=== PATIENT | female | born 1995 | race Caucasian/White ===

== ENCOUNTER 2020-08-19 21:00 | Emergency (ER) | payer OTHER, SELFPAY ==
--- NOTE | ~2020-08-19 | XR_ITS ---
XR chest 1V portable DATE: 08/20/2020 00:30 INDICATION: Shortness of breath for 2 weeks. Cold sweats. Nausea. TECHNIQUE: Portable AP chest on 08/30/2020 at 0025 hours COMPARISON: 04/17/2016 2 view chest FINDINGS: Normal heart size. No hilar or mediastinal enlargement. No pulmonary infiltrate or consolid ation, pleural effusion or pulmonary vascular congestion or pneumothorax. IMPRESSION: No active cardiopulmonary disease Reviewed, dictated and finalized at location A.
[2020-08-19 21:09] VITALS: BP 157/101; PULSE 67; RESP 20; TEMP 36; O2SAT 99
[2020-08-19 21:23] LABS: Basophils Absolute Auto 0.1 K/mm3 (0.0-0.1); Basophils Percent Auto 0.6 % (0.2-1.2); Eosinophils Absolute Auto 0.4 K/mm3 (0-0.3); Eosinophils Percent Auto 3.2 % (0-4.4); Hematocrit 45.5 % (37.0-47.0); Hemoglobin 15.6 g/dL (12.0-15.0); Immature Granulocyte Absolute 0.03 K/mm3 (0.00-0.031); Immature Granulocyte Percent A 0.2 % (0-0.5); Lymphocytes Absolute Auto 2.53 K/mm3 (0.9-3.2); Lymphocytes Percent Auto 20.1 % (18.3-44.2); Mean Corpuscular HGB Conc 34.3 g/dl (32-36); Mean Corpuscular Hemoglobin 28.3 pg (26-34); Mean Corpuscular Volume 82.4 fl (80-100); Mean Platelet Volume 11.4 fl (7.4-10.4); Monocytes Absolute Auto 0.6 K/mm3 (0.1-0.6); Monocytes Percent Auto 4.6 % (2.6-8.5); Neutrophils Percent Auto 71.3 % (45.5-73.1); Platelet Count Result 253 k/mm3 (150-375); Red Blood Count 5.52 M/mm3 (4.2-5.4); Red Cell Distribution Width 12.8 % (11.5-14.5); White Blood Count 12.6 K/mm3 (4.5-10.0)
[2020-08-19 21:36] LABS: Alanine Aminotransferase 24 U/L (4-35); Albumin Level 4.6 g/dL (3.5-5.1); Alkaline Phosphatase 90 U/L (38-126); Anion Gap 12 mmol/L (8-16); Aspartate Amino Transferase 27 U/L (14-36); Bilirubin,Total 0.8 mg/dL (0.2-1.3); Blood Urea Nitrogen 18 mg/dL (7-17); Calcium 9.6 mg/dL (8.4-10.2); Carbon Dioxide 26 mmol/L (22-30); Chloride 104 mmol/L (98-107); Estimated Glomerular Filt Rate > 60; Glucose 103 mg/dL (65-105); Lipase 70 U/L (23-300); Potassium 3.7 mmol/L (3.4-5.0); Sodium 142 mmol/L (137-145)
--- NOTE | 2020-08-20 00:02 | ED.HA ---
HPI - Headache General Chief Complaint: Headache Stated Complaint: Cough/N/V/Dizziness Time Seen by Provider: 08/19/20 23:55 History of Present Illness HPI Narrative: Intermittent headache for the past 6 days. Constant for the past 3 days. Radiates from the neck to the top of the head. Worse with coughing. Associated with nausea and vmting. Additionally she has had SOB and wheezin. She tried albuterol inhaler without relief. No fever. Related Data Home Medications Medication Instructions Recorded Confirmed fluoxetine 40 mg DAILY 12/03/19 12/03/19 Allergies Allergy/AdvReac Type Severity Reaction Status Date / Time codeine Allergy Unknown Hives / Verified 12/03/19 12:22 Red Face Review of Systems Review of Systems: All systems reviewed & are unremarkable except as noted in HPI and below Constitutional: Constitutional: Reports chills and Denies fever(s) ENT: Denies sore throat Cardiovascular: Cardiovascular: Denies chest pain Respiratory: Respiratory: Reports chest congestion, Reports cough and Reports wheezing Gastrointestinal: Gastrointestinal: Denies abdominal pain, Reports nausea and Reports vomiting Genitourinary: Genitourinary: Denies dysuria Musculoskeletal: Musculoskeletal: Denies back pain Neurologic: Reports dizziness, Reports headache(s) and Denies weakness FORMERLY [facility], [facility] Past Medical History Medical History (Updated 08/20/20 @ 03:20 by Yandel Connolly MD) Asthma Social History Social History Gender identity (if verbalized by the patient): Female Exam Const: General: no acute distress and alert Nutritional Appearance: obese Orientation/consciousness: patient oriented x3 HENMT: Head: normal to inspection Ears: TM's normal bilaterally Face and sinus: normal facial exam Eyes: Pupils: Equal, round and reactive pupils present EOM: EOMs intact bilaterally Resp: Effort & Inspection: normal respiratory effort Auscultation: clear to auscultation bilaterally Cardio: Rate: regular rate Rhythm: regular rhythm GI: GI Palp: Yes Soft to palpation and No Tenderness to palpation present (GI) Skin: General skin exam: normal color Neuro: General: patient oriented x3, moves all extremities, no focal motor deficits and CN's II-XI intact bilaterally Cranial nerves: Yes Nystagmus not present Speech: normal speech Extrem: General: normal to inspection Course Vital Signs Vital signs: Vital Signs Temperature 36.0 C L 08/19/20 21:09 Pulse Rate 67 08/19/20 21:09 Respiratory Rate 20 08/19/20 21:09 Blood Pressure 157/101 H 08/19/20 21:09 Pulse Oximetry 99 08/19/20 21:09 Temperature 36.0 C L 08/19/20 21:09 Pulse Rate 57 L 08/20/20 02:00 Respiratory Rate 18 08/20/20 02:00 Blood Pressure 142/78 H 08/20/20 02:00 Pulse Oximetry 100 08/20/20 02:00 MDM - Headache Differential Diagnosis Differential diagnosis: Likely migraine, tension headache and other (dehydration, viral illness) Medical Records Attestation: I reviewed the patient's medical records. Lab Data Attestation: I reviewed the patient's lab results. Result diagrams: 08/19/20 21:16 08/19/20 21:16 Labs: Lab Results 08/19/20 08/19/20 08/20/20 Range/Units 21:16 21:16 02:41 WBC 12.6 H (4.5-10.0) K/mm3 RBC 5.52 H (4.2-5.4) M/mm3 Hgb 15.6 H (12.0-15.0) g/dL Hct 45.5 (37.0-47.0) % MCV 82.4 (80-100) fl MCH 28.3 (26-34) pg MCHC 34.3 (32-36) g/dl RDW 12.8 (11.5-14.5) % Plt Count 253 (150-375) k/mm3 MPV 11.4 H (7.4-10.4) fl Immature Gran % (Auto) 0.2 (0-0.5) % Neut % (Auto) 71.3 (45.5-73.1) % Lymph % (Auto) 20.1 (18.3-44.2) % [place] % (Auto) 4.6 (2.6-8.5) % Eos % (Auto) 3.2 (0-4.4) % Baso % (Auto) 0.6 (0.2-1.2) % Lymph # (Auto) 2.53 (0.9-3.2) K/mm3 [place] # (Auto) 0.6 (0.1-0.6) K/mm3 Eos # (Auto) 0.4 H (0-0.3) K/mm3 Baso # (Auto) 0.1 (0.0-0.1) K/mm3 Abs Immat Gran (auto
[2020-08-20 00:19] VITALS: RESP 18
[2020-08-20] MEDS: ALBUTEROL SULFATE NEB 2.5 MG/0.5 ML INH 5 MG INHALATION (00:19)
[2020-08-20] MEDS: IPRATROPIUM BR 0.02% INH SOLN 0.5 MG/2.5 ML VIAL INHALATION (00:19)
[2020-08-20] MEDS: SODIUM CHLORIDE 0.9% IV 1,000 ML 999 ML IV CONT (00:52)
[2020-08-20] MEDS: KETOROLAC 30 MG/ML VIAL (*BKC) IV PUSH (00:54)
[2020-08-20] MEDS: diphenhydrAMINE HCl INJ 50 MG/ML VIAL 25 MG IV PUSH (00:54)
[2020-08-20] MEDS: METOCLOPRAMIDE HCL INJ 10 MG/2 ML VIAL IV PUSH (00:54)
[2020-08-20 02:00] VITALS: BP 142/78; PULSE 57; RESP 18; O2SAT 100
[2020-08-20] MEDS: methylPREDNISolone SOD SUCC 125 MG VIAL IV PUSH (02:32)
[2020-08-20 02:59] LABS: Add Urine Microscopic? YES; Appearance Urine Clear (Clear); Bilirubin Urine Negative (Negative); Blood Urine 1+ (Negative); Color Urine Yellow (Yellow); Glucose Urine UA Negative (Negative); Ketones Urine 2+ mg/dL (Negative); Leukocyte Esterase Ur Negative LEU/UL (Negative); Mucus Urine Heavy /lpf; Nitrate Urine Negative (Negative); Protein Urine 1+ mg/dL (Negative); Squamous Epithelial Cell Urine Many /hpf (Few); Urobilinogen Urine Negative mg/dL (<2.0); WBC Urine 0-3 /hpf
[2020-08-20 03:03] LABS: Specific Grav Ur 1.032 (1.001-1.035)
[2020-08-20 03:30] VITALS: BP 137/78; PULSE 86; RESP 16; O2SAT 95
== END 2020-08-20 03:30 | disposition home or self-care (01) ==
PROVIDERS: Emergency Medicine; Emergency Provider Emergency Medicine; PCP Family Medicine
DX: R51.9 Headache, unspecified (principal); J45.901 Unspecified asthma with (acute) exacerbation
CPT/HCPCS: 36415; 71045; 80053; 81001; 81025; 83690; 85025; 94640; 96365; 96375; 99284; J0131; J1200; J1885; J2765; J2930; J7030

== ENCOUNTER 2021-02-01 14:30 | Emergency (ER) | payer OTHER, SELFPAY ==
--- NOTE | ~2021-02-01 | XR_ITS ---
EXAMINATION: XR chest 2V EXAM DATE: 02/01/2021 16:48 INDICATION: Cough and wheezing. TECHNIQUE: Frontal and lateral projections of the chest obtained and reviewed. Comparison is made to prior examination from 08/20/2020. FINDINGS: The lungs are clear. There are no pleural effusions. The cardiomediastinal silhouette is within normal limits. There is no pneumothorax suspected. The bones and soft tissues are unremarkab le. IMPRESSION: No acute cardiopulmonary findings. Reviewed, dictated and finalized at location A.
[2021-02-01 14:49] VITALS: BP 147/100; PULSE 76; RESP 18; TEMP 35.7; O2SAT 96
[2021-02-01 15:12] VITALS: O2SAT 97
[2021-02-01 16:04] VITALS: PULSE 70; RESP 20
[2021-02-01] MEDS: IPRATROPIUM BR 0.02% INH SOLN 0.5 MG/2.5 ML VIAL INHALATION (16:04)
[2021-02-01] MEDS: ALBUTEROL SULFATE NEB 2.5 MG/0.5 ML INH 5 MG INHALATION (16:04)
[2021-02-01 16:11] VITALS: PULSE 74; RESP 20
[2021-02-01] MEDS: methylPREDNISolone SOD SUCC 125 MG VIAL IM (16:29)
[2021-02-01 18:07] VITALS: BP 148/89; PULSE 76; RESP 17; O2SAT 98
--- NOTE | 2021-02-01 20:48 | ED.GENADULT ---
HPI - General Adult General Chief complaint: Upper Respiratory Infection Stated complaint: can't breathe Time Seen by Provider: 02/01/21 15:15 Source: patient Mode of arrival: ambulatory Limitations: no limitations History of Present Illness HPI narrative: Patient presents with chief complaint of wheezing and feeling some tightness in her chest with breathing that began after being exposed to cats which she is allergic to. Patient states she has been diagnosed with bronchitis in the past so she has albuterol inhaler that she has been using as needed. Patient states she is also a smoker but has been decreasing her smoke usage since having the symptoms and it seems to irritate them. Patient denies fever, chills. She states that she occasionally coughs up some clear mucus. She denies pain with inspiration or chest pain. She denies any other symptoms. Related Data Home Medications Medication Instructions Recorded Confirmed fluoxetine 40 mg DAILY 12/03/19 12/03/19 albuterol sulfate [Ventolin HFA] INHALATION 02/01/21 Allergies Allergy/AdvReac Type Severity Reaction Status Date / Time codeine Allergy Unknown Hives / Verified 02/01/21 15:11 Red Face Review of Systems Review of Systems: Narrative: CONSTITUTIONAL: Denies fever, chills, or sweats. EYES: Denies visual changes, redness, or discharge. ENT: Denies rhinorrhea, congestion, sore throat, or otalgia. CARDIOVASCULAR: Denies chest pain, palpitations, or edema. RESPIRATORY: Reports cough breathing tightness. GASTROINTESTINAL: Denies abdominal pain, nausea, vomiting, or diarrhea. GENITOURINARY: Denies dysuria or hematuria. SKIN: Denies rash or itching. MUSCULOSKELETAL: Denies back pain, joint pain, or myalgia. NEUROLOGIC: Denies headache, numbness, dizziness, or weakness. PSYCHIATRIC: Denies anxiety or depression. PMFSH Past Medical History Medical History (Updated 02/01/21 @ 17:41 by Bruno Oconnor PA-C) Asthma Social History Social History Gender identity (if verbalized by the patient): Female Exam Narrative: Exam Narrative: GENERAL: Well-appearing, well-nourished, and in no acute distress. HEAD: Normocephalic, atraumatic. EYES: PERRLA and EOMI. NECK: Supple. No adenopathy or masses. CHEST: Clear to auscultation. No respiratory distress. Diffuse wheezing bilaterally. No tachypnea. Patient able to speak in clear appropriate sentences. Patient on 96% oxygen saturation on room air. HEART: Regular rate and rhythm. No murmur heard. Normal peripheral pulses. EXTREMITIES: Normal range of motion. No edema. SKIN: Warm, dry, no rash. NEURO: No focal deficits. Alert and oriented x3. PSYCH: Normal mood and affect. Course Vital Signs Vital signs: Vital Signs Temperature 96.2 F L 02/01/21 14:49 Pulse Rate 76 02/01/21 14:49 Respiratory Rate 18 02/01/21 14:49 Blood Pressure 147/100 H 02/01/21 14:49 Pulse Oximetry 96 02/01/21 14:49 Temperature 96.2 F L 02/01/21 14:49 Pulse Rate 76 02/01/21 18:07 Respiratory Rate 17 02/01/21 18:07 Blood Pressure 148/89 H 02/01/21 18:07 Pulse Oximetry 98 02/01/21 18:07 Medical Decision Making MDM Narrative Medical decision making narrative: Patient does not have any pain with inspiration. Patient tachycardic or tachypneic. Patient denies any other areas of pain. patient reports great improvement in her symptoms after DuoNeb and Solu-Medrol injection. Her wheezing has greatly improved and is just faint in some areas. Patient declines a second nebulizer treatment. Patient will be placed on oral steroid. She denies needing refill of albuterol inhaler. Patient given instructions to avoid irritants and smoking and to follow-up with her primary care for further investigation. Patient forgot that she may need pulmonary function testing if symptoms persist. Patient is ready to return to emergency department if she has any worsening of her symptoms, shortness of breath or any other emergent
== END 2021-02-01 18:08 | disposition home or self-care (01) ==
PROVIDERS: Emergency Provider Emergency Medicine; PCP Family Medicine
DX: J45.909 Unspecified asthma, uncomplicated (principal); F17.200 Nicotine dependence, unspecified, uncomplicated
CPT/HCPCS: 71046; 81025; 94640; 96372; 99283; J2930

== ENCOUNTER 2021-07-19 15:33 | Emergency (ER) | payer OTHER, SELFPAY ==
--- NOTE | 2021-07-19 15:35 | PC.NURSE ---
decided not to stay. encouraged to stay or come back if symptoms worsen. left prior to triage
== END 2021-07-20 04:41 | disposition left against medical advice (07) ==
DX: Z53.21 Procedure and treatment not carried out due to patient leaving prior to being seen by health care provider (principal)
CPT/HCPCS: 99199

== ENCOUNTER 2021-08-11 16:06 | Emergency (ER) | payer OTHER, SELFPAY ==
[2021-08-11 16:31] VITALS: BP 148/99; PULSE 108; RESP 18; TEMP 36.3; O2SAT 99
--- NOTE | 2021-08-11 16:44 | ED.NAVMDI ---
HPI - Nausea/Vomiting/Diarrhea General Chief complaint: Nausea/Vomiting/Diarrhea Stated complaint: vomiting, 15 weeks preg Time Seen by Provider: 08/11/21 16:14 Source: RN notes reviewed History of Present Illness HPI Narrative: Patient presents emergency department from home for nausea vomiting. Patient states she is approximately 15 weeks is followed by Dr. Anthony. States she has had ultrasound showing intrauterine . States she has had problems nausea vomiting throughout her and is currently on Zofran at home states has been unable to keep anything down for the past day states last Tylenol dose was yesterday she does note upper abdominal pain described as cramping she denies any fevers or chills chest pain shortness of breath vaginal bleeding or any other symptoms Related Data Home Medications Medication Instructions Recorded Confirmed fluoxetine 40 mg DAILY 12/03/19 12/03/19 albuterol sulfate [Ventolin HFA] INHALATION 02/01/21 Allergies Allergy/AdvReac Type Severity Reaction Status Date / Time codeine Allergy Unknown Hives / Verified 02/01/21 15:11 Red Face Review of Systems Review of Systems: Gen.: Denies fevers or chills ENT: Denies congestion Respiratory: Denies shortness of breath or cough CV: Denies chest pain or palpitations GI: See HPI : Reports Musculoskeletal: Denies back pain or muscle pain Neuro: Denies numbness, tingling, weakness or focal weakness Skin: Denies rash Except as documented, all other systems reviewed and negative FORMERLY [facility] Past Medical History Medical History Asthma Social History Social History (Updated 08/11/21 @ 16:45 by Michael Najera DO) Smoking status: Never smoker Gender identity (if verbalized by the patient): Female Exam Narrative: APPEARANCE: No acute distress, nontoxic, resting in bed EYES: EOMI HEENT: Normocephalic, atraumatic, OMM RESPIRATORY: No respiratory distress Clear to auscultation bilaterally with no rhonchi wheezing or rales. CARDIOVASCULAR: Regular rate and rhythm without murmurs rubs or gallops. ABDOMINAL: Gravid uterus palpated, tender palpation epigastric, right upper quadrant left lower quadrant returns right lower quadrant left lower quadrant no rebound or guarding MUSCULOSKELETAl: Moves all extremities. No clubbing, cyanosis or edema. NEURO: Awake and alert. Following commands, speech normal, no focal deficits SKIN:: Warm, dry. No rashes lesions or abrasions PSYCHIATRIC: Normal affect/mood, Course Course Emergency Course: Patient states he is feeling better at this time able to drink in ED with no emesis Discussed with Dr. Denise presentation work-up agrees plan for discharge to follow-up as an outpatient Discussed with patient results of workup and diagnosis. Discussed need for follow-up with primary care, proper use of medication, and reasons to return to the emergency department. Patient understands and agrees to current treatment plan Vital Signs Vital signs: Vital Signs Temperature 97.4 F L 08/11/21 16:31 Pulse Rate 108 H 08/11/21 16:31 Respiratory Rate 18 08/11/21 16:31 Blood Pressure 148/99 H 08/11/21 16:31 Pulse Oximetry 99 08/11/21 16:31 Temperature 97.4 F L 08/11/21 16:31 Pulse Rate 72 08/11/21 19:57 Respiratory Rate 18 08/11/21 19:57 Blood Pressure 143/69 H 08/11/21 19:57 Pulse Oximetry 99 08/11/21 19:57 MDM - Nausea/Vomiting/Diarrhea Lab Data Result diagrams: 08/11/21 17:03 08/11/21 17:03 Labs: Lab Results 08/11/21 08/11/21 08/11/21 Range/Units 17:03 17:03 19:19 WBC 13.1 H (4.5-10.0) K/mm3 RBC 5.01 (4.2-5.4) M/mm3 Hgb 14.6 (12.0-15.0) g/dL Hct 41.6 (37.0-47.0) % MCV 83.0 (80-100) fl MCH 29.1 (26-34) pg MCHC 35.1 (32-36) g/dl RDW 13.2 (11.5-14.5) % Plt Count 236 (150-375) k/mm3 MPV 11.7 H (7.4-10.4) fl I
[2021-08-11] MEDS: SODIUM CHLORIDE 0.9% IV 1,000 ML 999 ML IV CONT ×2 (17:01→19:15)
[2021-08-11] MEDS: PROMETHAZINE HCL 25 MG/ML AMPUL 12.5 MG IV PUSH (17:01)
[2021-08-11 17:09] LABS: Basophils Absolute Auto 0.1 K/mm3 (0.0-0.1); Basophils Percent Auto 0.4 % (0.2-1.2); Eosinophils Absolute Auto 0.1 K/mm3 (0-0.3); Eosinophils Percent Auto 0.5 % (0-4.4); Hematocrit 41.6 % (37.0-47.0); Hemoglobin 14.6 g/dL (12.0-15.0); Immature Granulocyte Absolute 0.06 K/mm3 (0.00-0.031); Immature Granulocyte Percent A 0.5 % (0-0.5); Lymphocytes Absolute Auto 1.52 K/mm3 (0.9-3.2); Lymphocytes Percent Auto 11.6 % (18.3-44.2); Mean Corpuscular HGB Conc 35.1 g/dl (32-36); Mean Corpuscular Hemoglobin 29.1 pg (26-34); Mean Platelet Volume 11.7 fl (7.4-10.4); Monocytes Absolute Auto 0.4 K/mm3 (0.1-0.6); Monocytes Percent Auto 3.3 % (2.6-8.5); Neutrophils Absolute Auto 10.9 K/mm3 (1.3-6.7); Neutrophils Percent Auto 83.7 % (45.5-73.1); Platelet Count Result 236 k/mm3 (150-375); Red Blood Count 5.01 M/mm3 (4.2-5.4); Red Cell Distribution Width 13.2 % (11.5-14.5); White Blood Count 13.1 K/mm3 (4.5-10.0)
[2021-08-11 17:19] LABS: Alanine Aminotransferase 11 U/L (4-35); Albumin Level 4.4 g/dL (3.5-5.1); Alkaline Phosphatase 67 U/L (38-126); Anion Gap 15 mmol/L (8-16); Aspartate Amino Transferase 19 U/L (14-36); Blood Urea Nitrogen 7 mg/dL (7-17); Calcium 9.7 mg/dL (8.4-10.2); Carbon Dioxide 18 mmol/L (22-30); Chloride 106 mmol/L (98-107); Estimated CRCL calculation 155 ml/min; Estimated Glomerular Filt Rate > 60; Glucose 98 mg/dL (65-110); Lipase 52 U/L (23-300); Potassium 3.4 mmol/L (3.4-5.0); Sodium 139 mmol/L (137-145)
[2021-08-11 17:49] VITALS: BP 131/71; PULSE 76; RESP 16; O2SAT 98
[2021-08-11] MEDS: ONDANSETRON INJ 4 MG/2 ML VIAL IV PUSH (19:16)
[2021-08-11 19:45] LABS: Add Urine Microscopic? YES; Appearance Urine Clear (Clear); Bilirubin Urine Negative (Negative); Blood Urine Negative (Negative); Color Urine Yellow (Yellow); Glucose Urine UA Negative (Negative); Ketones Urine 2+ mg/dL (Negative); Leukocyte Esterase Ur Negative LEU/UL (Negative); Mucus Urine Moderate /lpf; Nitrate Urine Negative (Negative); Protein Urine 2+ mg/dL (Negative); Squamous Epithelial Cell Urine Moderate /hpf (Few); Urobilinogen Urine Negative mg/dL (<2.0); WBC Urine 0-3 /hpf
[2021-08-11 19:47] LABS: Specific Grav Ur 1.036 (1.001-1.035)
[2021-08-11 19:57] VITALS: BP 143/69; PULSE 72; RESP 18; O2SAT 99
[2021-08-11 20:30] VITALS: BP 148/78; PULSE 74; RESP 18; O2SAT 100
== END 2021-08-11 20:35 | disposition home or self-care (01) ==
PROVIDERS: Emergency Provider Emergency Medicine
DX: O21.0 Mild hyperemesis gravidarum (principal); O99.512 Diseases of the respiratory system complicating pregnancy, second trimester; J45.909 Unspecified asthma, uncomplicated; Z3A.15 15 weeks gestation of pregnancy
CPT/HCPCS: 36415; 80053; 81001; 83690; 85025; 96361; 96374; 96375; 99284; J0131; J2405; J2550; J7030

== ENCOUNTER 2021-08-12 09:55 | Observation (INO) | payer OTHER, SELFPAY ==
[2021-08-12] VITALS (10 sets, daily range): BP systolic 120–155; BP diastolic 62–104; PULSE 57–81
--- NOTE | 2021-08-12 10:35 | PC.NURSE ---
Patient states she has been vomiting for 3-4 days. Seen in ER for same yesterday. Pt states she has been using Protonix and Zofran with minimal relief. States she also has severe heartburn. States she has had diarrhea intermittent and that diarrhea looks like bile as does emesis.
[2021-08-12] MEDS: PANTOPRAZOLE SODIUM IV 40 MG VIAL IV PUSH (11:58)
[2021-08-12] MEDS: DEXTROSE 5%/LACTATED RINGERS 1,000 ML 999 ML (11:58)
[2021-08-12] MEDS: PROMETHAZINE HCL 25 MG/ML AMPUL 12.5 MG IV PUSH (12:09)
--- NOTE | 2021-08-12 13:25 | OBADM ---
This patient, Kiley Nelson, admitted to the OB room OB Post 113 for observation. Patient/family oriented to hospital policies and general routines including ID bracelet, bed and alarms, visiting hours, pain management, procedures, bathroom and other care routines, personal items, smoking policy, room service/diet, and visiting hours. Patient/Family are encouraged to report perceived risks to care and to ask questions if they do not understand what they are told or what they should do.
--- NOTE | 2021-08-12 15:00 | PC.NURSE ---
Pt sitting up and talking of phone for most of past 2-3 hours. Face timing with and kids and talking with friends and family. Pt has has occasional vomiting of clear fluid approx 200 cc total. Pt appears comfortable and is talkative. Pt states still feels like she needs IV fluid. Pt given Zofran and New bag of fluid ordered.
[2021-08-12] MEDS: ONDANSETRON INJ 4 MG/2 ML VIAL IV PUSH (15:48)
[2021-08-12] MEDS: DEXTROSE 5%/LACTATED RINGERS 500 ML 999 ML IV CONT (16:16)
[2021-08-12] MEDS: DEXTROSE 5%/LACTATED RINGERS 1,000 ML 150 ML IV CONT (16:17)
--- NOTE | 2021-08-12 16:45 | PC.NURSE ---
Pt states she would like to order a tray. No further vomiting. Pt appears comfortable.
--- NOTE | 2021-08-12 17:53 | PC.NURSE ---
Pt eating dinner without difficulty. Pt states she is feeling much better and no further vomiting.
--- NOTE | 2021-08-17 17:47 | P.PNOB_ITS ---
OB - Triage/Final Diagnosis Visit Information Date of evaluation: 08/17/21 Reason for evaluation: threatened labor Comments/Additional reasons for admission: I have assessed the risk for this patient, Kiley Nelson, and determined that she would benefit from ob servation care.
== END 2021-08-12 17:45 | disposition home or self-care (01) ==
PROVIDERS: Admitting Provider Obstetrics & Gynecology; Visit Provider Obstetrics & Gynecology
DX: O47.03 False labor before 37 completed weeks of gestation, third trimester (principal); Z3A.15 15 weeks gestation of pregnancy
CPT/HCPCS: 96361; 96374; 96375; C9113; G0378; G0379; J2405; J2550; J7121

== ENCOUNTER → 2021-11-09 02:15 | Outpatient (CLI) | payer OTHER, SELFPAY ==
[2021-11-09 21:06] LABS: SARS-CoV-2 RNA PCR Positive
== END ==
PROVIDERS: Visit Provider Obstetrics & Gynecology
DX: U07.1 COVID-19 (principal)
CPT/HCPCS: C9803; U0003; U0005

== ENCOUNTER 2022-01-25 05:41 | Inpatient (IN) | payer OTHER, SELFPAY ==
[2022-01-25] VITALS (93 sets, daily range): BP systolic 73–170; BP diastolic 52–156; PULSE 58–133; RESP 18; TEMP 36.3–37; O2SAT 90–100; BMI 49.1
--- NOTE | 2022-01-25 06:30 | LDADM ---
This patient, Kiley Nelson, was admitted to Labor/Delivery/Recovery 104 on 01/25/22 at 05:41. Plans for labor, pain management and were discussed with patient. Patient/family oriented to hospital policies and general routines including ID bracelet, bed and alarms, visiting hours, pain management, procedures, bathroom and other care routines, personal items, smoking policy, room service/diet and guest tray routines, security routines, and visiting hours. Patient/Family are encouraged to report perceived risks to care and to ask questions if they do not understand what they are told or what they should do. See OBIX for further documentation.
[2022-01-25] MEDS: LACTATED RINGERS 1,000 ML 125 ML IV CONT ×3 (07:05→15:41)
[2022-01-25] MEDS: OXYTOCIN 30 UNITS/NS 500 ML 30 UNITS/500 ML BAG IV CONT (07:06)
[2022-01-25 07:17] LABS: Basophils Absolute Auto 0.1 K/mm3 (0.0-0.1); Basophils Percent Auto 0.6 % (0.2-1.2); Eosinophils Absolute Auto 0.5 K/mm3 (0-0.3); Eosinophils Percent Auto 3.7 % (0-4.4); Hematocrit 36.6 % (37.0-47.0); Hemoglobin 12.1 g/dL (12.0-15.0); Immature Granulocyte Absolute 0.09 K/mm3 (0.00-0.031); Immature Granulocyte Percent A 0.7 % (0-0.5); Lymphocytes Absolute Auto 1.69 K/mm3 (0.9-3.2); Lymphocytes Percent Auto 13.8 % (18.3-44.2); Mean Corpuscular HGB Conc 33.1 g/dl (32-36); Mean Corpuscular Hemoglobin 27.3 pg (26-34); Mean Corpuscular Volume 82.6 fl (80-100); Monocytes Absolute Auto 0.6 K/mm3 (0.1-0.6); Monocytes Percent Auto 4.8 % (2.6-8.5); Neutrophils Absolute Auto 9.3 K/mm3 (1.3-6.7); Neutrophils Percent Auto 76.4 % (45.5-73.1); Platelet Count Result 205 k/mm3 (150-375); Red Blood Count 4.43 M/mm3 (4.2-5.4); Red Cell Distribution Width 13.9 % (11.5-14.5); White Blood Count 12.2 K/mm3 (4.5-10.0)
--- NOTE | 2022-01-25 07:23 | WPDOBADMIT ---
Obstetrics - Admit Note Admission Note: record reviewed. No pertinent additions to the history and/or any subsequent changes in the physical findings that are not consistent with the expected course of the were found. IOL, SVE /-2 attempted AROM anticipate vaginal delivery Additions to the history and/or subsequent changes in the physical findings follow. None.
[2022-01-25] MEDS: ONDANSETRON INJ 4 MG/2 ML VIAL IV PUSH ×2 (07:30→13:49)
[2022-01-25 09:07] LABS: Rapid Plasma Reagin Non-Reactive (NonReactive)
[2022-01-25 09:26] LABS: Barbiturate Screen Urine Negative (Negative); Benzodiazepines Screen Urine Negative (Negative)
[2022-01-25 09:39] LABS: Amphetamine Screen Urine Negative (Negative); Cannabinoid Screen Urine Positive (Negative); Cocaine Screen Urine Negative (Negative); Methadone Screen Urine Negative (Negative); Opiate Screen Urine Negative (Negative); Phencyclidine Screen Urine Negative (Negative)
--- NOTE | 2022-01-25 09:58 | WPDANESEPP ---
Anes - Eval Pre Procedure Procedure: Labor Pain Management Date/Time: 01/25/22 09:58 Surgeon: Howie Preop Diagnosis: Pain during labor Pre Op Diagnosis: IOL Patient Data Age: 27 Gender: F Height: 1.63 m Weight: 130 kg Last Vital Signs Temp 98.1 F 01/25/22 09:00 Pulse 75 01/25/22 09:30 BP 129/84 01/25/22 09:30 Allergies Allergy/AdvReac Type Severity Reaction Status Date / Time codeine Allergy Unknown Hives / Verified 02/01/21 15:11 Red Face Home Medications Medication Instructions Recorded Confirmed Type sertraline 150 mg PO DAILY 01/25/22 01/25/22 History Laboratory Tests 01/25/22 01/25/22 01/25/22 06:56 06:56 06:56 WBC 12.2 K/mm3 H K/mm3 (4.5-10.0) RBC 4.43 M/mm3 M/mm3 (4.2-5.4) Hgb 12.1 g/dL g/dL (12.0-15.0) Hct 36.6 % L % (37.0-47.0) MCV 82.6 fl fl (80-100) MCH 27.3 pg pg (26-34) MCHC 33.1 g/dl g/dl (32-36) RDW 13.9 % % (11.5-14.5) Plt Count 205 k/mm3 k/mm3 (150-375) MPV 12.0 fl H fl (7.4-10.4) Immature Gran % (Auto) 0.7 % H % (0-0.5) Neut % (Auto) 76.4 % H % (45.5-73.1) Lymph % (Auto) 13.8 % L % (18.3-44.2) [place] % (Auto) 4.8 % % (2.6-8.5) Eos % (Auto) 3.7 % % (0-4.4) Baso % (Auto) 0.6 % % (0.2-1.2) Lymph # (Auto) 1.69 K/mm3 K/mm3 (0.9-3.2) [place] # (Auto) 0.6 K/mm3 K/mm3 (0.1-0.6) Eos # (Auto) 0.5 K/mm3 H K/mm3 (0-0.3) Baso # (Auto) 0.1 K/mm3 K/mm3 (0.0-0.1) Abs Immat Gran (auto) 0.09 K/mm3 H K/mm3 (0.00-0.031) Absolute Neuts (auto) 9.3 K/mm3 H K/mm3 (1.3-6.7) Absolute Nucleated RBC 0.0 K/mm3 K/mm3 (0.0-0.012) Nucleated RBC % 0.0 % % (0.0-0.2) Urine Opiates Screen Urine Methadone Screen Ur Barbiturates Screen Ur Phencyclidine Scrn Ur Amphetamine Screen U Benzodiazepines Scrn Urine Cocaine Screen U Cannabinoids Screen RPR Non-reactive (NonReactive) Blood Type A Positive Antibody Screen Negative 01/25/22 06:56 WBC RBC Hgb Hct MCV MCH MCHC RDW Plt Count MPV Immature Gran % (Auto) Neut % (Auto) Lymph % (Auto) [place] % (Auto) Eos % (Auto) Baso % (Auto) Lymph # (Auto) [place] # (Auto) Eos # (Auto) Baso # (Auto) Abs Immat Gran (auto) Absolute Neuts (auto) Absolute Nucleated RBC Nucleated RBC % Urine Opiates Screen Negative (Negative) Urine Methadone Screen Negative (Negative) Ur Barbiturates Screen Negative (Negative) Ur Phencyclidine Scrn Negative (Negative) Ur Amphetamine Screen Negative (Negative) U Benzodiazepines Scrn Negative (Negative) Urine Cocaine Screen Negative (Negative) U Cannabinoids Screen Positive A (Negative) RPR Blood Type Antibody Screen : gestational age (edc 02/01/22) Patient hx anesthesia problems: none Family hx anesthesia problems: none Prior surgeries: right hand fracture repair Results Review: All pre-operative results and documents have been reviewed as part of the pre-operative evaluation. [facility] Past Medical History Medical History (Updated 01/25/22 @ 10:03 by Kimberli Currie CRNA) Anxiety Asthma Depression Hand fracture, left Morbid obesity Pain during labor Social History Social History Smoking status: Never smoker Substance use: current Substance use type: marijuana Other substance usage details: positive for marijuana on admission Gender identity (if verbalized by the patient): Female Spiritual care concern
--- NOTE | 2022-01-25 12:11 | P.PNOB_ITS ---
OB - PN: Subj Subjective Date/time seen: 01/25/22 12:11 SVE 2/60/-2 AROM moderate amount of clear, odorless fluid, anticipate vaginal delivery OB - PN: Obj Data Labs CBC & Chem 7: 01/25/22 06:56 Labs: Laboratory Results - last 24 hr 01/25/22 01/25/22 01/25/22 06:56 06:56 06:56 WBC 12.2 H RBC 4.43 Hgb 12.1 Hct 36.6 L MCV 82.6 MCH 27.3 MCHC 33.1 RDW 13.9 Plt Count 205 MPV 12.0 H Immature Gran % (Auto) 0.7 H Neut % (Auto) 76.4 H Lymph % (Auto) 13.8 L [place] % (Auto) 4.8 Eos % (Auto) 3.7 Baso % (Auto) 0.6 Lymph # (Auto) 1.69 [place] # (Auto) 0.6 Eos # (Auto) 0.5 H Baso # (Auto) 0.1 Abs Immat Gran (auto) 0.09 H Absolute Neuts (auto) 9.3 H Absolute Nucleated RBC 0.0 Nucleated RBC % 0.0 Urine Opiates Screen Urine Methadone Screen Ur Barbiturates Screen Ur Phencyclidine Scrn Ur Amphetamine Screen U Benzodiazepines Scrn Urine Cocaine Screen U Cannabinoids Screen RPR Non-reactive Blood Type A Positive Antibody Screen Negative 01/25/22 06:56 WBC RBC Hgb Hct MCV MCH MCHC RDW Plt Count MPV Immature Gran % (Auto) Neut % (Auto) Lymph % (Auto) [place] % (Auto) Eos % (Auto) Baso % (Auto) Lymph # (Auto) [place] # (Auto) Eos # (Auto) Baso # (Auto) Abs Immat Gran (auto) Absolute Neuts (auto) Absolute Nucleated RBC Nucleated RBC % Urine Opiates Screen Negative Urine Methadone Screen Negative Ur Barbiturates Screen Negative Ur Phencyclidine Scrn Negative Ur Amphetamine Screen Negative U Benzodiazepines Scrn Negative Urine Cocaine Screen Negative U Cannabinoids Screen Positive A RPR Blood Type Antibody Screen OB - PN A/P Time Spent With Patient Time: Total time spent is greater than 50% in coordination of care (as documented) at patient's floor/unit and/or counseling patient:
[2022-01-25] MEDS: fentaNYL CITRATE INJ (*CRX) 100 MCG/2 ML VIAL 50 MCG IV PUSH (16:50)
[2022-01-25] MEDS: FAMOTIDINE 20 MG/2 ML VIAL IV PUSH (17:14)
--- NOTE | 2022-01-25 18:24 | PM.OBPRVD ---
OB - Delivery Note Procedure Delivery date: 01/25/22 Procedure: vaginal delivery Induction method: AROM and Per Pitocin Protocol Delivery monitor: External FHT, External Uterine and Internal Uterine Route of delivery: Laceration Description: None Specimen: Yes Quantitative Blood Loss (ml): 90 Anesthesia type: Epidural Disposition: Floor Baby Date of : 01/25/22 Time of : 18:10 Weeks of gestation at delivery: 39 gender: Female Weight (pounds): 6 Weight (ounces): 12 presentation: vertex position: Left Occiput Anterior Cord Vessel Description: 3 Vessels score one minute: 8 score five minutes: 9 Narrative: placenta meconium stained, send to pathology, Mother and baby skin to skin in stable condition
[2022-01-25] MEDS: OXYTOCIN 30 UNITS/NS 500 ML 30 UNITS/500 ML BAG 125 UNITS IV CONT (18:44)
[2022-01-26] MEDS: SIMETHICONE 80 MG TAB.CHEW PO ×2 (01:15→04:16)
[2022-01-26 04:00] VITALS: BP 134/74; PULSE 72; RESP 18; TEMP 36.6; O2SAT 100
[2022-01-26 05:55] LABS: Hematocrit 35.6 % (37.0-47.0); Hemoglobin 12.1 g/dL (12.0-15.0)
[2022-01-26 08:30] VITALS: BP 133/77; PULSE 65; RESP 16; TEMP 36.3; O2SAT 99
[2022-01-26] MEDS: SERTRALINE HCL 50 MG TABLET 150 MG PO (09:18)
--- NOTE | 2022-01-26 10:36 | WPDANLDPN2 ---
Anes-Prog Note L&D Date/Time: 01/26/22 10:36 Comfortable throughout: labor and delivery Neuraxial method: epidural Epidural/Spinal procedure site: clean & non-tender Neuro status: Neuro function grossly intact. Cardiovascular status: normal Respiratory status: normal Airway patency: baseline Mental status: baseline Post-Op hydration status: normal Vital Signs: Last Vital Signs Temp 36.3 C L 01/26/22 08:30 Pulse 65 01/26/22 08:30 Resp 16 01/26/22 08:30 BP 133/77 01/26/22 08:30 Pulse Ox 99 01/26/22 08:30 Pain score (VAS): 3 Post-procedural complaints: none Patient feedback: Patient satisfied with anesthetic care.
[2022-01-26] MEDS: ONDANSETRON INJ 4 MG/2 ML VIAL IV PUSH (11:21)
[2022-01-26 12:39] VITALS: BP 143/92; PULSE 79; RESP 18; TEMP 36.3; O2SAT 99
--- NOTE | 2022-01-26 14:31 | PCCCNOTE ---
Care Coordination met with pt. and FOB this afternoon to discuss discharge planning. Pt.'s current D/C plan is to return home with her grandmother and two young children ages 4 and 5. Pt. is independent with ADLs and ambulation. Pt. has no medical equipment at home. She has everything needed to safely bring baby home. Pt. confirms they have a car seat at time of D/C. Pt. will bottle feed baby at time of D/C and has been provided information regarding WIC. Pt. states she has no prior DCFS history and has a library historian set up to follow baby. Pt. tested positive for Marijuana at time of admission. Baby has not yet been tested. Pt. states understanding that if baby tests positive for THC then the drug use will be disclosed to [place] DCFS. CC will follow.
[2022-01-26 16:02] VITALS: BP 133/87; PULSE 72; RESP 18; TEMP 36.3
--- NOTE | 2022-01-27 07:41 | PM.OBDSVD ---
DS: Admitting Diagnosis Discharge Date 01/26/22 Admitting Diagnosis IOL OB - DS: Summary OB Procedures : None OB Procedures Intrapartum: Spontaneous Vag Delivery OB Procedures: : None Time Spent with Patient Time attestation: Total time spent providing and/or coordinating discharge services: DS: Data Data Completed and Pending Pending studies at discharge: Pending at discharge 01/25/22 18:14 Surgical [PTH] Routine Discharge Plan Discharge Discharging Clinician: Daniel Denise Patient Disposition: Home, Self-Care Activity: may shower and pelvic rest Diet: regular Discharge Instructions: Education: Mom and Baby Guide Given to: Mother Follow-Up: Call your delivering provider's office for an appointment to be seen in: 6 Weeks Mom and baby should come to the [facility] for the follow-up appointment. Appointment Date/Time: January 27, 2022 at 8:00 am What to expect at your follow-up visit: Blood Pressure Check Physical Assessment Call [phone] if you are unable to keep your appointment time. BREAST CARE: * Wear a snug supportive bra. * For engorgement discomfort: Bottle Feeding: * May apply ice packs EPISIOTOMY/PERINEAL CARE: * Until bleeding stops, use your jamari bottle after urinating * Change your pad frequently throughout the day * You may take sitz baths several times a day (fill your bathtub with warm water and soak for 20 minutes.) Do NOT bathe in the water * No tub baths until seen by your physician - You may shower ACTIVITY: * Rest as much as possible. * Do not exercise or lift anything heavier than your baby (such as laundry or other children.) * Avoid stairs or driving as much as possible. * Do not put anything into the vagina. No douching, tampons, or sexual activity until seen by physician. NOTIFY PHYSICIAN IF YOU HAVE ANY QUESTIONS OR IF ANY OF THE FOLLOWING SYMPTOMS OCCUR: * If your vaginal bleeding becomes foul smelling. * If your vaginal bleeding becomes more heavy than a period or if your bleeding changes from pink to bright red. However, you may pass an occasional walnut-sized clot once or twice for the first week . * If you experience a sharp, shooting pain in you calves. * If you discover a hard, reddened area on your breast or if you experience flu-like symptoms. DIET: * Eat regular, well-balanced meals. * Drink plenty of fluids daily. If , drink to thirst. Patient Instructions: Antibiotic Form Stand Alone Forms: General Discharge Information Follow-up/Referrals: Daniel Denise MD [Physician] - Discharge Medications: New acetaminophen [Mapap (acetaminophen)] 325 mg Tablet 650 mg PO Q6H PRN (Reason: Mild Pain (1-3) Or Headache) RF: 0 Dermoplast (with menthol) 20-0.5 % Aerosol 1 spray topical PRN PRN (Reason: Perineal Discomfort) RF: 0 dibucaine 1 % Ointment 1 applic topical PRN PRN (Reason: Hemorrhoids) RF: 0 docusate sodium 100 mg Capsule 100 mg PO BID PRN (Reason: Constipation) RF: 0 ibuprofen 600 mg Tablet 600 mg PO Q6H PRN (Reason: Cramping) RF: 0 sertraline [Zoloft] 50 mg Tablet 150 mg PO DAILY RF: 0 loratadine 10 mg Tablet 10 mg PO ONCE PRN (Reason: Itching) RF: 0 Preparation H (Kunal Foss) 50 % Pads, Medicated 1 pad topical PRN PRN (Reason: Perineal Discomfort) RF: 0 Continued sertraline 150 mg Capsule 150 mg PO DAILY RF: 0 Date of admission: 01/25/22 05:41 Primary Care Provider: PHYSICIAN NOT ON STAFF,NONSTAFF Admitting Provider: Daniel Denise Attending physician on admission: Daniel Denise Condition: Stable
[2022-01-27 08:13] VITALS: BP 126/75; PULSE 57; RESP 20; TEMP 37.1; O2SAT 99
== END 2022-01-26 19:53 | disposition home or self-care (01) | DRG 560 ==
LOC: ANHLDR 05:46 → ANHOB2 20:50
PROVIDERS: Advanced Practice Midwife; Admitting Provider Obstetrics & Gynecology; Visit Provider Obstetrics & Gynecology
DX: O77.0 Labor and delivery complicated by meconium in amniotic fluid (principal); Z37.0 Single live birth; Z3A.39 39 weeks gestation of pregnancy
CPT/HCPCS: 36415; 80307; 85014; 85018; 85025; 86592; 86850; 86900; 86901; 88307; A9270; J2405; J2590; J2795; J3010; J7120

== ENCOUNTER 2023-02-09 18:55 | Emergency (ER) | payer OTHER, SELFPAY ==
[2023-02-09 19:03] VITALS: BP 137/90; PULSE 109; RESP 20; TEMP 37.1; O2SAT 98
--- NOTE | 2023-02-09 19:20 | ED.URI ---
HPI - URI/Sore Throat General Chief Complaint: Upper Respiratory Infection Stated Complaint: sore throat Time Seen by Provider: 02/09/23 19:20 Source: patient, RN notes reviewed and old records reviewed Mode of arrival: ambulatory Limitations: no limitations History of Present Illness HPI Narrative: 28-year-old female presents to the [facility] with complaints of a sore throat and bilateral ear pain for 2 days. Had tried kygs-hnn-hvyavzx products yesterday. States she does have a history of asthma and it has been using her nebulizer. Reports that her children were sick last week and she was told they had virus. States they are better but she still wanted to make sure she did not have strep throat Onset (ago): day(s) (2) Related Data Home Medications Medication Instructions Recorded Confirmed budesonide 160 mcg-glycopyr 9 2 inh inhalation BID 02/09/23 02/09/23 mcg-formot 4.8 mcg/actuation HFA inhaler (Breztri [employer]) Allergies Allergy/AdvReac Type Severity Reaction Status Date / Time codeine Allergy Unknown Hives / Verified 02/09/23 19:00 Red Face montelukast [From Singulair] Allergy Hives Verified 02/09/23 19:13 Review of Systems Review of Systems: All systems reviewed & are unremarkable except as noted in HPI and below Constitutional: Constitutional: Reports no additional constitutional complaints Eyes: Eyes: Reports no additional eye complaints ENT: Reports as per HPI, Reports otalgia and Reports sore throat Cardiovascular: Cardiovascular: Reports no additional cardiovascular complaints, Denies chest pain and Denies dyspnea Respiratory: Respiratory: Reports no additional respiratory complaints, Denies chest congestion, Denies cough and Denies dyspnea Gastrointestinal: Gastrointestinal: Reports no additional gastrointestinal complaints, Denies abdominal pain, Denies nausea and Denies vomiting Musculoskeletal: Musculoskeletal: Reports no additional musculoskeletal complaints Integumentary/Breasts: Skin/Breast: Reports system reviewed and no additional complaints, except as docu Neurologic: Reports system reviewed and no additional complaints, except as documented Psychiatric: Psychiatric: Reports no additional psychiatric complaints Allergic/Immunologic: Allergic/Immunologic: Reports no additional allergic/immunologic complaints PMFSH Past Medical History Medical History Anxiety Asthma Depression Hand fracture, left Morbid obesity Pain during labor Social History Social History Smoking status: Never smoker Substance use: current Substance use type: marijuana Other substance usage details: positive for marijuana on admission Gender identity (if verbalized by the patient): Female Spiritual care concerns: No Comments At the time of my signature, I reviewed and agree with the nursing past medical, surgical, social, and family history. There is no relevant family history pertinent to the patient complaint. Exam Const: General: cooperative, healthy appearing, comfortable, no acute distress, well developed, alert and well nourished Nutritional Appearance: well nourished and obese morbidly obese Orientation/consciousness: patient oriented x3 Limitations: no limitations HENMT: Head: normal to inspection Ears: hearing grossly normal bilaterally, external ears normal, EAC's normal, mastoids normal, no periauricular adenopathy and TM abnormal with fluid behind the TM bilateral; not bulging and not erythematous Face/Nose/Sinus: Normal external nose present, Normal nares present, Normal nasal mucous membranes and turbinates present and normal facial exam Face and sinus: normal facial exam Mouth: Yes Normal oral and palatal mucosa present, Yes lip normal and Yes moist mucous membranes Throat: posterior oropharynx normal and uvula midline Eyes: General: appeara
== END 2023-02-09 19:31 | disposition home or self-care (01) ==
PROVIDERS: Emergency Provider Nurse Practitioner; PCP Family Medicine
DX: J06.9 Acute upper respiratory infection, unspecified (principal); J02.9 Acute pharyngitis, unspecified; J45.909 Unspecified asthma, uncomplicated; E66.01 Morbid (severe) obesity due to excess calories; Z68.43 Body mass index [BMI] 50.0-59.9, adult; F12.90 Cannabis use, unspecified, uncomplicated
CPT/HCPCS: 87081; 87880; 99213; G0463

== ENCOUNTER 2023-12-29 21:14 | Emergency (ER) | payer OTHER, SELFPAY ==
--- NOTE | 2023-12-29 21:20 | ECG_ITS ---
Measurements Intervals [place] Rate: 73 P: 36 RI: 133 QRS: 47 QRSD: 81 T: 56 QT: 358 QTc: 397 Interpretive Statements SINUS RHYTHM WITH SINUS ARRHYTHMIA LOW QRS VOLTAGE IN PRECORDIAL LEADS [QRS DEFLECTION < 1.0 mV IN CHEST LEADS] OTHERWISE NORMAL ELECTROCARDIOGRAM NO PREVIOUS ECG AVAILABLE FOR COMPARISON Electronically Signed On 12-30-2023 8:06:07 ASSOCIATE TRAINER by Ulises Cortes M.D.
[2023-12-29 21:23] VITALS: BP 141/99; PULSE 75; RESP 20; TEMP 36.6; O2SAT 98
[2023-12-29 21:44] VITALS: BP 152/77; PULSE 76; RESP 14; O2SAT 96
[2023-12-29 21:50] VITALS: BP 152/77; PULSE 69; RESP 19; O2SAT 97
[2023-12-29 22:02] VITALS: BP 124/74; PULSE 83; RESP 27
[2023-12-29 22:05] LABS: Basophils Absolute Auto 0.1 K/mm3 (0.0-0.1); Basophils Percent Auto 0.5 % (0.2-1.2); Eosinophils Absolute Auto 0.2 K/mm3 (0-0.3); Eosinophils Percent Auto 1.7 % (0-4.4); Hematocrit 39.6 % (37.0-47.0); Hemoglobin 12.8 g/dL (12.0-15.0); Immature Granulocyte Absolute 0.05 K/mm3 (0.00-0.031); Immature Granulocyte Percent A 0.5 % (0-0.5); Lymphocytes Absolute Auto 2.54 K/mm3 (0.9-3.2); Mean Corpuscular HGB Conc 32.3 g/dl (32-36); Mean Corpuscular Hemoglobin 27.3 pg (26-34); Mean Corpuscular Volume 84.4 fl (80-100); Mean Platelet Volume 11.2 fl (7.4-10.4); Monocytes Absolute Auto 0.5 K/mm3 (0.1-0.6); Monocytes Percent Auto 5.5 % (2.6-8.5); Neutrophils Absolute Auto 6.1 K/mm3 (1.3-6.7); Neutrophils Percent Auto 64.8 % (45.5-73.1); Platelet Count Result 252 k/mm3 (150-375); Red Blood Count 4.69 M/mm3 (4.2-5.4); Red Cell Distribution Width 14.2 % (11.5-14.5); White Blood Count 9.4 K/mm3 (4.5-10.0)
[2023-12-29 22:18] LABS: Alanine Aminotransferase 23 U/L (6-35); Albumin Level 4.1 g/dL (3.5-5.1); Alkaline Phosphatase 61 U/L (38-126); Anion Gap 7 mmol/L (8-16); Aspartate Amino Transferase 25 U/L (14-36); Bilirubin,Total 0.5 mg/dL (0.2-1.3); Blood Urea Nitrogen 18 mg/dL (7-17); Calcium 9.3 mg/dL (8.4-10.2); Carbon Dioxide 25 mmol/L (22-30); Chloride 108 mmol/L (98-107); Estimated CRCL calculation 111 ml/min; Estimated Glomerular Filt Rate > 60; Glucose 113 mg/dL (65-110); Potassium 3.6 mmol/L (3.4-5.0); Sodium 140 mmol/L (137-145)
--- NOTE | 2023-12-29 22:33 | ED.ALLEREA ---
HPI - Allergic Reaction General Chief complaint: Allergic Reaction Stated complaint: tingling to BUE, chest tightness Time Seen by Provider: 12/29/23 22:16 Source: patient Limitations: no limitations History of Present Illness HPI narrative: Patient is a 28-year-old female presents to the emergency department complaining of an allergic reaction. Patient states that she is allergic to tree nuts and had green beans with all meds in at 8:00 p.m. and subsequently developed tingling in her fingers, chest tightness, feeling it was swollen in the back of her throat, slight hives with itchiness. Patient states that she tried an albuterol inhaler which helped slightly and also took Benadryl with help with the rash. Patient admits to some small amount of chest tightness persisting and also is feeling nauseous and feels like it is still slightly swollen in the back of her throat. Patient notes that she has not had any exposures to tree nuts and a long time since she was a kid and she had epinephrine in the past for this but does not have an EpiPen currently and has not had any reactions in a long time because she has been avoiding these exposures diligently. Patient states that she was upcoming allergy testing in the near future. Patient denies any other exposures. Patient denies vomiting, diarrhea, fever, recent injuries, recent illness. Related Data Home Medications Medication Instructions Recorded Confirmed budesonide 160 mcg-glycopyr 9 2 inh inhalation BID 02/09/23 02/09/23 mcg-formot 4.8 mcg/actuation HFA inhaler (Breztri Aerosphere) Allergies Allergy/AdvReac Type Severity Reaction Status Date / Time codeine Allergy Unknown Hives / Verified 02/09/23 19:00 Red Face montelukast [From Singulair] Allergy Hives Verified 02/09/23 19:13 Review of Systems Review of Systems: A 10 system review of systems was completed on the patient and is negative except for what is stated in the HPI. Nursing and ancillary documentation was reviewed. [facility] Past Medical History Medical History Anxiety Asthma Depression Hand fracture, left Morbid obesity Pain during labor Social History Social History Smoking status: Never smoker Substance use: current Substance use type: marijuana Other substance usage details: positive for marijuana on admission Gender identity (if verbalized by the patient): Female Spiritual care concerns: No Comments At time of signature, I have reviewed and agree with nursing past medical, surgical, social and family history unless otherwise noted. Please see the nursing chart for further information. There is no relevant family history pertinent to the presenting complaint. Exam Narrative: CONST: No acute distress. Well nourished. HENMT: Head is normocephalic and atraumatic. Moist mucous membranes. No posterior oropharynx erythema. No angioedema. EYES: No conjunctival icterus, injection, or pallor. PERRL. NECK: No meningeal signs. No JVD. No palpable cervical lymphadenopathy. RESP: Able to speak in full sentences. Normal respiratory effort. CTAB. CARDIO: Regular rate. Regular rhythm. 2+ DP and radial pulses bilaterally. GI: Nondistended. No tenderness to palpation. Soft. : No CVA tenderness to palpation. SKIN: Scant diffuse urticaria. NEURO: Oriented x3. Moves all extremities. EXTREM/MSK/BACK: No pedal edema. PSYCH: Normal affect. Course Vital Signs Vital signs: Vital Signs Temperature 97.8 F 12/29/23 21:23 Pulse Rate 75 12/29/23 21:23 Respiratory Rate 20 12/29/23 21:23 Blood Pressure 141/99 H 12/29/23 21:23 Pulse Oximetry 98 12/29/23 21:23 Oxygen Delivery Room Air 12/29/23 21:23 Temperature 97.8 F 12/29/23 21:23 Pulse Rate 83 12/29/23 22:02 Respiratory Rate 27 H 12/29/23 22:02 Blood Pressure 124/74 12/29/23 22:02
[2023-12-29] MEDS: EPINEPHrine HCL INJ 1 MG/ML AMPUL 0.3 MG IM (22:49)
[2023-12-29] MEDS: diphenhydrAMINE HCl INJ 50 MG/ML VIAL 25 MG IV PUSH (22:50)
[2023-12-29] MEDS: FAMOTIDINE 20 MG/2 ML VIAL IV PUSH (22:50)
[2023-12-29] MEDS: methylPREDNISolone SOD SUCC 40 MG VIAL 120 MG IV PUSH (22:50)
[2023-12-29 23:58] VITALS: BP 129/69; PULSE 71; RESP 17; O2SAT 96
== END 2023-12-29 23:59 | disposition home or self-care (01) ==
PROVIDERS: Emergency Provider Student in an Organized Health Care Education/Training Program; PCP Family Medicine
DX: T78.2XXA Anaphylactic shock, unspecified, initial encounter (principal); J45.909 Unspecified asthma, uncomplicated; E66.01 Morbid (severe) obesity due to excess calories; Z68.43 Body mass index [BMI] 50.0-59.9, adult; Z91.018 Allergy to other foods
CPT/HCPCS: 36415; 80053; 85025; 93005; 96374; 96375; 99284; J0171; J1200; J2920

== ENCOUNTER 2023-12-31 16:58 | Emergency (ER) | payer OTHER, SELFPAY ==
[2023-12-31] VITALS (9 sets, daily range): BP systolic 139–158; BP diastolic 70–96; PULSE 53–77; RESP 12–22; TEMP 36.2–36.6; O2SAT 98–100
--- NOTE | ~2023-12-31 | XR_ITS ---
EXAMINATION: XR chest 2V Exam Date/Time: 12/31/2023 17:30 SAMPLE MAKER HAND HISTORY: chest pain/SOB Comparison: 02/01/2021. RESULT: Lines, tubes, and devices: None. Lungs and pleura: Clear. Cardiomediastinal silhouette: Stable. Other: No acute osseous or upper abdominal finding. IMPRESSION: No acute cardiopulmonary process. Reviewed, dictated and finalized at location K. LE MAKER HAND
--- NOTE | 2023-12-31 17:02 | ECG_ITS ---
Measurements Intervals [place] Rate: 75 P: 26 MI: 135 QRS: 40 QRSD: 80 T: 40 QT: 366 QTc: 410 Interpretive Statements SINUS RHYTHM POOR R-WAVE PROGRESSION BORDERLINE ECG COMPARED TO ECG 12/29/2023 21:25:10 NO SIGNIFICANT CHANGES Electronically Signed On 12-31-2023 18:36:37 CRANE FOLLOWER by Brenden Goodrich M.D.
[2023-12-31 17:37] LABS: Basophils Absolute Auto 0.1 K/mm3 (0.0-0.1); Basophils Percent Auto 0.6 % (0.2-1.2); Eosinophils Absolute Auto 0.1 K/mm3 (0-0.3); Eosinophils Percent Auto 0.6 % (0-4.4); Hematocrit 40.4 % (37.0-47.0); Immature Granulocyte Absolute 0.02 K/mm3 (0.00-0.031); Immature Granulocyte Percent A 0.2 % (0-0.5); Lymphocytes Absolute Auto 2.32 K/mm3 (0.9-3.2); Lymphocytes Percent Auto 26.8 % (18.3-44.2); Mean Corpuscular HGB Conc 32.2 g/dl (32-36); Mean Corpuscular Hemoglobin 27.4 pg (26-34); Mean Corpuscular Volume 85.1 fl (80-100); Mean Platelet Volume 11.3 fl (7.4-10.4); Monocytes Absolute Auto 0.4 K/mm3 (0.1-0.6); Monocytes Percent Auto 4.4 % (2.6-8.5); Neutrophils Absolute Auto 5.8 K/mm3 (1.3-6.7); Neutrophils Percent Auto 67.4 % (45.5-73.1); Platelet Count Result 224 k/mm3 (150-375); Red Blood Count 4.75 M/mm3 (4.2-5.4); Red Cell Distribution Width 14.1 % (11.5-14.5); White Blood Count 8.7 K/mm3 (4.5-10.0)
--- NOTE | 2023-12-31 17:38 | ED.GENADULT ---
HPI - General Adult General Chief complaint: Chest Pain <Negrita Gomez March, SUPERVISOR HANGING AND TRIMMING - Last Filed: 12/31/23 17:45> Stated complaint: chest pain <Negrita Gomez March, SUPERVISOR [employer]ANGING AND TRIMMING - Last Filed: 12/31/23 17:45> Time Seen by Provider: 12/31/23 17:38 <Negrita Gomez March, SUPERVISOR [employer]ANGING [employer] TRIMMING - Last Filed: 12/31/23 17:45> Focused HPI: Kostas Nelson is a 28 y/o female who presents with reports of not feeling well for a few days and today she started to have more shortness of breath that started today and she hasn't been able to get relief from her inhaler and she has been having some palpitations but she thinks it might be related to her inhaler. She feels that she cannot get her anxiety under control and now she is having bilateral shoulder blade pain. GENERAL: Well-appearing, well-nourished, and in no acute distress. HEAD: Normocephalic, atraumatic. CHEST: ?No respiratory distress. HEART: Regular rate and rhythm.? NEURO: ?Alert and oriented x3. Patient screened in triage and initial orders placed.? ?Additional care and disposition to be based upon?diagnostic testing and treatment. <Negrita Gomez March, SUPERVISOR [employer]ANGING [employer] TRIMMING - Last Filed: 12/31/23 17:45> History of Present Illness HPI narrative: 28-year-old female with a history of asthma, PTSD, anxiety reports for evaluation for chest tightness and dyspnea that started after using her Beztri inhaler this morning. Patient states she has been using this inhaler for approximately 1 year without any complications. States she has associated hand tingling and pain to her shoulder blades. States her chest tightness is extending up into her throat now. No aggravating or alleviating factors. Of note, patient was hospitalized approximately 1 week ago for 2 days for a cholecystectomy at [facility]. States her incisions are healing well. Denies fever, abdominal pain, nausea or vomiting, lower extremity edema. Patient states she has had increased anxiety and stress recently. She has been off of her anxiety lytics for a few years and is desiring to get back on them. Denies SI or HI. Reports a mild productive cough. <Hodan Morocho PA-C - Last Filed: 01/01/24 03:27> Related Data Home medications: Home Medications Medication Instructions Recorded Confirmed budesonide 160 mcg-glycopyr 9 2 inh inhalation BID 02/09/23 02/09/23 mcg-formot 4.8 mcg/actuation HFA inhaler (Breztri Cloudamizephere) <Negrita Mtz, SUPERVISOR HANGING [employer] TRIMMING - Last Filed: 12/31/23 17:45> Allergies/adverse reactions: Allergies Allergy/AdvReac Type Severity Reaction Status Date / Time codeine Allergy Unknown Hives / Verified 12/31/23 16:59 Red Face hydromorphone [From Dilaudid] Allergy Palpitation Verified 12/31/23 18:18 s Iodinated Contrast Media Allergy Rash Verified 12/31/23 18:16 montelukast [From Singulair] Allergy Hives Verified 12/31/23 16:59 peanut Allergy Anaphylactic Verified 12/31/23 18:16 Shock tree nut Allergy Anaphylactic Verified 12/31/23 18:17 Shock <Negrita Gomez March, SUPERVISOR [employer]ANGING [employer] TRIMMING - Last Filed: 12/31/23 17:45> Review of Systems Review of Systems: CONSTITUTIONAL: Denies fever, chills, or sweats. EYES: Denies visual changes, redness, or discharge. ENT: Denies rhinorrhea, congestion, sore throat, or otalgia. CARDIOVASCULAR: See HPI RESPIRATORY: See HPI GASTROINTESTINAL: Denies abdominal pain, nausea, vomiting, or diarrhea. GENITOURINARY: Denies dysuria or hematuria. SKIN: Denies rash or itching. MUSCULOSKELETAL: Denies back pain, joint pain, or myalgia. NEUROLOGIC: Denies headache, numbness, or weakness. PSYCHIATRIC: See HPI <Hodan Morocho PA-C - Last Filed: 01/01/24 03:27> PMFSH Past Medical History Medical History: Medical History Anxiety Asthma Depression Hand fracture, left Morbid obesity Pain during labor <Negrita Mtz, SUPERVISOR HANGING AND TRIMMING - Last Filed: 12/31/23 17:45> Social History Social History: Social History (Reviewed
[2023-12-31 17:55] LABS: Alanine Aminotransferase 23 U/L (6-35); Albumin Level 4.2 g/dL (3.5-5.1); Alkaline Phosphatase 68 U/L (38-126); Anion Gap 8 mmol/L (8-16); Aspartate Amino Transferase 23 U/L (14-36); Bilirubin,Total 0.7 mg/dL (0.2-1.3); Blood Urea Nitrogen 20 mg/dL (7-17); Calcium 9.6 mg/dL (8.4-10.2); Carbon Dioxide 27 mmol/L (22-30); Chloride 107 mmol/L (98-107); Estimated CRCL calculation 124 ml/min; Estimated Glomerular Filt Rate > 60; Glucose 93 mg/dL (65-110); Lipase 123 U/L (23-300); Potassium 3.4 mmol/L (3.4-5.0); Sodium 142 mmol/L (137-145)
[2023-12-31] MEDS: IPRATROPIUM 0.5 MG/ALBUTEROL SULFATE 2.5 MG AMPUL.NEB 3 ML INHALATION (18:04)
[2023-12-31 18:06] LABS: Troponin I < 0.012 ng/mL (0.000-0.034)
[2023-12-31 18:13] LABS: INR 0.9; Partial Thromboplastin Time 24.4 SECONDS (22.3-36.8); Prothrombin Time 12.8 Seconds (11.1-14.7)
[2023-12-31] MEDS: ASPIRIN 81 MG CHEWABLE TABLET 324 MG PO (18:14)
--- NOTE | 2023-12-31 21:07 | ECG_ITS ---
Measurements Intervals [place] Rate: 61 P: 52 AR: 164 QRS: 51 QRSD: 93 T: 60 QT: 399 QTc: 402 Interpretive Statements SINUS RHYTHM WITH SINUS ARRHYTHMIA COMPARED TO ECG 12/31/2023 17:15:02 SINUS ARRHYTHMIA NOW PRESENT Electronically Signed On 01-01-2024 15:20:27 BAND MANAGER by Tank Adams M.D.
[2023-12-31 21:22] LABS: Troponin I < 0.012 ng/mL (0.000-0.034)
[2023-12-31] MEDS: LORazepam (*CRX) 1 MG TABLET PO (21:50)
[2023-12-31] MEDS: dexAMETHasone SOD PHOS INJ 10 MG/ML 1 ML VIAL IV PUSH (23:14)
[2023-12-31] MEDS: FAMOTIDINE 20 MG/2 ML VIAL IV PUSH (23:15)
[2023-12-31] MEDS: diphenhydrAMINE HCl INJ 50 MG/ML VIAL 25 MG IV PUSH (23:15)
== END 2023-12-31 23:56 | disposition home or self-care (01) ==
PROVIDERS: Emergency Medicine; Emergency Provider Physician Assistant; PCP Family Medicine
DX: R07.89 Other chest pain (principal); F41.9 Anxiety disorder, unspecified; J45.909 Unspecified asthma, uncomplicated; E66.01 Morbid (severe) obesity due to excess calories; Z68.36 Body mass index [BMI] 36.0-36.9, adult; F43.10 Post-traumatic stress disorder, unspecified; R94.31 Abnormal electrocardiogram [ECG] [EKG]
CPT/HCPCS: 36415; 71046; 80053; 83690; 84484; 85025; 85380; 85610; 85730; 93005; 94640; 96374; 96375; 99284; A9270; J1100; J1200

== ENCOUNTER 2024-01-12 19:06 | Emergency (ER) | payer OTHER, SELFPAY ==
--- NOTE | ~2024-01-12 | CT_ITS ---
EXAMINATION: CT abdomen pelvis wo con DATE: 01/12/2024 20:28 INDICATION: Generalized abdominal pain TECHNIQUE: Computed tomography (CT) of the abdomen and pelvis was performed without intravenous contr ast. Automated exposure control and iterative reconstruction technique were employed. The dose-length product was 1515.89 mGy-cm. COMPARISON: None. FINDINGS: Lower thorax: Unremarkable Liver: Mildly enlarged. Biliary/Gallbladder: Gallbladder is absent. No bile duct dilation. Pancreas: No mass or duct dilation. Spleen: Normal. Adrenals:No mass. Kidneys: No suspicious mass, obstructing stone, or hydronephrosis. GI tract: No small or large bowel dilation. Normal appendix. Mesentery/Peritoneum: No ascites, mass, or free air. Retroperitoneum: No mass. Pelvis: Pelvic organs are within normal limits. Soft Tissues: Small fat-containing umbilical hernia. Small adjacent fluid collection surrounding stra nding. Bones: No acute osseous finding. IMPRESSION: Small periumbilical fluid collection with adjacent soft tissue stranding, may represent resolving pos t surgical change, postsurgical seroma, or trauma. Infection is not excluded. Reviewed, dictated and finalized at location K. NG FOREMAN IMPRESSION: Small periumbilical fluid collection with adjacent soft tissue stranding, may r epresent resolving post surgical change, postsurgical seroma, or trauma. Infect ion is not excluded.
[2024-01-12 19:10] VITALS: BP 146/103; PULSE 79; RESP 16; TEMP 36.4; O2SAT 97
[2024-01-12] MEDS: ONDANSETRON INJ 4 MG/2 ML VIAL IV PUSH (20:02)
[2024-01-12] MEDS: SODIUM CHLORIDE 0.9% IV 1,000 ML 999 ML IV CONT (20:02)
[2024-01-12 20:14] LABS: Basophils Percent Auto 0.3 % (0.2-1.2); Eosinophils Absolute Auto 0.3 K/mm3 (0-0.3); Eosinophils Percent Auto 2.9 % (0-4.4); Hematocrit 42.4 % (37.0-47.0); Hemoglobin 13.7 g/dL (12.0-15.0); Immature Granulocyte Absolute 0.06 K/mm3 (0.00-0.031); Immature Granulocyte Percent A 0.6 % (0-0.5); Lymphocytes Percent Auto 29.2 % (18.3-44.2); Mean Corpuscular HGB Conc 32.3 g/dl (32-36); Mean Corpuscular Hemoglobin 27.1 pg (26-34); Mean Platelet Volume 11.5 fl (7.4-10.4); Monocytes Absolute Auto 0.3 K/mm3 (0.1-0.6); Monocytes Percent Auto 3.6 % (2.6-8.5); Neutrophils Absolute Auto 5.9 K/mm3 (1.3-6.7); Neutrophils Percent Auto 63.4 % (45.5-73.1); Platelet Count Result 210 k/mm3 (150-375); Red Blood Count 5.05 M/mm3 (4.2-5.4); Red Cell Distribution Width 13.5 % (11.5-14.5); White Blood Count 9.3 K/mm3 (4.5-10.0)
[2024-01-12 20:24] LABS: Lactic Acid Reflex 1.4 mmol/L (0.7-2.0)
[2024-01-12 20:25] LABS: Alanine Aminotransferase 33 U/L (6-35); Albumin Level 4.1 g/dL (3.5-5.1); Alkaline Phosphatase 72 U/L (38-126); Anion Gap 7 mmol/L (8-16); Aspartate Amino Transferase 29 U/L (14-36); Bilirubin,Total 0.8 mg/dL (0.2-1.3); Blood Urea Nitrogen 16 mg/dL (7-17); Calcium 9.8 mg/dL (8.4-10.2); Carbon Dioxide 26 mmol/L (22-30); Chloride 107 mmol/L (98-107); Estimated CRCL calculation 139 ml/min; Estimated Glomerular Filt Rate > 60; Glucose 127 mg/dL (65-110); Lipase 102 U/L (23-300); Potassium 3.8 mmol/L (3.4-5.0); Sodium 140 mmol/L (137-145)
[2024-01-12 20:44] VITALS: RESP 16; O2SAT 97
[2024-01-12 20:50] LABS: Influenza A QL RT-PCR Negative (Negative); Influenza B QL RT-PCR Negative (Negative); RSV RNA, RT-PCR Negative (Negative); SARS-CoV-2 RNA PCR Negative (Negative)
[2024-01-12 21:06] LABS: Appearance Urine Cloudy (Clear); Bacteria Urine 4+ /hpf; Bilirubin Urine Negative (Negative); Blood Urine Negative (Negative); Color Urine Yellow (Yellow); Glucose Urine UA Negative (Negative); Ketones Urine Negative (Negative); Leukocyte Esterase Ur 1+ LEU/UL (Negative); Need Manual Microscopic Reviewed; Nitrate Urine Negative (Negative); Non Pathogenic Casts 0-2; Protein Urine Negative (Negative); Specific Grav Ur 1.028 (1.001-1.035); Squamous Epithelial Cell Urine Many /hpf (Few); WBC Urine 21-50 /hpf; pH Urine 6.5 (5.0-9.0)
[2024-01-12 21:07] LABS: Add Urine Microscopic? YES
[2024-01-12 21:22] VITALS: BP 123/80; PULSE 65; RESP 17; TEMP 36.7; O2SAT 98
--- NOTE | 2024-01-12 21:24 | PC.NURSE ---
Patient states her nausea is better, still states itching to her incision sites.
--- NOTE | 2024-01-12 21:38 | ED.GENADULT ---
HPI - General Adult General Chief complaint: Recheck/Abnormal Lab/Rx Stated complaint: post op complications Time Seen by Provider: 01/12/24 19:45 History of Present Illness HPI narrative: Patient is a 28-year-old female who presents emergency department with chief complaint of abdominal pain nausea and vomiting and itching at her incision sites. Patient states she has had some abdominal cramping and also has had where her family has been sick too. Patient denies fever reports that her surgery was done at another facility and decided to come to our facility today. Related Data Home Medications Medication Instructions Recorded Confirmed budesonide 160 mcg-glycopyr 9 2 inh inhalation BID 02/09/23 02/09/23 mcg-formot 4.8 mcg/actuation HFA inhaler (Admify) Allergies Allergy/AdvReac Type Severity Reaction Status Date / Time codeine Allergy Unknown Hives / Verified 01/12/24 19:34 Red Face hydromorphone [From Dilaudid] Allergy Palpitation Verified 01/12/24 19:34 s Iodinated Contrast Media Allergy Rash Verified 01/12/24 19:34 montelukast [From Singulair] Allergy Hives Verified 01/12/24 19:34 peanut Allergy Anaphylactic Verified 01/12/24 19:34 Shock tree nut Allergy Anaphylactic Verified 01/12/24 19:34 Shock Review of Systems Review of Systems: A 10 system review of systems was completed on the patient and is negative except for what is stated in the HPI. Nursing and ancillary documentation was reviewed. PMFSH Past Medical History Medical History Anxiety Asthma Depression Hand fracture, left Morbid obesity Pain during labor Social History Social History Smoking status: Never smoker Substance use: current Substance use type: marijuana Other substance usage details: positive for marijuana on admission Gender identity (if verbalized by the patient): Female Spiritual care concerns: No Exam Narrative: GENERAL: Well-appearing, well-nourished, and in no acute distress. HEAD: Normocephalic, atraumatic. EYES: PERRLA and EOMI. ENT: Nares clear, no rhinorrhea or epistaxis. Mucous membranes moist. NECK: Supple. CHEST: Clear to auscultation. No respiratory distress. HEART: Regular rate and rhythm. No murmur heard. Normal peripheral pulses. ABDOMEN: Soft, mild tenderness to palpation throughout the abdomen, nondistended, normal active bowel sounds. EXTREMITIES: Normal range of motion. No edema. SKIN: Warm, dry, no rash. Incision sites have slight redness most likely secondary to localized skin reaction NEURO: No focal deficits. Alert and oriented x3. PSYCH: Normal mood and affect. Course Vital Signs Vital signs: Vital Signs Temperature 36.4 C 01/12/24 19:10 Pulse Rate 79 01/12/24 19:10 Respiratory Rate 16 01/12/24 19:10 Blood Pressure 146/103 H 01/12/24 19:10 Pulse Oximetry 97 01/12/24 19:10 Oxygen Delivery Room Air 01/12/24 19:10 Temperature 36.7 C 01/12/24 21:22 Pulse Rate 65 01/12/24 21:22 Respiratory Rate 17 01/12/24 21:22 Blood Pressure 123/80 01/12/24 21:22 Pulse Oximetry 98 01/12/24 21:22 Oxygen Delivery Room Air 01/12/24 19:10 Medical Decision Making [facility] Narrative Medical decision making narrative: Differential diagnosis includes intra-abdominal infection, bile leak, gastroenteritis, UTI Laboratory studies were obtained on the patient showed a normal CBC CMP was within normal limits glucose was slightly elevated at 127 although this is a nonfasting study urinalysis showed 21-50 white blood cells in the urine 4+ bacteria and 1+ leukocyte esterase COVID flu and RSV were negative CT of the abdomen pelvis showed: Small periumbilical fluid collection with adjacent soft tissue stranding, may represent resolving post surgical change, postsurgical seroma, or traum
== END 2024-01-12 22:10 | disposition home or self-care (01) ==
PROVIDERS: Emergency Provider Emergency Medicine; PCP Family Medicine
DX: N39.0 Urinary tract infection, site not specified (principal); Z20.822 Contact with and (suspected) exposure to COVID-19; J45.909 Unspecified asthma, uncomplicated; E66.01 Morbid (severe) obesity due to excess calories; Z68.43 Body mass index [BMI] 50.0-59.9, adult; Z98.890 Other specified postprocedural states; R93.5 Abnormal findings on diagnostic imaging of other abdominal regions, including retroperitoneum
CPT/HCPCS: 36415; 74176; 80053; 81001; 81025; 83605; 83690; 85025; 87086; 87088; 87637; 96361; 96374; 99284; J2405; J7030

== ENCOUNTER 2024-02-11 12:10 | Outpatient (CLI) | payer OTHER, SELFPAY ==
--- NOTE | ~2024-02-11 | MMUS_ITS ---
EXAMINATION: MM diagnostic wan BI w bailey, US breast LT limited HISTORY: Palpable left breast lump TECHNIQUE: Additional 3-D tomosynthesis images of the breasts were performed and synthetic 2-D images were generated. CAD analysis was submitted and interpreted. High resolution Limited left breast ultr asound was performed. COMPARISON: No prior studies for comparison. BREAST PARENCHYMAL COMPOSITION: Not dense: There are scattered areas of fibroglandular density. FINDINGS: MAMMOGRAPHIC FINDINGS: There are no suspicious masses, calcifications or architectural distortion in either breast to sugges t malignancy. ULTRASOUND: Limited left breast ultrasound: Normal heterogeneous echotexture without focal solid or cystic mass. IMPRESSION: 1. No evidence for malignancy in either breast. 2. Routine yearly screening mammogram and regular clinical breast examination are recommended. BI-RADS Category 1: Negative Reviewed, dictated and finalized at location A. IMPRESSION: 1. No evidence for malignancy in either breast. 2. Routine yearly screening mammogram and regular clinical breast examination a re recommended. BI-RADS Category 1: Negative
== END 2024-02-11 12:11 | disposition home or self-care (01) ==
PROVIDERS: PCP Family Medicine; Visit Provider Nurse Practitioner
DX: N63.0 Unspecified lump in unspecified breast (principal)
CPT/HCPCS: 76642; 77062; 77066; G0279

== ENCOUNTER 2024-11-10 10:17 | Outpatient (CLI) | payer OTHER, SELFPAY ==
--- NOTE | ~2024-11-10 | US_ITS ---
HISTORY: E04.9 - Nontoxic goiter, unspecified COMPARISON: None TECHNIQUE: Sonographic evaluation of the thyroid gland was performed assessing grayscale appearance a nd color Doppler flow. FINDINGS: The right lobe of the thyroid gland measures: 5.3 x 2.1 x 2.1 cm. The right lobe of the thyroid gland is homogeneous in echogenicity. The left lobe of the thyroid gland measures: 5.1 x 1.8 x 1.9 cm. The left lobe of the thyroid gland is homogeneous in echogenicity. The isthmus measures: 5.7 mm in anterior to posterior dimension. Superior to the left lobe of the thyroid gland is a reniform shaped focus of decreased echogenicity m easuring 9 x 4.5 x 7.4 mm consistent with a small lymph node. This lymph node is not pathologically e nlarged or morphologically suspicious. IMPRESSION: No nodules are identified within the thyroid gland, as detailed above. Reviewed, dictated and finalized at location [facility]. [facility]
[2024-11-10 11:05] LABS: Hematocrit 40.2 % (37.0-47.0); Hemoglobin 13.1 g/dL (12.0-15.0); Mean Corpuscular HGB Conc 32.6 g/dl (32-36); Mean Corpuscular Hemoglobin 26.9 pg (26-34); Mean Corpuscular Volume 82.5 fl (80-100); Mean Platelet Volume 10.6 fl (7.4-10.4); Platelet Count Result 234 k/mm3 (150-375); Red Blood Count 4.87 M/mm3 (4.2-5.4); Red Cell Distribution Width 13.5 % (11.5-14.5); White Blood Count 7.8 K/mm3 (4.5-10.0)
[2024-11-10 11:19] LABS: Hemoglobin A1C 5.7 % (<5.7)
[2024-11-10 11:23] LABS: Alanine Aminotransferase 23 U/L (6-35); Alkaline Phosphatase 77 U/L (38-126); Anion Gap 3 mmol/L (4-12); Aspartate Amino Transferase 25 U/L (14-36); Blood Urea Nitrogen 15 mg/dL (7-17); Calcium 8.9 mg/dL (8.4-10.2); Carbon Dioxide 28 mmol/L (22-30); Chloride 107 mmol/L (98-107); Cholesterol 188 mg/dL (0-200); Estimated Glomerular Filt Rate > 60; Glucose 105 mg/dL (65-110); HDL Direct 38 mg/dL; Sodium 138 mmol/L (137-145); Triglycerides 363 mg/dL (<150)
[2024-11-10 11:26] LABS: LDL Cholesterol Direct 90 mg/dL
[2024-11-10 11:36] LABS: Free T4 Free Thyroxine 1.08 ng/dL (0.78-2.19)
[2024-11-13 13:38] LABS: Thyroid Peroxidase Antibodies <1 IU/mL (<9)
== END 2024-11-10 10:18 | disposition home or self-care (01) ==
LOC: ANHIMG 10:21
PROVIDERS: PCP Nurse Practitioner Adult Health; Visit Provider Nurse Practitioner Adult Health
DX: E04.9 Nontoxic goiter, unspecified (principal); E66.9 Obesity, unspecified; Z13.9 Encounter for screening, unspecified
CPT/HCPCS: 36415; 76536; 80053; 80061; 83036; 83525; 83527; 84439; 84443; 85027; 86376

== ENCOUNTER 2024-12-02 14:28 | Outpatient (CLI) | payer OTHER, SELFPAY ==
[2024-12-02 20:13] LABS: Alanine Aminotransferase 27 U/L (6-35); Albumin Level 4.3 g/dL (3.5-5.1); Alkaline Phosphatase 62 U/L (38-126); Anion Gap 7 mmol/L (4-12); Aspartate Amino Transferase 36 U/L (14-36); Bilirubin,Total 0.7 mg/dL (0.2-1.3); Blood Urea Nitrogen 19 mg/dL (7-17); Calcium 9.4 mg/dL (8.4-10.2); Carbon Dioxide 26 mmol/L (22-30); Chloride 104 mmol/L (98-107); Cholesterol 148 mg/dL (0-200); Estimated Glomerular Filt Rate > 60; Glucose 81 mg/dL (65-110); HDL Direct 48 mg/dL; Potassium 4.4 mmol/L (3.4-5.0); Sodium 137 mmol/L (137-145); Triglycerides 153 mg/dL (<150)
[2024-12-02 20:28] LABS: LDL Cholesterol Direct 76 mg/dL
--- OUTSIDE RECORDS SUMMARY | 2024-12-04 18:54 | XMS_ITS | Clinical Summary ---
Author Organization [facility] Address [facility] [place] [address] [place] [address] Care Team Providers Care Family Program Specialist Name Role Phone Karla Almaraz NP Primary Care Provider [phone] Allergies Active Allergy Reactions Criticality Noted Date Comments Codeine Hives High 10/06/2017 Iodine Itching 12/21/2023 Opium Anaphylaxis High 06/07/2024 All drugs containing opiates Pecans Swelling High 10/06/2017 Medications albuterol sulfate HFA (VENTOLIN HFA) 108 (90 Base) MCG/ACT inhaler Inhale 1 puff into the lungs every 6 (six) hours as needed. Active FLUoxetine 40 MG capsule Take 40 mg by mouth daily. TDD = 50 mg daily Active FLUoxetine 10 MG capsule Take 10 mg by mouth daily. TDD = 50 mg daily Active busPIRone 15 MG tablet Take 15 mg by mouth 3 (three) times daily. 11/24/19 21 Active fluticasone propionate 50 MCG/ACT nasal spray 05/05/20 20 Active omeprazole 40 MG capsule Take 40 mg by mouth daily. Active azithromycin 250 MG tablet Take 2 tablets by mouth on day one then 1 daily for four days. 6 tablet 04/03/20 21 Active guaiFENesin ER (MUCINEX) 600 MG 12 hr tablet Take 2 tablets (1,200 mg total) by mouth 2 (two) times daily. 28 tablet 04/03/20 21 Active ondansetron 4 MG disintegrating tablet Take 1 tablet (4 mg total) by mouth every 8 (eight) hours as needed for Nausea. 20 tablet 04/04/20 21 Active diclofenac EC (VOLTAREN) 50 MG tablet Take 1 tablet (50 mg total) by mouth 2 (two) times daily. 30 tablet 12/21/19 24 Active methylPREDNISolone , NOLA, (MEDROL DOSEPAK) 4 MG tablet Take 1 tablet (4 mg total) by mouth 2 (two) times daily. Follow package directions 1 each 11/24/19 25 Active benzonatate (TESSALON PERLES) 100 MG capsule Take 1 capsule (100 mg total) by mouth 3 (three) times daily as needed. 20 capsule 11/24/19 25 025 Encounters Date Type Department Care Team Description 11/24/2024 3:54 PM TELEPHONE ORDER SUPERVISOR - 11/24/2024 5:12 PM TELEPHONE ORDER SUPERVISOR Emergency [facility] [place] [address] Diana Lawler, KACY Pleuritic Chest Pain Discharge Disposition: Home or Self Care (Routine Discharge) 11/24/2024 Travel from Last 3 Months Social History Tobacco Use Types Packs/Day Years Used Date Smoking Tobacco: Never Smokeless Tobacco: Never Tobacco Cessation:Counseling Given: Not Answered Alcohol Use Standard Drinks/Week Comments Not Currently 0 (1 standard drink = 0.6 oz pur e alcohol) social Comments No Sex and Gender Information Value Date Recorded Sex Assigned at Not on file Legal Sex Female 4:11 PM CDT Gender Identity Not on file Sexual Orientation Not on file Last Filed Vital Signs Vital Sign Reading Time Taken Comments Blood Pressure 168/97 11/24/2024 4:56 PM TELEPHONE ORDER SUPERVISOR Pulse 94 11/24/2024 4:56 PM TELEPHONE ORDER SUPERVISOR Temperature 36.9 ??C (98.4 ??F) 11/24/2024 3:29 PM CS T Respiratory Rate 20 11/24/2024 4:56 PM TELEPHONE ORDER SUPERVISOR Oxygen Saturation 99% 11/24/2024 4:56 PM TELEPHONE ORDER SUPERVISOR Inhaled Oxygen Concentration - - Weight 159 kg (350 lb 8.5 oz) 11/24/2024 3:29 PM TELEPHONE ORDER SUPERVISOR Height 162.6 cm (5' 4 ) 11/24/2024 3:29 PM TELEPHONE ORDER SUPERVISOR Body Mass Index 60.17 11/24/2024 3:29 PM TELEPHONE ORDER SUPERVISOR Plan of Treatment Health Maintenance Due Date Last Done Comments Annual Physical 1997 Pneumococcal Vaccine: Pediatrics (0 to 5 Years) and At-Risk Patients (6 to 64 Years) (1 of 2 - PCV) 01/18/2000 Hepatitis C 01/18/2012 Hepatitis B Vaccines (1 of 3 - 19+ 3-dose series) 2013 COVID-19 Vaccine (1 - season) 2024 Influenza Adult (#1) 2024 10/11/2022, 09/28/2021, 09/18/2017, Additional history exists Cervical Cancer Screening Pap Smear (Age 30 to 64) Every 3 Years 09/26/2027 09/26/2024, 06/28/2021 Cervical Cancer Screening Pap with HPV Testing (Age 30 to 64) Every 5 Years 09/26/2029 09/26/2024, 06/28/2021 Cervical Cancer Screening with HPV 09/26/2029 DTaP, Tdap and Td Vaccines (3 - Td or Tdap) 10/11/2032 10/11/2022, 07/14/1999, 1994, Additional history exists HPV Vaccines Aged Out No longer eligi ble based on patient's age to complete this topic Meningococcal Vaccine Aged Out No baljit matt eligible based on patient's age to complete this topic RSV Immunizations Under 20 Months Aged Out No longer eligible based on patient's age to complete this topic Procedures Procedure Name Priority Date/Time Associated Diagnosis Comments XR CHEST PORTABLE STAT 11/24/2024 4:2 0 PM TELEPHONE ORDER SUPERVISOR ECG 12-LEAD Routine 11/24/2024 4:17 PM TELEPHONE ORDER SUPERVISOR TROPONIN, QUANT STAT 11/24/2024 4:00 PM TELEPHONE ORDER SUPERVISOR COMPREHENSIVE METABOLIC PANEL STAT 11/24/2024 4:00 PM TELEPHONE ORDER SUPERVISOR CBC W/DIFF AUTOMATED STAT 11/24/2024 4:00 PM TELEPHONE ORDER SUPERVISOR from Last 3 Months Results * XR CHEST PORTABLE (11/24/2024 4:20 PM TELEPHONE ORDER SUPERVISOR) Anatomical Region Laterality Modality Chest Radiographic Libia ging 11/24/2024 4:24 PM TELEPHONE ORDER SUPERVISOR Impressions 11/24/2024 4:25 PM TELEPHONE ORDER SUPERVISOR IMPRESSION: No evidence of acute cardiopulmonary disease. Ordered By: DIANA LAWLER Interpreted By: Cassy Savage MD, 11/24/2024 4:24 PM Narrative 11/24/2024 4:25 PM TELEPHONE ORDER SUPERVISOR [place] [id number] EXAMINATION: Chest x-ray 1 view. 11/24/2024 4:20 PM TECHNIQUE: Portable AP upright view of the chest was obtained. HISTORY: Cough, anterior chest wall pain. COMPARISON: Chest x-ray 06/07/2024 FINDINGS: The cardiomediastinal silhouette is normal in size. The pulmonary vasculature is within normal limits. Slight asymmetric elevation of the right hemidiaphragm, unchanged. There is no consolidation, effusion, or pneumothorax. Procedure Note Cassy Savage MD - 11/24/2024 [place] [address] EXAMINATION: Chest x-ray 1 view. 11/24/2024 4:20 PM TECHNIQUE: Portable AP upright view of the chest was obtained. HISTORY: Cough, anterior chest wall pain. COMPARISON: Chest x-ray 06/07/2024 FINDINGS: The cardiomediastinal silhouette is normal in size. The pulmonaryvasculature is within normal limits. Slight asymmetric elevation of theright hemidiaphragm, unchanged. There is no consolidation, effusion, orpneumothorax. IMPRESSION: No evidence of acute cardiopulmonary disease. Ordered By: DIANA LAWLER Interpreted By: Cassy Savage MD, 11/24/2024 4:24 PM Diana Lawler MARKETING RESEARCHER GENERAL IMAGING Final Result * ECG 12 lead (11/24/2024 4:17 PM TELEPHONE ORDER SUPERVISOR) 11/24/2024 4:17 PM TELEPHONE ORDER SUPERVISOR Narrative [facility] RAD - 11/25/2024 8:23 AM TELEPHONE ORDER SUPERVISOR ?[place] [place] ? [address] [place] ? Test Date: ?2024-11-24 Pat Name: ? OSCAR JEONG ?Department: ?? 41 ? Room: ? EXAM25 Gender: ? Female ? 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 : ?1995 ? Requested By: DIANA LAWLER Order Number: [id number] ? Reading MD: ?? Fabio Villa ? Measurements Intervals ?[place] ? Rate: ? 93 ? P: ?68 TX: ? 135 ?QRS: ?37 QRSD: ? 81 ? T: ?42 QT: ? 322 ? QTc: ?402 ? Interpretive Statements SINUS RHYTHM Compared to ECG 06/07/2024 02:32:44 Sinus arrhythmia no longer present PHONE ORDER SUPERVISOR Procedure Note Fabio Villa MD - 11/25/[address] 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: : 1995 Requested By: DIANA LAWLER Order Number: [id number] Reading MD: Fabio Villa Measurements Intervals [place] Rate: 93 P: 68 TX: 135 QRS: 37 QRSD: 81 T: 42 QT: 322 QTc: 402 Interpretive Statements SINUS RHYTHM Compared to ECG 06/07/2024 02:32:44 Sinus arrhythmia no longer present PHONE ORDER SUPERVISOR us Diana Lawler MARKETING RESEARCHER ECG ORDERABLES Final Result [facility] RAD * (ABNORMAL) COMPREHENSIVE METABOLIC PANEL (11/24/2024 4:00 PM TELEPHONE ORDER SUPERVISOR) [facility] GLUCOSE 134(H) 70 - 99 MG/DL 11/24/2024 4:30 PM [facility] BUN 15 7 - 18 MG/DL 11/24/2024 4:30 PM [facility] CREATININE S/P/B 1.00 0.55 - 1.02 MG/DL 11/24/2024 4:30 PM [facility] SODIUM S/P/B 138 136 - 145 MMOL/L 11/24/2024 4:30 PM [facility] POTASSIUM S/P/B 3.6 3.5 - 5.1 MMOL/L 11/24/2024 4:30 PM [facility] CHLORIDE S/P/B 107 97 - 115 MMOL/L 11/24/2024 4:30 PM [facility] CO2 25.9 21 - 32 MMOL/L 11/24/2024 4:30 PM [facility] CALCIUM S/P/B 9.6 8.5 - 10.1 MG/DL 11/24/2024 4:30 PM [facility] BILIRUBIN TOTAL S/P/B 0.4 0.2 - 1.2 MG/DL 11/24/2024 4:30 PM [facility] Comment: THIS ASSAY IS NOT RECOMMENDED FOR PATIENTS UNDERGOING TREATMENT WITH ELTROMBOPAG DUE TO THE POTENTIAL FOR FALSELY ELEVATED RESULTS. TOTAL PROTEIN S/P/B 7.6 6.4 - 8.2 G/DL 11/24/2024 4:30 PM [facility] ALBUMIN S/P/B 3.5 3.4 - 5.0 G/DL 11/24/2024 4:30 PM [facility] AST 27 15 - 37 U/L 11/24/2024 4:30 PM [facility] ALT 35 14 - 55 U/L 11/24/2024 4:30 PM TELEPHONE ORDER SUPERVISOR [facility] ALKALINE PHOSPHATASE S/P/B 63 50 - 136 U/L 11/24/2024 4:30 PM [facility] ANION GAP 5.1 2 - 10 MMOL/L 11/24/2024 4:30 PM [facility] BUN CREATININE RATIO 15.0 6 - 26 11/24/2024 4:30 PM [facility] A/G RATIO 0.9(L) 1.0 - 2.0 RATIO 11/24/2024 4:30 PM [facility] GFR ESTIMATE 78(L) >90 ML/MIN/1.7 3 M2 11/24/2024 4:30 PM [facility] Comment: NOTE: eGFR is not calculated for patients <18 years of age or gender unknown. This is an estimated GFR calculation using the new CKD EPI creatinine equation without race and so does not require a correction factor for race. This estimated GFR should not be used for calculating drug doses. 11/24/2024 4:00 PM TELEPHONE ORDER SUPERVISOR Diana Lawler NP LABORATORY Final Result [facility] [address] [place] [address], * (ABNORMAL) CBC W/DIFF AUTOMATED (11/24/2024 4:00 PM TELEPHONE ORDER SUPERVISOR) WBC 9.40 4.5 - 11.0 x10'3/uL 11/24/2024 4:10 PM TELEPHONE ORDER SUPERVISOR [facility] RBC 4.89 4.20 - 5.40 x10'6/uL 11/24/2024 4:10 PM TELEPHONE ORDER SUPERVISOR [facility] HGB 12.9 12.0 - 16.0 G/DL 11/24/2024 4:10 PM TELEPHONE ORDER SUPERVISOR [facility] HCT 40.0 38.0 - 48.0 % 11/24/2024 4:10 PM [facility] MCV 81.8 81.0 - 99.0 FL 11/24/2024 4:10 PM [facility] MCH 26.4(L) 27.0 - 31.0 PG 11/24/2024 4:10 PM TELEPHONE ORDER SUPERVISOR [facility] MCHC 32.3 32.0 - 36.0 G/DL 11/24/2024 4:10 PM [facility] RDW 13.5 11.5 - 14.5 % 11/24/2024 4:10 PM [facility] PLT 267 130 - 400 x10'3/uL 11/24/2024 4:10 PM [facility] MPV 10.8 9.3 - 12.2 FL 11/24/2024 4:10 PM [facility] DIFFERENTIAL TYPE AUTOMATED DIFFERENTIAL 11/24/2024 4:10 PM [facility] NEUTROPHILS % 71.7 % 11/24/2024 4:10 PM [facility] LYMPHOCYTES % 19.7 % 11/24/2024 4:10 PM [facility] MONOCYTES % 4.0 % 11/24/2024 4:10 PM [facility] EOSINOPHILS 3.4 % 11/24/2024 4:10 PM [facility] BASOPHILS 0.7 % 11/24/2024 4:10 PM [facility] IMMATURE GRANS % 0.5 % 11/24/19 4:10 PM [facility] ABS. NEUTROPHILS 6.73 1.80 - 7.70 x10'3/uL 11/24/2024 4:10 PM TELEPHONE ORDER SUPERVISOR [facility] ABS. LYMPHOCYTES 1.85 1.00 - 4.80 x10'3/uL 11/24/2024 4:10 PM TELEPHONE ORDER SUPERVISOR [facility] ABS. MONOCYTES 0.38 0.24 - 0.86 x10'3/uL 11/24/2024 4:10 PM TELEPHONE ORDER SUPERVISOR [facility] ABS. EOSINOPHILS 0.32 0.04 - 0.36 x10'3/uL 11/24/2024 4:10 PM TELEPHONE ORDER SUPERVISOR [facility] ABS. BASOPHILS 0.07 0.01 - 0.08 x10'3/uL 11/24/2024 4:10 PM TELEPHONE ORDER SUPERVISOR [facility] ABS. IMMATURE GRANULOCYTES 0.05 0.00 - 0.49 x10'3/uL 11/24/2024 4:10 PM TELEPHONE ORDER SUPERVISOR [facility] 11/24/2024 4:00 PM TELEPHONE ORDER SUPERVISOR Diana Lawler NP LABORATORY Final Result [facility] [address] [place] [phone], * TROPONIN, QUANT (11/24/2024 4:00 PM TELEPHONE ORDER SUPERVISOR) TROPONIN I HIGH SENSITIVITY <3 <54 ng/L 11/24/2024 4:30 PM TELEPHONE ORDER SUPERVISOR [facility] Comment: HIGH DOSES OF BIOTIN, TROPONIN-SPECIFIC AUTOANTIBODIES, AND ANTIBODY THERAPY CONTAINING HAMA MAY INTERFERE WITH THIS TEST RESULT. CORRELATION TO CLINICAL HISTORY AND PRESENTATION RECOMMENDED. 11/24/2024 4:00 PM TELEPHONE ORDER SUPERVISOR Diana Lawler NP LABORATORY Final Result [facility] [address] [place] [phone], from Last 3 Months Insurance [employer] Care Teams Family Program Specialist Relationship Specialty Start Date End Date Karla Almaraz NP [address] [facility] [place] [address] PCP - General NURSE PRACTITIONER 11/24/24
--- OUTSIDE RECORDS SUMMARY | 2024-12-04 18:54 | XMS_ITS | Referral Summary ---
Author Organization [facility] Address [address] [place] [address] Care Team Providers Care Engine Lathe Operator Name Role Phone Cassi Mann MD Primary Care Provider [phone] Chandu Barakat MD Unavailable [phone] Erin Rolon APRN-ASSISTANT EDITOR Unavailable [phone] Source Comments [facility],non-owned Affiliates and Associated Physician Practices is amultiple site organization consisting of ambulatory clinics and hospital sitesin [place], [place], [place] and [place]. This disclosure is being madepursuant to the Care Everywhere program and may not contain all information available regarding this patient. Last updated 18.[facility] Encounters Date Type Department Care Team Description 10/06/2024 Travel 10/06/2024 1:50 PM FIRESTOPPER INSTALLER Office Visit [facility] - DRILL PUNCH OPERATOR [address] [place] [address], [address] [phone] Chandu Barakat MD Monilial vulvitis (Primary Dx) 09/26/2024 Travel 09/26/2024 9:50 AM FIRESTOPPER INSTALLER Office Visit [facility] - DRILL PUNCH OPERATOR [address] [place] [address], [address] [place] [phone] Chandu Barakat MD Well woman exam with routine gynecological exam (Primary Dx) 09/25/2024 Telephone [facility] - DRILL PUNCH OPERATOR [address] [place] [address], [address] [place] [phone] Chandu Barakat MD Swelling from Last 3 Months Allergies Active Allergy Reactions Criticality Noted Date Comments Pycymhs-Yvkmppqapgo-Gwqk oterol Unknown 01/08/2024 Codeine Anaphylaxis High 12/17/2015 Does not tolerate hydro or oxycodone Iodine Itching 12/21/2023 Tree Nuts Anaphylaxis High 10/03/2023 Medications * Be aware that medications may not be up to date on this document. Alwaysverify current medications with the patient. Medication Sig Dispensed Refills Start Date End Date Status albuterol HFA (Proventil; Ventolin; Proair) 108 (90 Base) MCG/ACT inhaler 03/20/2022 Active famotidine (Pepcid) 40 MG tablet 07/07/2023 Active traMADol (Ultram) 50 MG tablet Take 1 (one) tablet by mouth every 6 hours as needed for Pain 12 tablet 10/04/2023 Active nystatin-triamcinolo ne (Mycolog) 189229-2.1 UNIT/GM-% cream Apply to affected area 2 times daily as needed 30 g 07/10/2024 Active Active Problems Problem Noted Date Diagnosed Date Mild intermittent asthma, uncomplicated 07/19/20 23 PCOS (polycystic ovarian syndrome) 12/17/2015 Marijuana use 12/17/2015 Family history of congenital diaphragmatic herni a 12/17/2015 Encounter for supervision of high risk in second trimester, antepartum 12/13/2015 Morbid obesity 12/13/2015 Resolved Problems Problem Noted Date Diagnosed Date Resolved Date POP-Q stage 3 rectocele 07/19/202305/2023 HUMBERTO (stress urinary incontinence, female) 07/19/2023 10/18/2023 POP-Q stage 2 cystocele 07/19/2023 120 05/2023 Social History Tobacco Use Types Packs/Day Years Used Date Smoking Tobacco: Never Smokeless Tobacco: Never Tobacco Cessation:Counseling Given: Not Answered Alcohol Use Standard Drinks/Week Comments Not Currently 0 (1 standard drink = 0.6 oz pur e alcohol) 1X MONTH AUDIT-C Answer Date Recorded Q1: How often do you have a drink containing alcohol? Never 10/03/2023 Q2: How many drinks containi ng alcohol do you have on a typical day when you are drinking? Patient does not drink Q3: How often do you have si x or more drinks on one occasion? Never 10/03/2023 PHQ-2 Answer Date Recorded Patient Health Questionnaire-2 Score 0 07/09/2024 Sex and Gender Information Value Date Recorded Sex Assigned at Not on file Gender Identity Not on file Sexual Orientation Not on file Last Filed Vital Signs Vital Sign Reading Time Taken Comments Blood Pressure 128/68 10/06/2024 2:01 PM FIRESTOPPER INSTALLER Pulse 60 10/04/2023 8:49 AM FIRESTOPPER INSTALLER Temperature 36.8 ??C (98.3 ??F) 10/04/2023 8:49 AM CS T Respiratory Rate 18 10/04/2023 8:49 AM FIRESTOPPER INSTALLER Oxygen Saturation 99% 10/04/2023 8:49 AM FIRESTOPPER INSTALLER Inhaled Oxygen Concentration - - Weight 144.7 kg (319 lb) 10/06/2024 2:01 PM FIRESTOPPER INSTALLER Height 162.6 cm (5' 4 ) 10/06/2024 2:01 PM FIRESTOPPER INSTALLER Body Mass Index 54.76 10/06/2024 2:01 PM FIRESTOPPER INSTALLER Plan of Treatment Not on file Medical Devices Implanted Type Area Manufacturing Inspector Device Identifier Shelf Expiration Date Model / Serial / Lot Sys Ureth Supp Obtryx Midurethral Trnstr Implanted:Qty: 1 on 10/03/2023 by Chandu Barakat MD at [facility] N/A: Vagina Emprivo 06/24/2026 [id number] / / [id number] Procedures Procedure Name Priority Date/Time Associated Diagnosis Comments PAP IG LB CT+NG+TV RFLX HPV ASCU Routine 09/26/2024 10:03 AM FIRESTOPPER INSTALLER Well woman exam with routine gynecological exam from Last 3 Months Results * PAP IG LB CT+NG+TV RFLX HPV ASCU (09/26/2024 10:03 AM FIRESTOPPER INSTALLER) Diagnosis Comment [facility] INSURANCE BILL Comment:NEGATIVE FOR INTRAEP ITHELIAL LESION OR MALIGNANCY. Specimen Adequacy Comment [facility] INSURANCE BILL Comment: Satisfactory for evaluation. ??Endocervical and/or squamous metaplastic cells (endocervical component) are present. Clinician Provided ICD10 Comment [facility] INSURANCE BILL Comment:Z01.419 Performed by Comment [facility] INSURANCE BILL Comment:Jonna Luna, Cyto technologist (ASCP) Comment . [facility] INSURANCE BILL Note Comment [facility] INSURANCE BILL Comment: The Pap smear is a screening test designed to aid in the detection of premalignant and malignant conditions of the uterine cervix. ??It is not a diagnostic procedure and should not be used as the sole means of detecting cervical cancer. ??Both false-positive and false-negative reports do occur. IGLBP CPT Code Automation Comment [facility] INSURANCE BILL Comment: This liquid based ThinPrep(R) pap test was screened with the use of an image guided system. Note Comment [facility] INSURANCE BILL Comment: The HPV DNA reflex criteria were not met with this specimen result therefore, no HPV testing was performed. Chlamydia trachomatis MARIANELA Negative Negative [facility] INSURANCE BILL GC MARIANELA Negative Negative [facility] INSURANCE BILL Trichomonas vaginalis by MARIANELA Negative Negative [facility] INSURANCE BILL PART OF UTERINE CERVIX / Unknown 09/26/2024 10:03 AM FIRESTOPPER INSTALLER 09/26/2024 Comment:Cervix Release to pa t Narrative [facility] INSURANCE BILL - 10/03/2024 1:10 PM FIRESTOPPER INSTALLER Performed at: ??01 - [facility] [address] ??[id number] Cob Sawyer: Milly Perez MD, Phone: ??[phone] Performed at: ??02 - [facility] [address] ??[id number] Cob Sawyer: Milly Perez MD, Phone: ??[phone] Specimen Comment: [id number] Specimen Comment: No. of containers..01 ThinPrep Vial Chandu Barakat MD LAB - PATHOLOGY/CYTO LOGY ORDERABLES [facility] INSURANCE BILL [address] [place] [address] from Last 3 Months Care Teams Engine Lathe Operator Relationship Specialty Start Date End Date Cassi Mann MD [address] [place] [address] [place] [phone] PCP - General Family Medicine 12/06/15 Chandu Barakat MD [address] [facility] [address] [place] [address] Hand Silvering Supervisor Urogynecology 07/19/23 Erin Rolon, ASPHALT LAYER-ASSISTANT EDITOR [address] [place] [address] Nurse Practitioner Gynecology 07/19/23
--- OUTSIDE RECORDS SUMMARY | 2024-12-04 18:54 | XMS_ITS | Patient Health Summary ---
Author Organization [facility] Address [address] [place] [address] Care Team Providers Care Card Stripper Name Role Phone Cassi Mann MD Primary Care Provider [phone] Chandu Barakat MD Unavailable [phone] Erin Rolon APRN-ALARM ADJUSTER Unavailable [phone] Note [address] [facility],non-owned Affiliates and Associated Physician Practices is amultiple site organization consisting of ambulatory clinics and hospital sitesin [place], [place], [place] and [place]. This disclosure is being madepursuant to the Care Everywhere program and may not contain all information available regarding this patient. Last updated 18.[facility] Allergies * Mujcnzg-Yyggehkyayi-Wzbvzyluwz(Unknown) * Codeine(Anaphylaxis) -High Criticality * Iodine(Itching) * Tree Nuts(Anaphylaxis) -High Criticality Medications * Be aware that medications may not be up to date on this document. Alwaysverify current medications with the patient. * albuterol HFA (Proventil; Ventolin; Proair) 108 (90 Base) MCG/ACT inhaler (Started 03/20/2022) * famotidine (Pepcid) 40 MG tablet(Started 07/07/2023) * traMADol (Ultram) 50 MG tablet(Started 10/04/2023) Take 1 (one) tablet by mouth every 6 hours as needed for Pain * nystatin-triamcinolone (Mycolog) 029055-3.1 UNIT/GM-% cream(Started 07/10/2024) Apply to affected area 2 times daily as needed Active Problems Problem Noted Date Diagnosed Date Mild intermittent asthma, uncomplicated 07/19/20 PCOS (polycystic ovarian syndrome) 12/17/2015 Marijuana use 12/17/2015 Family history of congenital diaphragmatic herni a 12/17/2015 Encounter for supervision of high risk in second trimester, antepartum 12/13/2015 Morbid obesity 12/13/2015 Resolved Problems Problem Noted Date Diagnosed Date Resolved Date POP-Q stage 3 rectocele 07/19/2023 1205/2023 HUMBERTO (stress urinary incontinence, female) 07/19/2023 10/18/2023 POP-Q stage 2 cystocele 07/19/202305/2023 Social History Tobacco Use Types Packs/Day Years [...] Comments Blood Pressure 128/68 10/06/2024 2:01 PM [facility] Pulse 60 10/04/2023 8:49 AM [facility] Temperature 36.8 ??C (98.3 ??F) 10/04/2023 8:49 AM CS T Respiratory Rate 18 10/04/2023 8:49 AM [facility] Oxygen Saturation 99% 10/04/2023 8:49 AM [facility] Inhaled Oxygen Concentration - - Weight 144.7 kg (319 lb) 10/06/2024 2:01 PM [facility] Height 162.6 cm (5' 4 ) 10/06/2024 2:01 PM [facility] Body Mass Index 54.76 10/06/2024 2:01 PM [facility] Medical Devices Implanted Type Area Brazing Machine Operator Device Identifier Shelf Expiration Date Model / Serial / Lot Sys Ureth Supp Obtryx Midurethral Trnstr Implanted:Qty: 1 on 10/03/2023 by Chandu Barakat MD at [facility] N/A: Vagina [employer]uche qui dit Ouimed 06/24/2026 [id number] / / [id number] Procedures * PAP IG LB CT+NG+TV RFLX HPV ASCU(Performed 09/26/2024) Performed for Well woman exam with routine gynecological exam * CARDIAC RHYTHM STRIP ORDER(Performed 10/08/2023) * OH SLING OPER STRES INCONTINENCE(Performed 10/03/2023) * OH COMBINED ANT/POST COLPORRHAPHY(Performed 10/03/2023) * INITIATE RT BRONCHODILATOR PROTOCOL(Performed 10/03/2023) * HCG URINE QUALITATIVE - POCT (IP) INTERFACED(Performed 10/03/2023) * HCG URINE QUAL POCT NOTIFICATION(Performed 10/03/2023) Performed for POP-Q stage 2 cystocele, POP-Q stage 3 rectocele * CULTURE URINE(Performed 08/03/2023) Performed for POP-Q stage 3 rectocele, POP-Q stage 2 cystocele, HUMBERTO (stress urinary incontinence, female) * XR LUMBAR SPINE 2 OR 3VW(Performed 02/06/2019) Performed for Back pain, unspecified back location, unspecified back pain laterality, unspecified chronicity * SONOGRAM - COMPLETE(Performed 12/17/2015) Performed for Encounter for supervision of high risk in second trimester, antepartum (HCC), Morbid obesity, unspecified obesity type ([facility]) Results * PAP IG LB CT+NG+TV RFLX HPV ASCU (09/26/2024 10:03 AM [facility]) Diagnosis Comment [facility] INSURANCE BILL Comment:NEGATIVE FOR [...] UTERINE CERVIX / Unknown 09/26/2024 10:03 AM [facility] 09/26/2024 Comment:Cervix Release to [facility] Narrative [facility] INSURANCE BILL - 10/03/2024 1:10 PM [facility] Performed at: ??01 - [address] ??[id number] [employer] Launch [employer] System Crewmember: Milly Perez MD, Phone: ??[phone] Performed at: ??02 - [facility] ??[id number] [employer] Crewmember: Milly Perez MD, Phone: ??[phone] Specimen Comment: [id number] Specimen Comment: No. of containers..01 ThinPrep Vial Chandu Barakat MD LAB - PATHOLOGY/CYTO LOGY ORDERABLES [facility] INSURANCE BILL [address] [place] [address] * CARDIAC RHYTHM STRIP ORDER (10/08/2023 8:58 PM [facility]) Narrative 10/08/2023 8:58 PM [facility] Ordered by an unspecified provider. Scanned Document CARDIAC SERVICES ORD ERABLES * HCG URINE QUALITATIVE - POCT (IP) INTERFACED (10/03/2023 9:23 AM [facility]) HCG Qual Urine Negative Negative 10/03/2023 9:29 AM [facility] Urine URINE / Unknown 10/03/2023 9 :23 AM [facility] 10/03/2023 9:29 AM [facility] Chandu Barakat MD LAB - POINT OF CARE ORDERABLES Performing Organization Address [place] Co de Phone Number [facility] [address] [place] [address] * HCG URINE QUAL POCT NOTIFICATION (10/03/2023 9:16 AM [facility]) Comment Notification Label Only - See Separate Report 10/03/2023 10:31 AM [facility] Urine URINE / Unknown 10/03/2023 9 :16 AM [facility] 10/03/2023 9:18 AM [facility] Chandu Barakat MD LAB - URINALYSIS ORD ERABLES Performing Organization Address [place]/[facility] de Phone Number [facility] [address] [place] [address] * CULTURE URINE (08/03/2023 11:14 AM CDT) Urine Culture Routine Final report [facility] INSURANCE BILL Result 1 [facility] INSURANCE BILL Comment: Culture shows less than 10,000 colony forming units of bacteria per milliliter of urine. This colony count is not generally considered to be clinically significant. Urine URINE SPECIMEN OBTAINED BY SINGLE CATHETERIZATION OF URINARY BLADDER / Unknown 08/03/2023 11:14 AM CDT 08/03/2023 Narrative Resulting Agency Comment Lab Testing performed at: [facility] ??[facility] [id number] Chandu Barakat MD LAB - MICROBIOLOGY O RDERABLES Performing Organization Address [place]/[facility] Co de Phone Number [facility] INSURANCE BILL [address] [place] [address] * XR LUMBAR SPINE 2 OR 3VW (02/06/2019 1:58 PM CDT) Anatomical Region Laterality Modality Spine Radiographic Libia ging 02/06/2019 2:23 PM CDT Impressions 02/06/2019 2:25 PM CDT IMPRESSION: No acute fracture or subluxation identified. Dictated by Marnie Lopes MD (radiology transporter). I, Dr. LUIS FELIPE PIERRE have personally reviewed and interpreted this examination/study. This report was electronically signed by LUIS FELIPE PIERRE ??on 02/06/2019 2:25 PM . Narrative 02/06/2019 2:25 PM CDT EXAMINATION: XR LUMBAR SPINE 2 OR 3VW HISTORY: back pain COMPARISON: No prior study is available for comparison. FINDINGS: Alignment is normal. The vertebral bodies are normal in height. The intervertebral disc spaces are maintained. The sacroilliac joints are normal. Procedure Note Luis Felipe Pierre, DO - 02/06/2019 EXAMINATION: XR LUMBAR SPINE 2 OR 3VW HISTORY: back pain COMPARISON: No prior study is available for comparison. FINDINGS: Alignment is normal. The vertebral bodies are normal in height. The intervertebral disc spaces are maintained. The sacroilliac joints are normal. IMPRESSION: No acute fracture or subluxation identified. Dictated by Marnie Lopes MD (radiology transporter). I, Dr. LUIS FELIPE PIERRE have personally reviewed and interpreted this examination/study. This report was electronically signed by LUIS FELIPE PIERRE on 02/06/2019 2:25 PM . Radha Eubanks MD DIAGNOSTIC IMAGING O RDERABLES * SONOGRAM - COMPLETE (12/17/2015 4:01 PM [facility]) Anatomical Region Laterality Modality Other 12/17/2015 4:01 PM [facility] Narrative 12/17/2015 5:49 PM [facility] ? [facility] ?PHONE: ??FAX: ? Pat. Name: ?ADENIKE OSCAR [place] Pat. No: ?[id number] Study Date: ?? 12/17/2015 ??4:01pm , Age: ? 1995, 20 Pregnancies: ?? 2 Height: ? 65 in Weight: ? 302 lb LMP: ?Unknown GA by US: ? 21w0d GA Selected: ??20w4d (From Known E) MELISSA: ?05/01/2016 Referring MD: Isabella Santana MD Systems Manager: ??Anita Dimas RDMS CPT4: ? 48407 BMI: ?50.25 Hist/Ind: ? anatomic survey ?Class IV obesity ?Family history of CDH (father & numerous other relatives) MEASUREMENTS & AGE ? GROWTH EVALUATION Measurement ??GA ? Range ? Srce %for GA Ratios ----- ---- ------- BPD ??5.0 cm 21w0d (58x2f-79p7x) Hadl BPD 62% FL/BPD 0.64 HC ??18.8 cm 21w1d (18x7w-34h4d) Hadl HC ??66% FL/AC ??0.20 AC ??16.2 cm 21w2d (43a1c-43y9h) Hadl AC ??65% HC/AC ??1.16 (1.06 - 1.24) FL ?? 3.2 cm 19w6d (59r1q-50l8z) Hadl FL ??31% CI ? 0.73 (0.70 - 0.86) HL ?? 3.4 cm 21w5d (43o9k-98e9j) Aditya HL ??69% GA for sonogram 21w0d (53x9g-32e4d) ?? Weight Estimate: based on (HL,BPD,HC,AC,FL) Avg ? Weight: 369 gm (315-423) Hadlock ? : 0lbs, 13oz ? Normal: 370 gm (277-463) Hadlock ? Wt% ? 50% for 20w4d Heart Rate: 148 bpm Amniotic Fluid Index: 04.8cm (Deepest Pocket) CLINICAL SUMMARY Study Number: ??1 A hutton fetus is identified in breech presentation. ??The amniotic fluid volume is within normal limits. ??The placenta is posterior. IMPRESSION: ?? 1) Hutton gestation, 20w4d 2) Biometry is consistent with the appropriate interval growth 3) No structural abnormalities were detected on detailed anatomic survey 4) Imaging of the heart, face, spine, and hands was suboptimal due to positioning & habitus NOTE: The patient was advised that ultrasound does not allow detection of all structural or chromosomal abnormalities. ?? RECOMMEND: ?? 1) Follow up ultrasound in 3 weeks to complete the anatomic survey and reevaluate growth 2) Serial ultrasounds to monitor growth every 3-4 weeks thereafter Thank you for allowing us the opportunity to care for your patient. Lacey Gonzalez MD <Electronic Signature> ??12/17/2015 05:49pm Provider Unknown MFM ORDERABLES Care Teams Card Stripper Relationship Specialty Start Date End Date Cassi Mann MD [address] [place] [address] [place] [phone] PCP - General Family Medicine 12/06/15 Chanud Barakat MD [address] [facility] [address] [place] [address] Aircraft Shipping Checker Urogynecology 07/19/23 Erin Rolon, HOUSE PAINTING INSTRUCTOR-ALARM ADJUSTER [address] [place] [address] Nurse Practitioner Gynecology 07/19/23
--- OUTSIDE RECORDS SUMMARY | 2024-12-04 18:54 | XMS_ITS | Data Portability ---
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 Plan of Treatment Reminders Order Date Submit Date Provider Last Modified By Organization Details Last Modified Time Details Appointments None recorded. Lab CBC 2023 024 [facility] (Lab), [address] [place], [address], 4 19:43:02 TSH, serum or plasma 2023 024 [facility] (Lab), [address] [place], [address], 4 20:22:18 CMP, serum or plasma 2023 024 [facility] (Lab), [address] [place], [address], 4 19:50:34 vitamin B12, serum 2023 024 [facility] (Lab), [address] [place], [address], 4 20:32:44 folate, serum 2023 024 [facility] (Lab), [address] [place], [address], 4 20:32:49 HbA1c (hemoglobin A1c), blood 2023 024 [facility] (Lab), [address] [place], [address], 4 22:20:58 ferritin, serum or plasma 2023 024 [facility] (Lab), [address] [place], [address], 4 20:28:06 iron + total iron-bindin g capacity (TIBC), serum 2023 024 [facility] (Lab), [address] [place], [address], 4 20:57:26 CMP, serum or plasma 2023 024 [facility] (Lab), [address] [place], [address], 4 20:36:49 CBC w/ auto diff 2023 024 [facility] (Lab), [address] [place], [address], 4 20:36:[address] referral - Please call patient to schedule an appointment . 2023 024 [email or web address] Fara Ramirez [facility], [address] [facility], [address], [address], 4 09:22:01 gastroenter ologist referral - Please call patient to schedule an appointment . Thank you. 2023 024 [email or web address] Neeru Gallegos MD, [address] [facility] [address], [place], [address], 4 08:42:55 Procedures upper endoscopy procedure (EGD) (PROC) [address] [facility] (Pre-Screen), [address], [place], [address], 13:33:50 Surgeries None recorded. Imaging None recorded. Medication Orders fluconazole 150 mg tablet 2023 024 [email or web address] [employer], [address] [place], [address], 11:13:30 trazodone 100 mg tablet 2023 024 [facility], [address] [place], [address], 11:31:17 Patient TargetsNo targets recorded. Patient Instructions Encounter Date Encounter Id Patient Instructions Last Modified By Organization Details Last Modified Time 04/09/2024 [id number] REFLUX DIET / WT LOSS [email or web address] Not available 04/09/2024 15:06:27 PT WITH GERD SX . NEED TO R/O PUD/ H. PYLORI . RECOMMEND AN EGD . Risks benefits and complications were explained to the pt. ( BLEEDING PERFORATION , INFECTION , ). PT VERBALIZES UNDERSTANDING AND IS WILLING TO PROCEDE . [email or web address] Not available 04/09/2024 15:06:21 06/04/2024 [id number] REFLUX DIET . WT LOSS. [email or web address] Not available 06/04/2024 12:50:25 PT WITH GERD . CONT OMEPRAZOLE 40 MG DAILY . 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 Thank you. Referring Physician: Cassi Mann Family Medicine, Encounter Date: 03/13/2024 Results Created Date Observation Date Name Description Value Unit Range Abnormal Flag Note LastModifiedBy Organization Detail LastModifiedTime 01/04/20 24 01/04/2024 rapid flu (A+B) Flu A negati ve Not Available [facility] [address], [place], [address], 01/04/2024 16:10:25 01/04/20 24 01/04/2024 rapid flu (A+B) Flu B positi ve Not Available [facility] [address], [place], [address], 01/04/2024 16:10:25 03/13/20 24 03/13/2024 CBC W/O DIFFE RENTI AL white blood cells 7.3 x10'3 /uL 4.2-10 .8 Not Available [facility] (Lab) [address] [place], [address], 03/13/2024 19:43:02 03/13/20 24 03/13/2024 CBC W/O DIFFE RENTI AL red blood cells 4.45 x10'6 /uL 3.80-5 .20 Not Available [facility] (Lab) [address] [place], [address], 03/13/2024 19:43:02 03/13/20 24 03/13/2024 CBC W/O DIFFE RENTI AL hemoglobin 12.4 g/dL 12.0-1 5.6 Not Available [facility] (Lab) [address] [place], [address], 03/13/2024 19:43:02 03/13/20 24 03/13/2024 CBC W/O DIFFE RENTI AL hematocrit 37.5 % 35.7-4 5.7 Not Available [facility] (Lab) [address] [place], [address], 03/13/2024 19:43:02 03/13/20 24 03/13/2024 CBC W/O DIFFE RENTI AL mean red cell volume 84.3 fL 82.0-9 9.0 Not Available [facility] (Lab) [address] [place], [address], 03/13/2024 19:43:02 03/13/20 24 03/13/2024 CBC W/O DIFFE RENTI AL mean red cell hemoglobin 27.9 pg 27.0-3 3.0 Not Available [facility] (Lab) [address] [place], [address], 03/13/2024 19:43:02 03/13/20 24 03/13/2024 CBC W/O DIFFE RENTI AL mean RBC HGB concentratio n 33.1 g/dL 31.0-3 6.0 Not Available [facility] (Lab) [address] [place], [address], 03/13/2024 19:43:02 03/13/20 24 03/13/2024 CBC W/O DIFFE RENTI AL red cell distribution width 13.8 % 11.8-1 5.5 Not Available [facility] (Lab) [address] [place], [address], 03/13/2024 19:43:02 03/13/20 24 03/13/2024 CBC W/O DIFFE RENTI AL platelets 217 x10'3 /uL 150-40 0 Not Available [facility] (Lab) [address] [place], [address], 03/13/2024 19:43:02 03/13/20 24 03/13/2024 CBC W/O DIFFE RENTI AL mean platelet volume 12.9 fL 9.0-12 .4 high Not Available [facility] (Lab) [address] [place], [address], 03/13/2024 19:43:02 03/13/20 24 03/13/2024 COMPR EHENS MARY METAB OLIC PANEL sodium 139 mmol/ L 137-14 5 Not Available [facility] (Lab) [address] [place], [address], 03/13/2024 19:50:34 03/13/20 24 03/13/2024 COMPR EHENS MARY METAB OLIC PANEL potassium 3.8 mmol/ L 3.5-5. 1 Not Available [facility] (Lab) [address] [place], [address], 03/13/2024 19:50:34 03/13/20 24 03/13/2024 COMPR EHENS MARY METAB OLIC PANEL chloride 108 mmol/ L 98-107 high Not Available [facility] (Lab) [address] [place], [address], 03/13/2024 19:50:34 03/13/20 24 03/13/2024 COMPR EHENS MARY METAB OLIC PANEL carbon dioxide 24 mmol/ L 22-30 Not Available [facility] (Lab) [address] [place], [address], 03/13/2024 19:50:34 03/13/20 24 03/13/2024 COMPR EHENS MARY METAB OLIC PANEL anion gap 10.8 mmol/ L 14-22 low Not Available [facility] (Lab) [address] [place], [address], 03/13/2024 19:50:34 03/13/20 24 03/13/2024 COMPR EHENS MARY METAB OLIC PANEL glucose 124 mg/dL 70-99 high Not Available [facility] (Lab) [address] [place], [address], 03/13/2024 19:50:34 03/13/20 24 03/13/2024 COMPR EHENS MARY METAB OLIC PANEL BUN 14 mg/dL 8-19 Not Available [facility] (Lab) [address] [place], [address], 03/13/2024 19:50:34 03/13/20 24 03/13/2024 COMPR EHENS MARY METAB OLIC PANEL creatinine 0.66 mg/dL 0.66-1 .25 Not Available [facility] (Lab) [address] [place], [address], 03/13/2024 19:50:34 03/13/20 24 03/13/2024 COMPR EHENS MARY METAB OLIC PANEL GFR >60 Refer ence Range : Solo ge GFR Healt hy Adult : >60 mL/mi n/1.7 3 m2 Chron ic Kidne y Disea se: 15-60 mL/mi n/1.7 3 m2 Kidne y Failu re: <15/m L/min /1.73 m2 www.n iddk. nih.g ov The MDRD study equat ion has not been valid ated in child nevaeh <18 years of age; pregn ant women ; the elder ly >85 years of age; or in some racia l or ethni c subgr oups, such as Hisco nics. Outsi de the valid ated yvette eters , estim ated GFR is less accur ate, requi ring clini arun judgm ent on a case- by-ca se basis . Clini arun inter preta tion for other races and ages must be made by the clini elizabeth. The MDRD study equat ion has not been valid ated for the evalu ation of serum creat inine relat ed to nutri harjinder l statu s or medic ation usage . For perso ns <18 years of age, a pedia tric GFR calcu lator is avail able on the [facility] websi te: https ://laurie w.niall guy.o rg/pr ofess ional s/kdo qi/gf r_cal culat or Not Available [facility] (Lab) [address] [place], [address], 03/13/2024 19:50:34 03/13/2003/13/2024 COMPR EHENS MARY METAB OLIC PANEL alkaline phosphatase 73 U/L 38-126 Not Available [facility] (Lab) [address] [place], [address], 03/13/2024 19:50:34 03/13/20 24 03/13/2024 COMPR EHENS MARY METAB OLIC PANEL alanine aminotransfe rase 23 U/L 0-35 Not Available [facility] (Lab) [address] [place], [address], 03/13/2024 19:50:34 03/13/20 24 03/13/2024 COMPR EHENS MARY METAB OLIC PANEL aspartate aminotransfe rase 27 U/L 15-37 Not Available [facility] (Lab) [address] [place], [address], 03/13/2024 19:50:34 03/13/20 24 03/13/2024 COMPR EHENS MARY METAB OLIC PANEL bilirubin, total 0.60 mg/dL 0.20-1 .30 Not Available [facility] (Lab) [address] [place], [address], 03/13/2024 19:50:34 03/13/20 24 03/13/2024 COMPR EHENS AMRY METAB OLIC PANEL calcium 8.8 mg/dL 8.4-10 .2 Not Available [facility] (Lab) [address] [place], [address], 03/13/2024 19:50:34 03/13/20 24 03/13/2024 COMPR EHENS MARY METAB OLIC PANEL total protein 6.3 g/dL 6.3-8. 2 Not Available [facility] (Lab) [address] [place], [address], 03/13/2024 19:50:34 03/13/20 24 03/13/2024 COMPR EHENS MARY METAB OLIC PANEL albumin 3.9 g/dL 3.4-5. 0 Not Available [facility] (Lab) [address] [place], [address], 03/13/2024 19:50:34 03/13/20 24 03/13/2024 COMPR EHENS MARY METAB OLIC PANEL globulin 2.4 g/dL 2.6-4. 2 low Not Available [facility] (Lab) [address] [place], [address], 03/13/2024 19:50:34 03/13/20 24 03/13/2024 COMPR EHENS MARY METAB OLIC PANEL A/G ratio 1.6 ratio 1.0-2. 0 Not Available [facility] (Lab) [address] [place], [address], 03/13/2024 19:50:34 03/13/20 24 03/13/2024 TSH thyroid-stim ulating hormone 1.370 uIU/m L 0.465- 4.680 Not Available [facility] (Lab) [address] [place], [address], 03/13/2024 20:22:18 03/13/20 24 03/13/2024 [place] ferritin 48 NG/mL 6.24-1 37 Not Available [facility] (Lab) [address] [place], [address], 03/13/2024 20:28:06 03/13/20 24 03/13/2024 VITAM IN B12 (GABE ALONSO ) vb12 383 pg/mL 239-93 1 Not Available [facility] (Lab) [address] [place], [address], 03/13/2024 20:32:44 03/13/20 24 03/13/2024 FOLAT E, SERUM /PLAS MA folate 4.60 NG/mL 2.76-2 0.0 Not Available [facility] (Lab) [address] [place], [address], 03/13/2024 20:32:49 03/13/20 24 03/13/2024 HEMOG LOBIN A1C HA1C 5.1 % 4.0-6. 0 Diabe lisa Scree ebenezer Crite dinh: <5.7% Consi stent with absen ce of diabe lisa 5.7-6 .4% Consi stent with incre ased risk for diabe lisa (pred iabet es) >OR=6 .5% Consi stent with diabe lisa REFER ENCE: Diabe lisa Care 2015, 39(Borrero ppl.1 ):s13 -s22 Not Available [facility] (Lab) [address] [place], [address], 03/13/2024 20:49:32 03/13/20 24 03/13/2024 IRON/ TIBC PANEL total iron binding capacity 308 mcg/d L 265-47 5 Not Available [facility] (Lab) [address] [place], [address], 03/13/2024 21:07:53 03/13/20 24 03/13/2024 IRON/ TIBC PANEL % transferrin saturation 18 % 20-55 low Not Available [facility] (Lab) [address] [place], [address], 03/13/2024 21:07:53 03/13/20 24 03/13/2024 IRON/ TIBC PANEL unsaturated iron bind capacity 253 mcg/d L 126-38 2 Not Available [facility] (Lab) [address] [place], [address], 03/13/2024 21:07:53 03/13/20 24 03/13/2024 IRON/ TIBC PANEL iron 55 mcg/d L 42-175 Not Available [facility] (Lab) [address] [place], [address], 03/13/2024 21:07:53 12/31/19 24 12/31/2023 XR, chest No observ ation record ed. [email or web address] [facility] [address], [place], [address], 01/01/2024 10:33:20 01/12/20 24 01/12/2024 CT, abdom en + pelvi s, w/o contr ast No observ ation record ed. [address], [place], [address], 02/11/2024 19:28:40 02/11/20 24 02/11/2024 MAMMO , scree ebenezer, digit al, bilat eral No observ ation record ed. [address], [place], [address], 02/11/2024 19:29:00 02/14/20 24 02/11/2024 MAMMO , diagn ostic , bilat eral No observ ation record ed. [address], [place], [address], 03/28/2024 15:43:39 Result Notes None recorded. Problems Name Problem SNOMED Code Status Onset Date Resolution Date Notes Provider Name and Address Organization Details Recorded Time Amenorrhea 35115006 Active Not Available [facility] 3 09:18:44 Hyperbilirubi nemia 89640549 Active Not Available [facility] 3 09:18:44 Adjustment disorder 07814091 Active Not Available [facility] 3 09:18:44 Abdominal pain 61623515 Active Not Available [facility] 3 09:18:44 Morbid obesity 295710659 Active Not Available [facility] 3 09:18:44 Gastro-esopha geal reflux disease with esophagitis 485243709 Active Not Available [facility] 3 09:18:44 Knee pain Active Not Available [facility] 3 09:18:44 Vitamin D deficiency 35725448 Active Not Available [facility] 3 09:18:45 Pain in coccyx 69943787 Active Not Available [facility] 3 09:18:45 Missed period 52500801 Active Not Available [facility] 3 09:18:45 Dermatophytos is 23990422 Active Not Available [facility] 3 09:18:45 Anxiety 91029544 Active Not Available [facility] 3 09:18:45 Cough 19306951 Active Not Available [facility] 3 09:18:45 Alopecia 75394272 Active Not Available [facility] 3 09:18:45 Irregular periods 96992163 Active Not Available [facility] 3 09:18:45 Fatigue 90606915 Active Not Available [facility] 3 09:18:45 Iron deficiency anemia 85318276 Active Not Available [facility] 3 09:18:46 Candidiasis of mouth 06857894 Active 2022 Cassi Mann MD [address], [place], [address] , [employer] [facility] 3 12:40:13 Asthma 217060103 Active 2022 REI Dumont-REJI [address], [place], [address] , [facility] 3 15:40:07 Dyspnea on exertion 29060396 Active 2022 HOLLY Dumont [address], [place], [address] , [facility] 3 15:40:11 Wheezing 12309742 Active 2022 HOLLY Dumont [address], [place], [address] , [facility] 3 15:40:15 Chronic cough 34785471 Active 2022 HOLLY Dumont [address], [place], [address] , [facility] 3 15:40:21 Gastroesophag eal reflux disease without esophagitis 188812209 Active 2022 HOLLY Dumont [address], [place], [address] , [employer] [facility] 3 15:41:50 Marijuana user 014134608 Active 2022 Fara Ramirez, [facility] [address], [place], [address] , [place] [facility] 3 15:45:51 Acute sinusitis 46437509 Active 2022 Cassi Mann MD [address], [place], [address] , [place] [facility] 3 17:46:13 Disorder of gallbladder 37859375 Active 2023 Cassi Mann MD [address], [place], [address] , [employer] [place] [facility] 4 13:21:55 Vaginitis 63934695 Active 2023 Cassi Mann MD [address], [place], [address] , [employer] [place] [facility] 4 18:39:14 Heartburn 47194393 Active 2023 Cassi Mann MD [address], [place], [address] , [employer] [place] [facility] 4 18:40:49 Insomnia 993882401 Active 2023 Cassi Mann MD [address], [place], [address] , [facility] 4 11:28:34 Dizziness 214862503 Active 2023 Cassi Mann MD [address], [place], [address] , [facility] 4 11:29:29 Gastroesophag eal reflux disease 253137618 Active 2023 Neeru Gallegos MD [address], [place], [address] , [place] [facility] 4 15:09:50 Acid reflux 392535983 Active 2023 ELIANA ChildsP [address], [place], [address] , [facility] 4 16:33:57 Abnormal weight gain 987031813 Active 2023 REI Montalvo-C [address], [place], [address] , [employer] [facility] 4 14:12:00 Problem Notes None recorded. Procedures Surgical History None recorded. Imaging Results Imaging Date Name Status LastModified by Organiz ation Details LastModified Time 12/31/2023 XR, chest completed [address], [address], 01/01/2024 10:33:20 01/12/2024 CT, abdomen + pelvis, w/o contrast completed [address], [address], 02/11/2024 19:28:40 02/11/2024 MAMMO, screening, digital, bilateral completed [address], [address], 02/11/2024 19:29:00 02/11/2024 MAMMO, diagnostic, bilateral completed [address], [address], 03/28/2024 15:43:39 Procedure Notes None recorded. Medical Equipment None Reported. Allergies Allergen ID Allergen Name Allergen Category Reaction Reaction Severity Criticality Documentation Date Start Date Code Code System Note Provider Name and Address Organization Details Recorded Time 90346 pecan nut food hives Not available Not available 01/10/2023 73163 UNK Not Available [facility] 3 09:24:[address] medicatio n hives Not available Not available 01/10/2023 89548 RxNorm Not Available [facility] 3 09:24:46 07421 codeine medicatio n hives severe Not available 01/10/20232016 2670 RxNorm Not Available [facility] 3 09:24:47 13938 Breztri medicatio n muscle cramps severe high 01/01/2024 00756 25 RxNorm Elizabeth Maldonado LPN null, [facility] 4 10:39:15 37981 Pethidine analog (substanc e) medicatio n Not available Not available Not available 01/04/2024 71922 0004 SNOMED Cassi Mann MD [address], [place], [address], [facility] [email or web address] 4 15:36:19 89242 Substance with morphinan structure and opioid receptor agonist mechanism of action (substanc e) medicatio n bradycard ia Not available [facility] 01/18/2024 24384 9000 OMED Cassi Mann MD [address], [place], [address], [employer] 4 15:36:34 Medications Name Sig Start Date Stop Date Status Note LastModified by Organization Details LastModified Time fluoxetine 40 mg capsule Take 40 mg by oral route. 03/13 completed Not Available Not Available Not Available cyclobenza venita 10 mg tablet 1 po TID prn 04/15 completed Not Available Not Available Not Available amoxicilli n 500 mg capsule 11/27 completed Not Available Not Available Not Available buspirone 5 mg tablet 08/08 completed Not Available Not Available Not Available nystatin 100,000 unit/mL oral suspension Take 5 mL 4 times a day by oral route for 7 days. 01/17 completed Not Available Not Available Not Available prednisone 10 mg tablet 10/11 completed Not Available Not Available Not Available venlafaxin e ER 75 mg capsule,ex tended release 24 hr Take 1 capsule every day by oral route. active Not Available Not Available No t Available doxycyclin e hyclate 100 mg capsule 10/11 completed Not Available Not Available Not Available paroxetine 10 mg tablet 10/10 completed Not Available Not Available Not Available albuterol sulfate 2.5 mg/3 mL (0.083 %) solution for nebulizati on Inhale 3 mL every 4 hours by inhalati on route as needed. active Not Available Not Available No t Available cetirizine 10 mg tablet active Not Available Not Available Not Available azithromyc in 250 mg tablet 2 tabs po qd x 1 day then 1 tab po qd x 4 days 04/09 completed Not Available Not Available Not Available fluconazol e 150 mg tablet 1 po x 1, repeat in 72 hours if needed active Not Available Not Available No t Available benzonatat e 200 mg capsule Take 1 capsule 3 times a day by oral route as needed. 01/17 completed Not Available Not Available Not Available metronidaz ole 0.75 % (37.5 mg/5 gram) vaginal gel Insert 1 applicat orful every day by vaginal route at bedtime for 5 days. 10/11 completed Not Available Not Available Not Available famotidine 40 mg tablet Take 1 tablet every day by oral route in the evening for 30 days. 01/17 completed Not Available Not Available Not Available prednisone 20 mg tablet take 2 tab daily 04/09 completed Not Available Not Available Not Available spironolac tone 100 mg tablet TAKE ONE TABLET BY MOUTH DAILY 08/24 completed Not Available Not Available Not Available sertraline 100 mg tablet Take 1 tablet every day by oral route for 90 days. 03/13 completed Not Available Not Available Not Available venlafaxin e ER 150 mg capsule,ex tended release 24 hr Take 1 capsule every day by oral route. 03/17 completed Not Available Not Available Not Available hydroxyzin e pamoate 50 mg capsule TAKE 1 CAPSULE BY MOUTH 4 TIMES A DAY NEEDED 03/17 completed Not Available Not Available Not Available metronidaz ole 500 mg tablet 01/11 completed Not Available Not Available Not Available norethindr one 1 mg-ethinyl estradiol 20 mcg (21)-iron 75 mg (7) tablet 1 po qday 06/14 completed Not Available Not Available Not Available prochlorpe razine maleate 10 mg tablet 09/18 completed Not Available Not Available Not Available Tamiflu 75 mg capsule Take 1 capsule twice a day by oral route. 01/17 completed Not Available Not Available Not Available sulfametho xazole 800 mg-trimeth oprim 160 mg tablet 03/13 completed Not Available Not Available Not Available omeprazole 40 mg capsule,de layed release TAKE 1 CAPSULE BY MOUTH EVERY DAY NEEDED active Not Available Not Available No t Available tramadol 50 mg tablet 03/13 completed Not Available Not Available Not Available amoxicilli n 500 mg tablet Take 1 tablet every 12 hours by oral route for 7 days. 11/27 completed Not Available Not Available Not Available ondansetro n 8 mg disintegra ting tablet Place 1 tablet every 8 hours by translin gual route as needed. 06/14 completed Not Available Not Available Not Available ketorolac 10 mg tablet 01/17 completed Not Available Not Available Not Available amoxicilli n 875 mg tablet TAKE 1 TABLET BY MOUTH EVERY 12 HOURS FOR 7 DAYS 01/17 completed Not Available Not Available Not Available citalopram 20 mg tablet Take 1 tablet every day by oral route. active Not Available Not Available No t Available famotidine 20 mg tablet Take 1 tablet twice a day by oral route. 03/13 completed pt stated med was giving her chest pain and making her light headed Not Available Not Available Not Available lorazepam 0.5 mg tablet Take 1 tablet 3 times a day by oral route as needed. active Not Available Not Available No t Available trazodone 100 mg tablet 1 po qhs prn insomnia active Not Available Not Available No t Available amitriptyl ine 10 mg tablet 2 po qhs active Not Available Not Available Not Available prochlorpe razine 25 mg rectal suppositor y 09/28 completed Not Available Not Available Not Available cephalexin 500 mg capsule 09/28 completed Not Available Not Available Not Available pantoprazo le 40 mg tablet,del ayed release Take 1 tablet every day by oral route in the morning for 90 days. 03/13 completed Not Available Not Available Not Available ferrous sulfate 325 mg (65 mg iron) tablet 09/18 completed Not Available Not Available Not Available fluoxetine 20 mg tablet Take 1 tablet every day by oral route. 06/10 completed Not Available Not Available Not Available prednisone 50 mg tablet Take 50 mg by oral route. 10/11 completed Not Available Not Available Not Available promethazi ne 25 mg tablet Take 1 tablet every 4 hours by oral route as needed. 08/08 completed Not Available Not Available Not Available fluoxetine 10 mg capsule Take 10 mg by oral route. 03/13 completed Not Available Not Available Not Available Advair Diskus 500 mcg-50 mcg/dose powder for inhalation 10/11 completed Not Available Not Available Not Available sertraline 25 mg tablet TAKE 1 TABLET BY MOUTH EVERY DAY 11/03 completed Not Available Not Available Not Available diclofenac sodium 75 mg tablet,del ayed release 04/04 completed Not Available Not Available Not Available montelukas t 10 mg tablet 10/11 completed Not Available Not Available Not Available diclofenac sodium 50 mg tablet,del ayed release 03/13 completed Not Available Not Available Not Available epinephrin e 0.3 mg/0.3 mL injection, auto-injec tor active Not Available Not Available Not Available cefuroxime axetil 500 mg tablet 08/08 completed Not Available Not Available Not Available polyethyle ne glycol 3350 17 gram/dose oral powder 1 capful in 4-8 ounces liquid once daily prn constipa tion 03/17 completed Not Available Not Available Not Available levofloxac in 750 mg tablet 01/17 completed Not Available Not Available Not Available methylpred nisolone 4 mg tablets in a dose pack active Not Available Not Available Not Available albuterol sulfate HFA 90 mcg/actuat ion aerosol inhaler INHALE 2 PUFFS BY MOUTH EVERY 4-6 HOURS NEEDED active Not Available Not Available No t Available Vitamin D2 1,250 mcg (50,000 unit) capsule Take 1 capsule every week by oral route. 03/13 completed Not Available Not Available Not Available ondansetro n 4 mg disintegra ting tablet 01/17 completed Not Available Not Available Not Available fluoxetine 20 mg capsule 1 po qday with 40 mg capsule active Not Available Not Available No t Available fluticason e propionate 50 mcg/actuat ion nasal spray,susp ension 2 sprays IEN daily 06/14 completed Not Available Not Available Not Available metformin ER 500 mg tablet,ext ended release 24 hr active Not Available Not Available Not Available clotrimazo le 1 % topical cream APPLY TO THE AFFECTED AND SURROUND ING AREAS OF SKIN BY TOPICAL ROUTE 2 TIMES PER DAY IN THE MORNING AND EVENING active Not Available Not Available No t Available sertraline 50 mg tablet 08/08 completed Not Available Not Available Not Available amoxicilli n 875 mg-potassi um clavulanat e 125 mg tablet 875 mg twice a day by oral route. 06/14 completed Not Available Not Available Not Available buspirone 15 mg tablet Take 15 mg 3 times a day by oral route. 01/17 completed Not Available Not Available Not Available NuvaRing 0.12 mg-0.015 mg/24 hr vaginal 12/26 completed Not Available Not Available Not Available Mucinex 600 mg tablet, extended release Take 1200 mg twice a day by oral route. 01/17 completed Not Available Not Available Not Available azithromyc in 500 mg tablet 09/18 completed Not Available Not Available Not Available escitalopr am 10 mg tablet Take 1 tablet every day by oral route. active Not Available Not Available No t Available Sprintec (28) 0.25 mg-35 mcg tablet Take 1 tablet every day by oral route. active Not Available Not Available No t Available bupropion HCl XL 300 mg 24 hr tablet, extended release active Not Available Not Available Not Available bupropion HCl XL 150 mg 24 hr tablet, extended release Take 1 tablet every day by oral route. active Not Available Not Available No t Available fenofibrat e 160 mg tablet active Not Available Not Available Not Available MIRELLA (28) 3 mg-0.02 mg tablet Take 1 tablet every day by oral route. 11/03 completed Not Available Not Available Not Available Symbicort 160 mcg-4.5 mcg/actuat ion HFA aerosol inhaler Inhale 2 puffs twice a day by inhalati on route. active Not Available Not Available No t Available Vyvanse 30 mg capsule TAKE 1 CAPSULE BY MOUTH EVERY DAY 12/15 completed Not Available Not Available Not Available ferrous sulfate 324 mg (65 mg iron) tablet,del ayed release Take 1 tablet every day by oral route at bedtime. 09/18 completed Not Available Not Available Not Available Kateryna Denis [facility] spacer active Not Available Not Available N ot Available polyethyle ne glycol 3350 (bulk) granules 09/18 completed Not Available Not Available Not Available Dupixent 300 mg/2 mL subcutaneo us pen injector active Not Available Not Available Not Available Breztri Aerosphere 160 mcg-9mcg-4 .8mcg/actu ation HFA aerosol inhaler Inhale 2 puffs twice a day by inhalati on route as directed for 30 days. 01/01 completed Not Available Not Available Not Available Vitals Date Recorded Body height Body mass index (BMI) Body weight Body temperature Oxygen saturation Oxygen saturation in Arterial blood by Pulse oximetry Heart rate Systolic blood pressure Diastolic blood pressure Provider Name and Address Organization Details Last Updated DateTime 4 162.56 cm 51 kg/m2 432232. 93 g 97.4 [degF] 98 % 98 % 64 /min 130 mm[Hg] 82 mm[Hg] Annemarie Hunter RN [facility] 4 15:21:42 Date Recorded Body height Body mass index (BMI) Body weight Body temperature Heart rate Oxygen saturation Oxygen saturation in Arterial blood by Pulse oximetry Systolic blood pressure Diastolic blood pressure Provider Name and Address Organization Details Last Updated DateTime 4 162.56 cm 53.4 kg/m2 937397. 23 g 97.9 [degF] 76 /min 98 % 98 % 130 mm[Hg] 76 mm[Hg] Avinash Nice RN [facility] [employer] [facility] 4 11:07:51 Date Recorded Body height Body mass index (BMI) Body weight Heart rate Oxygen saturation Oxygen saturation in Arterial blood by Pulse oximetry Systolic blood pressure Diastolic blood pressure Provider Name and Address Organization Details Last Updated DateTime 4 162.56 cm 53.4 kg/m2 577453. 23 g 78 /min 99 % 99 % 132 mm[Hg] 74 mm[Hg] RAVINDER Joel [place] [email or web address] [facility] 4 14:41:36 Date Recorded Body height Heart rate Oxygen saturation Oxygen saturation in Arterial blood by Pulse oximetry Body mass index (BMI) Body weight Systolic blood pressure Diastolic blood pressure Provider Name and Address Organization Details Last Updated DateTime 4 162.56 cm 76 /min 99 % 99 % 56 kg/m2 821873. 11 g 130 mm[Hg] 72 mm[Hg] RAVINDER Joel [place] [email or web address] [facility] 4 12:40:00 Date Recorded Body height Body mass index (BMI) Body weight Body temperature Heart rate Oxygen saturation Oxygen saturation in Arterial blood by Pulse oximetry Systolic blood pressure Diastolic blood pressure Provider Name and Address Organization Details Last Updated DateTime 4 162.56 cm 58.2 kg/m2 091153. 81 g 98.2 [degF] 76 /min 97 % 97 % 130 mm[Hg] 72 mm[Hg] Avinash Nice RN [place] - [facility] [employer] [facility] 4 14:04:02 Social History Question Answer Notes LastModified by Organizat ion Details LastModified Time Tobacco Smoking Status Never Smoker Not Available [email or web address] 01/10/2023 09:13:11 What Is Your Level Of Alcohol Consumption? None [id number].[id number] Information not available 01/10/2023 Do You Wear A Helmet When Biking? Yes MIGRATION.45461 74351 Information not available 01/10/2023 What Is Your Level Of Caffeine Consumption? Moderate [email or web address] Information not available 04/04/2023 In The 14 Days Before Symptom Onset, Have You Had Close Contact With A Laboratory-confir med COVID-19 While That Case Was Ill? No MIGRATION.[id number] Information not available 01/10/2023 In The 14 Days Before Symptom Onset, Have You Had Close Contact With A Person Who Is Under Investigation For COVID-19 While That Person Was Ill? No MIGRATION.26175 87680 Information not available 01/10/2023 What Type Of Diet Are You Following? REGULAR MIGRATION.88265 71038 Information not available 01/10/2023 Which Illicit Or Recreational Drugs Have You Used? Marijuana Does Flower And Edible Form [email or web address] Information not available 04/05/2023 What Is The Highest Grade Or Level Of School You Have Completed Or The Highest Degree You Have Received? [id number] MIGRATION.57503 91467 Information not available 01/10/2023 Have There Been Any Changes To Your Family Or Social Situation? No MIGRATION.85679 72473 Information not available 01/10/2023 Are There Any Guns Present In Your Home? No MIGRATION.64136 49204 Information not available 01/10/2023 Do You Use Insect Repellent Routinely? No MIGRATION.38471 98580 Information not available 01/10/2023 What Was The Date Of Your Most Recent Tobacco Screening? 03/13/2024 [email or web address] Information not available 03/13/2024 Do You Have Any Pets? Yes 3 Dogs [email or web address] Information not available 04/04/2023 What Is Your Relationship Status? MIGRATION.71026 63545 Information not available 01/10/2023 Do You Use Your Seat Belt Or Car Seat Routinely? Yes MIGRATION.73615 68376 Information not available 01/10/2023 Do You Have Smoke And Carbon Monoxide Detectors In Your Home? Yes MIGRATION.63172 85648 Information not available 01/10/2023 Are You Passively Exposed To Smoke? No MIGRATION.31322 83596 Information not available 01/10/2023 Are There Any Smokers In Your House? No MIGRATION.90380 03945 Information not available 01/10/2023 Do You Participate In Social brand [employer]? No MIGRATION.41039 16670 Information not available 01/10/2023 Do You Feel Stressed (tense, Restless, Nervous, Or Anxious, Or Unable To Sleep At Night)? [id number] MIGRATION.61311 90560 Information not available 01/10/2023 Do You Use Any Illicit Or Recreational Drugs? Yes Information not available 04/05/2023 Do You Use Sunscreen Routinely? Yes MIGRATION.59781 17363 Information not available 01/10/2023 Has Tobacco Cessation Counseling Been Provided? No MIGRATION.67370 42152 Information not available 01/10/2023 Have You Recently Traveled Abroad? No MIGRATION.54716 14260 Information not available 01/10/2023 Have You Used IV Drugs? No [email or web address] Information not available 04/05/2023 Are You Currently In School? No MIGRATION.45000 55151 Information not available 01/10/2023 Do You Have Any Dietary Restrictions? Yes No [place] MIGRATION.71463 73920 Information not available 01/10/2023 Do You Or Have You Ever Used Any Other Forms Of Tobacco Or Nicotine? No MIGRATION.72877 99205 Information not available 01/10/2023 Sex: Unknown Functional Status Question Answer Note LastModified by Organizat ion Details LastModified Time What is your exercise level? None [id number] Information not available 01/10/2023 Mental Status None recorded. Family History Relationship Description Onset Age of this Age Resolved Age Notes LastModified by Organization Details LastModified Time Maternal Grandmother Diabetes mellitus [id number] Not available 01/10/2023 09:13:38 Medical History No medical history recorded. Gynecological HistoryNo gynecological history recorded. Obstetrics History GPAL:G 0 P 0 0 0 0 Immunizations Vaccine Type Date Status Note Provider Nam e and Address Organization Details Recorded Time Tdap 10/11/2022 completed Not Available [facility] 01/10/2023 09:24:24 Influenza, split virus, quadrivalent, PF 10/11/2022 completed Not Available [facility] 3 09:24:24 Influenza, split virus, quadrivalent, PF 09/28/2021 completed Not Available [facility] 3 09:24:25 Influenza, split virus, quadrivalent, PF 09/18/2017 completed Not Available [facility] 3 09:24:25 Influenza, split virus, quadrivalent, PF 08/24/2015 completed Not Available [facility] 3 09:24:25 Past Encounters Encounter ID Performer Location Encounter Start Date Encounter Closed Date Diagnosis/Indication Diagnosis SNOMED-CT Code Diagnosis ICD10 Code Diagnosis Note [id number] [facility] [place] [address] [place] [address] [address] [place] [address] 06/14/2021 00:00:00 06/14/2021 08:35:57 [id number] [facility] [place] [address] [facility] [address] [place] [address] 07/13/2021 00:00:00 07/13/2021 08:33:46 [id number] [facility] [place] [address] [place] [address] [place] [address] 09/28/2021 00:00:00 09/28/2021 08:58:01 [id number] [facility] [place] [address] [facility] [address] [place] [address] 03/24/2022 00:00:00 03/24/2022 10:01:32 [id number] [facility] [place] [address] [facility] [address] [place] [address] 10/11/2022 00:00:00 10/11/2022 18:26:19 [id number] [facility] Angela rodrigues [address] [facility] [address] [place] [address] 01/03/2023 00:00:00 01/03/2023 13:39:01 [id number] Fara Ramirez [facility] [place] [address] [place] [address] 04/04/2023 15:06:27 04/04/2023 17:20:43 Asthma 064128451 J45.909 No formal testingShe has been improved on Breztri, continue for nowInstruc catrachito on technique with aerochambe rShe is aware to rinse and spit after useContinu e albuterol PRN - discussed indication s for use.RTC in 5-6 weeks, PRN for concerns Dyspnea on exertion 6084 5006 R06.09 Multifacto ralCheck labs Wheezing 02697730 R06.2 Intermitte ntly persistent Chronic cough 15459334 R 05.3 Check CXR Gastroesop hageal reflux disease without esophagitis 860089346 K21.9 Start famotidine dailyDiscu ssed dietary modificati onsAvoid tight clothing.N o eating 2-3 hours prior to bedAvoid offending foods?Elevate head of bed while sleeping Marijuana user 438759433 F12.90 I have advised her to quit smoking [id number] Fara Ramirez [facility] [place] [address] [place] [address] 07/04/2023 16:23:07 07/04/2023 17:16:31 Asthma 526062698 J45.909 ACT 20She has been improved on Breztri, continue for nowInstruc catrachito on technique with aerochambe rShe is aware to rinse and spit after useContinu e albuterol PRN - discussed indication s for use.PFT normalRTC after methacholi ne challenge Dyspnea on exertion 6084 5006 R06.09 Multifacto ralAll labs normal except IGE and eosinophil s Wheezing 26540880 R06.2 Intermitte ntly persistent , improvbed with Breztri Chronic cough 85235433 R 05.3 CXR with mild atelectasi s Gastroesop hageal reflux disease without esophagitis 762136461 K21.9 Famotidine dailyDiscu ssed dietary modificati onsAvoid tight clothing.N o eating 2-3 hours prior to bedAvoid offending foods?Elevate head of bed while sleeping Marijuana user 310948759 F12.90 I have advised her to quit smoking [id number] Murtaza Mar, REI-Kevin [facility] Care [address] [place] [address] 01/04/2024 15:51:52 01/07/2024 10:43:05 History of cholecystectomy 464081120 Z90.49 -removed 12/27 by emergent means by Dr. Randolph-Next f/u with surgeon is 01/09-still taking antibiotic s, famotidine -she declined medication s for enzymes-in cisions are healing well without signs of infection Exposure t o Influenzavirus 741493092 Z20.828 -daughter recently diagnosed with flu-swab obtained-f josé b positive [id number] Cassi Mann MD [facility] [address] [facility] [address] [place] [address] 01/18/2024 15:07:08 01/18/2024 15:49:33 Vaginitis 62811557 N76.0 Asthma 651325002 J45.90 9 [id number] Cassi Mann MD [facility] Primary Care [address] [place] [address] 03/13/2024 10:59:52 03/13/2024 13:55:04 Gastroesophageal reflux disease without esophagitis 036874196 K21.9 in very poor control with significan t breakthrou gh symptomsco ntinue PPIGI referral given-will likely need EGDAvoid greasy/spi cy/acidic foodEat small, frequent mealsCall if any worsening symptoms including increased pain or blood in stools Insomnia 458871047 G47.0 0 trial of trazodone 100 mg po qhsreviewe d potential med s/e and how to use properlydo not drive or work for at least 8 hours after taking trazodones he is vu ray trying edible thc + cbd, do not combine trazodone with this Dizziness 795082745 R42 R53.83 R63.5 check labs Iron defic iency anemia 67688994 D50.9 check labs [id number] Neeru Gallegos MD [facility] General Surgery [address] [address] 04/09/2024 14:38:23 04/09/2024 15:08:32 Gastroesophageal reflux disease 697755893 K21.9 [id number] Neeru Gallegos MD [facility] General Surgery [address] [address] 06/04/2024 12:38:02 06/04/2024 12:53:16 Gastroesophageal reflux disease 661820334 K21.9 [id number] EDIS Montalvo [facility] Primary Care [facility] [address] [facility] [address] [place] [address] 07/28/2024 13:57:31 07/28/2024 14:29:21 Abnormal weight gain 742909377 R63.5 Will check labs as listed below Post-disch arge follow-up 049478785 Z09 Doing well at this time, symptoms resolved. Body mass index 40+ - severely obese 225309871 Z68.43 BMI 58.2Discus sed continue healthy diet and routine exercise, will discuss potential medication s after labs. Health Concerns Section Related Observation LastModified by Organization Detai ls LastModified Time None Recorded Concern Status LastModified by Organization Details LastModified Time None Recorded Advance Directives Directive None Recorded Payers Encounter Date Sequence Insurance Name Policy Number Policy Tong Covered Member ID Tong Member ID Guarantor Name 01/18/2024 1 [facility] ON OR AFTER 05/12/21 (MEDICAID REPLACEMENT - HMO) Oscar Nelson [id number] Oscar Nelson 03/13/2024 1 [facility] ON OR AFTER 05/12/21 (MEDICAID REPLACEMENT - HMO) Oscar Nelson [id number] Oscar [employer] 04/09/2024 1 [facility] - DOS ON OR AFTER 21 (MEDICAID REPLACEMENT - HMO) Oscar [employer] [id number] Oscar [employer] 06/04/2024 1 [facility] - DOS ON OR AFTER 21 (MEDICAID REPLACEMENT - HMO) Oscar [employer] [id number] Oscar Ellsworth Nelson 07/28/2024 1 [facility] - DOS ON OR AFTER 21 (MEDICAID REPLACEMENT - HMO) Oscar [employer] [id number] Oscar [employer] Notes Date Note Type Note Provider Name and Address Organization Details Recorded Time 01/18/20 24 text/htm l was seen on 12/28 and 01/13 for nut allergy anaphylaxischaracterized by hives, dizziness, confusion, wheezing has epi-pen on hand has one day left of prednisone and 1 day of sulfa for UTI taking cetirizine daily has muscle ache/fatigue janay in legs Cassi Mann MD [address], [place], [address], [email or web address] 02/07/2024 07:51:46 03/13/20 24 text/htm l here c/o feeling wonky chest pain is now resolved off famotidine she can't get her GERD under control-she has reflux when bending or trying to work out. She has tried to eat small frequent meals but even water is causing heartburn. +sore throat, choking, burning throat she [facility], sleep eatingnot working out so she has gained weightbuspirone caused lightheadedness/dizziness-desouza s been meditatingmelatonin stops working after a few daysbenadryl causes insomnia does not feel overly anxious or depressed, but not sleeping takes zyrtec during the day for allergies but has itchy throat and allergy symptoms when it wears off she did restart her symbicort for asthma recently Cassi Mann MD [address], [place], [address], [email or web address] 03/15/2024 15:23:54 04/09/20 text/htm l MEL WAS SEEN IN THE OFFICE TODAY FOR EVALUATION . PT IS C/O GERD SX. SHE REPORTS PYROSIS. PT LOST 50 LBS AND REGAINED 10 LBS BACK. SHE IS TAKING OMEPRAZOLE 40 MG . SHE IS S/P LAP MANNY RECENTLY. Neeru Gallegos MD [address], [place], [address], [email or web address] 04/09/2024 15:09:56 06/04/20 text/htm l OSCAR WAS SEEN IN THE OFFICE TODAY FOR A F/U. PT HAS GERD AND IS TAKING OMEPRAZOLE . SHE IS DOING WELL . FOLLOWING REFLUX DIET . STAYING AWAY FROM TRIGGERS . Neeru Gallegos MD [email or web address], [place], [address], [email or web address] 06/04/2024 12:51:17 07/28/20 text/htm l Patient is a 29 year old female that presents to the office for hospital follow up. Patient went to [facility] ER in [place] 2 weeks ago for chest pain, shortness of breath, changes in vision, high blood pressure and tachycardia, diagnosed with post covid syndrome. Patient reports all symptoms improved with the exception of occasional tachycardia/palpitations but she contributes that to her Omeprazole because she has not had any issues since stopping that medication. Patient reports Omeprazole was causing bradycardia which then led to palpitations when her HR went back to normal. Patient has adjusted her diet and is doing better with just taking Tums. Patient does not want to start another prescription medication at this time. Patient is concerned with abnormal weight gain. Patient reports she has gained 10-15 pounds since having Covid 3 weeks ago. Patient reports she eats well and goes to the gym almost daily. Patient denies chest pain and shortness of breath, nausea vomiting and diarrhea at this time. EDIS Montalvo [email or web address], [place], [address], [employer] [facility] [employer] 07/28/2024 14:44:46 OBGyn Episode No OBEpisode recorded.
--- OUTSIDE RECORDS SUMMARY | 2024-12-04 18:54 | XMS_ITS | Clinical Summary ---
Author Organization [facility] Address [address] [place] [address] Care Team Providers Care Network Security Engineer Name Role Phone Cassi Mann MD Primary Care Provider [phone] Chandu Barakat MD Unavailable [phone] Erin Rolon APRN-FERMENTATION OPERATOR Unavailable [phone] Source Comments [facility],non-owned Affiliates and Associated Physician Practices is amultiple site organization consisting of ambulatory clinics and hospital sitesin [place], [place], [place] and [place]. This disclosure is being madepursuant to the Care Everywhere program and may not contain all information available regarding this patient. Last updated 18.[facility] Allergies Active Allergy Reactions Criticality Noted Date Comments Tqkdunm-Ymkbfvsdbav-Tpur oterol Unknown 01/08/2024 Codeine Anaphylaxis High 12/17/2015 [...] 12 tablet 10/04/2023 Active nystatin-triamcinolo ne (Mycolog) 413561-7.1 UNIT/GM-% cream Apply to affected area 2 [...] Resolved Date POP-Q stage 3 rectocele 07/19/2023 12/0 05/2023 HUMBERTO (stress urinary incontinence, female) 07/19/2023 10/18/2023 POP-Q stage 2 cystocele 07/19/2023 120 05/2023 Encounters Date Type Department Care Team Description 10/06/2024 1:50 PM WELDING MACHINE SETTER Office Visit [facility] ATHLETIC EQUIPMENT CUSTODIAN [address] [place] [address], [address] [phone] Chandu Barakat MD Monilial vulvitis (Primary Dx) 10/06/2024 Travel 09/26/2024 9:50 AM WELDING MACHINE SETTER Office Visit [facility] ATHLETIC EQUIPMENT CUSTODIAN [address] [place] [address], [address] [phone] Chandu Barakat MD Well woman exam with routine gynecological exam (Primary Dx) 09/26/2024 Travel 09/25/2024 Telephone [facility] ATHLETIC EQUIPMENT CUSTODIAN [address] [place] [address], [address] [phone] Chandu Barakat MD Swelling from Last 3 Months Family History Medical History Relation Name Comments Genetic/Metabolic Disease Father Co ng diaphramatic hernia Relation Name Status Comments Father Social History Tobacco Use Types Packs/Day Years [...] Comments Blood Pressure 128/68 10/06/2024 2:01 PM WELDING MACHINE SETTER Pulse 60 10/04/2023 8:49 AM WELDING MACHINE SETTER Temperature 36.8 ??C (98.3 ??F) 10/04/2023 8:49 AM CS T Respiratory Rate 18 10/04/2023 8:49 AM WELDING MACHINE SETTER Oxygen Saturation 99% 10/04/2023 8:49 AM WELDING MACHINE SETTER Inhaled Oxygen Concentration - - Weight 144.7 kg (319 lb) 10/06/2024 2:01 PM WELDING MACHINE SETTER Height 162.6 cm (5' 4 ) 10/06/2024 2:01 PM WELDING MACHINE SETTER Body Mass Index 54.76 10/06/2024 2:01 PM WELDING MACHINE SETTER Plan of Treatment Health Maintenance Due Date Last Done Comments HIV SCREENING 2009 HEPATITIS C SCREENING 01/13/2012 DTAP/TDAP/TD VACCINES (1 - Tdap) 2013 HEPATITIS B VACCINE (1 of 3 - 19+ 3-dose series) 2013 PNEUMOCOCCAL VACCINE (1 of 2 - PCV) 2013 COVID-19 VACCINE (1 - season) 2024 INFLUENZA VACCINE (#1) 2024 2, 09/28/2021, 09/18/2017, Additional history exists DEPRESSION SCREENING 11/12/2024 11/16/2023, 08/03/20 23 ZOSTER VACCINE (1 of 2) 01/18/2044 PAP SMEAR Discontinued 09/26/2024 HIB VACCINE Aged Out No longer eligi ble based on patient's age to complete this topic HPV VACCINE Aged Out No longer eligi ble based on patient's age to complete this topic MENINGOCOCCAL (Group B) VACCINE Aged Out No longer eligible based on patient's age to complete this topic MENINGOCOCCAL VACCINE Aged Out No baljit matt eligible based on patient's age to complete this topic Medical Devices Implanted Type Area Elementary Reading Specialist Device Identifier Shelf Expiration Date Model / Serial / Lot Sys Ureth Supp Obtryx Midurethral Trnstr Implanted:Qty: 1 on 10/03/2023 by Chandu Barakat MD at [facility] N/A: Vagina Tap[employer]emed 06/24/2026 [id number] / / [id number] Procedures Procedure Name Priority Date/Time Associated Diagnosis Comments PAP IG LB CT+NG+TV RFLX HPV ASCU Routine 09/26/2024 10:03 AM WELDING MACHINE SETTER Well woman exam with routine gynecological exam from Last 3 Months Results * PAP IG LB CT+NG+TV RFLX HPV ASCU (09/26/2024 10:03 AM WELDING MACHINE SETTER) Diagnosis Comment [facility] INSURANCE BILL Comment:NEGATIVE FOR INTRAEP ITHELIAL LESION OR MALIGNANCY. Specimen Adequacy Comment [facility] INSURANCE BILL Comment: Satisfactory for evaluation. ??Endocervical and/or squamous metaplastic cells (endocervical component) are present. Clinician Provided ICD10 Comment [facility] INSURANCE BILL Comment:Z01.419 Performed by Comment [facility] INSURANCE BILL Comment:Jonna Luna, Cyto technologist (ASCP) Comment . [facility] INSURANCE BILL Note Comment [facility] INSURANCE BILL Comment: The Pap smear is [...] of an image guided system. Note Comment [facility] INSURANCE BILL Comment: The HPV DNA reflex criteria were not met with this specimen result therefore, no HPV testing was performed. Chlamydia trachomatis MARIANELA Negative Negative [facility] INSURANCE BILL GC MARIANELA Negative Negative [facility] INSURANCE BILL Trichomonas vaginalis by MARIANELA Negative Negative [facility] INSURANCE BILL PART OF UTERINE CERVIX / Unknown 09/26/2024 10:03 AM WELDING MACHINE SETTER 09/26/2024 Comment:Cervix Release to pa t Narrative [facility] INSURANCE BILL - 10/03/2024 1:10 PM WELDING MACHINE SETTER Performed at: ??01 - [facility] [address], [place] ??[id number] Vehicle Operator: Milly Perez MD, Phone: ??[phone] Performed at: ??02 - [facility] [address], [id number] Vehicle Operator: Milly Perez MD, Phone: ??[phone] Specimen Comment: [id number] Specimen Comment: No. of containers..01 ThinPrep Vial Chandu Barakat MD LAB - PATHOLOGY/CYTO LOGY ORDERABLES [facility] INSURANCE BILL [address] [place] [address] from Last 3 Months Care Teams Network Security Engineer Relationship Specialty Start Date End Date Cassi Mann MD [address] [place] [address] [place] [phone] PCP - General Family Medicine 12/06/15 Chandu Barakat MD [facility] [address] [place] [address] Translator And Interpreter Urogynecology 07/19/23 Erin Rolon, [employer] FORMER-FERMENTATION OPERATOR [address] [place] [address] Nurse Practitioner Gynecology 07/19/23
--- OUTSIDE RECORDS SUMMARY | 2024-12-04 18:55 | XMS_ITS | Referral Summary ---
Author Organization [facility] Address [address] [place] [address] Care Team Providers Care Time Piece Repairer Name Role Phone Lala Llamas MD Unavailable [phone] Murtaza Mar NP Primary Care Provider [phone] Encounters Date Type Department Care Team Description 10/23/2024 Telephone [facility] Pulmonary at [address] [place] [phone] Brunilda Pina LPN Prior Auth; dupixent 10/22/2024 11:00 AM RN CORRECTIONAL Office Visit [facility] Pulmonary at [address] [phone] Fara Ramirez NP Severe persistent asthma without complication (Primary Dx); Environmental and seasonal allergies; Morbid obesity (HCC) 10/01/2024 12:07 PM RN CORRECTIONAL - 10/01/2024 11:59 PM RN CORRECTIONAL Hospital Encounter [facility] [address] [place] [address] Chest tightness Discharge Disposition: Discharge to home or self care 10/01/2024 11:30 AM RN CORRECTIONAL Office Visit [facility] Pulmonary at [address] [phone] Fara Ramirez NP Chest tightness (Primary Dx); Severe persistent asthma without complication; Environmental and seasonal allergies from Last 3 Months Allergies Active Allergy Reactions Criticality Noted Date Comments Ahcfgdoykn-Mmmugruz-Yct moterol Other (See comments),Unknown High 01/08/2024 Codeine Anaphylaxis High 11/12/2021 Hydromorphone Anxiety,Other (See comments),Chest tightness,Nausea & Vomiting High 12/22/2023 Bradycardia Iodine Itching Low 12/21/2023 Iodinated Contrast Media Rash Medium 12/22/2023 Macadamia Nut Oil Swelling Medium 02/27/2022 Montelukast Hives Medium 01/22/2024 Morphine Flushing (skin) Low 12/26/2023 Reports Pain, flushing, heat Nuts Anaphylaxis High 03/20/2022 Pecan Nut Anaphylaxis High 02/27/2022 Tree Nuts Anaphylaxis,Hives High 10/03/2023 Medications albuterol HFA (ProAir HFA) 90 mcg/actuation inhaler Inhale 2 puffs every 4 (four) hours as needed for wheezing or shortness of breath 8.5 g 5 2 Active Additional Information Patient not taking.Reported on 10/22/2024 montelukast (SINGULAIR) 10 mg tablet Take 1 tablet (10 mg total) by mouth nightly 30 tablet 11 2 Active Additional Information Patient not taking.Reported on 10/22/2024 famotidine (PEPCID) 20 mg tablet Take 1 tablet (20 mg total) by mouth once Active omeprazole (PriLOSEC) 40 mg capsule Take 1 capsule (40 mg total) by mouth daily 90 capsule 4 Active Additional Information Patient not taking.Reported on 10/22/2024 cetirizine (ZyrTEC) 10 mg chewable tablet Take 1 tablet (10 mg total) by mouth daily Active budesonide-formo teroL (SYMBICORT) 160-4.5 mcg/actuation inhaler Inhale 2 puffs 2 (two) times a day Rinse mouth with water after use. Do not swallow. 1 each 4 Active EPINEPHrine 0.3 mg/0.3 mL auto-injection syringe as needed Active tiotropium bromide (SPIRIVA RESPIMAT) 2.5 mcg/actuation inhaler Inhale 2 puffs daily Active fluticasone propionate (FLONASE) 50 mcg/actuation nasal spray 0 Active tiotropium bromide (SPIRIVA RESPIMAT) 2.5 mcg/actuation inhaler Inhale 2 puffs daily 1 each 11 4 Active dupilumab (Dupixent Pen) pen injectorIndicati ons:Severe persistent asthma without complication Inject 4 mL (600 mg total) under the skin once for 1 dose 4 mL 4 Active dupilumab (Dupixent Pen) pen injector Inject 2 mL (300 mg total) under the skin every 14 (fourteen) days 4 mL 11 4 Active Active Problems Problem Noted Date Diagnosed Date Sinus bradycardia 12/28/2023 Calculus of gallbladder with out cholecystitis without obstruction 12/26/2023 RUQ abdominal pain 12/22/2023 Severe persistent asthma without complication Assessment & Plan (10/22/2024 3:06 PM RN CORRECTIONAL): Continue Symbicort 160 twice daily and Spiriva 2.5 two puffs daily Continue Airsupra as needed only, we have discussed indications for use Avoid triggers 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, I will start her on Dupixent. I have initiated the paperwork for this today. We have discussed signs and symptoms that would require earlier evaluation or change to her plan of care Assessment & Plan (10/01/2024 2:07 PM RN CORRECTIONAL): Continue Symbicort 160 twice daily and Spiriva 2.5 two puff daily She remains uncontrolled so I will add ICS/ELIO for rescue therapy. I have given her 2 samples of Airsupra and instructed her on use Eosinophils up to 900 in the past. We have discussed biologics. If change in inhaled therapy is not effective I will plan to initiate Dupixent at her next office visit. She has had elevated IGE and eosinophils in the past. We have discussed signs and symptoms that would require earlier evaluation or change to her plan of care Assessment & Plan (08/28/2024 8:24 PM CDT): Continue Symbicort 160 twice daily. I will attempt to add a LAMA for dual bronchodilation I have given her 2 samples of Spiriva 2.5 and instructed her on use and technique If she tolerates this and remains uncontrolled I would consider a re-trial of montelukast and the addition of ICS/ELIO for rescue therapy. She has had elevated IGE and eosinophils in the past. Re-check CBC today I would have a low threshold for biologics in the future. We have extensively discussed reportable signs and symptoms Morbid obesity 03/20/2022 Assessment & Plan (10/22/2024 3:04 PM RN CORRECTIONAL): She has continued to gain weight despite diet changes. Her exercise is limited by dyspnea, although certainly some of her dyspnea is caused by her weight. We have discussed bariatric surgical evaluation today and I have recommended a new primary care provider for her. Continue diet changes and exercise as tolerated Moderate persistent asthma with exacerbation 04/2022 COVID-19 11/12/2021 Depression Polycystic ovary disease Bronchitis Overview (03/18/2022): gets bronchitis due to allergies - uses nebulizer as needed Frequent sinus infections Environmental and seasonal allergies Assessment & Plan (10/22/2024 3:07 PM RN CORRECTIONAL): Continue OTC allergy pill daily Saline nasal rinses and intranasal spray as needed. Previous adverse reaction to montelukast in the past. Assessment & Plan (10/01/2024 2:08 PM RN CORRECTIONAL): Continue OTC allergy pill daily Saline nasal rinses and intranasal spray as needed. Request further labs from [facility]. Avoid triggers. Assessment & Plan (08/28/2024 8:26 PM CDT): Continue OTC allergy pill daily Saline nasal rinses and intranasal spray as needed. Request further labs from [facility]. Avoid triggers. Hypoxia Social History Tobacco Use Types Packs/Day Years Used Date Smoking Tobacco: Never Smokeless Tobacco: Never Tobacco Cessation:Counseling Given: Not Answered [facility] SocialCompareities Answer Date Recorded In the past 12 months has [employer], oil, or water [employer] threatened to shut off services in your home? No 12/26/2023 Social Connection and Isolat ion Panel [NHANES] Answer Date Recorded In a typical week, how many times do you talk on the phone with family, friends, or neighbors? More than three times a week 12/26/2023 How often do you get togethe r with friends or relatives? More than three times a week 12/26/2023 How often do you attend chur ch or mandaeism services? Never 12/26/2023 Do you belong to any clubs o r organizations such as taoism groups, unions, fraternal or athletic groups, or school groups? No 12/26/2023 How often do you attend meet ings of the clubs or organizations you belong to? Never 12/26/2023 Are you , , di vorced, , never , or living with a partner? 12/26/2023 AUDIT-C Answer Date Recorded Q1: How often do you have a drink containing alcohol? Never 12/26/2023 Q2: How many drinks containi ng alcohol do you have on a typical day when you are drinking? Patient does not drink Q3: How often do you have si x or more drinks on one occasion? Never 12/26/2023 Overall Financial Resource Strain (CARDIA) Answe r Date Recorded How hard is it for you to pa y for the very basics like food, housing, medical care, and heating? Not very hard 12/26/2023 Hunger Vital Sign Answer Date Recorded Within the past 12 months, y ou worried that your food would run out before you got the money to buy more. Never true 12/26/19 24 Within the past 12 months, t he food you bought just didn't last and you didn't have money to get more. Never true 12/26/2023 PRAPARE - Transportation Answer Date Re corded In the past 12 months, has l ack of transportation kept you from medical appointments or from getting medications? No 12/13 In the past 12 months, has l ack of transportation kept you from meetings, work, or from getting things needed for daily living? No 12/26/2023 Housing Stability Vital Sign Answer Hu e Recorded In the last 12 months, was t here a time when you were not able to pay the mortgage or rent on time? No 12/26/2023 In the last 12 months, how many places have you lived? 1 12/26/2023 In the last 12 months, was t here a time when you did not have a steady place to sleep or slept in a prison (including now)? No 12/26/2023 Personal Safety Answer Date Recorded Have you ever been in or are you currently in a harmful physical or emotional relationship or is someone making you feel afraid or unsafe? 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 on file Not on file Not on file Last Filed Vital Signs Vital Sign Reading Time Taken Comments Blood Pressure 108/62 10/22/2024 11:02 AM RN CORRECTIONAL Pulse 80 10/22/2024 11:02 AM RN CORRECTIONAL Temperature 36.6 ??C (97.9 ??F) 10/22/2024 1 1:02 AM RN CORRECTIONAL Respiratory Rate 16 07/07/2024 10:4 3 PM CDT Oxygen Saturation 98% 10/22/2024 11: 02 AM RN CORRECTIONAL Inhaled Oxygen Concentration - - Weight 159.8 kg (352 lb 6.4 oz) 024 11:02 AM RN CORRECTIONAL Height 162.6 cm (5' 4 ) 10/22/2024 11:0 2 AM RN CORRECTIONAL Body Mass Index 60.49 10/22/2024 11:02 AM RN CORRECTIONAL Plan of Treatment Not on file Procedures Procedure Name Priority Date/Time Associated Diagnosis Comments XR CHEST PA LATERAL 2 VIEWS Schedule Routine, Read Routine (OP Routine) 10/01/2024 12:22 PM RN CORRECTIONAL Chest tightness from Last 3 Months Results * X-ray chest 2 views (10/01/2024 12:22 PM RN CORRECTIONAL) Anatomical Region Laterality Modality Body, Chest N/A Computed Radiogr aphy 10/05/2024 11:3 0 AM RN CORRECTIONAL Narrative 10/05/2024 11:31 AM RN CORRECTIONAL EXAM DESCRIPTION: XR CHEST PA LATERAL 2 VIEWS REASON FOR STUDY: Intermittent chest tightness ?? Chest tightness and SOB since 09/26 ??No surgery ??Asthma ? TECHNIQUE: There are 2 ??radiographic view(s) of the chest. COMPARISON: Prior exam 07/07/2024, 12/31/2023 and 05/25/2023 FINDINGS: LUNGS: ??Pulmonary vascularity appears normal. ??No confluent infiltrate or effusion. ??Costophrenic angles are sharp. ??Stable eventration right hemidiaphragm. ?? HEART/MEDIASTINUM: ??Cardiac silhouette normal in size. Mediastinal and hilar contours appear normal. ?? Right cardiophrenic angle fat pad is again seen. LINES/TUBES: ??None. BONES: ??Mild spondylosis thoracic spine. IMPRESSION: No acute findings or infiltrate. THIS IS AN ELECTRONICALLY VERIFIED FINAL REPORT 10/05/2024 11:31 AM - Electronically signed by ??Ulises DURBIN: RAMAKRISHNA D: ??10/05/2024 11:31 AM T: ??10/05/2024 11:31 AM Report ID: [id number] Reading Location: ??[id number] Procedure Note Ulises Duncan MD - 10/05/2024 EXAM DESCRIPTION: XR CHEST PA LATERAL 2 VIEWS REASON FOR STUDY: Intermittent chest tightness Chest tightness and SOB since 09/26 No surgery Asthma TECHNIQUE: There are 2 radiographic view(s) of the chest. COMPARISON: Prior exam 07/07/2024, 12/31/2023 and 05/25/2023 FINDINGS: LUNGS: Pulmonary vascularity appears normal. No confluent infiltrate or effusion. Costophrenic angles are sharp. Stable eventration right hemidiaphragm. HEART/MEDIASTINUM: Cardiac silhouette normal in size. Mediastinal andhilar contours appear normal. Right cardiophrenic angle fat pad is again seen. LINES/TUBES: None. BONES: Mild spondylosis thoracic spine. IMPRESSION: No acute findings or infiltrate. THIS IS AN ELECTRONICALLY VERIFIED FINAL REPORT 10/05/2024 11:31 AM - Electronically signed by Ulises DURBIN Report ID: [id number] Reading Location: [id number] Fara Ramirez SUPERINTENDENT PIPELINES IMG XR PROCEDURES Final Res ult from Last 3 Months Insurance [facility] Advance Directives For more information, please contact: [phone] * Full Code (Latest Code Status on File) Date Activated Date Inactivated Comments 12/26/2023 7:32 AM 12/28/2023 3:21 PM * Full Code Date Activated Date Inactivated Comments 12/22/2023 10:15 PM 12/24/2023 12:39 AM * Full Code Date Activated Date Inactivated Comments 03/18/2022 2:02 AM 03/20/2022 5:53 PM Care Teams Time Piece Repairer Relationship Specialty Start Date End Date Murtaza Mar NP [address] [place] [address] [place] [address] PCP - General Family Medicine 07/17/24 Lala Llamas MD [address] [place] [id number] Consulting Physician Pulmonary Disease 03/20/22
--- OUTSIDE RECORDS SUMMARY | 2024-12-04 18:55 | XMS_ITS | Clinical Summary ---
Author Organization [facility] Address [address] [place] [address] Care Team Providers Care Executive Officer Special Warfare Team Name Role Phone Lala Llamas MD Unavailable + [phone] Murtaza Mar NP Primary Care Provider [phone] Allergies Active Allergy Reactions Criticality Noted Date Comments Zzsfslgzlc-Davtzqzt-Mmk moterol Other (See comments),Unknown High 01/08/2024 Codeine [...] complication Assessment & Plan (10/22/2024 3:06 PM NURSE PRACTITIONER MANAGER): Continue Symbicort 160 twice daily and Spiriva [...] care Assessment & Plan (10/01/2024 2:07 PM NURSE PRACTITIONER MANAGER): Continue Symbicort 160 twice daily and Spiriva [...] 03/20/2022 Assessment & Plan (10/22/2024 3:04 PM NURSE PRACTITIONER MANAGER): She has continued to gain weight despite [...] allergies Assessment & Plan (10/22/2024 3:07 PM NURSE PRACTITIONER MANAGER): Continue OTC allergy pill daily Saline nasal rinses and intranasal spray as needed. Previous adverse reaction to montelukast in the past. Assessment & Plan (10/01/2024 2:08 PM NURSE PRACTITIONER MANAGER): Continue OTC allergy pill daily Saline nasal rinses and intranasal spray as needed. Request further labs from [facility]. Avoid triggers. Assessment & Plan (08/28/2024 8:26 PM CDT): Continue OTC allergy pill daily Saline nasal rinses and intranasal spray as needed. Request further labs from [facility]. Avoid triggers. Hypoxia Encounters Date Type Department Care Team Description 10/23/2024 Telephone [facility] Pulmonary at [address] [place] [phone] Brunilda Pina LPN Prior Auth; maggi 10/22/2024 11:00 AM NURSE PRACTITIONER MANAGER Office Visit [facility] Pulmonary at [address] [place] [address] Fara Ramirez NP Severe persistent asthma without complication (Primary Dx); Environmental and seasonal allergies; Morbid obesity (HCC) 10/01/2024 12:07 PM NURSE PRACTITIONER MANAGER - 10/01/2024 11:59 PM NURSE PRACTITIONER MANAGER Hospital Encounter [facility] [address] [place] [address] Chest tightness Discharge Disposition: Discharge to home or self care 10/01/2024 11:30 AM NURSE PRACTITIONER MANAGER Office Visit [facility] Pulmonary at [address] [place] [address] Fara Ramirez NP Chest tightness (Primary Dx); Severe persistent asthma without complication; Environmental and seasonal allergies from Last 3 Months Surgical History Surgery Date Site/Laterality Comments TONSILLECTOMY/ADENOIDECTOMY HAND SURGERY right hand with wire on pinkie finger EYE SURGERY over-growth of lymph tissue removed - under left eye DILATION AND CURETTAGE, DIAG NOSTIC / THERAPEUTIC VAGINAL PROLAPSE REPAIR ANUS SURGERY anal prolapse repair Medical History Medical History Date Comments Depression Polycystic ovary disease Bronchitis gets bronchitis due to allergies - uses nebulizer as needed Asthma Frequent sinus infections Environmental and seasonal allergies Covid-19 11/12/2021 Anxiety PTSD (post-traumatic stress disorder) Dermatophytosis Candidiasis of mouth Vitamin D deficiency Morbid obesity (HCC) Iron deficiency anemia Adjustment disorder Acute sinusitis GERD (gastroesophageal reflux disease) Amenorrhea Irregular periods Alopecia Fatigue Hyperbilirubinemia Wheezing Dyspnea on exertion Cough Abdominal pain Knee pain Coccyx pain Marijuana user Family History Medical History Relation Name Comments Asthma Brother Alan fatty liver Father COPD Mother Asthma Sister Toma Relation Name Status Comments Brother Alan Father Alive Mother Alive Sister Toma Alive Social History Tobacco Use Types Packs/Day Years Used Date Smoking Tobacco: Never Smokeless Tobacco: Never Tobacco Cessation:Counseling Given: Not Answered [facility] Utilities Answer Date Recorded In the past 12 months has th e [employer], gas, oil, or water Personal Estate Manager threatened to shut off services in your [...] week 12/26/2023 How often do you attend [facility] or mandaeism services? Never 12/26/2023 Do you belong to any clubs o r organizations such as islam groups, unions, fraternal or athletic groups, or [...] place to sleep or slept in a detention (including now)? No 12/26/2023 Personal Safety Answer Date Recorded Have you ever been in or are you currently in a harmful physical or emotional relationship or is someone making you feel afraid or unsafe? 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 Not on file Not on file Obstetrics History Para Term AB IAB SAB Ectopic Multiple Livin g Live Births 5 2 1 1 2 2 2 2 Date Outcome GA Total Labor Labor/2nd/3rd Weight Sex Type Anes PTL Acacia A1 A5 Name Clin 03/2015 SAB D&C 04/2016 36w 0d F Living Complications:Pre eclampsia 06/2017 Term 40w 0d F Living 03/2021 SAB SAB Last Filed Vital Signs Vital Sign Reading Time Taken Comments Blood Pressure 108/62 10/22/2024 11:02 AM NURSE PRACTITIONER MANAGER Pulse 80 10/22/2024 11:02 AM NURSE PRACTITIONER MANAGER Temperature 36.6 ??C (97.9 ??F) 10/22/2024 1 1:02 AM NURSE PRACTITIONER MANAGER Respiratory Rate 16 07/07/2024 10:4 3 PM CDT Oxygen Saturation 98% 10/22/2024 11: 02 AM NURSE PRACTITIONER MANAGER Inhaled Oxygen Concentration - - Weight 159.8 kg (352 lb 6.4 oz) 024 11:02 AM NURSE PRACTITIONER MANAGER Height 162.6 cm (5' 4 ) 10/22/2024 11:0 2 AM NURSE PRACTITIONER MANAGER Body Mass Index 60.49 10/22/2024 11:02 AM NURSE PRACTITIONER MANAGER Plan of Treatment Health Maintenance Due Date Last Done Comments Cervical Cancer Screening 1994 Depression Screening 1994 Hepatitis C Screening 1994 Varicella Vaccines (2 of 2 - 2-dose childhood series) 10/06/1999 07/14/1999 Pneumococcal vaccine <65 (1 of 2 - PCV) 01/18/2000 Regular Well Visit/Exam 18-64 01/18/2012 Influenza Vaccine (#1) 2024 , 09/28/2021, 09/18/2017, Additional history exists DTaP/Tdap/Td Vaccine (7 - Td or Tdap) 10/11/2032 10/11/2022, 07/14/1999, 09/24/1995, Additional history exists HPV Vaccines Aged Out No longer eligi ble based on patient's age to complete this topic Procedures Procedure Name Priority Date/Time Associated Diagnosis Comments XR CHEST PA LATERAL 2 VIEWS Schedule Routine, Read Routine (OP Routine) 10/01/2024 12:22 PM NURSE PRACTITIONER MANAGER Chest tightness from Last 3 Months Results * X-ray chest 2 views (10/01/2024 12:22 PM NURSE PRACTITIONER MANAGER) Anatomical Region Laterality Modality Body, Chest N/A Computed Radiogr aphy 10/05/2024 11:3 0 AM NURSE PRACTITIONER MANAGER Narrative 10/05/2024 11:31 AM NURSE PRACTITIONER MANAGER EXAM DESCRIPTION: XR CHEST PA LATERAL 2 [...] AM T: ??10/05/2024 11:31 AM Report ID: [id number] Reading Location: ??[id number] Procedure Note Ulises Duncan MD - 10/05/2024 [...] Electronically signed by Ulises DURBIN Report ID: [id number] Reading Location: [id number] Fara Ramirez PHOTO STYLIST IMG XR PROCEDURES Final Res ult from Last 3 Months Insurance [facility] Advance Directives For more information, please contact: [phone] * Full Code (Latest Code Status on File) Date Activated Date Inactivated Comments 12/26/2023 7:32 AM 12/28/2023 3:21 PM * Full Code Date Activated Date Inactivated Comments 12/22/2023 10:15 PM 12/24/2023 12:39 AM * Full Code Date Activated Date Inactivated Comments 03/18/2022 2:02 AM 03/20/2022 5:53 PM Care Teams Executive Officer Special Warfare Team Relationship Specialty Start Date End Date Murtaza Mar, PHOTO STYLIST [address] [place] [address] [place] [address] PCP - General Family Medicine 07/17/24 Lala Llamas MD [address] [place] [id number] Consulting Physician Pulmonary Disease 03/20/22
--- OUTSIDE RECORDS SUMMARY | 2024-12-04 18:55 | XMS_ITS | Data Portability ---
Author Organization [facility] [place] Address [address] [place] [address] [place] [address] Assessment Encounter Date Assessment Date Assessment LastModified by Organization Details LastModified Time 05/10/2022 05/10/2022 will do labs, us and see pcp will then plan follow up as needed, total time 35 minutes in colsultation and planning Not available 05/10/2022 12:03:40 Plan of Treatment Reminders Order Date Submit Date Provider Last Modified By Organization Details Last Modified Time Details Appointments None recorded. Lab None recorded. Referral None recorded. Procedures None recorded. Surgeries None recorded. Imaging US, pelvis, complete 2021 022 [email or web address] [facility], [address], [place], [address], 18:05:59 US, pelvis [email or web address], [address], [place], [address], 21:44:10 US, transvagina l 2021 022 [email or web address] [place], [address], [place], [address], 21:44:10 US, pelvis, complete 2022 023 [email or web address] 1 [facility], [address], [place], [address], 3 19:54:57 US, pelvis 2022 023 [email or web address] [place], [place], [address], 3 21:44:52 US, transvagina l 2022 023 [email or web address] [place], [place], [address], 3 21:44:52 MAMMO, diagnostic, unilateral - left breast, around 11/13 oclock 2023 024 [facility] (Mammography) , [address], [place], [address], 4 05:01:04 US, breast, unilateral 2023 024 [facility] (Mammography) , [address], [place], [address], 4 05:01:04 Medication Orders None recorded. Patient TargetsNo targets recorded. Patient InstructionsNo instructions recorded. Reason for Referral None Reported. Results Created Date Observation Date Name Description Value Unit Range Abnormal Flag Note LastModifiedBy Organization Detail LastModifiedTime 05/10/20 22 05/10/2022 CBC W/DIF F WBC 8.2 10'3/ uL 3.6-10 .2 Not Available [facility] (Lab) [address], [place], [address], 05/16/2022 18:27:37 05/10/20 22 05/10/2022 CBC W/DIF F RBC 4.60 10'6/ uL (based on docume nted legal sex) 4.10-5 .30 Not Available [facility] (Lab) [address], [place], [address], 05/16/2022 18:27:37 05/10/20 22 05/10/2022 CBC W/DIF F HGB 11.9 g/dL (based on docume nted legal sex) 11.9-1 5.8 Not Available [facility] (Lab) [address], [place], [address], 05/16/2022 18:27:37 05/10/20 22 05/10/2022 CBC W/DIF F HCT 38.9 % (based on docume nted legal sex) 37.4-4 8.3 Not Available [facility] (Lab) [address], [place], [address], 05/16/2022 18:27:37 05/10/20 22 05/10/2022 CBC W/DIF F MCV 85.0 fL 82.0-9 9.0 Not Available [facility] (Lab) [address], [place], [address], 05/16/2022 18:27:37 05/10/20 22 05/10/2022 CBC W/DIF F MCH 26.0 pg 27.0-3 3.0 low Not Available [facility] (Lab) [address], [place], [address], 05/16/2022 18:27:37 05/10/20 22 05/10/2022 CBC W/DIF F MCHC 31.0 g/dL 32.0-3 6.0 low Not Available [facility] (Lab) [address], [place], [address], 05/16/2022 18:27:37 05/10/20 22 05/10/2022 CBC W/DIF F RDW 16.0 % 11.0-1 5.0 high Not Available [facility] (Lab) [address], [place], [address], 05/16/2022 18:27:37 05/10/20 22 05/10/2022 CBC W/DIF F plt 222 10'3/ uL 150-45 0 Not Available [facility] (Lab) [address], [place], [address], 05/16/2022 18:27:37 05/10/20 22 05/10/2022 CBC W/DIF F MPV 12.1 fL 9.8-12 .7 Not Available [facility] (Lab) [address], [place], [address], 05/16/2022 18:27:37 05/10/20 22 05/10/2022 CBC W/DIF F NRBC's 0.00 % 0 Not Available [facility] (Lab) [address] [facility], [place], [address], 05/16/2022 18:27:37 05/10/20 22 05/10/2022 CBC W/DIF F absolute NRBCs 0.0 10'3/ uL 0 Not Available [facility] (Lab) [address], [place], [address], 05/16/2022 18:27:37 05/10/20 22 05/10/2022 CBC W/DIF F neutrophils 66.0 % 37.0-7 2.0 Not Available [facility] (Lab) [address] [facility], [place], [address], 05/16/2022 18:27:37 05/10/20 22 05/10/2022 CBC W/DIF F lymphocytes 21.0 % 16.0-4 8.0 Not Available [facility] (Lab) [address] [facility], [place], [address], 05/16/2022 18:27:37 05/10/20 22 05/10/2022 CBC W/DIF F monocytes 6.0 % 4.0-14 .0 Not Available [facility] (Lab) [address] [facility] [address], [place], [address], 05/16/2022 18:27:37 05/10/20 22 05/10/2022 CBC W/DIF F eosinophils 5.0 % 0.0-9. 0 Not Available [facility] (Lab) [address] [facility] [address], [place], [address], 05/16/2022 18:27:37 05/10/20 22 05/10/2022 CBC W/DIF F basophils 1.0 % 0.0-2. 0 Not Available [facility] (Lab) [address] [facility] [address], [place], [address], 05/16/2022 18:27:37 05/10/20 22 05/10/2022 CBC W/DIF F immature granulocytes 1.0 % no define d refere nce range Not Available [facility] (Lab) [address] [facility] [address], [place], [address], 05/16/2022 18:27:37 05/10/20 22 05/10/2022 CBC W/DIF F absolute neutrophils 5.4 10'3/ uL 1.1-6. 0 Not Available [facility] (Lab) [address] [facility] [address], [place], [address], 05/16/2022 18:27:37 05/10/20 22 05/10/2022 CBC W/DIF F absolute lymphocytes 1.7 10'3/ uL 0.7-3. 4 Not Available [facility] (Lab) [address], [place], [address], 05/16/2022 18:27:37 05/10/20 22 05/10/2022 CBC W/DIF F absolute monocytes 0.5 10'3/ uL 0.3-1. 0 Not Available [facility] (Lab) [address] [facility] [address], [place], [address], 05/16/2022 18:27:37 05/10/20 22 05/10/2022 CBC W/DIF F absolute eosinophils 0.4 10'3/ uL 0.0-0. 6 Not Available [facility] (Lab) [address] [place], [address], 05/16/2022 18:27:37 05/10/20 22 05/10/2022 CBC W/DIF F absolute basophils 0.1 10'3/ uL 0.0-0. 1 Not Available [facility] (Lab) [address] , [place], [address], 05/16/2022 18:27:37 05/10/20 22 05/10/2022 CBC W/DIF F absolute immature granulocytes 0.10 10'3/ uL 0.00-0 .10 2021 2:19 AM: P indic ates parti al resul ts on a panel have been relea sed. Addit ional resul ts will follo w. 2021 2:19 AM: This resul t has been final verif ied. No addit ional or aldana ed resul ts are expec catrachito. Not Available [facility] (Lab) [address], [place], [address], 05/16/2022 18:27:37 05/10/20 22 05/10/2022 HEMOG LOBIN A1C hemoglobin A1C 5.3 % 0-5.6 The Ameri can Diabe lisa Assoc iatio n recom mends that a prima ry goal of thera py yogesh d be a HBA1C of < 7% and that physi cians shoul d reeva luate the treat ment regim en in patie nts with HBA1C value s consi stent ly > 8%. <5.7% Sonia l 5.7 - 6.4% Incre ased risk for diabe lisa >=6.5 % Diagn ostic of diabe lisa <7.0% Goal of thera py >8.0% Actio n sugge sted Not Available [facility] (Lab) [address], [place], [address], 05/16/2022 18:27:37 05/10/20 22 05/10/2022 DHEA SULFA TE DHEA-sulfate 49 ug/dL Femal e Range s Age(y ) Range (ug/d L) 10-15 34-28 0 15-20 65-36 8 20-25 148-4 07 25-35 99-34 0 35-45 61-33 7 45-55 35-25 6 55-65 19-20 5 65-75 9-246 > 75 12-15 4 Not Available [facility] (Lab) [address] [facility] [address], [place], [address], 05/16/2022 18:27:38 05/10/20 22 05/10/2022 CRP, HIGH SENSI TIVIT Y (HSCR P) C-reactive protein, high sensitivity 15.83 mg/L 0.00-3 .00 high Risk Accor ding To AHA/C DC Guide lines : < 1.0 mg/L Low Cardi ovasc ular Risk 1.0-3 .0 mg/L Louisa ge Cardi ovasc ular Risk > 3.0 mg/L High Cardi ovasc ular Risk > 10.0 mg/L Acute Infla mmati on Not Available [facility] (Lab) [address], [place], [address], 05/16/2022 18:27:38 05/10/20 22 05/10/2022 TSH, REFLE X FREE T4 TSH 1.73 uIU/m L 0.30-5 .33 Not Available [facility] (Lab) [address], [place], [address], 05/16/2022 18:27:38 05/10/20 22 05/10/2022 HUMAN SEX HORMO NE GOVIND NG GLOBU SHEREEN sex hormone binding globulin 33.5 nmole s/L 18.2-1 35.5 Not Available [facility] (Lab) [address], [place], [address], 05/16/2022 18:27:39 05/10/20 22 05/10/2022 VITAM IN D, 25-OH (TOTA L D2/D3 ) vitamin D, 25-hydroxy, total 7.0 NG/mL 30.0-1 00.0 low R-The refer ence range for this test has been updat ed. Sugge stive of Defic iency : <20 ng/mL Sugge stive of Insuf ficie ncy: 20-29 ng/mL Sugge stive of Suffi cienc y: 30-10 0 ng/mL Sugge stive of Toxic ity: >150 ng/mL Not Available [facility] (Lab) [address] [place], [address], 05/16/2022 18:27:39 05/10/20 22 05/10/2022 ESTRA DIOL estradiol 5.0 pg/mL This assay was perfo rmed using [employer] ratio n reage nts and test kits. Value s obtai jg with other assay metho ds or kits canno t be used inter [facility] . Femal e Estra diol Range s: Folli cular phase 12.4- 233 pg/mL Ovula tion phase 41.0- 398 pg/mL Lutea l phase 22.3- 341 pg/mL Postm enopa usal< 5-138 pg/mL Healt hy Pregn ant Women 1st Trime ster1 54-32 43 pg/mL 2nd Trime ster1 561-2 1280 pg/mL 3rd Trime ster8 525-> 28007 pg/mL Not Available [facility] (Lab) [address] [place], [address], 05/16/2022 18:27:39 05/10/20 22 05/10/2022 PROLA CTIN prolactin, total 22.10 NG/mL 4.79-2 3.30 This assay was perfo rmed using [employer] reage nts and test kits. Value s obtai jg with other assay metho ds or kits canno t be used inter [facility] . Not Available [facility] (Lab) [address] [place], [address], 05/16/2022 18:27:40 05/10/20 22 05/10/2022 LH (LUTE NIZIN G HORMO NE) LH 5.0 mIU/m L This assay was perfo rmed using [employer] reage nts and test kits. Value s obtai jg with other assay metho ds or kits canno t be used inter [facility] . Femal es Mid-F ollic ular: 2.4-1 2.6 mIU/m L Mid-C ycle: 14.0- 95.6 mIU/m L Mid-L uteal : 1.0-1 1.4 mIU/m L Postm enopa use: 7.7-5 8.5 mIU/m L Not Available [facility] (Lab) [address], [place], [address], 05/16/2022 18:27:40 05/10/20 22 05/10/2022 FSH FSH 5.7 mIU/m L This assay was perfo rmed using [employer] reage nts and test kits. Value s obtai jg with other assay metho ds or kits canno t be used inter [facility] . Femal es Folli cular : 3.5-1 2.5 mIU/m L Ovula tion: 4.7-2 1.5 mIU/m L Lutea l: 1.7-7 .7 mIU/m L Postm enopa use: 25.8- 134.8 mIU/m L Not Available [facility] (Lab) [address], [place], [address], 05/16/2022 18:27:40 05/10/20 22 05/10/2022 PROGE STERO NE progesterone <0.05 NG/mL This assay was perfo rmed using [employer] reage nts and test kits. Value s obtai jg with other assay metho ds or kits canno t be used inter [facility] . Femal e Proge stero ne Range s: Folli cular phase 0.06- 0.89 ng/mL Ovula tion phase 0.12- 12.00 ng/mL Lutea l phase 1.83- 23.90 ng/mL Postm enopa usal< 0.05- 0.13 ng/mL Healt hy Pregn ant Women 1st Trime ster1 1.0-4 4.30 2nd Trime ster2 5.40- 83.30 3rd Trime ster5 8.70- 214.0 0 Not Available [facility] (Lab) [address], [place], [address], 05/16/2022 18:27:41 05/10/20 22 05/10/2022 LIPID PANEL ,AMA (LDL- CALC) total cholesterol 218 mg/dL 0-199 high Not Available [facility] (Lab) [address], [place], [address], 05/16/2022 18:27:41 05/10/20 22 05/10/2022 LIPID PANEL ,AMA (LDL- CALC) triglyceride s 571 mg/dL 0.00-1 50.00 high NCEP Refer ence Value s for Trigl yceri jessica: Sonia l: <150 mg/dL [place] High: 150 - 199 mg/dL High: 200 - 499 mg/dL Very High: >/= 500 mg/dL Not Available [facility] (Lab) [address] [place], [address], 05/16/2022 18:27:41 05/10/20 22 05/10/2022 LIPID PANEL ,AMA (LDL- CALC) HDL cholesterol 48 mg/dL >40 Not Available [facility] (Lab) [address] [place], [address], 05/16/2022 18:27:41 05/10/20 22 05/10/2022 LIPID PANEL ,AMA (LDL- CALC) LDL cholesterol . Trigl yceri jessica >400; Unabl e to calcu late LDL. Cutof f value s recom joaquín d by the Sara nal Sonali stero l Educa tion Progr am: [place] ABLE: Sonali stero l <200 mg/dL LDL <100 mg/dL BORDE RLINE : Sonali stero l 200-2 39 mg/dL LDL 101-1 59 mg/dL HIGHE R RISK: Sonali stero l >240 mg/dL LDL >160 mg/dL , HDL <40 mg/dL Not Available [facility] (Lab) [address] [place], [address], 05/16/2022 18:27:41 05/10/20 22 05/10/2022 LIPID PANEL ,AMA (LDL- CALC) non-HDL cholesterol 170 mg/dL no refere nce range A reaso nable goal for non-H DL sonali stero l is one that is 30 mg/dL highe r than the LDL sonali stero l goal. Not Available [facility] (Lab) [address], [place], [address], 05/16/2022 18:27:41 05/10/20 22 05/10/2022 LIPID PANEL ,AMA (LDL- CALC) chol/HDL ratio 4.5 . 0.0-5. 0 Not Available [facility] (Lab) [address], [place], [address], 05/16/2022 18:27:41 05/10/20 22 05/10/2022 CMP(C OMPRE HENSI VE METAB OLIC PANEL ) sodium 141 mmol/ L 133-14 6 Not Available [facility] (Lab) [address], [place], [address], 05/16/2022 18:27:42 05/10/20 22 05/10/2022 CMP(C OMPRE HENSI VE METAB OLIC PANEL ) potassium 3.9 mmol/ L 3.5-5. 1 Not Available [facility] (Lab) [address], [place], [address], 05/16/2022 18:27:42 05/10/20 22 05/10/2022 CMP(C OMPRE HENSI VE METAB OLIC PANEL ) chloride 106 mmol/ L 98-107 Not Available [facility] (Lab) [address], [place], [address], 05/16/2022 18:27:42 05/10/20 22 05/10/2022 CMP(C OMPRE HENSI VE METAB OLIC PANEL ) carbon dioxide 24 mmol/ L 21-31 Not Available [facility] (Lab) [address] [place], [address], 05/16/2022 18:27:42 05/10/20 22 05/10/2022 CMP(C OMPRE HENSI VE METAB OLIC PANEL ) anion gap 11 mmol/ L 4-13 Not Available [facility] (Lab) [address], [place], [address], 05/16/2022 18:27:42 05/10/20 22 05/10/2022 CMP(C OMPRE HENSI VE METAB OLIC PANEL ) blood urea nitrogen 17 mg/dL 7-25 Not Available [facility] (Lab) [address], [place], [address], 05/16/2022 18:27:42 05/10/20 22 05/10/2022 CMP(C OMPRE HENSI VE METAB OLIC PANEL ) creatinine 0.73 mg/dL 0.60-1 .30 Not Available [facility] (Lab) [address], [place], [address], 05/16/2022 18:27:42 05/10/20 22 05/10/2022 CMP(C OMPRE HENSI VE METAB OLIC PANEL ) egfrcr (CKD-epi 2020) >90 mL/mi n/1.7 3_m2 >=60 Not Available [facility] (Lab) [address], [place], [address], 05/16/2022 18:27:42 05/10/20 22 05/10/2022 CMP(C OMPRE HENSI VE METAB OLIC PANEL ) calcium 8.8 mg/dL 8.3-10 .5 Not Available [facility] (Lab) [address], [place], [address], 05/16/2022 18:27:42 05/10/20 22 05/10/2022 CMP(C OMPRE HENSI VE METAB OLIC PANEL ) glucose 123 mg/dL 70-100 high Not Available [facility] (Lab) [address], [place], [address], 05/16/2022 18:27:42 05/10/20 22 05/10/2022 CMP(C OMPRE HENSI VE METAB OLIC PANEL ) protein, total 5.7 g/dL 6.4-8. 3 low Not Available [facility] (Lab) [address], [place], [address], 05/16/2022 18:27:42 05/10/20 22 05/10/2022 CMP(C OMPRE HENSI VE METAB OLIC PANEL ) albumin 3.7 g/dL 3.5-5. 0 Not Available [facility] (Lab) [address], [place], [address], 05/16/2022 18:27:42 05/10/20 22 05/10/2022 CMP(C OMPRE HENSI VE METAB OLIC PANEL ) ALT 20 units /L 9-43 Not Available [facility] (Lab) [address], [place], [address], 05/16/2022 18:27:42 05/10/20 22 05/10/2022 CMP(C OMPRE HENSI VE METAB OLIC PANEL ) alkaline phosphatase 63 units /L 34-104 Not Available [facility] (Lab) [address], [place], [address], 05/16/2022 18:27:42 05/10/20 22 05/10/2022 CMP(C OMPRE HENSI VE METAB OLIC PANEL ) AST 20 units /L 13-39 Not Available [facility] (Lab) [address], [place], [address], 05/16/2022 18:27:42 05/10/20 22 05/10/2022 CMP(C OMPRE HENSI VE METAB OLIC PANEL ) bilirubin, total 0.6 mg/dL 0.2-1. 2 Not Available [facility] (Lab) [address], [place], [address], 05/16/2022 18:27:42 05/10/20 22 05/10/2022 TESTO STERO NE, FREE( DIALY SIS) AND TOTAL (LC/M S/MS) testosterone , total 13 NG/dL 2-45 For addit ional nalini arguelleselaine plascencia e refer to http: //tracey kangque stdia gnost ics.c om/fa q/Tot Deloris Guadarrama [facility] (This link is being provi ded for infor imani nal/ educa harjinder l purpo ses only. ) This test was devel oped and its bertha tical perfo rmanc e romero cteri stics have been deter mined by [facility]. It has not been clear ed or appro tristan by the FDA. This assay has been valid ated pursu ant to the CLIA regul ation s and is used for clini arun purpo ses. Not Available [facility] (Lab) [address] [place], [address], 05/16/2022 18:27:42 05/10/20 22 05/10/2022 TESTO STERO NE, FREE( DIALY SIS) AND TOTAL (LC/M S/MS) testosterone , free 2.2 pg/mL 0.1-6. 4 This test was devel oped and its bertha tical perfo rmanc e romero cteri stics have been deter mined by [facility]. It has not been clear ed or appro tristan by the FDA. This assay has been valid ated pursu ant to the CLIA regul ation s and is used for clini arun purpo ses. Perfo rming Organ izati on Nalini diallo n: Site ID: [id number] Name: [facility] Addre ss: [id number] [facility] [place] [address] Direc tor: Melanie ely M.D. Not Available [facility] (Lab) [address] [place], [address], 05/16/2022 18:27:42 05/10/20 22 05/10/2022 17-OH PROGE STERO NE 17-hydroxypr ogesterone, lc/MS/MS 14 NG/dL Adult Femal e Refer ence Range s for 17-Hy droxy proge stero ne: Pre-M enopa usal Mid Folli cular : 23-10 2 ng/dL Pre-M enopa usal Surge : 67-34 9 ng/dL Pre-M enopa usal Mid Lutea l: 139-4 31 ng/dL Postm enopa usal Phase : < or = 45 ng/dL Pregn siddhartha: First Trime ster: 78-45 7 ng/dL Secon d Trime ster: 90-35 7 ng/dL Third Trime ster: 144-5 78 ng/dL This test was devel oped and its bertha tical perfo rmanc e romero cteri stics have been deter mined by [facility] [place] [facility] . It has not been clear ed or appro tristan by FDA. This assay has been valid ated pursu ant to the CLIA regul ation s and is used for clini arun purpo ses. Perfo rming Organ izati on Infor matio n: Site ID: [id number] Name: [facility] [place] [facility] [place] , Addre ss: [id number] [facility] [place] [address] Direc tor: Delilah alvarez MD,Ph D,DEYSI Not Available [facility] (Lab) [address], [place], [address], 05/16/2022 18:27:42 05/24/20 22 05/24/2022 US, pelvi s No observ ation record ed. [email or web address] [place] [address], [place], [address], 05/24/2022 13:22:47 05/24/20 22 05/24/2022 US, delmer richards al No observ ation record ed. [email or web address] [place] [address], [place], [address], 05/24/2022 13:22:58 05/24/20 22 05/24/2022 US, pelvi s No observ ation record ed. [address], [place], [address], 05/29/2022 15:12:01 07/06/20 23 07/06/2023 US, pelvi s No observ ation record ed. [email or web address] [place] [address], [place], [address], 07/06/2023 15:14:21 07/06/20 23 07/06/2023 US, trans vagin al No observ ation record ed. [email or web address] [place] [address], [place], [address], 07/06/2023 15:14:13 07/06/20 23 07/06/2023 US, pelvi s No observ ation record ed. [email or web address] [address], [place], [address], 07/12/2023 15:10:12 02/11/20 24 02/11/2024 imagi ng/di agnos tic resul t No observ ation record ed. [address] [facility], [place], [address], 02/13/2024 00:18:39 02/15/20 24 02/11/2024 imagi ng/di agnos tic resul t No observ ation record ed. [address], [place], [address], 02/27/2024 11:41:09 Result Notes None recorded. Problems Name Problem SNOMED Code Status Onset Date Resolution Date Notes Provider Name and Address Organization Details Recorded Time Infectio n screenin g Completed 201606/27/2021 Encounte r for screenin g for oth infec/pa rastc diseases ;Recorde d Elsewher e: No Locat ion: [facility] S ource: [employer] Police Stenographer henry: N Practi ce ID: [id number] Pedro lable Time: 02:15:00 PM Danuta olivares, [facility] 17:29:21 Normal pregnanc y in multigra juju [id number] Completed 201506/27/2021 Encounte r for supervis ion of other normal pregnanc y, third trimeste r;Record ed Elsewher e: No Locat ion: Lance troy [facility] S ource: [employer] Stenographer henry: N Brendati ce ID: [id number] Pedro lable Time: 02:00:00 PM Danuta olivares, [facility] 17:29:42 Uterine size for dates discrepa ncy Completed 201606/27/2021 Uterine size-jose j e discrepa ncy, first trimeste r;Record ed Elsewher e: No Locat ion: Antonio sydni [facility] S ource: [employer] Stenographer henry: N Brendati ce ID: [id number] Pedro lable Time: 03:00:00 PM Danuta olivares, [facility] 17:29:[address] Concept Completed 201606/27/2021 Encntr for general adult medical exam w/o abnormal findings ;Recorde d Elsewher e: No Locat ion: [facility] S ource: [employer] Stenographer henry: N Brendati ce ID: [id number] Pedro lable Time: 02:15:00 PM Danuta olivares, [facility] 17:29:23 Furuncle [id number] Completed 201606/27/2021 Boil;Rec orded Elsewher e: No Locat ion: Antonio sydni [facility] S ource: [employer] Stenographer henry: N Brendati ce ID: [id number] Pedro lable Time: 02:45:00 PM Danuta olivares [facility] 17:29:37 Nausea and vomiting [id number] Completed 201606/27/2021 Nausea with vomiting ;Recorde d Elsewher e: No Locat ion: [facility] S ource: [employer] Police Stenographer henry: N Practi ce ID: [id number] Pedro lable Time: 02:15:00 PM Danuta olivares, [facility] 17:29:06 Pregnanc y detectio n examinat ion Completed 201406/27/2021 Encounte r for pregnanc y test, result positive ;Recorde d Elsewher e: No Locat ion: [facility] S ource: [employer] Police Stenographer henry: N Practi ce ID: [id number] Pedro lable Time: 04:30:00 PM Danuta olivares, [facility] 17:29:46 Screenin g for malignan t neoplasm of cervix Completed 201406/27/2021 Encounte r for screenin g for malignan t neoplasm of cervix;R ecorded Elsewher e: No Locat ion: [facility] S ource: [employer] Stenographer henry: N Practi ce ID: 0001 Pedro lable Time: 01:00:00 PM Danuta Briggs marshall, [facility] 17:29:09 Uterine size for dates discrepa ncy Completed 201606/27/2021 Uterine size-jose j e discrepa ncy, third trimeste r;Practi ce ID: 0001 Danuta Chester olivares, [facility] 17:29:15 Severe obesity complica ting pregnanc y [id number] Completed 201606/27/2021 Obesity complica ting pregnanc y, third trimeste r;Practi ce ID: 0001 Danuta olivares, [facility] 17:29:03 Gestatio n period, 39 weeks [id number] Completed 201606/27/2021 39 weeks gestatio n of pregnanc y;Practi ce ID: 0001 Danuta olivares, [facility] 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 17:28:59 Single live [id number] Completed 201606/27/2021 Single live ;Pr actice ID: 0001 Danuta olivares, [facility] 17:29:08 Gestatio n period, 40 weeks [id number] Completed 201606/27/2021 40 weeks gestatio n of pregnanc y;Practi ce ID: 0001 Danuta olivares, [facility] 17:29:44 Lochia finding Completed 201606/27/2021 Encounte r for routine postpart um follow-u p;Practi ce ID: 0001 Danuta olivares, [facility] 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 17:29:25 Body mass index 30+ - obesity [id number] Completed 201706/27/2021 Body mass index (BMI) 50-59.9 , adult;Pr actice ID: 0001 Danuta olivares, [facility] 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 17:29:27 Pregnanc y, childbir th and puerperi um finding Completed 201606/27/2021 Oth pregnanc y related conditio ns, third trimeste r;Practi ce ID: 0001 Danuta olivares, [facility] 17:29:18 Gestatio n period, 37 weeks [id number] Completed 201606/27/2021 37 weeks gestatio n of pregnanc y;Practi ce ID: 0001 Danuta Briggs marshall [facility] 17:29:41 Vomiting of pregnanc y [id number] Completed 201506/27/2021 Late vomiting of pregnanc y;Practi ce ID: 0001 Danuta olivares, [facility] 17:29:51 Complica tion of pregnanc y, childbir th and/or puerperi um [id number] Completed 201506/27/2021 Oth dis of the bld/bld- form org/immu n mechnsm comp the puerp;Pr actice ID: 0001 Danuta olivares [facility] 17:29:11 Rhinitis of pregnanc y [id number] 196400 Completed 201506/27/2021 Diseases of the resp sys comp pregnanc y, third trimeste r;Practi ce ID: 0001 Danuta Briggs marshall [facility] 17:28:57 Pregnanc y-induce d hyperten kiara Completed 201506/27/2021 Gestatio nal htn w/o signific ant proteinu dinh, third trimeste r;Practi ce ID: 0001 Danuta olivares [facility] 17:29:12 Gestatio n period, 9 weeks [id number] Completed 201606/27/2021 9 weeks gestatio n of pregnanc y;Practi ce ID: 0001 Danuta olivares, [facility] 17:29:52 Gestatio n less than 9 weeks [id number] Completed 201406/27/2021 Less than 8 weeks gestatio n of pregnanc y;Practi ce ID: 0001 Danuta olivares, [facility] 17:29:[address] Concept Completed 201506/27/2021 Maternal care for excess growth, first trimeste r, unsp;Pra ctice ID: 0001 Danuta olivares, [facility] 17:29:20 Gestatio n period, 35 weeks [id number] Completed 201506/27/2021 35 weeks gestatio n of pregnanc y;Practi ce ID: 0001 Danuta olivares, [facility] 17:29:49 Syphilis test finding [id number] Completed 201606/27/2021 Encntr screen for infectio ns w sexl mode of transmis s;Record ed Elsewher e: No Locat ion: [facility] S ource: EHR Police Stenographer henry: N Practi ce ID: 0001 Pedro lable Time: 02:15:00 PM Danuta olivares, [facility] 17:29:32 Secondar y amenorrh ea [id number] Completed 201606/27/2021 Secondar y amenorrh ea;Recor ded Elsewher e: No Locat ion: [facility] e [facility] S ource: EHR Police Stenographer henry: N Practi ce ID: 0001 Pedro lable Time: 02:15:00 PM Danuta olivares, [facility] 1 17:29:01 Pregnanc y [id number] Completed 202002/07/2022 Madelyn Bohnenstie hl null, [facility] 2 12:31:33 Body mass index 40+ - severely obese 774250141 Completed antenata l testing at 34 weeks - sheet given to MA to ask pt Madelyn Bohnenstie hl null, [facility] 2 12:31:24 Hypereme sis gravidar um [id number] Completed lost 13# by ROMEL Joshi Bohnenstie hl null, [facility] 2 12:31:25 Hypereme sis gravidar um [id number] Active lost 13# by ROMEL Joshi Bohnenstie hl null, [facility] 2 12:31:25 Marijuan a user [id number] Active Madelyn Bohnenstie hl null, [facility] 2 12:31:25 Past pregnanc y history of gestatio nal hyperten kiara 384866658 Active ASA 162mg, CMP WNL Madelyn Bohnenstie hl null, [facility] 2 12:31:25 Body mass index 40+ - severely obese 179630573 Active antenata l testing at 34 weeks - sheet given to MA to ask pt Madelyn Bohnenstie hl null, [facility] 2 12:31:24 Marijuan a user [id number] Completed Madelyn Bohnenstie hl null, [facility] 2 12:31:25 Past pregnanc y history of gestatio nal hyperten kiara 091114706 Completed ASA 162mg, CMP WNL Madelyn Bohnenstie hl null, [facility] 2 12:31:25 Asthma 736341623 Completed 11/08 - pt reports using home nebulize r nightly due to possible COVID and/or RSV Madelyn Bobo hl null, [facility] 2 12:31:24 COVID-19 [id number] Completed 2020 serial growth and asa Madelyn Jihan hl null, [facility] 2 12:31:24 Problem Notes None recorded. Procedures Surgical History Date Name Laterality Status Provider Name and Address Organization Details Recorded Time 12/27/19 24 cholecystectomy completed [facility] 01/22/2024 11:13:59 10/08/20 23 repair of rectal prolapse completed [facility] 01/22/2024 11:15:03 07/25/20 21 Date of Last Pap Smear completed [facility] 11/30/2021 11:15:55 11/12/19 08 extraction of wisdom tooth completed [facility] 01/30/2022 13:14:18 11/12/19 07 Unlisted px hands/fingers completed [facility] 11/17/2021 17:35:02 11/12/19 06 Unlisted px ant segment eye completed [facility] 11/17/2021 17:35:30 11/12/19 05 tonsillectomy completed Danuta Briggs [facility] 06/27/2021 17:35:36 Imaging Results Imaging Date Name Status LastModified by Organization Details LastModified Time 05/24/2022 US, pelvis completed [email or web address] [place] [address], [place], [address], 05/24/2022 13:22:47 05/24/2022 US, transvaginal completed [email or web address] [place] [address], [place], [address], 05/24/2022 13:22:58 05/24/2022 US, pelvis completed [email or web address] [address], [place], [address], 05/29/2022 15:12:01 07/06/2023 US, pelvis completed [email or web address] [place] [address], [place], [address], 07/06/2023 15:14:21 07/06/2023 [email or web address] [address], [place], [address], 07/06/2023 15:14:13 07/06/2023 US, pelvis completed [email or web address] [address], [place], [address], 07/12/2023 15:10:12 02/11/2024 imaging/diagnost ic result completed [address], [address], 02/13/2024 00:18:39 02/11/2024 imaging/diagnost ic result completed [address], [address], 02/27/2024 11:41:09 Procedure Notes None recorded. Medical Equipment None Reported. Allergies Allergen ID Allergen Name Allergen Category Reaction Reaction Severity Criticality Documentation Date Start Date Code Code System Note Provider Name and Address Organization Details Recorded Time 79416 codeine medicatio n hives Not available Not available 10/29/2020 2670 RxNorm & ANY OPIAT ES Cassy Henriquez [facility] 11:16:52 97880 cat dander environme nt Not available Not available Not available 01/22/2024 17150 UNK Cassy Henriquez null, [place] - [facility] 4 11:16:44 Medications Name Sig Start Date Stop Date Status Note LastModified by Organization Details LastModified Time fluoxetin e 40 mg capsule 06/28 completed Not Available Not Available Not Available nystatin 100,000 unit/mL oral suspensio n 06/29 completed Not Available Not Available Not Available prednison e 10 mg tablet 05/10 completed Not Available Not Available Not Available doxycycli ne hyclate 100 mg capsule 05/10 completed Not Available Not Available Not Available Ceftin 500 mg tablet take 1 tablet by oral route every 12 hours 11/22 completed Prescrib ed Elsewher e: No Locat ion: [facility] odify By: kt patel DateTime : 04/17/20 16 10:38:25 AM Not Available Not Available Not Available albuterol sulfate 2.5 mg/3 mL (0.083 %) solution for nebulizat ion active Not Available Not Available Not Available cetirizin e 10 mg tablet 01/21 completed Not Available Not Available Not Available azithromy tevin 250 mg tablet TAKE 2 TABLETS (500 MG) BY ORAL ROUTE ONCE DAILY FOR 1 DAY THEN 1 TABLET (250 MG) BY ORAL ROUTE ONCE DAILY FOR 4 DAYS 01/21 completed Not Available Not Available Not Available fluconazo le 150 mg tablet TAKE 1 TABLET BY MOUTH NOW AND REPEAT DOSE ON DAY 4 01/21 completed Not Available Not Available Not Available metronida zole 0.75 % (37.5 mg/5 gram) vaginal gel insert 1 applicat orful by vaginal route every day at bedtime 11/30 completed Not Available Not Available Not Available famotidin e 40 mg tablet 01/21 completed Not Available Not Available Not Available prednison e 20 mg tablet 01/21 completed Not Available Not Available Not Available Compazine 10 mg tablet take 1 tablet by oral route 3 times every day as needed for nausea 07/19 completed Prescrib ed Elsewher e: No Locat ion: [facility] odify By: trell morgan DateTime : 11/22/19 17 03:00:00 PM Not Available Not Available Not Available sertralin e 100 mg tablet 06/29 completed Not Available Not Available Not Available Nexium 40 mg capsule,d elayed release take 1 capsule by oral route every day 11/22 completed Prescrib ed Elsewher e: No [facility]at [facility] odify By: kt Calderon ter DateTime : 02/08/20 16 04:29:19 PM Not Available Not Available Not Available sulfameth oxazole 800 mg-trimet hoprim 160 mg tablet take 1 tablet by oral route every 12 hours for 10 days 01/21 completed Not Available Not Available Not Available omeprazol e 40 mg capsule,d elayed release 01/21 completed Not Available Not Available Not Available tramadol 50 mg tablet 01/21 completed Not Available Not Available Not Available ketorolac 10 mg tablet 01/21 completed Not Available Not Available Not Available amoxicill in 875 mg tablet 01/21 completed Not Available Not Available Not Available citalopra m 20 mg tablet 10/22 completed Not Available Not Available Not Available famotidin e 20 mg tablet active Not Available Not Available Not Available Zoloft 50 mg tablet take 1 tablet by oral route every day 11/22 completed Prescrib ed Elsewher e: No [facility]at [facility] odify By: kt patel DateTime : 11/30/19 16 04:21:37 PM Not Available Not Available Not Available Flagyl 500 mg tablet take 1 tablet by oral route every 12 hours 06/08 completed Prescrib ed Elsewher e: No Locat ion: [facility] odify By: jamison brizuela DateTime : 11/27/19 17 03:22:52 PM Not Available Not Available Not Available prochlorp erazine 25 mg rectal supposito ry UNWRAP AND INSERT 1 SUPPOSIT ORY RECTALLY EVERY 12 HOURS NEEDED FOR VOMITING 09/26 completed Not Available Not Available Not Available cephalexi n 500 mg capsule 09/26 completed Not Available Not Available Not Available pantopraz ole 40 mg tablet,de layed release Take 1 tablet twice a day by oral route. 06/29 completed Not Available Not Available Not Available Prozac 20 mg capsule take 1 capsule by oral route every day in the morning 07/19 completed Prescrib ed Elsewher e: No Locat ion: [facility] odify By: trell Howe r DateTime : 12/12/19 17 03:00:00 PM Not Available Not Available Not Available prednison e 50 mg tablet 05/10 completed Not Available Not Available Not Available promethaz ine 25 mg tablet take 1 tablet by oral route every 4 - 6 hours as needed 11/22 completed Prescrib ed Elsewher e: No Locat ion: [facility] odify By: kt patel DateTime : 10/06/20 15 01:12:02 PM Not Available Not Available Not Available nystatin- triamcino lone 100,000 unit/g-0. 1 % topical cream APPLY TO THE AFFECTED AREA(S) BY TOPICAL ROUTE 2 TIMES PER DAY IN THEMORNI NG AND EVENING 01/21 completed Not Available Not Available Not Available Advair Diskus 500 mcg-50 mcg/dose powder for inhalatio n 01/21 completed Not Available Not Available Not Available monteluka st 10 mg tablet 06/29 completed Not Available Not Available Not Available diclofena c sodium 50 mg tablet,de layed release 01/21 completed Not Available Not Available Not Available lorazepam 1 mg tablet take 1 tablet by oral route 3 times every day as needed 07/19 completed Prescrib ed Elsewher e: Yes Loca tion: [facility] odify By: trell Howe r DateTime : 11/22/19 17 02:15:00 PM Not Available Not Available Not Available epinephri ne 0.3 mg/0.3 mL injection , auto-inje ctor active Not Available Not Available Not Available levofloxa tevin 750 mg tablet 01/21 completed Not Available Not Available Not Available methylpre dnisolone 4 mg tablets in a dose pack 06/29 completed Not Available Not Available Not Available albuterol sulfate HFA 90 mcg/actua tion aerosol inhaler active Not Available Not Available Not Available Prozac 10 mg capsule take 1 capsule by oral route every day 06/27 completed Prescrib ed Elsewher e: Yes Loca tion: [facility] odify By: juice Howe r DateTime : 11/28/19 18 02:30:00 PM Not Available Not Available Not Available Vitamin D2 1,250 mcg (50,000 unit) capsule take 1 capsule by oral route every week (please repeat bloodwor k after finish prescrip tion) 06/29 completed Not Available Not Available Not Available ondansetr on 4 mg disintegr ating tablet Place 1 tablet 3 times a day by translin gual route as needed. 01/21 completed Not Available Not Available Not Available amoxicill in 875 mg-potass ium clavulana te 125 mg tablet 06/28 completed Not Available Not Available Not Available buspirone 15 mg tablet 01/21 completed Not Available Not Available Not Available Vitamin C 500 mg capsule,e xtended release 06/27 completed Prescrib ed Elsewher e: Yes Loca tion: [facility] odify By: juice Howe r DateTime : 11/28/19 18 02:30:00 PM Not Available Not Available Not Available NuvaRing 0.12 mg-0.015 mg/24 hr vaginal insert 1 vaginal ring by vaginal route every month leave in place for 3 weeks, remove for 1 week 06/27 completed Prescrib ed Elsewher e: No Locat ion: [facility] odify By: ana rosa [address] ncounter DateTime : 11/28/19 18 02:30:00 PM Not Available Not Available Not Available Zithromax 500 mg tablet take 2 tablet by oral route once 06/08 completed Prescrib ed Elsewher e: No Locat ion: [facility] odify By: ambarbara Troy ncounter DateTime : 11/23/19 17 02:19:42 PM Not Available Not Available Not Available escitalop sayda 10 mg tablet take 1 tablet by oral route every day 11/22 completed Prescrib ed Elsewher e: Yes Loca tion: [facility] odify By: kt patel DateTime : 09/01/20 15 01:00:00 PM Not Available Not Available Not Available iron ER 325 mg (65 mg iron) capsule,e xtended release take 1 Tablet by Oral route 3 times every day 07/19 completed Prescrib ed Elsewher e: Yes Loca tion: [facility] odify By: trell Encounte r DateTime : 11/22/19 17 02:15:00 PM Not Available Not Available Not Available cyclobenz aprine 5 mg tablet take 1 tablet by oral route 3 times every day as needed 07/19 completed Prescrib ed Elsewher e: No Locat ion: [facility] odify By: trell Encounte r DateTime : 01/12/20 17 12:03:41 PM Not Available Not Available Not Available Hair,Skin and Nails tablet 06/27 completed Prescrib ed Elsewher e: Yes Loca tion: [facility] odify By: juice Encounte r DateTime : 11/28/19 18 02:30:00 PM Not Available Not Available Not Available Tums 06/29 completed Not Available Not Available Not Available 05/10 completed Not Available Not Available Not Available Zyrtec active Not Available Not Availa ble Not Available Symbicort 160 mcg-4.5 mcg/actua tion HFA aerosol inhaler active Not Available Not Available Not Available Triveen-D uo DHA 29 mg-1 mg-400 mg oral pack take 1 by Oral route once for 30 days 12/21 completed Prescrib ed Elsewher e: No Locat ion: [facility] odify By: ana rosa sidhuunter DateTime : 11/22/19 17 02:15:00 PM Not Available Not Available Not Available OptiChamb er Cira VHC spacer 01/21 completed Not Available Not Available Not Available Breztri Aerospher e 160 mcg-9mcg- 4.8mcg/ac tuation HFA aerosol inhaler 01/21 completed Not Available Not Available Not Available Vitals Date Recorded Body height Body mass index (BMI) Body weight Systolic blood pressure Diastolic blood pressure Provider Name and Address Organization Details Last Updated DateTime 05/10/2022 162.56 cm 54.9 kg/m2 277680.5 6 g 114 mm[Hg] 79 mm[Hg] Jonna Alonso [facility] 2 09:36:27 Date Recorded Body height Body mass index (BMI) Body weight Systolic blood pressure Diastolic blood pressure Provider Name and Address Organization Details Last Updated DateTime 06/29/2023 162.56 cm 54.6 kg/m2 004819.3 7 g 138 mm[Hg] 86 mm[Hg] Jonna Alonso [facility] 3 11:21:13 Date Recorded Body height Body mass index (BMI) Body weight Systolic blood pressure Diastolic blood pressure Provider Name and Address Organization Details Last Updated DateTime 01/22/2024 162.56 cm 51 kg/m2 150610.9 3 g 141 mm[Hg] 90 mm[Hg] Cassy Henriquez [facility] 4 11:13:44 Social History Question Answer Notes LastModified by Organizat ion Details LastModified Time Tobacco Smoking Status Never Smoker Hernan olivares [facility] 09/26/2021 10:23:07 What Is Your Level Of Alcohol Consumption? Occasional [email or web address] Information not available 11/18/2021 Are You Blind Or Do You Have Difficulty Seeing? No Information n ot available 11/18/2021 What Is Your Level Of Caffeine Consumption? Occasional [email or web address] Information not available 11/18/2021 In The 14 Days Before Symptom Onset, Have You Had Close Contact With A Laboratory-confirm ed COVID-19 While That Case Was Ill? No [email or web address] Information n ot available 11/18/2021 In The 14 Days Before Symptom Onset, Have You Had Close Contact With A Person Who Is Under Investigation For COVID-19 While That Person Was Ill? No [email or web address] Information not available 11/18/2021 Have You Been To An Area Known To Be High Risk For COVID-19? No Information not available 11/18/2021 Are You Deaf Or Do You Have Serious Difficulty Hearing? No Information not available 11/18/2021 What Type Of Diet Are You Following? REGULAR Information n ot available 11/18/2021 Which Illicit Or Recreational Drugs Have You Used? THC [email or web address] Information not available 09/26/2021 Have You Ever Been Counseled For Unhealthy Alcohol Use? No [email or web address] Information not available 11/18/2021 Do You Use Your Seat Belt Or Car Seat Routinely? Yes [email or web address] Information not available 11/18/2021 Do You Have Smoke And Carbon Monoxide Detectors In Your Home? Yes [email or web address] Information not available 11/18/2021 Do You Feel Stressed (tense, Restless, Nervous, Or Anxious, Or Unable To Sleep At Night)? [id number] [email or web address] Information not available 11/18/2021 Do You Use Any Illicit Or Recreational Drugs? Yes [email or web address] Information not available 06/28/2021 Do You Use Sunscreen Routinely? Yes Information not available 11/18/2021 Has Tobacco Cessation Counseling Been Provided? No [email or web address] Information not available 11/18/2021 Have You Used IV Drugs? No [email or web address] Information not available 11/18/2021 Do You Or Have You Ever Used Any Other Forms Of Tobacco Or Nicotine? No [email or web address] Information not available 11/18/2021 Sex: Unknown Functional Status Question Answer Note LastModified by Organizat ion Details LastModified Time Do you have difficulty walking or climbing stairs? No [email or web address] Information not available 12/23/2021 Are you able to walk? YESWOREST [email or web address] Information not available 11/18/2021 Are you able to care for yourself? Yes [email or web address] Information not available 12/23/2021 Do you have difficulty dressing or bathing? No [email or web address] Information not available 12/23/2021 What is your exercise level? Occasional [email or web address] Information not available 11/18/2021 Mental Status None recorded. Family History Relationship Description Onset Age of this Age Resolved Age Notes LastModified by Organization Details LastModified Time Father No current problems or disability Not available 01/21 10:40:34 Mother No current problems or disability [email or web address] Not available 01/21 10:40:34 Mother Anxiety disorder [email or web address] Not available 2020 12:56:18 Mother Depressive disorder [email or web address] Not available 2020 12:56:18 Maternal Grandmother Anxiety disorder [email or web address] Not available 2020 12:56:18 Maternal Grandmother Depressive disorder [email or web address] Not available 2020 12:56:18 Medical History Condition Response Allergies (Food, seasonal, environmental ) Y Other Y Drug/Latex Allergies/Reactions Y Breast Cancer N Blood Transfusion N Dermatologic Disorders N Lung Disease Y Defects or Inherited Disease N Breast Problem N Gestational Diabetes N Hematologic disorders N Anesthesia Complications N History of STI N Deep Vein Thrombosis N Polycystic ovary syndrome Y Anxiety Disorder Y Autoimmune disease N Arthritis N Polyps N Infertility N Acid Reflux (GERD) Y History of abnormal pap N Cancer N Varicosities N Stroke N Neurologic/Epilepsy Y Endometriosis N High Cholesterol N Fibromyalgia N Headaches N Kidney Disease N Heart Problems N Thyroid Problems N Kidney or Bladder Problems N GI Problems N Eating Disorder N Anemia N Art (IVF or FET) N Psychiatric Illness N Ovarian Cancer N Diabetes N Pulmonary (TB, Asthma) Y Hepatitis/Liver Disease N No Past Medical History N Eczema N Urinary Tract Infection N Abuse/Domestic Violence N Asthma Y Trauma/Violence N Depression/ depression Y Heart Disease N Pre-Eclampsia N Hypertension Y Osteoporosis N Thrombophilias N Gynecological History Statement/Question Response Abnormal Pap N Date of LMP 12/26/2023 Sexually Active? Y On BCP's at Conception? N STIs/STDs N Date of Last Pap Smear 07/25/2021 Sexual Problems? N Current Control Method None LMP Approximate Obstetrics History GPAL:G 5 P 3 0 2 3 Type Value Full Term 3 Spontaneous 2 Living 3 Total 5 Past Encounters Encounter ID Performer Location Encounter Start Date Encounter Closed Date Diagnosis/Indication Diagnosis SNOMED-CT Code Diagnosis ICD10 Code Diagnosis Note [id number] Alice Viral [place] [address] [address] 06/28/2021 10:24:03 06/28/2021 11:09:29 test positive 760668057 Z32.01 Risk factors addressed: Tobacco Cessation, Safe Sexual Practices, environmen teri, work hazards, travel restrictio ns, seat belt use.Eat a health well balanced diet, avoid alcohol, tobacco, and street drugs.Enga ge in daily low impact exercise, avoid temperatur e extremes, and cat, rodent, and bird feces.Avoi d travel to areas where zika virus is a concern.Of fered cf/sma/nip t. Desires all 3. Handouts given and discussed with patient.Ch ildbirth classes recommende d.New OB sheet given.Baby aspirin daily d/t history of GHTN.If previous , counseling .Pt verbalizes that she understand s the importance of above instructio ns.All questions were answered.P atient reminded to have annual well woman examinatio n and address preventati healthcare . [id number] Mandi Monique [place] [address],[place] [address] 06/28/2021 10:25:04 06/28/2021 11:20:54 [id number] Tata Anthony MD [place] [address],[place] [address] 07/25/2021 12:04:45 07/25/2021 13:14:02 Body mass index 40+ - severely obese 854274784 Z68.42 Gastroesop hageal reflux disease 464905537 K21.9 Hyperemesi s gravidarum 28426304 O21.0 [id number] [facility] [address],[place] [address] 07/25/2021 12:05:37 07/25/2021 13:49:16 screening 441980126 Z36.82 [id number] Alice Stratton [place] [address] [place] [address] 09/01/2021 15:36:29 09/01/2021 16:41:21 Venereal disease screening 107961794 Z11.3 Routine an tenatal care [id number] Z34.92 [id number] [facility] [address],[place] [address] 09/26/2021 10:22:34 09/26/2021 11:42:36 screening for malformation 784509257 Z36.3 [id number] Tata Anthony MD [place] [address],[place] [address] 09/26/2021 10:23:01 09/26/2021 14:53:39 Body mass index 40+ - severely obese 864301076 Z68.42 Past pregn siddhartha history of gestational hypertension 002824276 Z87.59 Hyperemesi s gravidarum 75357764 O21.0 Marijuana user 542721520 F12.90 [id number] Damien Tinoco MD [place] [address],[place] [address] 10/22/2021 12:50:37 10/24/2021 18:59:02 Routine care 235325378 Z34.82 [id number] [facility] [address] [place] [address] 11/18/2021 10:44:11 11/18/2021 11:26:38 Routine care 087048179 Z34.93 [id number] [facility] [address] [place] [address] 11/30/2021 13:56:26 11/30/2021 15:55:35 Routine care 176810779 Z34.93 [id number] Maria Isabel Gama [place] [address] [place] [address] 11/30/2021 13:55:41 11/30/2021 14:47:55 Maternal obesity complicating , childbirth and the puerperium, antepartum 6817261974 07 O99.213 O99.891 U07.1 Z3A.31 15858 [facility] [address] [place] [address] 12/14/2021 11:38:51 12/14/2021 12:15:43 Routine care 038132735 Z34.93 Sinusitis 37748507 J32.9 [id number] [facility] [address],[place] [address] 12/23/2021 11:30:45 12/23/2021 11:59:23 Routine care 640525563 Z34.93 [id number] Maria Isabel Gama [place] [address],[place] [address] 12/23/2021 11:31:04 12/23/2021 12:28:11 Maternal obesity complicating , childbirth and the puerperium, antepartum 7175659866 07 O99.213 O99.891 U07.1 Z3A.34 [id number] [facility] [address],[place] [address] 12/23/2021 11:31:19 12/23/2021 13:01:43 Maternal obesity complicating , childbirth and the puerperium, antepartum 4979303438 07 O99.213 [id number] [facility] [address],[place] [address] 12/30/2021 10:12:51 12/30/2021 12:02:06 Maternal obesity complicating , childbirth and the puerperium, antepartum 5592882888 07 O99.213 O99.891 Z3A.35 [id number] Maria Isabel Gama [place] [address],[place] [address] 1 12/30/2021 10:13:15 12/30/2021 11:16:40 Maternal obesity complicating , childbirth and the puerperium, antepartum 4520488226 07 O99.213 O99.891 Z3A.35 [id number] [facility] [address],[place] [address] 12/30/2021 10:13:25 12/30/2021 12:38:33 Routine care 568249559 Z34.93 [id number] Danuta Briggs [place] [address],[place] [address] 01/06/2022 09:32:09 01/06/2022 10:05:04 Maternal obesity complicating , childbirth and the puerperium, antepartum 8787553013 07 O99.213 O99.891 Z3A.35 40520 [facility] [address],[place] [address] 01/06/2022 09:32:36 01/06/2022 10:33:07 Routine care 885796765 Z34.93 [id number] Maria Isabel Gama [place] [address],[place] [address] 1 01/06/2022 09:33:15 01/06/2022 10:51:11 Maternal obesity complicating , childbirth and the puerperium, antepartum 1925774102 07 O99.213 O99.891 Z3A.36 [id number] Maria sIabel Gama [place] [address],[place] [address] 01/13/2022 11:02:08 01/13/2022 11:39:22 Maternal obesity complicating , childbirth and the puerperium, antepartum 0391958094 07 O99.213 O99.891 Z3A.37 45010 Danuta Briggs [place] [address],[place] [address] 01/13/2022 11:02:27 01/13/2022 12:14:28 Obese 450940841 E66.9 [id number] [facility] [address],[place] [address] 01/13/2022 11:02:48 01/13/2022 12:44:33 Routine care 753667638 Z34.93 [id number] Maria Isabel Gama [place] [address],[place] [address] 2022 11:52:23 2022 12:27:37 Breech presentation 3263808 O32.1XX9 Z3A.37 23452 [facility] [address],[place] [address] 01/20/2022 10:22:21 01/20/2022 12:08:15 Routine care 345701691 Z34.93 [id number] Jonna Alonso [place] [address],[place] [address] 01/20/2022 10:22:01 01/20/2022 15:15:46 -induced hypertension 29199454 O13.9 57718 [facility] [address],[place] [address] 01/20/2022 11:47:21 01/20/2022 13:01:17 condition affecting obstetrical care of mother 252342374 O36.8330 Z3A.38 [id number] Erin Rolon [facility] [address],[place] [address] 05/10/2022 09:23:25 05/10/2022 18:38:38 Contraception care management 203576175 Z30.9 plan barrier method until labs and pcp visit Edema of l ower extremity 050698868 R60.0 labs and see pcp Abdominal pain 51185805 R10.9 us planned and labs Pain of breast 65286086 N64.4 bilateral still lactating check labs [id number] Maria Isabel Gama [place] [address],[place] [address] 05/24/2022 12:29:39 05/24/2022 13:13:39 Abdominal pain 59362124 R10.9 [id number] Erin Rolon [facility] [address],[place] [address] 1 06/29/2023 10:58:52 06/29/2023 13:39:18 Pain in pelvis 10278571 R10.2 us and then 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 u, await vaginal culture 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 956127662 N81.6 [id number] [facility] [address],[place] [address] 07/06/2023 12:34:52 07/06/2023 13:43:36 Pain in pelvis 38819875 R10.2 [id number] JÚNIOR Chavez [place] [address] [address] 01/22/2024 10:40:23 01/22/2024 13:39:30 Breast lump 76013936 N63.0 Diagnostic mammogram with u/s ordered for further evaluation of breast lump/dense breast tissuewill reach out to pt with results when availableB P precaution s reviewed- encouraged PCP f/u Time spent in visit is a total of 20 mins with at least 50% of visit consisting of counseling and review of plan of care. Health Concerns Section Related Observation LastModified by Organization Detai ls LastModified Time None Recorded Concern Status LastModified by Organization Details LastModified Time None Recorded Advance Directives Directive None Recorded Payers Encounter Date Sequence Insurance Name Policy Number Policy Tong Covered Member ID Tong Member ID Guarantor Name 05/10/2022 1 [facility] ON OR AFTER 05/12/21 (MEDICAID REPLACEMENT - HMO) Kiley Nelson [id number] Kiley Nelson 05/24/2022 1 [facility] ON OR AFTER 05/12/21 (MEDICAID REPLACEMENT - HMO) Kiley Nelson [id number] Kiley Nelson 06/29/2023 1 [facility] ON OR AFTER 05/12/21 (MEDICAID REPLACEMENT - HMO) Kiley Nelson [id number] Kiley Nelson 07/06/2023 1 [facility] ON OR AFTER 05/12/21 (MEDICAID REPLACEMENT - HMO) Kiley Nelson [id number] Kiley Nelson 01/22/2024 1 [facility] ON OR AFTER 05/12/21 (MEDICAID REPLACEMENT - HMO) Kiley Nelson [id number] Kiley Nelson Notes Date Note Type Note Provider Name and Address Organization Details Recorded Time 05/10/2022 text/html VisitReported bypatient.Notes:del ivered in january wants to discuss bcm, also having lots of pain, abdominal and breast, water retention, hx pcos, seeing pcp after this visitabd pain comes and goes, feels likes its water retention in her abd, has gained about 20 lbs since last visit Erin Rolon CNM [address], [place], [address], [facility] 05/10/2022 12:03:44 06/29/2023 text/html c/o prolapse, pelvic abd pain. has been going on about 6 mo, periods monthly, pain is daily not cyclical, hx pcos. also was on antibiotic and then diagnosed and tx for yeast but now redness and swelling, sex is painful, feels a bulging in her vaginahas to push down to release stool during bowel movementdoes not plan on having more childrens Erin Rolon CNM [address], [place], [address], [facility] 06/29/2023 13:34:43 01/22/2024 text/html 29yo [id number] for evaluation of left breast painnoticed symptoms about 1 week ago, tender towards top/side of breast, tissue feels denser in this area. Did have influenza a few weeks ago and diagnosed with chest wall injury from coughing (has been following with PCP)no nipple dischargeneg n/v/fno fam hx of BC JÚNIOR Chavez [address], [place], [address], [facility] 01/22/2024 13:36:48 OBGyn Episode Ob Episode Information Episode Created Date Number of Fetuses Patient Bloodtype Patient rh Status Prepregnancy Weight lbs Domestic Partner Domestic Partner Phone Father Name Roll Carrier Status 06/27/20 21 1 CLOSED Fetus Data First Name Last Name Admitted to NICU Weight (g) Sex Living Outcome Pediatric Complications Fetus ID Race Codes Race Delivery Type 3203.26 6704 F Full Term [id number] Vaginal Delivery David Calculation Initial David Date Initial Exam Date Initial Exam Provider Initial Ultrasound Date Last Menstrual Period Date Ultra Sound Weeks Gestation 0 Eighteen To Twenty Week David Update Ultra Sound Date Fundal Height At Umbil Quickening Date Ultra Sound Latest Weeks Gestation Final David Confirmed By Final David Confirmed Date Final David Date Ultra Sound Latest Days Gestation 0 0 Menstrual History Last Menstrual Date Menses Monthly On Bcp Conception Prior Menses Frequency Hcg Plus Date Menarche Onset Age Delivery Information Delivery Date Delivery Type Labor Anesthesia Weeks Gestation Incision Type Labor Labor Length Hrs Delivered By Post Complications Tubal Sterilization Discharge Date Comments 6 38.2 Discharge Information Feeding Method Contraceptive Method Maternal HG B and HCT Levels Ob Episode Information Episode Created Date Number of Fetuses Patient Bloodtype Patient rh Status Prepregnancy Weight lbs Domestic Partner Domestic Partner Phone Father Name Roll Carrier Status 06/27/20 21 1 CLOSED Fetus Data First Name Last Name Admitted to NICU Weight (g) Sex Living Outcome Pediatric Complications Fetus ID Race Codes Race Delivery Type , Spontane ous [id number] David Calculation Initial David Date Initial Exam Date Initial Exam Provider Initial Ultrasound Date Last Menstrual Period Date Ultra Sound Weeks Gestation 0 Eighteen To Twenty Week David Update Ultra Sound Date Fundal Height At Umbil Quickening Date Ultra Sound Latest Weeks Gestation Final David Confirmed By Final David Confirmed Date Final David Date Ultra Sound Latest Days Gestation 0 0 Menstrual History Last Menstrual Date Menses Monthly On Bcp Conception Prior Menses Frequency Hcg Plus Date Menarche Onset Age Delivery Information Delivery Date Delivery Type Labor Anesthesia Weeks Gestation Incision Type Labor Labor Length Hrs Delivered By Post Complications Tubal Sterilization Discharge Date Comments 5 Discharge Information Feeding Method Contraceptive Method Maternal HG B and HCT Levels Ob Episode Information Episode Created Date Number of Fetuses Patient Bloodtype Patient rh Status Prepregnancy Weight lbs Domestic Partner Domestic Partner Phone Father Name Roll Carrier Status 06/27/20 21 1 CLOSED Fetus Data First Name Last Name Admitted to NICU Weight (g) Sex Living Outcome Pediatric Complications Fetus ID Race Codes Race Delivery Type 3600.15 [id number] F Full Term [id number] Vaginal Delivery David Calculation Initial David Date Initial Exam Date Initial Exam Provider Initial Ultrasound Date Last Menstrual Period Date Ultra Sound Weeks Gestation 0 Eighteen To Twenty Week David Update Ultra Sound Date Fundal Height At Umbil Quickening Date Ultra Sound Latest Weeks Gestation Final David Confirmed By Final David Confirmed Date Final David Date Ultra Sound Latest Days Gestation 0 0 Menstrual History Last Menstrual Date Menses Monthly On Bcp Conception Prior Menses Frequency Hcg Plus Date Menarche Onset Age Delivery Information Delivery Date Delivery Type Labor Anesthesia Weeks Gestation Incision Type Labor Labor Length Hrs Delivered By Post Complications Tubal Sterilization Discharge Date Comments 08/08/201 7 40 Discharge Information Feeding Method Contraceptive Method Maternal HG B and HCT Levels Ob Episode Information Episode Created Date Number of Fetuses Patient Bloodtype Patient rh Status Prepregnancy Weight lbs Domestic Partner Domestic Partner Phone Father Name Roll Carrier Status 07/25/20 21 1 A Positive 289 CLOSED Fetus Data First Name Last Name Admitted to NICU Weight (g) Sex Living Outcome Pediatric Complications Fetus ID Race Codes Race Delivery Type 3061.74 6 F true Full Term meconium [id number] Vaginal Delivery Problems Problem Notes GBS negative, Uric Acid NL Problem Name Start Date End Date Resolution Snomed Code Not e Hyperemesis gravidarum 7105340 1 lost 13# by ROMEL merida Marijuana user [id number] Past history of gestational hypertension 993034990 ASA 162mg, CMP WNL Body mass index 40+ - severely obese 416495889 lisa ting at 34 weeks - sheet given to MA to ask pt Asthma [id number] 11/08 - pt reports using home nebulizer nightly due to possible COVID and/or RSV COVID-19 11/09/2021 [id number] serial gr owth and asa David Calculation Initial David Date Initial Exam Date Initial Exam Provider Initial Ultrasound Date Last Menstrual Period Date Ultra Sound Weeks Gestation 02/01/2022 07/25/2021 06/29/2021 04/15/2021 9 Eighteen To Twenty Week David Update Ultra Sound Date Fundal Height At Umbil Quickening Date Ultra Sound Latest Weeks Gestation Final David Confirmed By Final David Confirmed Date Final David Date Ultra Sound Latest Days Gestation 0 [email or web address] 07/25/2021 02/02/20 22 0 Pre-beau Flowsheet Flowsheet Date 07/25/2021 Harrington Score Blood Edema Fundus Height Fundus Units Glucose Ketones Leukocytes Nitrite Labor Signs Protein Cervic Dilation Cervic Effacement Cervic Station none Type Weight in lbs Pre/Post Dialysis Refused Weight 276.250664368545 BP Diastolic BP Location Tested BP Systolic BP Type 75 116 Fetus Heart Rate Present Fetus Movement A No Comments Kiley is a 26yo at 1 2.5 for care. complicated by BMI 49+, discussed testing. Had gHTN with her first but not her second, has already started ASA, will increase to 162mg daily. Also on zoloft for anxiety and depression, mood stable. Got prescribed keflex in ED for UTI, finishing course still. Reports losing 13# so far and vomiting multiple times daily, requests zofran. Discussed hypothetical risks, script sent. Also on omeprazole 20 BID for GERD and still really bad, will increase to 40. PNL and NIPT today. Flowsheet Date 07/25/2021 Harrington Score Blood Edema Fundus Height Fundus Units Glucose Ketones Leukocytes Nitrite Labor Signs Protein Cervic Dilation Cervic Effacement Cervic Station Type Weight in lbs Pre/Post Dialysis Refused BP Diastolic BP Location Tested BP Systolic BP Type Fetus Heart Rate Present Fetus Movement Comments Flowsheet Date 09/01/2021 Harrington Score Blood Edema Fundus Height Fundus Units Glucose Ketones Leukocytes Nitrite Labor Signs Protein Cervic Dilation Cervic Effacement Cervic Station neg none trace Type Weight in lbs Pre/Post Dialysis Refused Weight 285.727035742768 BP Diastolic BP Location Tested BP Systolic BP Type 76 138 Fetus Heart Rate Present A 143 Fetus Movement A Yes Comments Doing well. Encouraged flu a nd covid vaccine. Discussed acog recommendation. OB visit and baseline anatomy in 3 weeks. Flowsheet Date 09/26/2021 Harrington Score Blood Edema Fundus Height Fundus Units Glucose Ketones Leukocytes Nitrite Labor Signs Protein Cervic Dilation Cervic Effacement Cervic Station Type Weight in lbs Pre/Post Dialysis Refused BP Diastolic BP Location Tested BP Systolic BP Type Fetus Heart Rate Present Fetus Movement Comments Flowsheet Date 09/26/2021 Harrington Score Blood Edema Fundus Height Fundus Units Glucose Ketones Leukocytes Nitrite Labor Signs Protein Cervic Dilation Cervic Effacement Cervic Station neg none trace Type Weight in lbs Pre/Post Dialysis Refused Weight 278.395419791658 BP Diastolic BP Location Tested BP Systolic BP Type 80 121 Fetus Heart Rate Present A 150 Fetus Movement A Yes Comments Doing ok, still a lot of N/V . Worse when tries to stop MJ. Discussed weaning off more slowly. Getting flu shot tomorrow. Does not want COVID vaccine, but we discussed in depth the risks and benefits and she will consider. Taking ASA. Mood up and down. GERD ok, but still breaks through sometimes, may use pepcid with protonix. US today normal anatomy. Flowsheet Date 10/22/2021 Harrington Score Blood Edema Fundus Height Fundus Units Glucose Ketones Leukocytes Nitrite Labor Signs Protein Cervic Dilation Cervic Effacement Cervic Station 28 trace Type Weight in lbs Pre/Post Dialysis Refused Weight 288.083996972195 BP Diastolic BP Location Tested BP Systolic BP Type 75 R arm 126 sitting Fetus Heart Rate Present A 143 Fetus Movement A Yes Comments continued nausea, once a day she has an episode, she has medication, it is reasonably well controlled, Flowsheet Date 11/18/2021 Harrington Score Blood Edema Fundus Height Fundus Units Glucose Ketones Leukocytes Nitrite Labor Signs Protein Cervic Dilation Cervic Effacement Cervic Station neg trace trace Type Weight in lbs Pre/Post Dialysis Refused Weight 282.227344708025 BP Diastolic BP Location Tested BP Systolic BP Type 85 141 Fetus Heart Rate Present Fetus Movement A Yes Comments patient states that having s ome heartburn, discharge, swelling and nausea and vomiting. unisom ok at hs taking protonix and tums disc small frequent meals, plan growth next visit, tested + covid over the holidays, bf had covid pneumonia his mom on vent due to the pneumonia, discussed NSTs and handout given to ob, pt was only taking one baby aspirin, increased to 2, rpt bp normotensive, asymptomatic Flowsheet Date 11/30/2021 Harrington Score Blood Edema Fundus Height Fundus Units Glucose Ketones Leukocytes Nitrite Labor Signs Protein Cervic Dilation Cervic Effacement Cervic Station Type Weight in lbs Pre/Post Dialysis Refused BP Diastolic BP Location Tested BP Systolic BP Type Fetus Heart Rate Present Fetus Movement Comments Flowsheet Date 11/30/2021 Harrington Score Blood Edema Fundus Height Fundus Units Glucose Ketones Leukocytes Nitrite Labor Signs Protein Cervic Dilation Cervic Effacement Cervic Station neg none trace Type Weight in lbs Pre/Post Dialysis Refused Weight 287.806466806720 BP Diastolic BP Location Tested BP Systolic BP Type 77 156 75 131 Fetus Heart Rate Present Fetus Movement A Yes Comments patient states that having d ischarge, nausea and vomiting. passed 3 hour GTT, reviewed precautions pt very nervous today has Mother in law (passed from covid) today, efw 53%, plan 4 week growth and taking asa daily Flowsheet Date 12/14/2021 Harrington Score Blood Edema Fundus Height Fundus Units Glucose Ketones Leukocytes Nitrite Labor Signs Protein Cervic Dilation Cervic Effacement Cervic Station neg trace 35 trace Type Weight in lbs Pre/Post Dialysis Refused Weight 285.603639005475 BP Diastolic BP Location Tested BP Systolic BP Type 73 123 Fetus Heart Rate Present A 147 Present Fetus Movement A Yes Comments patient is having some contr actions, discharge, spotting last week, swelling, nausea and vomiting. spotting was right after intercourse, precautions reviewed, has US scheduled, +FM, remind at next visit to call for preadmission Flowsheet Date 12/23/2021 Harrington Score Blood Edema Fundus Height Fundus Units Glucose Ketones Leukocytes Nitrite Labor Signs Protein Cervic Dilation Cervic Effacement Cervic Station neg trace trace Type Weight in lbs Pre/Post Dialysis Refused Weight 286.182073080460 BP Diastolic BP Location Tested BP Systolic BP Type 76 129 Fetus Heart Rate Present Fetus Movement A Yes Comments patient is having contractio ns, discharge, swelling, nausea and vomiting. doing well has NST and us today +FM, schedule preadmit f/u one week Flowsheet Date 12/23/2021 Harrington Score Blood Edema Fundus Height Fundus Units Glucose Ketones Leukocytes Nitrite Labor Signs Protein Cervic Dilation Cervic Effacement Cervic Station Type Weight in lbs Pre/Post Dialysis Refused BP Diastolic BP Location Tested BP Systolic BP Type Fetus Heart Rate Present Fetus Movement Comments Flowsheet Date 12/23/2021 Harrington Score Blood Edema Fundus Height Fundus Units Glucose Ketones Leukocytes Nitrite Labor Signs Protein Cervic Dilation Cervic Effacement Cervic Station Type Weight in lbs Pre/Post Dialysis Refused BP Diastolic BP Location Tested BP Systolic BP Type Fetus Heart Rate Present Fetus Movement Comments Flowsheet Date 12/30/2021 Harrington Score Blood Edema Fundus Height Fundus Units Glucose Ketones Leukocytes Nitrite Labor Signs Protein Cervic Dilation Cervic Effacement Cervic Station Type Weight in lbs Pre/Post Dialysis Refused BP Diastolic BP Location Tested BP Systolic BP Type Fetus Heart Rate Present Fetus Movement Comments Flowsheet Date 12/30/2021 Harrington Score Blood Edema Fundus Height Fundus Units Glucose Ketones Leukocytes Nitrite Labor Signs Protein Cervic Dilation Cervic Effacement Cervic Station Type Weight in lbs Pre/Post Dialysis Refused BP Diastolic BP Location Tested BP Systolic BP Type Fetus Heart Rate Present Fetus Movement Comments Flowsheet Date 12/30/2021 Harrington Score Blood Edema Fundus Height Fundus Units Glucose Ketones Leukocytes Nitrite Labor Signs Protein Cervic Dilation Cervic Effacement Cervic Station neg trace trace Type Weight in lbs Pre/Post Dialysis Refused Weight 286.813660388851 BP Diastolic BP Location Tested BP Systolic BP Type 70 117 Fetus Heart Rate Present Fetus Movement A Yes Comments PATIENT STATES THAT BREAST A RE LEAKING, SOME CONTRACTIONS, SWELLING, NAUSEA AND VOMITING. reviewed precautions, talked to dr tinoco and will schedule version for 37 weeks, reviewed risks including placental abruption and possible emergent delivery by . pt and husbands questions answered, gbs done and f/u one week as scheduled Flowsheet Date 01/06/2022 Harrington Score Blood Edema Fundus Height Fundus Units Glucose Ketones Leukocytes Nitrite Labor Signs Protein Cervic Dilation Cervic Effacement Cervic Station Type Weight in lbs Pre/Post Dialysis Refused BP Diastolic BP Location Tested BP Systolic BP Type Fetus Heart Rate Present Fetus Movement Comments Flowsheet Date 01/06/2022 Harrington Score Blood Edema Fundus Height Fundus Units Glucose Ketones Leukocytes Nitrite Labor Signs Protein Cervic Dilation Cervic Effacement Cervic Station neg trace trace 1cm 50% -4 Type Weight in lbs Pre/Post Dialysis Refused Weight 285.987789931024 BP Diastolic BP Location Tested BP Systolic BP Type 77 122 Fetus Heart Rate Present Fetus Movement A Yes Comments PATIENT IS HAVING SOME CONTR ACTIONS, VAGINAL PAIN AND DISCOMFORT, ITCHY SKIN, SWELLING, NAUSEA AND VOMITING . precautions reviewed, bile acids and cmp, version scheduled for next week Flowsheet Date 01/06/2022 Harrington Score Blood Edema Fundus Height Fundus Units Glucose Ketones Leukocytes Nitrite Labor Signs Protein Cervic Dilation Cervic Effacement Cervic Station Type Weight in lbs Pre/Post Dialysis Refused BP Diastolic BP Location Tested BP Systolic BP Type Fetus Heart Rate Present Fetus Movement Comments Flowsheet Date 01/13/2022 Harrington Score Blood Edema Fundus Height Fundus Units Glucose Ketones Leukocytes Nitrite Labor Signs Protein Cervic Dilation Cervic Effacement Cervic Station Type Weight in lbs Pre/Post Dialysis Refused BP Diastolic BP Location Tested BP Systolic BP Type Fetus Heart Rate Present Fetus Movement Comments Flowsheet Date 01/13/2022 Harrington Score Blood Edema Fundus Height Fundus Units Glucose Ketones Leukocytes Nitrite Labor Signs Protein Cervic Dilation Cervic Effacement Cervic Station Type Weight in lbs Pre/Post Dialysis Refused BP Diastolic BP Location Tested BP Systolic BP Type Fetus Heart Rate Present Fetus Movement Comments Flowsheet Date 01/13/2022 Harrington Score Blood Edema Fundus Height Fundus Units Glucose Ketones Leukocytes Nitrite Labor Signs Protein Cervic Dilation Cervic Effacement Cervic Station neg trace trace 1cm 50% -3 Type Weight in lbs Pre/Post Dialysis Refused Weight 286.708600695424 BP Diastolic BP Location Tested BP Systolic BP Type 76 113 Fetus Heart Rate Present Fetus Movement A Yes Comments PATIENT STATES THAT HAVING S OME PAIN, CONTRACTIONS, DISCHARGE, SWELLING, NAUSEA AND VOMITING. precautions reviewed IOL scheduled for 39 weeks BPP 8/ vtx presentation Flowsheet Date 2022 Harrington Score Blood Edema Fundus Height Fundus Units Glucose Ketones Leukocytes Nitrite Labor Signs Protein Cervic Dilation Cervic Effacement Cervic Station Type Weight in lbs Pre/Post Dialysis Refused BP Diastolic BP Location Tested BP Systolic BP Type Fetus Heart Rate Present Fetus Movement Comments Flowsheet Date 2022 Harrington Score Blood Edema Fundus Height Fundus Units Glucose Ketones Leukocytes Nitrite Labor Signs Protein Cervic Dilation Cervic Effacement Cervic Station Type Weight in lbs Pre/Post Dialysis Refused BP Diastolic BP Location Tested BP Systolic BP Type Fetus Heart Rate Present Fetus Movement Comments Flowsheet Date 01/20/2022 Harrington Score Blood Edema Fundus Height Fundus Units Glucose Ketones Leukocytes Nitrite Labor Signs Protein Cervic Dilation Cervic Effacement Cervic Station Type Weight in lbs Pre/Post Dialysis Refused Weight 291.309110283899 BP Diastolic BP Location Tested BP Systolic BP Type 79 119 Fetus Heart Rate Present Fetus Movement Comments Flowsheet Date 01/20/2022 Harrington Score Blood Edema Fundus Height Fundus Units Glucose Ketones Leukocytes Nitrite Labor Signs Protein Cervic Dilation Cervic Effacement Cervic Station neg trace trace Type Weight in lbs Pre/Post Dialysis Refused Weight [id number] BP Diastolic BP Location Tested BP Systolic BP Type 79 119 Fetus Heart Rate Present Fetus Movement A Yes Comments PATIENT IS HAVING BACK PAIN, , CONTRACTIONS, SWELLING, NAUSEA AND VOMITING. NST NR, having BPP today IOL scheduled for sunday Flowsheet Date 01/20/2022 Harrington Score Blood Edema Fundus Height Fundus Units Glucose Ketones Leukocytes Nitrite Labor Signs Protein Cervic Dilation Cervic Effacement Cervic Station Type Weight in lbs Pre/Post Dialysis Refused BP Diastolic BP Location Tested BP Systolic BP Type Fetus Heart Rate Present Fetus Movement Comments Menstrual History Last Menstrual Date Menses Monthly On Bcp Conception Prior Menses Frequency Hcg Plus Date Menarche Onset Age 0604/15/2021 Genetic Screening And Infection History Question Response Note Mental Retardation/Autism false Patient's Age Will Be 35 Years Or Older At Estim ated Date of Delivery false Thalassemia ([place] Citizen, Korean, Mediterranean, Or Background): MCV < 80 false Neural Tube Defect (Meningomyelocele, Spina Bifi da, Or Anencephaly) false Congenital Heart Defect false Down Syndrome false Pasha-Sachs (eg, Yarsanism, C[place]un, [place]) f alse Parveen Disease false Sickle Cell Disease Or Trait () false Hemophilia Or Other Blood Disorders false Muscular Dystrophy false Cystic Fibrosis false John's Chorea false Intellectual Disability/Autism false If Yes, Was Person Tested For Fragile X? false Other Inherited Genetic Or Chromosomal Disorder false Maternal Metabolic Disorder (eg, Type 1 Diabetes , PKU) false Patient Or Baby's Father Had A Child With Defects Not Listed Above false Recurrent Loss, Or A Stillbirth false Medications (including Suppl ements, Vitamins, Herbs, OTC Drugs), Illicit/Recreational Drugs, Alcohol false If Yes, Agent(s) And Strength/Dosage false Any Other Genetic History false Live With Someone With TB Or Exposed To TB false Patient Or Partner Has History Of Genital Herpes false Rash Or Viral Illness Since Last Menstrual Perio d false History Of STD, Gonorrhea, Chlamydia, HPV, Syphi lis false Other Infection History false History of HIV false History of Hepatitis false Prior GBS-infected child false Hemoglobinopathy Or Carrier false Other Structural Defect false Recent Travel History Outside of Country false Delivery Information Delivery Date Delivery Type Labor Anesthesia Weeks Gestation Incision Type Labor Labor Length Hrs Delivered By Post Complications Tubal Sterilization Discharge Date Comments 2 Induce d Regional-Ep idural 39 false Erin Rolon CNM Maternal Obesity, Marijuana user & Hx ghtn Discharge Information Feeding Method Contraceptive Method Maternal HG B and HCT Levels Bottle Ob Episode Information Episode Created Date Number of Fetuses Patient Bloodtype Patient rh Status Prepregnancy Weight lbs Domestic Partner Domestic Partner Phone Father Name Roll Carrier Status 07/25/20 21 1 CLOSED Fetus Data First Name Last Name Admitted to NICU Weight (g) Sex Living Outcome Pediatric Complications Fetus ID Race Codes Race Delivery Type , Spontane ous [id number] David Calculation Initial David Date Initial Exam Date Initial Exam Provider Initial Ultrasound Date Last Menstrual Period Date Ultra Sound Weeks Gestation 0 Eighteen To Twenty Week David Update Ultra Sound Date Fundal Height At Umbil Quickening Date Ultra Sound Latest Weeks Gestation Final David Confirmed By Final David Confirmed Date Final David Date Ultra Sound Latest Days Gestation 0 0 Menstrual History Last Menstrual Date Menses Monthly On Bcp Conception Prior Menses Frequency Hcg Plus Date Menarche Onset Age Delivery Information Delivery Date Delivery Type Labor Anesthesia Weeks Gestation Incision Type Labor Labor Length Hrs Delivered By Post Complications Tubal Sterilization Discharge Date Comments 1 Discharge Information Feeding Method Contraceptive Method Maternal HG B and HCT Levels
== END 2024-12-02 14:29 | disposition home or self-care (01) ==
LOC: ANHBWCLAB 14:30
PROVIDERS: PCP Nurse Practitioner Adult Health; Visit Provider Nurse Practitioner Adult Health
DX: E78.1 Pure hyperglyceridemia (principal)
CPT/HCPCS: 36415; 80053; 80061

== ENCOUNTER 2025-05-01 18:33 | Emergency (ER) | payer OTHER, SELFPAY ==
[2025-05-01] VITALS (10 sets, daily range): BP systolic 130–180; BP diastolic 82–154; PULSE 62–115; RESP 12–28; TEMP 36.9; O2SAT 95–100
--- NOTE | ~2025-05-01 | XR_ITS ---
CHEST RADIOGRAPH CLINICAL HISTORY: Shortness of breath, cough, . COMPARISON: 12/31/2023 TECHNIQUE: Single portable view of the chest. FINDINGS Redemonstration of right hemidiaphragmatic elevation with adjacent compressive atelectasis. The remainder of the lungs are clear. The cardiomediastinal silhouette is unremarkable. IMPRESSION: Elevation of the right hemidiaphragm with adjacent compressive atelectasis, without focal infiltrate or effusion. Reviewed, dictated and finalized at location A. IMPRESSION: Elevation of the right hemidiaphragm with adjacent compressive atelectasis, wit hout focal infiltrate or effusion.
[2025-05-01] MEDS: IPRATROPIUM 0.5 MG/ALBUTEROL SULFATE 2.5 MG AMPUL.NEB 3 ML INHALATION (23:32)
[2025-05-01] MEDS: methylPREDNISolone SOD SUCC 125 MG VIAL IV PUSH (23:48)
[2025-05-01 23:52] LABS: Basophils Absolute Auto 0.1 K/mm3 (0.0-0.1); Basophils Percent Auto 0.8 % (0.2-1.2); Eosinophils Absolute Auto 0.6 K/mm3 (0-0.3); Eosinophils Percent Auto 5.5 % (0-4.4); Hematocrit 42.7 % (37.0-47.0); Hemoglobin 14.1 g/dL (12.0-15.0); Immature Granulocyte Absolute 0.03 K/mm3 (0.00-0.031); Immature Granulocyte Percent A 0.3 % (0-0.5); Lymphocytes Absolute Auto 2.96 K/mm3 (0.9-3.2); Lymphocytes Percent Auto 25.6 % (18.3-44.2); Mean Corpuscular Volume 81.8 fl (80-100); Mean Platelet Volume 11.2 fl (7.4-10.4); Monocytes Absolute Auto 0.6 K/mm3 (0.1-0.6); Monocytes Percent Auto 5.5 % (2.6-8.5); Neutrophils Absolute Auto 7.2 K/mm3 (1.3-6.7); Neutrophils Percent Auto 62.3 % (45.5-73.1); Platelet Count Result 299 k/mm3 (150-375); Red Blood Count 5.22 M/mm3 (4.2-5.4); Red Cell Distribution Width 13.9 % (11.5-14.5); White Blood Count 11.5 K/mm3 (4.5-10.0)
[2025-05-02 00:01] VITALS: BP 149/92; PULSE 85; RESP 14; O2SAT 98
[2025-05-02 00:02] VITALS: PULSE 95; RESP 16; O2SAT 95
[2025-05-02 00:04] LABS: Alanine Aminotransferase 28 U/L (6-35); Albumin Level 4.6 g/dL (3.5-5.1); Alkaline Phosphatase 54 U/L (38-126); Anion Gap 9 mmol/L (4-12); Aspartate Amino Transferase 32 U/L (14-36); Bilirubin,Total 0.5 mg/dL (0.2-1.3); Blood Urea Nitrogen 16 mg/dL (7-17); Calcium 10.4 mg/dL (8.4-10.2); Carbon Dioxide 23 mmol/L (22-30); Chloride 106 mmol/L (98-107); Estimated CRCL calculation 101 ml/min; Estimated Glomerular Filt Rate > 60; Glucose 101 mg/dL (65-110); Potassium 3.9 mmol/L (3.4-5.0); Sodium 138 mmol/L (137-145); Total Protein 7.7 g/dL (6.3-8.2)
[2025-05-02 00:27] LABS: Beta HCG Quantitative < 2.39 mIU/ML
[2025-05-02 00:28] LABS: Influenza A QL RT-PCR Negative (Negative); Influenza B QL RT-PCR Negative (Negative); RSV RNA, RT-PCR Negative (Negative); SARS-CoV-2 RNA PCR Negative (Negative)
--- NOTE | 2025-05-02 00:57 | ED_ITS ---
HPI - General Adult General Chief complaint: Shortness of Breath/Dyspnea Stated complaint: SOB, asthmatic Time Seen by Provider: 05/01/25 23:11 History of Present Illness HPI narrative: Patient is a 30-year-old female who presents emergency department with chief complaint of cough and it has been productive for the last 2 weeks the patient states she has history of asthma reports she has been wheezing a lot patient did report that she had a positive test at home patient reports that she has had some nausea as well. Related Data Home Medications ?Medication ?Instructions ?Recorded ?Confirmed ?Last Taken ?Type albuterol 90 mcg-budesonide 80 2 inh inhalation ONCE 10/29/24 02/23/25 Unknown History mcg/actuation HFA aerosol inhaler (Airsupra) budesonide-formoterol HFA 160 1 inh inhalation ONCE 10/29/24 02/23/25 Unknown History mcg-4.5 mcg/actuation aerosol inhaler (Symbicort) tiotropium bromide 2.5 2 puff inhalation QAM 10/29/24 02/23/25 Unknown History mcg/actuation mist for inhalation (Spiriva Respimat) Allergies Allergy/AdvReac Type Severity Reaction Status Date / Time codeine Allergy Unknown Hives / Verified 05/01/25 19:13 Red Face hydromorphone (From Dilaudid) Allergy Palpitation Verified 05/01/25 19:13 s Iodinated Contrast Media Allergy Rash Verified 05/01/25 19:13 montelukast (From Singulair) Allergy Hives Verified 05/01/25 19:13 peanut Allergy Anaphylactic Verified 05/01/25 19:13 Shock tree nut Allergy Anaphylactic Verified 05/01/25 19:13 Shock Review of Systems 2 Review of Systems: A 10 system review of systems was completed on the patient and is negative except for what is stated in the HPI. Nursing and ancillary documentation was reviewed. PMFSH Past Medical History Medical History Chronic GERD Allergies Hand fracture, left Morbid obesity Pain during labor Depression Anxiety Asthma Family History Family History Mother Asthma Depression Anxiety Father Depression Anxiety Grandparent EtOH dependence Depression Social History Social History Smoking status: Never smoker Alcohol intake: former Substance use: former Substance use type: marijuana Other substance usage details: positive for marijuana on admission Do You Feel Safe in your Home?: Yes Lack of Transportation: No Lack of Food: Sometimes True Current Housing: I Do Not Have Housing Concerned About Future Housing: No Difficulty Paying Gas/Electric Bills: No Difficulty Paying for Meds: No Currently Unemployed: No Education: High School Diploma/GED Difficulty w/ Childcare or Family Care: No Living arrangements: with family 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 HEAD: Normocephalic, atraumatic. EYES: PERRLA and EOMI. ENT: Nares clear, no rhinorrhea or epistaxis. Mucous membranes moist. NECK: Supple. CHEST: Scattered wheezes to auscultation. No respiratory distress. HEART: Regular rate and rhythm. No murmur heard. Normal peripheral pulses. ABDOMEN: Soft, nontender, nondistended, normal active bowel sounds. EXTREMITIES: Normal range of motion. No edema. SKIN: Warm, dry, no rash. NEURO: No focal deficits. Alert and oriented x3. PSYCH: Normal mood and affect. Course Vital Signs Vital signs: Vital Signs Temperature 36.9 C 05/01/25 19:07 Pulse Rate 115 H 05/01/25 19:07 Respiratory Rate 22 H 05/01/25 19:07 Blood Pressure 143/100 H 05/01/25 19:07 Pulse Oximetry 98 05/01/25 19:07 Oxygen Delivery Room Air 05/01/25 19:07 Temperature 36.9 C 05/01/25 19:07 Pulse Rate 95 05/02/25 00:02 Respiratory Rate 16 05/02/25 00:02 Blood Pressure 149/92 H 05/02/25 00:01 Pulse Oximetry 95 05/02/25 00:02 Oxygen Delivery Room Air 05/01/25 23:30 Medical Decision Making MDM Narrative Medical decision making narrative: Differential diagnosis includes pneumonia, bacterial bronchitis, asthma Patient had a negative test in the emergency department both serum and bedside Electrolytes are within normal limits chest x-ray showed no focal infiltrate COVID flu and RSV are negative Patient was started on steroids given a prescription for a Zithromax in as her symptoms have been ongoing for 2-3 weeks this is most likely becoming a bacterial bronchitis Vital Signs Vital Signs: Vital Signs Temperature 36.9 C 05/01/25 19:07 Pulse Rate 115 H 05/01/25 19:07 Respiratory Rate 22 H 05/01/25 19:07 Blood Pressure 143/100 H 05/01/25 19:07 Pulse Oximetry 98 05/01/25 19:07 Oxygen Delivery Room Air 05/01/25 19:07 Temperature 36.9 C 05/01/25 19:07 Pulse Rate 95 05/02/25 00:02 Respiratory Rate 16 05/02/25 00:02 Blood Pressure 149/92 H 05/02/25 00:01 Pulse Oximetry 95 05/02/25 00:02 Oxygen Delivery Room Air 05/01/25 23:30 Lab Data 05/01/25 23:43 05/01/25 23:43 Labs: Lab Results 05/01/25 Range/Units 23:43 WBC 11.5 H (4.5-10.0) K/mm3 RBC 5.22 (4.2-5.4) M/mm3 Hgb 14.1 (12.0-15.0) g/dL Hct 42.7 (37.0-47.0) % MCV 81.8 (80-100) fl MCH 27.0 (26-34) pg MCHC 33.0 (32-36) g/dl RDW 13.9 (11.5-14.5) % Plt Count 299 (150-375) k/mm3 MPV 11.2 H (7.4-10.4) fl Immature Gran % (Auto) 0.3 (0-0.5) % Neut % (Auto) 62.3 (45.5-73.1) % Lymph % (Auto) 25.6 (18.3-44.2) % Cotton % (Auto) 5.5 (2.6-8.5) % Eos % (Auto) 5.5 H (0-4.4) % Baso % (Auto) 0.8 (0.2-1.2) % Lymph # (Auto) 2.96 (0.9-3.2) K/mm3 Cotton # (Auto) 0.6 (0.1-0.6) K/mm3 Eos # (Auto) 0.6 H (0-0.3) K/mm3 Baso # (Auto) 0.1 (0.0-0.1) K/mm3 Abs Immat Gran (auto) 0.03 (0.00-0.031) K/mm3 Absolute Neuts (auto) 7.2 H (1.3-6.7) K/mm3 Absolute Nucleated RBC 0.000 (0.0-0.012) K/mm3 Nucleated RBC % 0.0 (0.0-0.2) % Sodium 138 (137-145) mmol/L Potassium 3.9 (3.4-5.0) mmol/L Chloride 106 (98-107) mmol/L Carbon Dioxide 23 (22-30) mmol/L Anion Gap 9 (4-12) mmol/L BUN 16 (7-17) mg/dL Creatinine 1.03 H (0.7-1.0) mg/dL Estim Creat Clear Calc 101 ml/min Estimated GFR > 60 (59 - ) Glucose 101 (65-110) mg/dL Calcium 10.4 H (8.4-10.2) mg/dL Total Bilirubin 0.5 (0.2-1.3) mg/dL AST 32 (14-36) U/L ALT 28 (6-35) U/L Alkaline Phosphatase 54 (38-126) U/L Total Protein 7.7 (6.3-8.2) g/dL Albumin 4.6 (3.5-5.1) g/dL Beta HCG, Quant < 2.39 mIU/ML Influenza A (RT-PCR) Negative (Negative) Influenza B (RT-PCR) Negative (Negative) RSV (RT-PCR) Negative (Negative) SARS-CoV-2 RNA (RT-PCR) Negative (Negative) Discharge Plan Discharge Clinical Impression: Acute asthma exacerbation, Acute bacterial bronchitis Patient Disposition: Home Condition: Stable Instructions: Antibiotic Form, Asthma (ED), Acute Bronchitis (ED) Patient Language: Kinyarwanda Prescriptions: New azithromycin [Zithromax Z-Murtaza] 250 mg tablet See Rx Instructions PO .COMPLEX Qty: 6 0RF Rx Instructions: For 250 mg dose pack: take 500 mg today (day 1), then 250 mg for 4 days (days 2-5) prednisone 20 mg tablet 40 mg PO DAILY 5 Days Qty: 10 0RF benzonatate 200 mg capsule 200 mg PO TID PRN (Reason: cough) Qty: 21 0RF No Action budesonide-formoterol [Symbicort] 160-4.5 mcg/actuation HFA aerosol inhaler 1 inh inhalation ONCE Airsupra 90-80 mcg/actuation HFA aerosol inhaler 2 inh inhalation ONCE Rx Instructions: as a single dose; may repeat up to 6 doses per day (12 inhalations) Spiriva Respimat 2.5 mcg/actuation mist 2 puff inhalation QAM cetirizine [Zyrtec] 10 mg tablet 10 mg PO BID Qty: 180 3RF epinephrine 0.3 mg/0.3 mL auto-injector 0.3 mg IM ONCE Qty: 2 0RF Rx Instructions: as a single dose; may repeat once fenofibrate 160 mg tablet See Rx Instructions .ROUTE .COMPLEX Qty: 90 1RF Dose Instruction: TAKE 1 TABLET BY MOUTH EVERY DAY Rx Instructions: TAKE 1 TABLET BY MOUTH EVERY DAY bupropion HCl 300 mg tablet extended release 24 hr See Rx Instructions .ROUTE .COMPLEX Qty: 90 1RF Dose Instruction: TAKE 1 TABLET BY MOUTH EVERY DAY IN THE MORNING Rx Instructions: TAKE 1 TABLET BY MOUTH EVERY DAY IN THE MORNING metformin 500 mg tablet extended release 24 hr See Rx Instructions .ROUTE .COMPLEX Qty: 90 1RF Dose Instruction: TAKE 1 TABLET BY MOUTH EVERY DAY Rx Instructions: TAKE 1 TABLET BY MOUTH EVERY DAY lisdexamfetamine [Vyvanse] 30 mg capsule 30 mg PO DAILY Qty: 30 0RF Follow-up/Referrals: Karla Almaraz APRN [Primary Care Provider] - Time of Disposition: 01:01
[2025-05-02 01:03] LABS: BEDSIDEPREGUCG Negative (Negative)
[2025-05-02] MEDS: ONDANSETRON INJ 4 MG/2 ML VIAL IV PUSH (01:07)
== END 2025-05-02 01:20 | disposition home or self-care (01) ==
PROVIDERS: Emergency Provider Emergency Medicine; PCP Nurse Practitioner Adult Health
DX: J45.901 Unspecified asthma with (acute) exacerbation (principal); J20.9 Acute bronchitis, unspecified; F41.8 Other specified anxiety disorders; K21.9 Gastro-esophageal reflux disease without esophagitis; Z20.822 Contact with and (suspected) exposure to COVID-19
CPT/HCPCS: 36415; 71045; 80053; 81025; 84702; 85025; 87637; 94640; 96374; 99284; J2405; J2919

== ENCOUNTER 2025-05-04 16:19 | Emergency (ER) | payer OTHER, SELFPAY ==
[2025-05-04 16:27] VITALS: BP 127/83; PULSE 69; RESP 16; TEMP 36.6; O2SAT 99
--- NOTE | 2025-05-04 17:16 | ED.SKABFB ---
HPI - Skin/Abscess/Foreign Bdy General Chief complaint: Skin/Abscess/Foreign Body Stated complaint: itchy/muscle pain Time Seen by Provider: 05/04/25 16:20 Source: patient Mode of arrival: ambulatory Limitations: no limitations History of Present Illness HPI narrative: Patient is a 30-year-old female who presents with skin feeling itchy and having red patches and burning at times since starting new medications 4 days ago. Patient started on azithromycin, Zofran, Tessalon Perles, prednisone. Patient states she has had azithromycin before but has been several years. Patient states she has developed allergies to other medications recently as well. Denies any shortness of breath, mouth or throat swelling. Related Data Home Medications ?Medication ?Instructions ?Recorded ?Confirmed ?Last Taken ?Type albuterol 90 mcg-budesonide 80 2 inh inhalation ONCE 10/29/24 02/23/25 Unknown History mcg/actuation HFA aerosol inhaler (Airsupra) budesonide-formoterol HFA 160 1 inh inhalation ONCE 10/29/24 02/23/25 Unknown History mcg-4.5 mcg/actuation aerosol inhaler (Symbicort) tiotropium bromide 2.5 2 puff inhalation QAM 10/29/24 02/23/25 Unknown History mcg/actuation mist for inhalation (Spiriva Respimat) Allergies Allergy/AdvReac Type Severity Reaction Status Date / Time codeine Allergy Unknown Hives / Verified 05/04/25 16:42 Red Face hydromorphone (From Dilaudid) Allergy Palpitation Verified 05/04/25 16:42 s Iodinated Contrast Media Allergy Rash Verified 05/04/25 16:42 montelukast (From Singulair) Allergy Hives Verified 05/04/25 16:42 peanut Allergy Anaphylactic Verified 05/04/25 16:42 Shock tree nut Allergy Anaphylactic Verified 05/04/25 16:42 Shock Review of Systems Review of Systems: All systems reviewed & are unremarkable except as noted in HPI and below Constitutional: Constitutional: Denies body ache(s), Denies chills, Denies fatigue, Denies fever(s), Denies headache(s), Denies malaise and Denies weakness Eyes: Eyes: Denies blurry vision, Denies irritation and Denies loss of vision ENT: Denies otalgia, Denies headache(s), Denies nasal discharge, Denies sinus pain and Denies sore throat Cardiovascular: Cardiovascular: Denies chest pain, Denies irregular heart rhythm and Denies dyspnea Respiratory: Respiratory: Denies dyspnea Gastrointestinal: Gastrointestinal: Denies abdominal pain, Denies melena, Denies hematochezia, Denies diarrhea, Denies nausea and Denies vomiting Musculoskeletal: Musculoskeletal: Denies back pain, Denies myalgias and Denies arthralgias Integumentary/Breasts: Skin/Breast: Reports pruritus, Reports erythema and Denies rash Neurologic: Denies headache(s), Denies loss of vision and Denies weakness Psychiatric: Psychiatric: Reports no additional psychiatric complaints Endocrine: Endocrine: Denies fatigue PMFSH Past Medical History Medical History Chronic GERD Allergies Hand fracture, left Morbid obesity Pain during labor Depression Anxiety Asthma Family History Family History Mother Asthma Depression Anxiety Father Depression Anxiety Grandparent EtOH dependence Depression Social History Social History Smoking status: Never smoker Alcohol intake: former Substance use: former Substance use type: marijuana Other substance usage details: positive for marijuana on admission Do You Feel Safe in your Home?: Yes Lack of Transportation: No Lack of Food: Sometimes True Current Housing: I Do Not Have Housing Concerned About Future Housing: No Difficulty Paying Gas/Electric Bills: No Difficulty Paying for Meds: No Currently Unemployed: No Education: High School Diploma/GED Difficulty w/ Childcare or Family Care: No Living arrangements: with family 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 There is no relevant family history pertinent to the presenting complaint. Exam Const: General: cooperative, healthy appearing, comfortable, no acute distress and well nourished Nutritional Appearance: well nourished Orientation/consciousness: patient oriented x3 Limitations: no limitations HENMT: Head: normal to inspection, normocephalic and atraumatic Ears: hearing grossly normal bilaterally and external ears normal Face/Nose/Sinus: Normal external nose present, normal facial exam and face symmetric Face and sinus: normal facial exam and face symmetric Mouth: Yes lip normal Eyes: General: appearance normal, both eyes and all related structures Alignment and Position: alignment normal and position normal Periorbital: periorbital findings normal Eyelids: eyelids normal Pupils: Equal, round and reactive pupils present EOM: EOMs intact bilaterally Neck: Neck: normal visual inspection, full ROM and supple Chest: Chest palpation & inspection: normal inspection of the chest Resp: Effort & Inspection: normal respiratory effort and able to speak in complete sentences Auscultation: clear to auscultation bilaterally Cardio: Rate: regular rate Rhythm: regular rhythm Heart sounds: S1 normal heart sound present and S2 normal heart sound present GI: Inspection: normal to inspection Skin: General skin exam: normal color and no rashes or lesions noted Neuro: General: patient oriented x3 and moves all extremities Cranial nerves: Yes Equal, round and reactive pupils present Speech: normal speech Gait exam (Neuro): Normal gait present Extrem: General: normal to inspection, full ROM and no edema Psych: Appearance: grossly normal and well kempt Mental Status: mental status grossly normal Speech and movement: Normal speech and movement present Affect: normal affect Attitude: cooperative Thought process: Normal thought process present Course Course Emergency Course: Patient is aware of diagnosis, understands and agrees to treatment plan. Anticipatory guidance given. Patient agrees to follow-up as directed and is aware of reasons to seek care at the emergency department. Portions of this record may have been created with voice recognition software Level of Care: Express Care Visit Vital Signs Vital signs: Vital Signs Temperature 36.6 C 05/04/25 16:27 Pulse Rate 69 05/04/25 16:27 Respiratory Rate 16 05/04/25 16:27 Blood Pressure 127/83 05/04/25 16:27 Pulse Oximetry 99 05/04/25 16:27 Temperature 36.6 C 05/04/25 16:27 Pulse Rate 69 05/04/25 16:27 Respiratory Rate 16 05/04/25 16:27 Blood Pressure 127/83 05/04/25 16:27 Pulse Oximetry 99 05/04/25 16:27 Reviewed MDM - Skin/Abscess/Foreign Bdy MDM Narrative Medical decision making narrative: No visible rash present throughout body. Patient states rash is not present at this time. Patient states was present earlier today but has resolved. Patient does still states she feels itchy all over. Pt well hydrated appearing, in no respiratory distress, hemodynamically stable. Recommend supportive care. The patient is stable at time of discharge the clinical impression was discussed and the patient was given the opportunity to ask questions, which were addressed as completely as possible given the information available at present. Anticipatory guidance and return to care precautions were discussed and the importance of primary care follow-up was stressed and encouraged. The patient voiced understanding of the plan, indications to return, and the need for follow-up. Exam findings show no acute concerns or changes Patient is appropriate for outpatient treatment and follow-up. Differential Diagnosis Differential diagnosis: Likely urticaria, allergic reaction to drug, eczema and contact dermatitis Medical Records Attestation: I reviewed the patient's medical records. Discharge Plan Discharge Clinical Impression: Allergic reaction to drug Qualifiers: Encounter type: initial encounter Qualified Code(s): T78.40XA - Allergy, unspecified, initial encounter Patient Disposition: Home Condition: Stable Instructions: General Allergic Reaction (ED) Additional Instructions: Take Claritin, Zyrtec or Fadia in the morning along with Benadryl at night. Continue taking his prednisone this, Tessalon Perles as needed and Zofran as needed. Stop taking azithromycin and start taking Augmentin Wash the skin thoroughly with soap and cool water as soon as possible. Scrub under the fingernails with a brush to prevent spreading to other parts of the body by touching or scratching. IF symptoms get worse to follow up with your primary care provider or seek ER visit if you developing difficulty breathing, weakness, dizziness Patient Language: Irish Prescriptions: New fluconazole 150 mg tablet 150 mg PO ONCE Qty: 2 0RF Rx Instructions: as a single dose after antibiotics are complete. If symptoms persist, take second dose 3 days later. amoxicillin-pot clavulanate 875-125 mg tablet 1 tablet PO Q12H 10 Days Qty: 20 0RF Discontinued azithromycin [Zithromax Z-Murtaza] 250 mg tablet See Rx Instructions PO .COMPLEX Qty: 6 0RF Rx Instructions: For 250 mg dose pack: take 500 mg today (day 1), then 250 mg for 4 days (days 2-5) No Action budesonide-formoterol [Symbicort] 160-4.5 mcg/actuation HFA aerosol inhaler 1 inh inhalation ONCE Airsupra 90-80 mcg/actuation HFA aerosol inhaler 2 inh inhalation ONCE Rx Instructions: as a single dose; may repeat up to 6 doses per day (12 inhalations) Spiriva Respimat 2.5 mcg/actuation mist 2 puff inhalation QAM cetirizine [Zyrtec] 10 mg tablet 10 mg PO BID Qty: 180 3RF epinephrine 0.3 mg/0.3 mL auto-injector 0.3 mg IM ONCE Qty: 2 0RF Rx Instructions: as a single dose; may repeat once prednisone 20 mg tablet 40 mg PO DAILY 5 Days Qty: 10 0RF benzonatate 200 mg capsule 200 mg PO TID PRN (Reason: cough) Qty: 21 0RF ondansetron 4 mg tablet,disintegrating 4 mg PO Q8H PRN (Reason: nausea and vomiting) Qty: 10 0RF fenofibrate 160 mg tablet See Rx Instructions .ROUTE .COMPLEX Qty: 90 1RF Dose Instruction: TAKE 1 TABLET BY MOUTH EVERY DAY Rx Instructions: TAKE 1 TABLET BY MOUTH EVERY DAY bupropion HCl 300 mg tablet extended release 24 hr See Rx Instructions .ROUTE .COMPLEX Qty: 90 1RF Dose Instruction: TAKE 1 TABLET BY MOUTH EVERY DAY IN THE MORNING Rx Instructions: TAKE 1 TABLET BY MOUTH EVERY DAY IN THE MORNING metformin 500 mg tablet extended release 24 hr See Rx Instructions .ROUTE .COMPLEX Qty: 90 1RF Dose Instruction: TAKE 1 TABLET BY MOUTH EVERY DAY Rx Instructions: TAKE 1 TABLET BY MOUTH EVERY DAY lisdexamfetamine [Vyvanse] 30 mg capsule 30 mg PO DAILY Qty: 30 0RF Follow-up/Referrals: Karla Almaraz APRN [Primary Care Provider] - 3 Days Stand Alone Forms: Work/School Release IP Time of Disposition: 17:31
== END 2025-05-04 17:40 | disposition home or self-care (01) ==
PROVIDERS: Emergency Provider Nurse Practitioner Family; PCP Nurse Practitioner Adult Health
DX: L29.9 Pruritus, unspecified (principal); T50.905A Adverse effect of unspecified drugs, medicaments and biological substances, initial encounter; K21.9 Gastro-esophageal reflux disease without esophagitis; J45.909 Unspecified asthma, uncomplicated; F41.9 Anxiety disorder, unspecified; F32.A Depression, unspecified; E66.01 Morbid (severe) obesity due to excess calories; Z68.43 Body mass index [BMI] 50.0-59.9, adult
CPT/HCPCS: 99213; G0463

== ENCOUNTER 2025-09-15 08:53 | Outpatient (CLI) | payer OTHER, SELFPAY ==
--- OUTSIDE RECORDS SUMMARY | 2025-09-15 09:39 | XMS_ITS | Clinical Summary ---
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 1 Active fluticasone propionate 50 MCG/ACT nasal spray 0 Active omeprazole 40 MG capsule Take 40 mg by mouth daily. Active azithromycin 250 MG tablet Take 2 tablets by mouth on day one then 1 daily for four days. 6 tablet 1 Active guaiFENesin ER (MUCINEX) 600 MG 12 hr tablet Take 2 tablets (1,200 mg total) by mouth 2 (two) times daily. 28 tablet 1 Active ondansetron 4 MG disintegrating tablet Take 1 tablet (4 mg total) by mouth every 8 (eight) hours as needed for Nausea. 20 tablet 1 Active diclofenac EC (VOLTAREN) 50 MG tablet Take 1 tablet (50 mg total) by mouth 2 (two) times daily. 30 tablet 4 Active methylPREDNISolone , NOLA, (MEDROL DOSEPAK) 4 MG tablet Take 1 tablet (4 mg total) by mouth 2 (two) times daily. 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 Pulse 94 11/24/2024 4:56 PM JOY LOADING MACHINE OPERATOR Temperature 36.9 C (98.4 F) 11/24/2024 3:29 PM JOY LOADING MACHINE OPERATOR Respiratory Rate 20 11/24/2024 4:56 PM JOY LOADING MACHINE OPERATOR Oxygen Saturation 99% 11/24/2024 4:56 PM JOY LOADING MACHINE OPERATOR Inhaled Oxygen Concentration - - Weight 159 kg (350 lb 8.5 oz) 11/24/2024 3:29 PM JOY LOADING MACHINE OPERATOR Height 162.6 cm (5' 4) 11/24/2024 3:29 PM JOY LOADING MACHINE OPERATOR Body Mass Index 60.17 11/24/2024 3:29 PM JOY LOADING MACHINE OPERATOR Plan of Treatment Health Maintenance Due Date Last Done Comments Annual Physical 1997 Hepatitis C 01/18/2012 Hepatitis B Vaccines (1 of 3 - 19+ 3-dose series) 2013 Pneumococcal Vaccine: Pediatrics (0 to 5 Years) and At-Risk Patients (6 to 49 Years) (1 of 2 - PCV) 2013 HPV Vaccines (1 - 3-dose SCDM series) 2021 COVID-19 Vaccine ( - 2024- season) 2025 Influenza Adult (#1) 2025 10/11/2022, 09/28/2021, 09/18/2017, Additional history exists Cervical Cancer Screening Pap Smear (Age 30 to 64) Every 3 Years 09/26/2027 09/26/2024, 06/28/2021 Cervical Cancer Screening Pap with HPV Testing (Age 30 to 64) Every 5 Years 09/26/2029 09/26/2024, 06/28/2021 Cervical Cancer Screening with HPV 09/26/2029 DTaP, Tdap and Td Vaccines (3 - Td or Tdap) 10/11/2032 10/11/2022, 07/14/1999, 1994, Additional history exists Hepatitis A Vaccines Aged Out No long er eligible based on patient's age to complete this topic Meningococcal B Vaccine Aged Out No l onger eligible based on patient's age to complete this topic Meningococcal Vaccine Aged Out No baljit matt eligible based on patient's age to complete this topic RSV Immunizations Under 20 Months Aged Out No longer eligible based on patient's age to complete this topic Insurance [employer] Care Teams Tag Press Operator Relationship Specialty Start Date End Date Karla Almaraz NP [address] [place] [address] PCP - General NURSE PRACTITIONER 11/24/24
--- OUTSIDE RECORDS SUMMARY | 2025-09-15 09:39 | XMS_ITS | Clinical Summary ---
Author Organization [facility] Address [address] [place] [address] Care Team Providers Care Salesperson Meats Name Role Phone Lala Llamas MD Unavailable + [phone] Karla Almaraz NP Primary Care Provider [phone] Allergies Active Allergy Reactions Criticality Noted Date Comments Bdyjoigmfk-Gsgqwvyg-Gkv moterol Other (See comments),Unknown High 01/08/2024 Codeine [...] or shortness of breath 8.5 g 5 03/20/20 Active Additional Information Patient not taking.Reported on 01/12/2025 famotidine (PEPCID) 20 mg tablet Take 1 tablet (20 mg total) by mouth once Active omeprazole (PriLOSEC) 40 mg capsule Take 1 capsule (40 mg total) by mouth daily 90 capsule 01/13/20 24 Active cetirizine (ZyrTEC) 10 mg chewable tablet Take 1 tablet (10 mg total) by mouth 4 (four) times a day States her allergy dr told her to take it 4 times daily Active tiotropium bromide (SPIRIVA RESPIMAT) 2.5 mcg/actuation inhaler Inhale 2 puffs daily 1 each 10/01/20 24 Active dupilumab (Dupixent Pen) pen injectorIndication s:Severe persistent asthma without complication (HCC) Inject 4 mL (600 mg total) under the skin once for 1 dose 4 mL 10/24/20 24 Active Additional Information Patient not taking.Reported on 01/12/2025 buPROPion XL (WELLBUTRIN XL) 300 mg 24 hr tablet Take 1 tablet (300 mg total) by mouth every morning 12/02/19 25 Active fenofibrate (TRIGLIDE) 160 mg tablet Take 1 tablet (160 mg total) by mouth daily 11/10/20 24 Active metFORMIN XR (GLUCOPHAGE XR) 500 mg 24 hr tablet Take 1 tablet (500 mg total) by mouth daily with breakfast 11/20/19 25 Active albuterol 2.5 mg /3 mL (0.083 %) nebulizer solutionIndication s:Severe persistent asthma without complication (HCC) Take 3 mL (2.5 mg total) by nebulization every 6 (six) hours as needed for wheezing or shortness of breath 360 mL 3 12/15/19 25 Active Additional Information Patient not taking.Reported on 08/31/2025 montelukast (SINGULAIR) 10 mg tablet Take 1 tablet (10 mg total) by mouth nightly 30 tablet 04/09/20 25 026 Active budesonide-formote roL (Symbicort) 160-4.5 mcg/actuation inhaler Inhale 2 puffs 2 (two) times a day 10.2 g 07/16/20 25 026 Active ondansetron ODT (ZOFRAN-ODT) 4 mg disintegrating tablet Take 1 tablet (4 mg total) by mouth every 8 (eight) hours as needed for nausea or vomiting 12 tablet 08/30/20 25 Active dicyclomine (BENTYL) 20 mg tablet Take 1 tablet (20 mg total) by mouth 2 (two) times a day 10 tablet 08/30/20 25 Active cyclobenzaprine (FLEXERIL) 10 mg tablet Take 1 tablet (10 mg total) by mouth 3 (three) times a day as needed for muscle spasms 30 tablet 08/31/20 25 Active naproxen (NAPROSYN) 500 mg tablet Take 1 tablet (500 mg total) by mouth 2 (two) times a day with meals 60 tablet 08/31/20 25 Active EPINEPHrine 0.3 mg/0.3 mL auto-injection syringe as needed 025 Discontin ued(Patie nt Reported) tiotropium bromide (SPIRIVA RESPIMAT) 2.5 mcg/actuation inhaler Inhale 2 puffs daily 025 Discontin ued(Patie nt Reported) fluticasone propionate (FLONASE) 50 mcg/actuation nasal spray 05/05/20 025 Discontin ued(Patie nt Reported) dupilumab (Dupixent Pen) pen injector Inject 2 mL (300 mg total) under the skin every 14 (fourteen) days 4 mL 11 10/24/20 24 025 Discontin ued(Patie nt Reported) Active Problems Problem Noted Date Diagnosed Date Sinus bradycardia 12/28/2023 Calculus of gallbladder with out cholecystitis without obstruction 12/26/2023 RUQ abdominal pain 12/22/2023 Severe persistent asthma without complication Assessment & Plan (03/26/2025 12:28 PM CDT): Continue Symbicort 160 twice daily and Spiriva 2.5 two puffs daily Continue Airsupra 2 puffs every four hours as needed only, she is aware of indications for use Albuterol nebulizer as needed only, she is aware of indications for use 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 She tried Dupixent with side effects of muscle and joint aches and pains Continue montelukast 10mg daily Last CBC with eosinophil count 400 We have discussed signs and symptoms that would require earlier evaluation or change to her plan of care Assessment & Plan (01/12/2025 3:16 PM CUT OFF SAWYER): Continue Symbicort 160 twice daily and Spiriva 2.5 two puffs daily Continue Airsupra 2 puffs every four hours as needed only, she is aware of indications for use Albuterol nebulizer as needed only, she is aware of indications for use 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, she failed Dupixent with side effects of muscle and joint aches and pains She resumed montelukast and thus far has had good clinical benefit and no side effects Last CBC with eosinophil count 400 We have discussed signs and symptoms that would require earlier evaluation or change to her plan of care Assessment & Plan (12/15/2024 3:05 PM CUT OFF SAWYER): Continue Symbicort 160 twice daily and Spiriva 2.5 two puffs daily Continue Airsupra as needed only, we have discussed indications for use Albuterol nebulizer as needed only, she was aware of indications for use and I have sent a refill on her medication to the pharmacy today 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 At this time she would like to stop the Dupixent and restart her montelukast. I have sent an order to her pharmacy I will check CBC today to ensure that her eosinophilic count has not increased significantly We have discussed signs and symptoms that would require earlier evaluation or change to her plan of care Assessment & Plan (10/22/2024 3:06 PM CUT OFF SAWYER): Continue Symbicort 160 twice daily and Spiriva [...] care Assessment & Plan (10/01/2024 2:07 PM CUT OFF SAWYER): Continue Symbicort 160 twice daily and Spiriva [...] 03/20/2022 Assessment & Plan (10/22/2024 3:04 PM CUT OFF SAWYER): She has continued to gain weight despite diet changes. Her exercise is limited by dyspnea, although certainly some of her dyspnea is caused by her weight. We have discussed bariatric surgical evaluation today and I have recommended a new primary care provider for her. Continue diet changes and exercise as tolerated COVID-19 11/12/2021 Depression Polycystic ovary disease Bronchitis Overview (03/18/2022): gets bronchitis due to allergies - uses nebulizer as needed Frequent sinus infections Environmental and seasonal allergies Assessment & Plan (01/12/2025 3:17 PM CUT OFF SAWYER): Continue OTC allergy pill daily Saline nasal rinses and intranasal spray as needed. Avoid triggers, I do not have an allergy panel test for her. Assessment & Plan (12/15/2024 3:04 PM CUT OFF SAWYER): Continue OTC allergy pill daily Saline nasal rinses and intranasal spray as needed. Avoid triggers Assessment & Plan (10/22/2024 3:07 PM CUT OFF SAWYER): Continue OTC allergy pill daily Saline nasal rinses and intranasal spray as needed. Previous adverse reaction to montelukast in the past. Assessment & Plan (10/01/2024 2:08 PM CUT OFF SAWYER): Continue OTC allergy pill daily Saline nasal rinses and intranasal spray as needed. Request further labs from [facility]. Avoid triggers. Assessment & Plan (08/28/2024 8:26 PM CDT): Continue OTC allergy pill daily Saline nasal rinses and intranasal spray as needed. Request further labs from [facility]. Avoid triggers. Hypoxia Resolved Problems Problem Noted Date Diagnosed Date Resolved Date Severe persistent asthma with exacerbation 03/17/2022 12/15/2024 Encounters Date Type Department Care Team Description 08/31/2025 1:34 AM CDT - 08/31/2025 4:37 AM CDT Emergency [facility] Emergency Department [address] [place] [address] Michael Truong Jr., MD Chest wall pain (Primary Dx); Nausea and vomiting, unspecified vomiting type; Gastroenteritis Discharge Disposition: Discharge to home or self care 08/30/2025 11:05 AM CDT - 08/30/2025 12:31 PM CDT Emergency [facility] Emergency Department [address] [place] [address] Crista Golden PA Vomiting and diarrhea (Primary Dx); Elevated blood pressure reading; Elevated ALT measurement Discharge Disposition: Discharge to home or self care from Last 3 Months Surgical History Surgery [...] Tobacco: Never Tobacco Cessation:Counseling Given: Not Answered [facility] Utilities Answer Date Recorded In the past 12 months has th e electric, gas, oil, or water company threatened to shut off services in your home? No 12/26/2023 Social Connection and Isolation Panel Answer Date Recorded In a typical week, how many times do you talk on the phone with family, friends, or neighbors? More than three times a week 12/26/2023 How often do you get togethe r with friends or relatives? More than three times a week 12/26/2023 How often do you attend chur ch or taoist services? Never 12/26/2023 Do you belong to any clubs o r organizations such as hinduism groups, unions, fraternal or athletic groups, or [...] place to sleep or slept in a retirement (including now)? No 12/26/2023 Personal Safety Answer Date Recorded Have you ever been in or are you currently in a harmful physical or emotional relationship or is someone making you feel afraid or unsafe? Denies 08/31/2025 Comments No Sex and Gender Information Value Date Recorded Sex Assigned at Not on file Legal Sex Female 11:42 PM CUT OFF SAWYER Gender Identity Female 01/13/2024 5:00 PM CUT OFF SAWYER Sexual Orientation Not on file Occupation Industry [...] Sign Reading Time Taken Comments Blood Pressure 120/88 08/31/2025 4:36 AM CDT Pulse 98 08/31/2025 4:36 AM CDT Temperature 36.6 C (97.8 F) 08/31/2025 1:44 AM CDT Respiratory Rate 16 08/31/2025 4:36 AM CDT Oxygen Saturation 93% 08/31/2025 4:36 AM CDT Inhaled Oxygen Concentration - - Weight 135.9 kg (299 lb 9.7 oz) 025 11:58 PM CDT Height 162.6 cm (5' 4) 08/30/2025 10:5 5 AM CDT Body Mass Index 51.43 08/30/2025 10:55 AM CDT Plan of Treatment Health Maintenance Due Date Last Done Comments Cervical Cancer Screening 1994 Depression Screening 1994 Hepatitis C Screening 1994 Varicella Vaccines (2 of 2 - 2-dose childhood series) 10/06/1999 07/14/1999 Regular Well Visit/Exam 18-64 01/18/2012 Pneumococcal vaccine <65 (1 of 2 - PCV) 2013 HPV Vaccines (1 - 3-dose SCD M series) 2021 Influenza Vaccine (#1) 2025 , 09/28/2021, 09/18/2017, Additional history exists DTaP/Tdap/Td Vaccine (7 - Td or Tdap) 10/11/2032 10/11/2022, 07/14/1999, 09/24/1995, Additional history exists Hepatitis B Screening Completed 1994 , 1994, 1994 Procedures Procedure Name Priority Date/Time Associated Diagnosis Comments TROPONIN T HIGH-SENSITIVITY 2-HOUR Timed 08/31/2025 1:57 AM CDT XR CHEST PA LATERAL 2 VIEWS ED 08/31/2025 12:17 AM CDT EGFR STAT 08/31/2025 12:09 AM CDT DIFFERENTIAL AUTO STAT 08/31/2025 12: 09 AM CDT TROPONIN T HIGH-SENSITIVITY SERIES (BASELINE, 2HR, 4HR, 6HR) STAT 08/31/2025 12:09 AM CDT COMPREHENSIVE METABOLIC PANEL STAT 08/31/2025 12:09 AM CDT CBC WITH AUTO DIFFERENTIAL STAT 08/31/2025 12:09 AM CDT ECG 12-LEAD STAT 08/31/2025 12:05 AM CDT POCT HCG, URINE Routine 08/30/2025 11:07 AM CDT URINALYSIS, MICROSCOPIC ONLY STAT 08/30/2025 11:06 AM CDT URINALYSIS AND REFLEX TO MICROSCOPIC AND CULTURE STAT 08/30/2025 11:06 AM CDT EGFR STAT 08/30/2025 11:01 AM CDT DIFFERENTIAL AUTO STAT 08/30/2025 11: 01 AM CDT LIPASE STAT 08/30/2025 11:01 AM CDT COMPREHENSIVE METABOLIC PANEL STAT 08/30/2025 11:01 AM CDT CBC WITH AUTO DIFFERENTIAL STAT 08/30/2025 11:01 AM CDT INFLUENZA A/B, RSV, AND COVID-19 PCR STAT 08/30/2025 11:01 AM CDT from Last 3 Months Results * Troponin T high-sensitivity 2-hour (08/31/2025 1:57 AM CDT) Trop T hs <6 <=14 ng/L Comment: Interpretive Data For further hscTnT resources including the diagnostic algorithm and an aid in interpretation, copy and paste this link: https://nrl.testcatalog.org/show/hsTrop Current Interpretive Data last revised 2020. Testing performed by: [address] [address] Trop T hs delta 0 ng/L KIM WINN Comment:Testing performed by : [address] [address] Trop T hs interp Insignificant KIM WINN Comment:Testing performed by : [address] [address] Blood 08/31/2025 1:57 AM CDT 08/31/2025 2:44 AM CDT us Michael Truong Jr., MD LAB BLOOD ORDERABLES Fi nal Result KIM [address] [facility] Department [place] [address] * XR Chest PA Lateral 2 Views (If patient hemodynamically stable and ambulatory) (08/31/2025 12:17 AMCDT) Anatomical Region Laterality Modality Body, Chest N/A Computed Radiogr aphy 08/31/2025 12:2 3 AM CDT Narrative 08/31/2025 12:23 AM CDT EXAM DESCRIPTION: XR CHEST PA LATERAL 2 VIEWS REASON FOR STUDY: chest pain Pt c/o sob worse when laying down and chest pain in a band across her chest. Pt reports that the sob has improved but the chest pain remains. Pt denies any pedal edema. TECHNIQUE: Frontal and lateral views of the chest. COMPARISON: 10/01/2024 FINDINGS: LUNGS AND PLEURA: No focal airspace opacity, pleural effusion, or pneumothorax identified. HEART/MEDIASTINUM: Trachea midline. Cardiac silhouette normal in size. Mediastinal contours appear normal. BONES: Mild multilevel disc disease. CHEST WALL: Unremarkable. UPPER ABDOMEN: Unremarkable. IMPRESSION: Unremarkable chest radiographs. THIS IS AN ELECTRONICALLY VERIFIED FINAL REPORT 08/31/2025 12:23 AM - Electronically signed by Warren Alvarado M.D. AR: LADONNA Report ID: [id number] Reading Location: [id number] Procedure Note Warren Alvarado MD - 08/31/2025 EXAM DESCRIPTION: XR CHEST PA LATERAL 2 VIEWS REASON FOR STUDY: chest pain Pt c/o sob worse when laying down and chest pain in a band across herchest. Pt reports that the sob has improved but the chest pain remains. Pt deniesany pedal edema. TECHNIQUE: Frontal and lateral views of the chest. COMPARISON: 10/01/2024 FINDINGS: LUNGS AND PLEURA: No focal airspace opacity, pleural effusion,or pneumothorax identified. HEART/MEDIASTINUM: Trachea midline. Cardiac silhouette normal in size. Mediastinal contours appear normal. BONES: Mild multilevel disc disease. CHEST WALL: Unremarkable. UPPER ABDOMEN: Unremarkable. IMPRESSION: Unremarkable chest radiographs. THIS IS AN ELECTRONICALLY VERIFIED FINAL REPORT 08/31/2025 12:23 AM - Electronically signed by Warren Alvarado M.D. AR: LADONNA Report ID: [id number] Reading Location: [place] [address] us Michael Truong Jr., MD IMG XR PROCEDURES Final Result * Troponin T high-sensitivity series (baseline, 2hr, 4hr, 6hr) (08/31/2025 12:09 AM CDT) Trop T hs <6 <=14 ng/L Comment: Interpretive Data For further hscTnT resources including the diagnostic algorithm and an aid in interpretation, copy and paste this link: https://nrl.testcatalog.org/show/hsTrop Current Interpretive Data last revised 2020. Testing performed by: [facility], [address] [place] [address]., [address] Blood 08/31/2025 12:0 9 AM CDT 08/31/2025 12:18 AM CDT us Michael Truong Jr., MD LAB BLOOD ORDERABLES Fi nal Result [facility] [address] [facility] [place] [address] * eGFR (08/31/2025 12:09 AM CDT) eGFR 67 >=60 mL/min/1. 73 m2 Comment: Interpretive Data Reference Interval Normal >/= 90 mL/min/1.73m2 Mildly decreased* 60 - 89 mL/min/1.73m2 Mildly to moderately decreased 45 - 59 mL/min/1.73m2 Moderately to severely decreased 30 - 44 mL/min/1.73m2 Severely decreased 15 - 29 mL/min/1.73m2 Kidney Failure < 15 mL/min/1.73m2 *Relative to young adult level Estimated glomerular filtration rate is determined by the 2020 CKD-EPI equation recommended by the National Kidney Foundation (A Unifying Approach to GFR Estimation: Recommendations of the NKF-ASK Task Force on Reassessing the Inclusion of Race in Diagnosing Kidney Disease, JASN 2020). The CKD-EPI equation should not be used for patients with unstable renal function and has not been validated in children and those over 70. Current interpretive data was last reviewed 2021. Testing performed by: [address] [address] Blood 08/31/2025 12:0 9 AM CDT 08/31/2025 12:18 AM CDT us Michael Truong Jr., MD LAB BLOOD ORDERABLES Fi nal Result [place] [id number] [facility] Department [place] [address] * Differential, auto (08/31/2025 12:09 AM CDT) Neutrophil abs 5.64 1.50 - 6.50 K/cumm Comment:Testing performed by : [address] [address] Imm gran abs 0.02 0.00 - 0.10 K/cumm KIM Comment:Testing performed by : [address] [address] Lymphocyte abs 2.01 0.80 - 3.30 K/cumm KIM Comment:Testing performed by : [address] [address] Monocyte abs 0.46 0.20 - 0.80 K/cumm KIM Comment:Testing performed by : [address] [address] Eosinophil abs 0.30 0.00 - 0.50 K/cumm KIM Comment:Testing performed by : [address] [address] Basophil abs 0.06 0.00 - 0.10 K/cumm KIM Comment:Testing performed by : [address] [address] Neutrophil pct 66.5 % KIM Comment: Interpretive Data Percent cell count reference ranges are not reported, since discordance with absolute values may lead to misinterpretation of CBC data. Current Interpretive Data was last revised on 2018. Testing performed by: [address] [address] Imm gran pct 0.2 % KIM Comment: Interpretive Data Percent cell count reference ranges are not reported, since discordance with absolute values may lead to misinterpretation of CBC data. Current Interpretive Data was last revised on 2018. Testing performed by: [address] [address] Lymphocyte pct 23.7 % KIM Comment: Interpretive Data Percent cell count reference ranges are not reported, since discordance with absolute values may lead to misinterpretation of CBC data. Current Interpretive Data was last revised on 2018. Testing performed by: [address] [address] Monocyte pct 5.4 % KIM Comment: Interpretive Data Percent cell count reference ranges are not reported, since discordance with absolute values may lead to misinterpretation of CBC data. Current Interpretive Data was last revised on 2018. Testing performed by: [address] [address] Eosinophil pct 3.5 % KIM Comment: Interpretive Data Percent cell count reference ranges are not reported, since discordance with absolute values may lead to misinterpretation of CBC data. Current Interpretive Data was last revised on 2018. Testing performed by: [address] [address] Basophil pct 0.7 % KIM Comment: Interpretive Data Percent cell count reference ranges are not reported, since discordance with absolute values may lead to misinterpretation of CBC data. Current Interpretive Data was last revised on 2018. Testing performed by: [address] [address] Blood 08/31/2025 12:0 9 AM CDT 08/31/2025 12:18 AM CDT us Michael Truong Jr., MD LAB BLOOD ORDERABLES Fi nal Result KIM [address] [facility] [place] [address] * (ABNORMAL) CBC with auto differential (08/31/2025 12:09 AM CDT) WBC 8.49 3.80 - 9.90 K/cumm Comment:Testing performed by : [address] [address] Hgb 13.9 11.9 - 15.5 g/dL KIM Comment:Testing performed by : [address] [address] Hct 41.3 35.6 - 45.5 % KIM Comment:Testing performed by : [address] [address] Plt 296 150 - 400 K/cumm KIM Comment:Testing performed by : [address] [address] MPV 11.4 9.1 - 12.3 fL KIM Comment:Testing performed by : [address] [address] RBC 5.14 3.90 - 5.20 M/cumm KIM Comment:Testing performed by : [address] [address] MCV 80.4(L) 81.3 - 96.4 fL KIM Comment:Testing performed by : [address] [address] MCH 27.0(L) 27.1 - 33.3 pg KIM Comment:Testing performed by : [address] [address] MCHC 33.7 32.3 - 35.7 g/dL KIM WINN Comment:Testing performed by : [address] [address] RDW CV 13.6 11.1 - 14.9 % KIM WINN Comment:Testing performed by : [address] [address] RDW SD 39.1 35.7 - 48.1 fL KIM WINN Comment:Testing performed by : [address] [address] NRBC abs 0.00 0.00 - 0.01 K/cumm KIM WINN Comment:Testing performed by : [address] [address] Blood Venous blood specimen / Unknown 08/31/2025 12:09 AM CDT 08/31/2025 12:18 AM CDT us Michael Truong Jr., MD LAB BLOOD ORDERABLES Fi nal Result KIM [address] [facility] Department of Laboratories [place], [place] [id number] * (ABNORMAL) Comprehensive metabolic panel (08/31/2025 12:09 AM CDT) Sodium 142 135 - 145 mmol/L Comment:Testing performed by : [address] [address] Potassium, pl 4.0 3.3 - 4.9 mmol/L KIM WINN Comment: Hemolyzed; Potassium value may be falsely elevated by as much as 1.0 mmol/L. Suggest redraw and reanalysis. Testing performed by: [address] [address] Chloride 106 97 - 110 mmol/L KIM WINN Comment:Testing performed by : [address] [address] CO2 24 22 - 32 mmol/L KIM WINN Comment:Testing performed by : [address] [address] Anion gap 12 2 - 15 mmol/L KIM WINN Comment:Testing performed by : [address] [address] BUN 14 6 - 25 mg/dL KIM WINN Comment:Testing performed by : [address] [address] Creatinine 1.12(H) 0.60 - 1.10 mg/dL [facility] Comment:Testing performed by : [address] [address] Glucose 127 70 - 199 mg/dL [facility] Comment: Interpretive Data Fasting glucose >/= 126 mg/dl is diagnostic for diabetes. Fasting is defined as no caloric intake for at least 8 hours. Fasting glucose between 100 mg/dl to 125 mg/dl is diagnostic of prediabetes. In a patient with classic symptoms of hyperglycemia or hyperglycemic crisis, a random glucose >/= 200 mg/dl is diagnostic for diabetes. In the absence of unequivocal hyperglycemia, results should be confirmed by repeat testing. The classification and Diagnosis of Diabetes Diabetes Care 202; 46: S19-S40. Current interpretive data was last revised 2022. Testing performed by: [address] [address] Calcium 10.3 8.5 - 10.3 mg/dL [facility] Comment:Testing performed by : [address] [address] Bilirubin, total 0.5 0.1 - 1.2 mg/dL [facility] Comment:Testing performed by : [address] [address] Protein, pl 7.0 6.5 - 8.5 g/dL [facility] Comment:Testing performed by : [address] [address] Albumin 4.4 3.5 - 5.0 g/dL [facility] Comment:Testing performed by : [address] [address] Alk phos 43 40 - 130 Units/L [facility] Comment:Testing performed by : [address] [address] ALT 42 7 - 45 Units/L [facility] Comment:Testing performed by : [address] [address] AST 36 10 - 45 Units/L [facility] Comment: Hemolyzed; result may be falsely elevated Testing performed by: [address] [address] Blood 08/31/2025 12:0 9 AM CDT 08/31/2025 12:18 AM CDT us Michael Truong Jr., MD LAB BLOOD ORDERABLES Fi nal Result Performing Organization Address [facility] Co de Phone Number KIM [facility] [place] [address] * ECG 12 lead (08/31/2025 12:05 AM CDT) Ventricular Rate EKG/Min 63 BPM [facility] Atrial Rate 63 BPM [facility] OK-Interval (MSEC) 168 ms [facility] QRS-Interval (MSEC) 80 ms [facility] QT-Interval (MSEC) 394 ms [facility] QTc 403 ms [facility] P [place] 66 degrees [facility] R [place] 48 degrees [facility] T [place] 69 degrees [facility] Diagnosis Sinus rhythm with marked sinus arrhythmia Otherwise normal ECG When compared with ECG of 07-JUL-2024 18:18, No significant change was found Confirmed by ADRIAN MONTGOMERY M.D. ([id number]) on 08/31/2025 8:07:07 AM [facility] 08/31/2025 12:0 5 AM CDT 08/31/2025 8:07 AM CDT us Michael Truong Jr., MD ECG ORDERABLES Final R esult Performing Organization Address [facility] de Phone Number [facility] [facility] * POCT hCG, urine (08/30/2025 11:07 AM CDT) HCG, ur, POC Negative Negative Comment:Testing performed by : [facility], [address] [place] [address], [place]., [address] Urine 08/30/2025 11:0 7 AM CDT 08/30/2025 11:07 AM CDT us Notinfile Unknown LAB POCT ORDERABLES - DEVICE F inal Result Performing Organization Address [facility] Co de Phone Number KIM [address] [facility] [place] [address] * (ABNORMAL) Urinalysis reflex to microscopic and culture Urine (08/30/2025 11:06 AM CDT) Color, ur Yellow Yellow Comment:Testing performed by : [address] [address] Clarity, ur Cloudy(A) Clear KIM Comment:Testing performed by : [address] [address] Specific gravity, ur 1.022 1.003 - 1.030 KIM Comment:Testing performed by : [address] [address] pH, urine 6.5 KIM Comment: Interpretive Data U rine pH is affected by diet, medications, systemic acid-base disturbances, and renal tubular function. pH may affect urinary stone formation. For example, urine pH below 6.0 may help reduce the tendency for calcium phosphate stones and pH greater than 6.0 may reduce the tendency for uric acid stone formation. Source: [facility] [employer] Current Interpretive Data was last revised on 2017 Testing performed by: [address] [address] Protein, ur ql Trace(A) Negative KIM Comment:Testing performed by : [address] [address] Glucose, ur ql Negative Negative KIM Comment:Testing performed by : [address] [address] Ketones, ur Negative Negative KIM Comment:Testing performed by : [address] [address] Bilirubin, ur Negative Negative KIM Comment:Testing performed by : [address] [address] Blood, ur Trace(A) Negative KIM Comment:Testing performed by : [address] [address] Urobilinogen, ur <2.0 <2.0 mg/dL KIM Comment:Testing performed by : [address] [address] Nitrite, ur Negative Negative KIM Comment:Testing performed by : [address] [address] Leukocyte esterase, ur 3+(A) Negative KIM Comment:Testing performed by : [address], [place]., [address] UA reflex comment Reflex to microscopic UA will be performed. KIM Comment:Testing performed by : [address], [place]., [address] Urine 08/30/2025 11:0 6 AM CDT 08/30/2025 11:10 AM CDT us Crista KELSEY LAB MICROBIOLOGY - GENERAL ORDE CRISTI Final Result Performing Organization Address City/State/[facility] Co de Phone Number KIM [address] [facility] Department [place] [address] * (ABNORMAL) Urinalysis, microscopic only (08/30/2025 11:06 AM CDT) WBC, ur 6-10(A) 0 - 5 /HPF Comment:Testing performed by : [address] [address] RBC, ur 3-5(A) 0 - 2 /HPF KIM Comment:Testing performed by : [address] [address] Epithelial cells, squamous, ur >50(A) 0 - 5 /HPF KIM Comment:Testing performed by : [address] [address] Yeast, ur 1+(A) KIM Comment:Testing performed by : [address] [address] Mucous, ur Present(A) KIM Comment:Testing performed by : [address] [address] Culture Reflex Comment Reflex conditions for urine culture (WBC >10) not met. KIM WINN Comment:Testing performed by : [address] [address] Urine 08/30/2025 11:0 6 AM CDT 08/30/2025 11:10 AM CDT us Crista KELSEY LAB URINE ORDERABLES Final Resu lt [facility] [address] [facility] [place] [address] * Influenza A/B, RSV, and COVID-19 PCR Nasopharyngeal (08/30/2025 11:01 AM CDT) COVID-19 RNA Negative Negative Comment:Testing performed by : [address] [address] Influenza A RNA Negative Negative [facility] Comment:Testing performed by : [address] [address] Influenza B RNA Negative Negative [facility] Comment:Testing performed by : [address] [address] RSV RNA Negative Negative [facility] Comment: Interpretive data: Testing performed by [facility]. This test is performed using the Cost Effective Data Xpert Xpress CoV-2/Flu/RSV plus assay. This is a multiplex, real-time reverse transcriptase PCR assay intended for the qualitative detection of nucleic acid from SARS-CoV-2, influenza A, influenza B, and respiratory syncytial virus. This assay has been cleared by the [place] Food and Drug administration. The performance characteristics have been verified by the [facility]. Results must be considered in the clinical context, and a negative result does not rule out infection. Interpretive Data last revised 2023 Testing performed by: [address] [address] Nasopharyngeal 08/30/2025 11 :01 AM CDT 08/30/2025 11:04 AM CDT Narrative KIM - 08/30/2025 11:53 AM CDT Is the Patient experiencing symptoms consistent with COVID?->Yes us Crista KELSEY LAB MICROBIOLOGY - GENERAL ORDE RABLES Final Result Performing Organization Address [facility] Co de Phone Number KIM [address] [place] [address] * eGFR (08/30/2025 11:01 AM CDT) eGFR 72 >=60 mL/min/1. 73 m2 Comment: Interpretive Data Reference Interval Normal >/= 90 mL/min/1.73m2 Mildly decreased* 60 - 89 mL/min/1.73m2 Mildly to moderately decreased 45 - 59 mL/min/1.73m2 Moderately to severely decreased 30 - 44 mL/min/1.73m2 Severely decreased 15 - 29 mL/min/1.73m2 Kidney Failure < 15 mL/min/1.73m2 *Relative to young adult level Estimated glomerular filtration rate is determined by the 2020 CKD-EPI equation recommended by the National Kidney Foundation (A Unifying Approach to GFR Estimation: Recommendations of the NKF-ASK Task Force on Reassessing the Inclusion of Race in Diagnosing Kidney Disease, JASN 2020). The CKD-EPI equation should not be used for patients with unstable renal function and has not been validated in children and those over 70. Current interpretive data was last reviewed 2021. Testing performed by: [address] [address] Blood 08/30/2025 11:0 1 AM CDT 08/30/2025 11:04 AM CDT us Crista KELSEY LAB BLOOD ORDERABLES Final Resu lt Performing Organization Address City/[facility]/ZIP Co de Phone Number KIM [facility] Department [place] [address] * Differential, auto (08/30/2025 11:01 AM CDT) Neutrophil abs 4.71 1.50 - 6.50 K/cumm Comment:Testing performed by : [address] [address] Imm gran abs 0.01 0.00 - 0.10 K/cumm KIM WINN Comment:Testing performed by : [address] [address] Lymphocyte abs 1.78 0.80 - 3.30 K/cumm KIM Comment:Testing performed by : [address] [address] Monocyte abs 0.45 0.20 - 0.80 K/cumm KIM Comment:Testing performed by : [address], [place]., [address] Eosinophil abs 0.44 0.00 - 0.50 K/cumm KIM Comment:Testing performed by : [address], [place]., [address] Basophil abs 0.07 0.00 - 0.10 K/cumm KIM Comment:Testing performed by : [address] [address] Neutrophil pct 63.2 % [facility] Comment: Interpretive Data Percent cell count reference ranges are not reported, since discordance with absolute values may lead to misinterpretation of CBC data. Current Interpretive Data was last revised on 2018. Testing performed by: [address] [address] Imm gran pct 0.1 % [facility] Comment: Interpretive Data Percent cell count reference ranges are not reported, since discordance with absolute values may lead to misinterpretation of CBC data. Current Interpretive Data was last revised on 2018. Testing performed by: [address] [address] Lymphocyte pct 23.9 % [facility] Comment: Interpretive Data Percent cell count reference ranges are not reported, since discordance with absolute values may lead to misinterpretation of CBC data. Current Interpretive Data was last revised on 2018. Testing performed by: [address] [address] Monocyte pct 6.0 % [facility] Comment: Interpretive Data Percent cell count reference ranges are not reported, since discordance with absolute values may lead to misinterpretation of CBC data. Current Interpretive Data was last revised on 2018. Testing performed by: [address] [address] Eosinophil pct 5.9 % CERN[facility] Comment: Interpretive Data Percent cell count reference ranges are not reported, since discordance with absolute values may lead to misinterpretation of CBC data. Current Interpretive Data was last revised on 2018. Testing performed by: [address] [address] Basophil pct 0.9 % KIM WINN Comment: Interpretive Data Percent cell count reference ranges are not reported, since discordance with absolute values may lead to misinterpretation of CBC data. Current Interpretive Data was last revised on 2018. Testing performed by: [address] [address] Blood 08/30/2025 11:0 1 AM CDT 08/30/2025 11:04 AM CDT us Crista KELSEY LAB BLOOD ORDERABLES Final Resu lt KIM [address] [facility] [place] [address] * (ABNORMAL) CBC with auto differential (08/30/2025 11:01 AM CDT) WBC 7.46 3.80 - 9.90 K/cumm Comment:Testing performed by : [address] [address] Hgb 14.7 11.9 - 15.5 g/dL KIM WINN Comment:Testing performed by : [address] [address] Hct 43.4 35.6 - 45.5 % KIM WINN Comment:Testing performed by : [address] [address] Plt 281 150 - 400 K/cumm KIM WINN Comment:Testing performed by : [address] [address] MPV 11.1 9.1 - 12.3 fL KIM WINN Comment:Testing performed by : [address] [address] RBC 5.42(H) 3.90 - 5.20 M/cumm KIM WINN Comment:Testing performed by : [facility], [address] [place] [address]., [address] MCV 80.1(L) 81.3 - 96.4 fL KIM Comment:Testing performed by : [address] [address] MCH 27.1 27.1 - 33.3 pg KIM Comment:Testing performed by : [address] [address] MCHC 33.9 32.3 - 35.7 g/dL KIM Comment:Testing performed by : [address], [address] RDW CV 13.6 11.1 - 14.9 % KIM Comment:Testing performed by : [address] [address] RDW SD 39.7 35.7 - 48.1 fL KIM Comment:Testing performed by : [address], [address] NRBC abs 0.00 0.00 - 0.01 K/cumm KIM Comment:Testing performed by : [address], [address] Blood 08/30/2025 11:0 1 AM CDT 08/30/2025 11:04 AM CDT us Crista KELSEY LAB BLOOD ORDERABLES Final Resu lt KIM [address] [facility] Department of Laboratories [place], [place] [id number] * Lipase (08/30/2025 11:01 AM CDT) Lipase 22 10 - 99 Units/L Comment:Testing performed by : [address] [address] Blood 08/30/2025 11:0 1 AM CDT 08/30/2025 11:04 AM CDT us Crista KELSEY LAB BLOOD ORDERABLES Final Resu lt [facility] [address] [facility] Department [place] [address] * (ABNORMAL) Comprehensive metabolic panel (08/30/2025 11:01 AM CDT) Sodium 140 135 - 145 mmol/L Comment:Testing performed by : [address] [address] Potassium, pl 3.8 3.3 - 4.9 mmol/L KIM Comment:Testing performed by : [address] [address] Chloride 103 97 - 110 mmol/L KIM Comment:Testing performed by : [address], [place]., [address] CO2 24 22 - 32 mmol/L KIM Comment:Testing performed by : [address] [address] Anion gap 13 2 - 15 mmol/L KIM Comment:Testing performed by : [address] [address] BUN 14 6 - 25 mg/dL KIM Comment:Testing performed by : [address] [address] Creatinine 1.06 0.60 - 1.10 mg/dL KIM Comment:Testing performed by : [address] [address] Glucose 113 70 - 199 mg/dL KIM Comment: Interpretive Data Fasting glucose >/= 126 mg/dl is diagnostic for diabetes. Fasting is defined as no caloric intake for at least 8 hours. Fasting glucose between 100 mg/dl to 125 mg/dl is diagnostic of prediabetes. In a patient with classic symptoms of hyperglycemia or hyperglycemic crisis, a random glucose >/= 200 mg/dl is diagnostic for diabetes. In the absence of unequivocal hyperglycemia, results should be confirmed by repeat testing. The classification and Diagnosis of Diabetes Diabetes Care 2021; 46: S19-S40. Current interpretive data was last revised 2022. Testing performed by: [address] [address] Calcium 10.5(H) 8.5 - 10.3 mg/dL KIM Comment:Testing performed by : [address] [address] Bilirubin, total 0.7 0.1 - 1.2 mg/dL KIM Comment:Testing performed by : [address] [address] Protein, pl 7.4 6.5 - 8.5 g/dL KIM Comment:Testing performed by : [address] [address] Albumin 4.6 3.5 - 5.0 g/dL KIM Comment:Testing performed by : [address] [address] Alk phos 46 40 - 130 Units/L KIM Comment:Testing performed by : [address] [address] ALT 47(H) 7 - 45 Units/L KIM Comment:Testing performed by : [facility], [address] [place] [address]., [address] AST 42 10 - 45 Units/L KIM Comment:Testing performed by : [address] [address] Blood 08/30/2025 11:0 1 AM CDT 08/30/2025 11:04 AM CDT Crista KELSEY LAB BLOOD ORDERABLES Final Resu lt Performing Organization Address City/State/[facility] Co de Phone Number [facility] [address] [facility] Department of Laboratories [place], [place] [phone] from Last 3 Months Insurance [facility] Advance Directives For more information, please contact: [phone] * Full Code (Latest Code Status on File) Date Activated Date Inactivated Comments 12/26/2023 7:32 AM 12/28/2023 3:21 PM * Full Code Date Activated Date Inactivated Comments 12/22/2023 10:15 PM 12/24/2023 12:39 AM * Full Code Date Activated Date Inactivated Comments 03/18/2022 2:02 AM 03/20/2022 5:53 PM Care Teams Salesperson Meats Relationship Specialty Start Date End Date Karla Almaraz NP [address] [place] [id number] PCP - General Nurse Practitioner 08/30/25 Lala Llamas MD [address] [place] [address] Consulting Physician Pulmonary Disease 03/20/22
--- OUTSIDE RECORDS SUMMARY | 2025-09-15 09:39 | XMS_ITS | Encounter Summary ---
Author Organization [facility] Address [address] [place] [address] Care Team Providers Care Chiropractic Teacher Name Role Phone Chandu Barakat MD Unavailable [phone] Erin Rolon A OPERATOR-HOLISTIC HEALTH PRACTITIONER Unavailable [phone] None, Physician Primary Care Provider Unavailabl e Encounter Details Date Type Department Care Team (Late st Contact Info) Description 07/15/2025 Results Follow-Up [facility] OP [address] [place] [address] Jarek Kelsey MD [address] [place] [address] Social History Tobacco Use Types Packs/Day Years Used Date Smoking Tobacco: Never Smokeless Tobacco: Never Alcohol Use Standard Drinks/Week Comments Not Currently [...] Recorded Patient Health Questionnaire-2 Score 0 07/09/2024 Comments No Sex and Gender Information Value Date Recorded Sex Assigned at Not on file Legal 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 Gender Identity Not on file Sexual Orientation Not on file documented as of this encounter Plan of Treatment Upcoming Encounters Date Type Department Care Team (Late st Contact Info) Description 09/30/2025 3:00 PM BOIL OFF WORKER Office Visit [facility] - Allergy [address] [facility] [place] [phone] Jarek Kelsey MD [address] [place] [phone] documented as of this encounter Visit Diagnoses Not on filedocumented in this encounter Care Teams Chiropractic Teacher Relationship Specialty Start Date End Date None, Physician PCP - General 07/02/25 Chandu Barakat MD [address] [facility] [address] [place] [phone] Assembly Stock Supervisor Urogynecology 07/19/23 Erin Rolon, A OPERATOR-HOLISTIC HEALTH PRACTITIONER [address] [place] [phone] Nurse Practitioner Gynecology 07/19/23 documented as of this encounter
--- OUTSIDE RECORDS SUMMARY | 2025-09-15 09:39 | XMS_ITS | Clinical Summary ---
Author Organization [facility] Address [address] [address] Care Team Providers Care Accounting Bookkeeper Name Role Phone Chandu Barakta MD Unavailable [phone] Erin Rolon SHARED SERVICES MANAGER-GASOLINE TRUCK OPERATOR Unavailable [phone] None, Physician Primary Care Provider Unavailabl e Source Comments [facility],non-owned Affiliates and Associated Physician Practices is amultiple site organization consisting of ambulatory clinics and hospital sitesin [place], [place], [place] and [place]. This disclosure is being madepursuant to the Care Everywhere program and may not contain all information available regarding this patient. Last updated 18.[facility] Allergies Active Allergy Reactions Criticality Noted Date Comments Ibfmycd-Pkdkfakeexi-Er rmoterol Unknown 01/08/2024 Codeine Anaphylaxis High 12/17/2015 Does not tolerate hydro or oxycodone Dupilumab Other 07/02/2025 Joint pain that lasted 1 month after injection Iopamidol Urticaria,Vomiting Medium 07/02/2025 Received epi on 12/19/23: received isovue 370 Previously received ioversol 350 03/2022 without issues Tree Nuts Anaphylaxis High 10/03/2023 Medications * Be aware that medications may not be up to date on this document. Alwaysverify current medications with the patient. albuterol HFA (Proventil; Ventolin; Proair) 108 (90 Base) MCG/ACT inhaler 2 Active traMADol (Ultram) 50 MG tablet Take 1 (one) tablet by mouth every 6 hours as needed for Pain 12 tablet 3 Active nystatin-triamci nolone (Mycolog) 192260-6.1 UNIT/GM-% cream Apply to affected area 2 times daily as needed 30 g 4 Active calcium carbonate (Tums) 500 MG chew tablet Take 1 (one) tablet by mouth daily with food (chew and swallow) Active cetirizine (ZyrTEC) 10 MG tablet Take 1 (one) tablet by mouth 2 times daily Active budesonide-formo terol (Symbicort) 160-4.5 MCG/ACT inhaler Inhale 2 (two) puffs by mouth 2 times daily Active Tiotropium Monroe Monohydrate (Spiriva Respimat) 1.25 MCG/ACT AERS Inhale 2.5 mcg by mouth once daily Active montelukast (Singulair) 10 MG tablet Take 1 (one) tablet by mouth at bedtime Active triamcinolone acetonide (Kenalog) 0.1 % ointment Apply to affected area 2 times daily 80 g 2 5 Active Active Problems Problem Noted Date Diagnosed Date Severe persistent asthma without complication PCOS (polycystic ovarian syndrome) 12/17/2015 Marijuana use 12/17/2015 Family history of congenital diaphragmatic herni a 12/17/2015 Encounter for supervision of high risk in second trimester, antepartum 12/13/2015 Morbid obesity 12/13/2015 Resolved Problems Problem Noted Date Diagnosed Date Resolved Date POP-Q stage 3 rectocele 07/19/2023 120 05/2023 HUMBERTO (stress urinary incontinence, female) 07/19/2023 10/18/2023 POP-Q stage 2 cystocele 07/19/2023 120 05/2023 Encounters Date Type Department Care Team Description 07/15/2025 Results Follow-Up [facility] OP [facility] [address] [place] [id number] Jarek Kelsey MD 07/09/2025 Results Follow-Up [facility] - Allergy [address] [facility] [place] [address] Jarek Kelsey MD 07/02/2025 3:40 PM CDT - 07/02/2025 11:59 PM CDT Hospital Encounter [facility] OP [facility] [address] [place] [address] Discharge Disposition: Home or Self Care 07/02/2025 2:00 PM CDT Office Visit [facility] - Allergy [address] [facility] [place] [phone] Jarek Kelsey MD Food allergy (Primary Dx); Seasonal allergic rhinitis due to pollen; Dyshidrotic eczema; Severe persistent asthma without complication (HCC); Vocal cord dysfunction 07/02/2025 Travel from Last 3 Months Family History Medical [...] on file Legal Sex Female 5:39 AM ENTERPRISE SYSTEMS MANAGER Gender Identity Not on file Sexual Orientation Not on file Last Filed Vital Signs Vital Sign Reading Time Taken Comments Blood Pressure 103/64 07/02/2025 1:56 PM CDT Pulse 75 07/02/2025 1:56 PM CDT Temperature 36.2 C (97.1 F) 07/02/2025 1:56 PM CDT Respiratory Rate 18 07/02/2025 1:56 PM CDT Oxygen Saturation 95% 07/02/2025 1:56 PM CDT Inhaled Oxygen Concentration - - Weight 144.7 kg (319 lb) 07/02/2025 1:56 PM CDT Height 162.6 cm (5' 4) 07/02/2025 1:56 PM CDT Body Mass Index 54.76 07/02/2025 1:56 PM CDT Plan of Treatment Upcoming Encounters Date Type Department Care Team ([facility] Contact Info) Description 09/30/2025 3:00 PM ENTERPRISE SYSTEMS MANAGER Office Visit [facility] - Allergy [address] [facility], [facility] [place] [phone] Jarek Kelsey MD [address] [place] [address] Health Maintenance Due Date Last Done Comments HIV SCREENING 2009 HEPATITIS C SCREENING 01/13/2012 DTAP/TDAP/TD VACCINES (1 - Tdap) 2013 HEPATITIS B VACCINE (1 of 3 - 19+ 3-dose series) 2013 PNEUMOCOCCAL VACCINE (1 of 2 - PCV) 2013 HPV VACCINE (1 - 3-dose SCDM series) 2021 DEPRESSION SCREENING 11/12/2024 11/16/2023, 08/03/20 23 COVID-19 VACCINE (1 - 2023- season) 2025 INFLUENZA VACCINE (#1) 2025 2, 09/28/2021, 09/18/2017, Additional history exists ZOSTER VACCINE (1 of 2) 01/18/2044 PAP SMEAR Discontinued 09/26/2024 HIB VACCINE Aged Out No longer eligi ble based on patient's age to complete this topic MENINGOCOCCAL (Group B) VACCINE SHARED DECISION-MAKING Aged Out No longer eligible based on patient's age to complete this topic MENINGOCOCCAL GROUPS A/C/Y/W VACCINE Aged Out No longer eligible based on patient's age to complete this topic Medical Devices Implanted Type Area Divisional Storekeeper Device Identifier Shelf Expiration Date Model / Serial / Lot Sys Ureth Supp Obtryx Midurethral Trnstr Implanted:Qty: 1 on 10/03/2023 by Chandu Barakat MD at [facility] N/A: Vagina Togethera Scimed 06/24/2026 [id number] / / [id number] Procedures Procedure Name Priority Date/Time Associated Diagnosis Comments IMMUNOSCORE IGE INTERP Routine 07/02/2025 3:49 PM CDT Seasonal allergic rhinitis due to pollen IMMUNOSCORE IGE INTERP Routine 07/02/2025 3:49 PM CDT Food allergy [facility] MISCELLANEOUS TEST Routine 07/02/2025 3:49 PM CDT Food allergy [facility] MISCELLANEOUS TEST Routine 07/02/2025 3:49 PM CDT Food allergy [facility] MISCELLANEOUS TEST Routine 07/02/2025 3:49 PM CDT Food allergy LAB MISC TEST Routine 07/02/2025 3:49 PM CDT Food allergy ALLERGEN RESPIRATORY PNL REGION 8 ([place]) Routine 07/02/2025 3:49 PM CDT Seasonal allergic rhinitis due to pollen ALLERGEN HAZELNUT IGE Routine 07/02/2025 3:49 PM CDT Food allergy ALLERGEN WALNUT IGE Routine 07/02/2025 3 :49 PM CDT Food allergy ALLERGEN PECAN NUT IGE Routine 07/02/2025 3:49 PM CDT Food allergy PAP IG LB CT+NG+TV RFLX HPV ASCU Routine 09/26/2024 10:03 AM ENTERPRISE SYSTEMS MANAGER Well woman exam with routine gynecological exam from Last 3 Months or Most Recently Relevant to Health Maintenance Results * [facility] MISCELLANEOUS TEST (07/02/2025 3:49 PM CDT) Only the most recent of3 resultswithin the time period is included. Other BLOOD SPECIMEN / Unknown Collection / Unknown 07/02/2025 3:49 PM CDT 07/03/2025 9:57 AM CDT Jarek Kelsey MD LAB - CHEMISTRY ORDERABLES Sade rodriguez Result [facility] ([facility]) [address] [place] [address], [facility] * IMMUNOSCORE IGE INTERP (07/02/2025 3:49 PM CDT) Only the most recent of2 resultswithin the time period is included. [facility] Signature Immunocap Score See Note 10:37 PM CDT [facility] ([facility]) Comment: REFERENCE INTERVAL: Allergen, Interpretation Less than 0.10 kU/L......Class 0.....No significant level detected 0.10-0.34 kU/L...........Class 0/1...Clinical relevance undetermined 0.35-0.70 kU/L...........Class 1.....Low 0.71-3.50 kU/L...........Class 2.....Moderate 3.51-17.50 kU/L..........Class 3.....High 17.51-50.00 kU/L.........Class 4.....Very High 50.01-100.00 kU/L........Class 5.....Very High Greater than 100.00kU/L..Class 6.....Very High Allergen results of 0.10-0.34 kU/L are intended for specialist use as the clinical relevance is undetermined. Even though increasing ranges are reflective of increasing concentrations of allergen-specific IgE, these concentrations may not correlate with the degree of clinical response or skin testing results when challenged with a specific allergen. The correlation of allergy laboratory results with clinical history and in vivo reactivity to specific allergens is essential. A negative test may not rule out clinical allergy or even anaphylaxis. Performed By: [facility] [address] [place] [id number] Compliance Paralegal: Esvin Hirsch MD, PhD CLIA Number: [id number] Blood BLOOD SPECIMEN / Unknown Lab Venipuncture / Unknown 07/02/2025 3:49 PM CDT 07/02/2025 5:39 PM CDT Jarek Kelsey MD LAB - SEROLOGY ORDERABLES Final Result [facility] ([facility]) [address] * ALLERGEN WALNUT IGE (07/02/2025 3:49 PM CDT) Allergen Clinton, Food [id number] <0.10 Class 0 kU/L 07/09/2025 5:08 AM CDT [facility] ([facility]) Comment: Levels of Specific IgE Class Description of Class ----- < 0.10 0 Negative 0.10 - 0.31 0/I Equivocal/Low 0.32 - 0.55 I Low 0.56 - 1.40 II Moderate 1.41 - 3.90 III High 3.91 - 19.00 IV Very High 19.01 - 100.00 V Very High >100.00 Very High Blood BLOOD SPECIMEN / Unknown Lab Venipuncture / Unknown 07/02/2025 3:49 PM CDT 07/02/2025 5:38 PM CDT Narrative [facility] ([facility]) - 07/09/2025 5:08 AM CDT Performed at: [address] [place] [id number] Monitor Car Operator: Tomasz Garcias MD, Phone: [phone] Jarek Kelsey MD LAB - SEROLOGY ORDERABLES Final Result [facility] ([facility]) [address] [place] [address] * ALLERGEN PECAN NUT IGE (07/02/2025 3:49 PM CDT) Allergen Pecan Nut <0.10 <=0.34 kU/L 07/04/2025 9:47 PM CDT [facility] ([facility]) Comment: Performed By: [facility] [address] [place] [address] Compliance Paralegal: Esvin Hirsch MD, PhD CLIA Number: [id number] Blood BLOOD SPECIMEN / Unknown Lab Venipuncture / Unknown 07/02/2025 3:49 PM CDT 07/02/2025 5:42 PM CDT Jarek Kelsey MD LAB - CHEMISTRY ORDERABLES Sade l Result Performing Organization Address [facility] Co de Phone Number [facility] ([facility]) [address] [place] [address], [facility] * ALLERGEN HAZELNUT IGE (07/02/2025 3:49 PM CDT) [facility] Allergen Hazelnut <0.10 Class 0 kU/L 07/09/2025 5:08 AM CDT [facility] ([facility]) Comment: Levels of Specific IgE Class Description of Class ----- < 0.10 0 Negative 0.10 - 0.31 0/I Equivocal/Low 0.32 - 0.55 I Low 0.56 - 1.40 II Moderate 1.41 - 3.90 III High 3.91 - 19.00 IV Very High 19.01 - 100.00 V Very High >100.00 Very High Blood BLOOD SPECIMEN / Unknown Lab Venipuncture / Unknown 07/02/2025 3:49 PM CDT 07/02/2025 5:37 PM CDT Narrative [facility] ([facility]) - 07/09/2025 5:08 AM CDT Performed at: [address] [place] [id number] Monitor Car Operator: Tomasz Garcias MD, Phone: [phone] Jarek Kelsey MD LAB - SEROLOGY ORDERABLES Final Result Performing Organization Address City/[facility]/ZIP Co de Phone Number [facility] [address] [place] [phone] * LAB MISC TEST (07/02/2025 3:49 PM CDT) Test Name Allergen coconut IGE-red top 07/07/2025 10:35 AM CDT [facility] Test Result See Scanned Report 07/07/2025 10:35 AM CDT [facility] Comment Ref Lab Guzmán 07/07/2025 10:35 AM CDT [facility] Blood BLOOD SPECIMEN / Unknown Lab Venipuncture / Unknown 07/02/2025 3:49 PM CDT 07/02/2025 5:36 PM CDT Jarek Kelsey MD LAB SEND OUT Final Result [facility] [address] [place] [address] * (ABNORMAL) ALLERGEN RESPIRATORY PNL REGION 8 ([place]) (07/02/2025 3:49 PM CDT) IgE Total 145 <=214 kU/L 07/04/2025 10:35 PM CDT [facility] ([facility]) Comment: REFERENCE INTERVAL: Immunoglobulin E, Serum Access complete set of age- and/or gender-specific reference intervals for this test in the [facility] ([employer]). Allergen Orantes Elder <0.10 <=0.34 kU/L 07/04/2025 10:35 PM CDT [facility] ([facility]) Allergen Alternaria alternata <0.10 <=0.34 kU/L 07/04/2025 10:35 PM CDT [facility] ([facility]) Allergen Ray Maple <0.10 <=0.34 kU/L 07/04/2025 10:35 PM CDT [facility]) Allergen Cat Dander <0.10 <=0.34 kU/L 07/04/2025 10:35 PM CDT [facility] ([facility]) Allergen Mountain [place] <0.10 <=0.34 kU/L 07/04/2025 10:35 PM CDT [facility] ([facility]) Allergen Gooding Tree <0.10 <=0.34 kU/L 07/04/2025 10:35 PM CDT [facility] ([facility]) Allergen Rough Pigweed <0.10 <=0.34 kU/L 07/04/2025 10:35 PM CDT [facility] ([facility]) Allergen Hungarian Thistle <0.10 <=0.34 kU/L 07/04/2025 10:35 PM CDT [facility] ([facility]) Allergen Asael Grass <0.10 <=0.34 kU/L 07/04/2025 10:35 PM CDT [facility] ([facility]) Allergen Hormodendrum <0.10 <=0.34 kU/L 07/04/2025 10:35 PM CDT [facility] ([facility]) Allergen Elm <0.10 <=0.34 kU/L 07/04/2025 10:35 PM CDT [facility] ([facility]) Allergen [place] <0.10 <=0.34 kU/L 07/04/2025 10:35 PM CDT [facility] ([facility]) Allergen A fumigatus IgE <0.10 <=0.34 kU/L 07/04/2025 10:35 PM CDT [facility] ([facility]) Allergen Dermatophagoides pteronyssinus <0.10 <=0.34 kU/L 07/04/2025 10:35 PM CDT [facility] ([facility]) Allergen Dermatophagoides farinae <0.10 <=0.34 kU/L 07/04/2025 10:35 PM CDT [facility] ([facility]) Allergen Bermuda Grass <0.10 <=0.34 kU/L 07/04/2025 10:35 PM CDT [facility] ([facility]) Allergen White Ludin <0.10 <=0.34 kU/L 07/04/2025 10:35 PM CDT [facility] ([facility]) Allergen P. Notatum <0.10 <=0.34 kU/L 07/04/2025 10:35 PM CDT [facility] ([facility]) Allergen Common Ragweed <0.10 <=0.34 kU/L 07/04/2025 10:35 PM CDT [facility] ([facility]) Allergen Cockroach Korean 1.54(H) <=0.34 kU/L 07/04/2025 10:35 PM CDT [facility] ([facility]) Allergen Spring Tree <0.10 <=0.34 kU/L 07/04/2025 10:35 PM CDT [facility] ([facility]) Allergen Clinton Tree <0.10 <=0.34 kU/L 07/04/2025 10:35 PM CDT [facility] ([facility]) Allergen Pecan Tree <0.10 <=0.34 kU/L 07/04/2025 10:35 PM CDT [facility] ([facility]) Allergen Mouse Epithelium IgE <0.10 <=0.34 kU/L 07/04/2025 10:35 PM CDT [facility] ([facility]) Allergen Mucor racemosus <0.10 <=0.34 kU/L 07/04/2025 10:35 PM CDT [facility] ([facility]) Allergen White Buffalo Tree IgE <0.10 <=0.34 kU/L 07/04/2025 10:35 PM CDT [facility] ([facility]) Allergen Dog Dander <0.10 <=0.34 kU/L 07/04/2025 10:35 PM CDT [facility] ([facility]) Comment: Performed By: [facility] [address] [place] [address] Compliance Paralegal: Esvin Hirsch MD, PhD CLIA Number: [id number] Blood BLOOD SPECIMEN / Unknown Lab Venipuncture / Unknown 07/02/2025 3:49 PM CDT 07/02/2025 5:39 PM CDT Jarek Kelsey MD LAB - CHEMISTRY ORDERABLES Sade l Result [facility] [employer] [facility]) [address] * PAP IG LB CT+NG+TV RFLX HPV ASCU (09/26/2024 10:03 AM ENTERPRISE SYSTEMS MANAGER) Diagnosis Comment [facility] INSURANCE BILL Comment:NEGATIVE FOR INTRAEP ITHELIAL LESION OR MALIGNANCY. Specimen Adequacy Comment [facility] INSURANCE BILL Comment: Satisfactory for evaluation. Endocervical and/or squamous metaplastic cells (endocervical component) are present. Clinician Provided ICD10 Comment [facility] INSURANCE BILL Comment:Z01.419 Performed by Comment [facility] INSURANCE BILL Comment:Jonna Luna, Cyto technologist (ASCP) Comment . [facility] INSURANCE BILL Note Comment [facility] INSURANCE BILL Comment: The Pap smear is a screening test designed to aid in the detection of premalignant and malignant conditions of the uterine cervix. It is not a diagnostic procedure and should not be used as the sole means of detecting cervical cancer. Both false-positive and false-negative reports do occur. IGLBP [...] UTERINE CERVIX / Unknown 09/26/2024 10:03 AM ENTERPRISE SYSTEMS MANAGER 09/26/2024 Comment:Cervix Release to pa t Narrative [facility] INSURANCE BILL - 10/03/2024 1:10 PM ENTERPRISE SYSTEMS MANAGER Performed at: 01 - [address] [id number] Monitor Car Operator: Milly Perez MD, Phone: [phone] Performed at: 02 - [address] [id number] Monitor Car Operator: Milly Perez MD, Phone: [phone] Specimen Comment: [id number] Specimen Comment: No. of containers..01 ThinPrep Vial Chandu Barakat MD LAB - PATHOLOGY/CYTOLOGY ORDERA BLES Final Result [facility] INSURANCE BILL [address] [place] [address] from Last 3 Months or Most Recently Relevant to Health Maintenance Insurance [facility] Care Teams Accounting Bookkeeper Relationship Specialty Start Date End Date None, Physician PCP - General 07/02/25 Chandu Barakat MD [address] [facility] [address] [place] [address] Egg Buyer Urogynecology 07/19/23 Erin Rolon, SAHARA-GASOLINE TRUCK OPERATOR [address] [place] [phone] Nurse Practitioner Gynecology 07/19/23
[2025-09-15 19:20] LABS: Hematocrit 43.7 % (37.0-47.0); Hemoglobin 13.8 g/dL (12.0-15.0); Mean Corpuscular HGB Conc 31.6 g/dl (32-36); Mean Corpuscular Hemoglobin 27.3 pg (26-34); Mean Corpuscular Volume 86.4 fl (80-100); Platelet Count Result 271 k/mm3 (150-375); Red Blood Count 5.06 M/mm3 (4.2-5.4); White Blood Count 7.9 K/mm3 (4.5-10.0)
[2025-09-15 19:40] LABS: Alanine Aminotransferase 31 U/L (6-35); Albumin Level 4.7 g/dL (3.5-5.1); Alkaline Phosphatase 43 U/L (38-126); Anion Gap 11 mmol/L (4-12); Aspartate Amino Transferase 48 U/L (14-36); Bilirubin,Total 0.8 mg/dL (0.2-1.3); Blood Urea Nitrogen 20 mg/dL (7-17); Calcium 9.8 mg/dL (8.4-10.2); Carbon Dioxide 22 mmol/L (22-30); Chloride 105 mmol/L (98-107); Cholesterol 131 mg/dL (0-200); Estimated Glomerular Filt Rate 58; Glucose 95 mg/dL (65-110); HDL Direct 46 mg/dL; Potassium 4.1 mmol/L (3.4-5.0); Sodium 138 mmol/L (137-145); Total Protein 7.7 g/dL (6.3-8.2); Triglycerides 126 mg/dL (<150)
[2025-09-15 19:50] LABS: Iron 67 ug/dL (37-170)
[2025-09-15 20:18] LABS: Free T4 Free Thyroxine 1.46 ng/dL (0.78-2.19); Percent Iron Saturation 15 % (20-50)
[2025-09-15 20:23] LABS: Thyroid Stimulating Hormone 2.030 uIU/mL (0.465-4.680)
[2025-09-15 20:36] LABS: Ferritin 112.00 ng/mL (6.24-137); Hemoglobin A1C 5.2 % (<5.7)
[2025-09-15 20:43] LABS: Vitamin B12 401.0 pg/mL (239-931)
== END 2025-09-15 08:54 | disposition home or self-care (01) ==
LOC: ANHBWCLAB 08:54
PROVIDERS: PCP Nurse Practitioner Adult Health; Visit Provider Nurse Practitioner Adult Health
DX: E78.1 Pure hyperglyceridemia (principal); L65.9 Nonscarring hair loss, unspecified; F32.A Depression, unspecified; R53.83 Other fatigue; E66.01 Morbid (severe) obesity due to excess calories
CPT/HCPCS: 36415; 80053; 80061; 82607; 82728; 83036; 83540; 83550; 84439; 84443; 85027

== ENCOUNTER 2025-09-18 11:33 | Emergency (ER) | payer OTHER, SELFPAY ==
[2025-09-18 11:43] VITALS: BP 123/70; PULSE 77; RESP 18; TEMP 36.7; O2SAT 99
[2025-09-18 12:00] LABS: EDCOVIDSCREEN Negative (Negative); EDINFLUASCREEN Negative (Negative); EDINFLUBSCREEN Negative (Negative)
[2025-09-18 12:00] LABS: EDCOVIDSCREEN Negative (Negative); EDINFLUASCREEN Negative (Negative); EDINFLUBSCREEN Negative (Negative)
--- NOTE | 2025-09-18 12:04 | ED.URI ---
HPI - URI/Sore Throat General Chief Complaint: Upper Respiratory Infection Stated Complaint: Sinus Time Seen by Provider: 09/18/25 11:50 Source: patient and RN notes reviewed Mode of arrival: ambulatory Limitations: no limitations History of Present Illness HPI Narrative: 30-year-old female presents Express Care requesting for COVID testing. Patient says her child just recently was diagnosed with COVID. Patient denies any symptoms currently. Related Data Home Medications ?Medication ?Instructions ?Recorded ?Confirmed ?Last Taken ?Type albuterol 90 mcg-budesonide 80 2 inh inhalation ONCE 10/29/24 09/15/25 Unknown History mcg/actuation HFA aerosol inhaler (Airsupra) tiotropium bromide 2.5 2 puff inhalation QAM 10/29/24 09/15/25 Unknown History mcg/actuation mist for inhalation (Spiriva Respimat) Allergies Allergy/AdvReac Type Severity Reaction Status Date / Time azithromycin Allergy Intermediate Rash Verified 09/18/25 11:50 codeine Allergy Unknown Hives / Verified 09/18/25 11:50 Red Face hydromorphone (From Dilaudid) Allergy Palpitation Verified 09/18/25 11:50 s Iodinated Contrast Media Allergy Rash Verified 09/18/25 11:50 montelukast (From Singulair) Allergy Hives Verified 09/18/25 11:50 peanut Allergy Anaphylactic Verified 09/18/25 11:50 Shock tree nut Allergy Anaphylactic Verified 09/18/25 11:50 Shock Review of Systems Review of Systems: CONSTITUTIONAL: Denies fever, chills, or sweats. EYES: Denies visual changes, redness, or discharge. ENT: Denies rhinorrhea, congestion, sore throat, or otalgia. CARDIOVASCULAR: Denies chest pain, palpitations, or edema. RESPIRATORY: Denies cough or dyspnea. GASTROINTESTINAL: Denies abdominal pain, nausea, vomiting, or diarrhea. GENITOURINARY: Denies dysuria or hematuria. SKIN: Denies rash or itching. MUSCULOSKELETAL: Denies back pain, joint pain, or myalgia. NEUROLOGIC: Denies headache, numbness, or weakness. PSYCHIATRIC: Denies anxiety or depression. All other systems reviewed are negative, except as documented in HPI. [facility] Past Medical History Medical History Chronic GERD Allergies Hand fracture, left Morbid obesity Pain during labor Depression Anxiety Asthma Family History Family History Mother Asthma Depression Anxiety Father Depression Anxiety Grandparent EtOH dependence Depression Social History Social History Alcohol intake: former Substance use: former Substance use type: marijuana Other substance usage details: positive for marijuana on admission Do You Feel Safe in your Home?: Yes Lack of Transportation: No Lack of Food: Sometimes True Current Housing: I Do Not Have Housing Concerned About Future Housing: No Difficulty Paying Gas/Electric Bills: No Difficulty Paying for Meds: No Currently Unemployed: No Education: High School Diploma/GED Difficulty w/ Childcare or Family Care: No Living arrangements: with family 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 There is no relevant family history pertinent to the patient complaint. Exam Narrative: GENERAL: This is a well-nourished, well-developed adult, in no apparent distress. They are non ill-appearing, nontoxic appearing. Patient is morbidly obese. Physical exam limited due to large body habitus. HEAD: normocephalic, atraumatic. EYES: Sclera clear/white. Conjunctiva normal. Vision is grossly intact. Extraocular movements intact EARS: External ears normal, auditory canals clear and without drainage, TMs normal without perforation. Hearing grossly intact. NOSE: External nose normal with no obvious nasal discharge, nasal turbinates without redness, no rhinorrhea. THROAT: Mucous membranes moist, posterior pharynx clear, without erythema or swelling. Uvula midline. NECK: Neck supple, non-tender without lymphadenopathy, masses or thyromegaly. CARDIOVASCULAR: Regular rate and rhythm without murmurs, gallops, or rubs. RESPIRATORY: Clear to auscultation. Breath sounds equal bilaterally. No wheezes, rales, or rhonchi. SKIN: warm, Dry, intact with no suspicious lesions or rash, good texture and turgor. NEURO: awake, alert, and oriented to person, place and time. There were no obvious focal neurologic abnormalities. EXTREMITIES: No joint tenderness, effusion, or edema noted. Course Course Emergency Course: Portions of this record may have been created with voice recognition software Level of Care: Express Care Visit Vital Signs Vital signs: Vital Signs Temperature 98.0 F 09/18/25 11:43 Pulse Rate 77 09/18/25 11:43 Respiratory Rate 18 09/18/25 11:43 Blood Pressure 123/70 09/18/25 11:43 Pulse Oximetry 99 09/18/25 11:43 Oxygen Delivery Room Air 09/18/25 11:43 Temperature 98.0 F 09/18/25 11:43 Pulse Rate 77 09/18/25 11:43 Respiratory Rate 18 09/18/25 11:43 Blood Pressure 123/70 09/18/25 11:43 Pulse Oximetry 99 09/18/25 11:43 Oxygen Delivery Room Air 09/18/25 11:43 Reviewed MDM - URI/Sore Throat MDM Narrative Medical decision making narrative: Rapid COVID and flu were negative. Advice patient to avoid monitor symptoms closely. Discussed good hygiene habits and prevention of spreading disease. Discussed physical exam findings. Advised supportive measures and signs/symptoms to go to the ER. Pt is appropriate for outpt treatment and f/u. Differential Diagnosis Differential diagnosis: Likely upper respiratory infection, viral infection, influenza and other ( COVID-19, wellness exam) Lab Data Attestation: I reviewed the patient's lab results. Labs: Lab Results 09/18/25 09/18/25 Range/Units 11:54 11:58 POC Influenza A Ag Negative Negative (Negative) POC Influenza B Ag Negative Negative (Negative) POC SARS CoV-2 Ag Negative Negative (Negative) Critical Care Time Critical Care Time Critical Care Time: No Discharge Plan Discharge Clinical Impression: Encounter for laboratory testing for COVID-19 virus Patient Disposition: Home Condition: Stable Instructions: Antibiotic Form, COVID-19 (Coronavirus Disease 2019) (ED) Additional Instructions: Your Rapid COVID and flu negative today. Monitor your symptoms closely. Follow-up with PCP as needed. Go to ER for any serious concerns. Patient Language: Irish Prescriptions: No Action Airsupra 90-80 mcg/actuation HFA aerosol inhaler 2 inh inhalation ONCE Rx Instructions: as a single dose; may repeat up to 6 doses per day (12 inhalations) Spiriva Respimat 2.5 mcg/actuation mist 2 puff inhalation QAM prazosin 1 mg capsule 1 mg PO QHS Qty: 90 0RF hydroxyzine HCl 10 mg tablet 10 mg PO TID PRN (Reason: itching) Qty: 90 0RF omeprazole 40 mg capsule,delayed release(DR/EC) 40 mg PO DAILY Qty: 90 0RF epinephrine 0.3 mg/0.3 mL auto-injector 0.3 mg IM ONCE Qty: 2 0RF Rx Instructions: as a single dose; may repeat once ondansetron 4 mg tablet,disintegrating 4 mg PO Q8H PRN (Reason: nausea and vomiting) Qty: 10 0RF fenofibrate 160 mg tablet See Rx Instructions .ROUTE .COMPLEX Qty: 90 1RF Dose Instruction: TAKE 1 TABLET BY MOUTH EVERY DAY Rx Instructions: TAKE 1 TABLET BY MOUTH EVERY DAY metformin 500 mg tablet extended release 24 hr See Rx Instructions .ROUTE .COMPLEX Qty: 90 1RF Dose Instruction: TAKE 1 TABLET BY MOUTH EVERY DAY Rx Instructions: TAKE 1 TABLET BY MOUTH EVERY DAY bupropion HCl 300 mg tablet extended release 24 hr See Rx Instructions .ROUTE .COMPLEX Qty: 90 1RF Dose Instruction: TAKE 1 TABLET BY MOUTH EVERY DAY IN THE MORNING Rx Instructions: TAKE 1 TABLET BY MOUTH EVERY DAY IN THE MORNING budesonide-formoterol [Symbicort] 160-4.5 mcg/actuation HFA aerosol inhaler See Rx Instructions .ROUTE .COMPLEX Qty: 10.2 11RF Dose Instruction: INHALE 2 PUFFS BY MOUTH 2 TIMES A DAY RINSE MOUTH WITH WATER AFTER USE. DO NOT SWALLOW Rx Instructions: INHALE 2 PUFFS BY MOUTH 2 TIMES A DAY RINSE MOUTH WITH WATER AFTER USE. DO NOT SWALLOW lisdexamfetamine [Vyvanse] 30 mg capsule 30 mg PO DAILY Qty: 30 0RF cetirizine [Zyrtec] 10 mg tablet 10 mg PO BID Qty: 180 3RF Follow-up/Referrals: Karla Almaraz APRN [Primary Care Provider, Family Practice] Time of Disposition: 12:03
== END 2025-09-18 12:10 | disposition home or self-care (01) ==
PROVIDERS: PCP Nurse Practitioner Adult Health
DX: Z20.822 Contact with and (suspected) exposure to COVID-19 (principal); J45.909 Unspecified asthma, uncomplicated; E66.01 Morbid (severe) obesity due to excess calories; Z68.43 Body mass index [BMI] 50.0-59.9, adult; K21.9 Gastro-esophageal reflux disease without esophagitis; F41.9 Anxiety disorder, unspecified; F32.A Depression, unspecified; F12.90 Cannabis use, unspecified, uncomplicated
CPT/HCPCS: 87426; 87804; 99212; G0463

== ENCOUNTER 2025-10-14 09:24 | Outpatient (CLI) | payer OTHER, SELFPAY ==
--- OUTSIDE RECORDS SUMMARY | 2025-10-14 10:12 | XMS_ITS | Clinical Summary ---
Author Organization [facility] Address [address] [place] [address] Care Team Providers Care Insurance Verification Representative Name Role Phone Chandu Barakat MD Unavailable [phone] Erin Rolon BUSINESS PLANNER-EYE DROPPER ASSEMBLER Unavailable [phone] None, Physician Primary Care Provider Unavailabl e Source Comments [facility],non-owned Affiliates and Associated Physician Practices is amultiple site organization consisting of ambulatory clinics and hospital sitesin [place], [place], [place] and [place]. This disclosure is being madepursuant to the Care Everywhere program and may not contain all information available regarding this patient. Last updated 18.[facility] Allergies Active Allergy Reactions Criticality Noted Date Comments Yeswsop-Yuprfiqgxjj-Zv rmoterol Unknown 01/08/2024 Codeine Anaphylaxis High 12/17/2015 [...] Ventolin; Proair) 108 (90 Base) MCG/ACT inhaler 03/20/20 Active traMADol (Ultram) 50 MG tablet Take 1 (one) tablet by mouth every 6 hours as needed for Pain 12 tablet 10/04/20 23 Active nystatin-triamc inolone (Mycolog) 983267-6.1 UNIT/GM-% cream Apply to affected area 2 times daily as needed 30 g 07/10/20 24 Active calcium carbonate (Tums) 500 MG chew tablet Take 1 (one) tablet by mouth daily with food (chew and swallow) Active cetirizine (ZyrTEC) 10 MG tablet Take 1 (one) tablet by mouth 2 times daily Active budesonide-form oterol (Symbicort) 160-4.5 MCG/ACT inhaler Inhale 2 (two) puffs by mouth 2 times daily Active Tiotropium [place] Monohydrate (Spiriva Respimat) 1.25 MCG/ACT AERS Inhale 2.5 mcg by mouth once daily Active montelukast (Singulair) 10 MG tablet Take 1 (one) tablet by mouth at bedtime Active terconazole (Terazol 3) 80 MG vaginal suppositoryIndi cations:Acute vaginitis Insert 1 (one) suppository into the vagina at bedtime 3 suppository 10/12/20 25 Active triamcinolone acetonide (Kenalog) 0.1 % ointment Apply to affected area 2 times daily 80 g 2 07/02/20 25 025 Discontin ued(List Clean-Up) Active Problems Problem Noted Date Diagnosed Date [...] 07/19/2023 10/18/2023 POP-Q stage 2 cystocele 07/19/202305/2023 Encounters Date Type Department Care Team Description 10/14/2025 Results Follow-Up [facility] - [facility] [address] [place] [address], [address] [place] [address] Chandu Barakat MD 10/12/2025 1:40 PM POULTRY VACCINATOR Office Visit [facility] - [facility] [address] [place] [address], [address] [address] Chandu Barakat MD Acute vaginitis (Primary Dx) 10/12/2025 Travel 10/12/2025 Telephone [facility] - [facility] [address] [place] [address], [address] [address] Chandu Barakat MD YEAST INFECTION 09/30/2025 3:00 PM POULTRY VACCINATOR Office Visit [facility] - Allergy [address] [place] [address] Jarek Kelsey MD Severe persistent asthma without complication (HCC) (Primary Dx); Non-seasonal allergic rhinitis due to other allergic trigger; Dyshidrotic eczema; Vocal cord dysfunction; Other eosinophilia 09/30/2025 Travel 07/15/2025 Results Follow-Up [facility] [address] [place] [phone] Jarek Kelsey MD from Last 3 Months Family History Medical [...] on file Legal Sex Female 5:39 AM POULTRY VACCINATOR Gender Identity Not on file Sexual Orientation Not on file Last Filed Vital Signs Vital Sign Reading Time Taken Comments Blood Pressure 140/80 10/12/2025 1:49 PM POULTRY VACCINATOR Pulse 64 09/30/2025 3:09 PM POULTRY VACCINATOR Temperature 36.3 C (97.3 F) 09/30/2025 3:09 PM POULTRY VACCINATOR Respiratory Rate 20 09/30/2025 3:09 PM POULTRY VACCINATOR Oxygen Saturation 96% 09/30/2025 3:09 PM POULTRY VACCINATOR Inhaled Oxygen Concentration - - Weight 133.4 kg (294 lb) 10/12/2025 1:49 PM POULTRY VACCINATOR Height 162.6 cm (5' 4) 10/12/2025 1:49 PM POULTRY VACCINATOR Body Mass Index 50.46 10/12/2025 1:49 PM POULTRY VACCINATOR Plan of Treatment Upcoming Encounters Date Type Department Care Team (Late st Contact Info) Description 10/27/2025 1:20 PM POULTRY VACCINATOR Office Visit [facility] - [facility] [address] [place] [address], [address] [place] [phone] Chandu Barakat MD [address] [place] [address] [place] [phone] 01/20/2026 3:30 PM CDT Office Visit [facility] - Allergy [address] [facility] [place] [address] Jarek Kelsey MD [address] [place] [phone] Health Maintenance Due Date Last Done Comments HIV SCREENING 2009 HEPATITIS C SCREENING 01/13/2012 DTAP/TDAP/TD VACCINES (1 - Tdap) 2013 HEPATITIS B VACCINE (1 of 3 - 19+ 3-dose series) 2013 PNEUMOCOCCAL VACCINE (1 of 2 - PCV) 2013 HPV VACCINE (1 - 3-dose SCDM series) 2021 DEPRESSION SCREENING 11/12/2024 11/16/2023, 08/03/20 23 COVID-19 VACCINE ( - season) 2025 INFLUENZA VACCINE (#1) 2025 2, [...] this topic Medical Devices Implanted Type Area Allocations Clerk Device Identifier Shelf Expiration Date Model / Serial / Lot Sys Ureth Supp Obtryx Midurethral Trnstr Implanted:Qty: 1 on 10/03/2023 by Chandu Barakat MD at [facility] [place][note 2] N/A: V[employer]ina [employer] [facility] 06/24/2026 [id number] / / [id number] Procedures Procedure Name Priority Date/Time Associated Diagnosis Comments VAGINITIS PLUS (BV CA CT NG TRICH) Routine 10/12/2025 2:05 PM POULTRY VACCINATOR Acute vaginitis WET PREP SMEAR - POINT OF CARE Routine 10/12/2025 2:01 PM POULTRY VACCINATOR Acute vaginitis PAP IG LB CT+NG+TV RFLX HPV ASCU Routine 09/26/2024 10:03 AM POULTRY VACCINATOR Well woman exam with routine gynecological exam from Last 3 Months or Most Recently Relevant to Health Maintenance Results * (ABNORMAL) VAGINITIS PLUS (BV CA CT NG TRICH) (10/12/2025 2:05 PM POULTRY VACCINATOR) Atopobium vaginae Low - 0 Score [facility] INSURANCE BILL BVAB 2 Low - 0 Score [facility] INSURANCE BILL Megashaera Low - 0 Score [facility] INSURANCE BILL Comment: Calculate total score by adding the 3 individual bacterial vaginosis (BV) marker scores together. Total score is interpreted as follows: Total score 0-1: Indicates the absence of BV. Total score 2: Indeterminate for BV. Additional clinical data should be evaluated to establish a diagnosis. Total score 3-6: Indicates the presence of BV. Amanda albicans MARIANELA Positive(A) Negative [facility] INSURANCE BILL Amanda glabrata MARIANELA Negative Negative [facility] INSURANCE BILL Trichomonas vaginalis by MARIANELA Negative Negative [facility] INSURANCE BILL Chlamydia Trachomatis MARIANELA Negative Negative [facility] INSURANCE BILL GC MARIANELA Negative Negative [facility] INSURANCE BILL Microbiology ENTIRE VAGINA / Unknown 10/12/2025 2:05 PM POULTRY VACCINATOR 10/12/2025 Comment:Vaginal Release to p a Narrative [facility] INSURANCE BILL - 10/14/2025 8:12 AM POULTRY VACCINATOR Test(s) 665246- Atopobium vaginae; 919346- BVAB 2; 176401- Megasphaera 1 was developed and its performance characteristics determined by [employer]. It has not been cleared or approved by the Food and Drug Administration. Test(s) 124549-Ppbgzlb albicans, MARIANELA; 527086-Offntmn glabrata, MARIANELA was developed and its performance characteristics determined by [employer]. It has not been cleared or approved by the Food and Drug Administration. Performed at: 01 - [address] [id number] Children'S Service Worker: Milly Perez MD, Phone: [phone] Chandu Barakat MD LAB - MICROBIOLOGY ORDERABLES F inal Result [facility] INSURANCE BILL [address] [place] [address] * WET PREP SMEAR - POINT OF CARE (10/12/2025 2:01 PM POULTRY VACCINATOR) Clue Cells (Wet Smear) POCT [facility] Yeast (Wet Smr) ++ [facility] Trichomonads Wet Smear POCT [facility] WBC (Wet Smr) [facility] Lactobacilli (Wet Smear) [facility] Whiff Test (Wet Smr) [facility] pH Wet Smear [facility] RBC Wet Smear POCT [facility] Other VAGINAL SWAB / Unknown 10/12/2025 2:01 PM POULTRY VACCINATOR Chandu Barakat MD LAB - POINT OF CARE ORDERABLES Final Result [facility] [address] , [facility] [address] [place] [address], [facility] [phone] * PAP IG LB CT+NG+TV RFLX HPV ASCU (09/26/2024 10:03 AM POULTRY VACCINATOR) Diagnosis Comment [facility] INSURANCE BILL Comment:NEGATIVE FOR [...] UTERINE CERVIX / Unknown 09/26/2024 10:03 AM POULTRY VACCINATOR 09/26/2024 Comment:Cervix Release to brad Tanner [facility] INSURANCE BILL - 10/03/2024 1:10 PM POULTRY VACCINATOR Performed at: 01 - [address] [place], [place] [id number] Children'S Service Worker: Milly Perez MD, Phone: [phone] Performed at: 02 - [address] [place] [id number] Children'S Service Worker: Milly Perez MD, Phone: [phone] Specimen Comment: [id number] Specimen Comment: No. of containers..01 ThinPrep Vial Chandu Barakat MD LAB - PATHOLOGY/CYTOLOGY ORDERA BLEAzul Final Result [facility] INSURANCE BILL [address] [place] [address] from Last 3 Months or Most Recently Relevant to Health Maintenance Insurance [facility] Care Teams Insurance Verification Representative Relationship Specialty Start Date End Date None, Physician PCP - General 07/02/25 Chandu Barakat MD [address] [place] [address] Cable Machine Operator Urogynecology 07/19/23 Erin Rolon, BUSINESS PLANNER-EYE DROPPER ASSEMBLER [address] [place] [phone] Nurse Practitioner Gynecology 07/19/23
--- OUTSIDE RECORDS SUMMARY | 2025-10-14 10:12 | XMS_ITS | Clinical Summary ---
Author Organization [facility] Address [address] [place] [address] Care Team Providers Care Dye Can Operator Name Role Phone Lala Llamas MD Unavailable + [phone] Karla Almaraz NP Primary Care Provider [phone] Allergies Active Allergy Reactions Criticality Noted Date Comments Vioklglydh-Chrdlpjd-Zhn moterol Other (See comments),Unknown High 01/08/2024 Codeine [...] of breath 8.5 g 5 03/20/20 Active famotidine (PEPCID) 20 mg tablet Take 1 [...] Inhale 2 puffs daily 1 each 10/01/20 Active Additional Information Patient not taking.Reason: Side effects (lightheadness), Reported on 09/24/2025 dupilumab (Dupixent Pen) pen injectorIndication s:Severe persistent asthma without complication (HCC) Inject 4 mL (600 mg total) under the skin once for 1 dose 4 mL 10/24/20 Active Additional Information Patient not taking.Reported on [...] breath 360 mL 3 12/15/19 25 Active montelukast (SINGULAIR) 10 mg tablet Take 1 tablet (10 mg total) by mouth nightly 30 tablet 04/09/20 026 Active budesonide-formote roL (Symbicort) 160-4.5 mcg/actuation inhaler Inhale 2 puffs 2 (two) times a day 10.2 g 07/16/20 25 026 Active ondansetron ODT (ZOFRAN-ODT) 4 mg disintegrating tablet Take 1 tablet (4 mg total) by mouth every 8 (eight) hours as needed for nausea or vomiting 12 tablet 08/30/20 25 Active Additional Information Patient not taking.Reported on 09/24/2025 dicyclomine (BENTYL) 20 mg tablet Take 1 tablet (20 mg total) by mouth 2 (two) times a day 10 tablet 08/30/20 Active Additional Information Patient not taking.Reported on 09/24/2025 cyclobenzaprine (FLEXERIL) 10 mg tablet Take 1 tablet (10 mg total) by mouth 3 (three) times a day as needed for muscle spasms 30 tablet 08/31/20 Active naproxen (NAPROSYN) 500 mg tablet Take 1 tablet (500 mg total) by mouth 2 (two) times a day with meals 60 tablet 08/31/20 Active Additional Information Patient not taking.Reported on 09/24/2025 hydrOXYzine (ATARAX) 10 mg tablet Take 1 tablet (10 mg total) by mouth 09/02/20 Active lisdexamfetamine (VYVANSE) 30 mg capsule Take 1 capsule (30 mg total) by mouth 08/11/20 25 Active albuterol-budesoni de 90-80 mcg/actuation HFA aerosol inhaler Inhale 10/29/20 24 Active calcium carbonate (TUMS) 500 mg (200 mg elemental calcium) chewable tablet Take 1 tablet/chew tab (500 mg total) by mouth daily Active EPINEPHrine 0.3 mg/0.3 mL auto-injection syringe Inject 0.3 mL (0.3 mg total) into the muscle as instructed 12/29/19 24 Active prazosin (MINIPRESS) 1 mg capsule Take 1 capsule (1 mg total) by mouth 09/15/20 25 Active budesonide-formote roL (SYMBICORT) 160-4.5 mcg/actuation inhaler Inhale 2 puffs 2 (two) times a day Rinse mouth with water after use. Do not swallow. 1 each 09/24/20 25 026 Active inhalational spacing device (Aerochamber MV) spacer 1 Units 2 (two) times a day 1 each 09/24/20 Active Active Problems Problem Noted Date Diagnosed Date Sinus bradycardia 12/28/2023 Calculus of gallbladder with out cholecystitis without obstruction 12/26/2023 RUQ abdominal pain 12/22/2023 Severe persistent asthma without complication Assessment & Plan (10/01/2025 8:59 AM [employer]PERVIS[employer]): Continue Symbicort 160 twice daily with a spacer for optimal delivery I have ordered both for her today. Spiriva Respimat caused SE of dizziness. Continue Airsupra 2 puffs every four hours as needed only, she is aware of indications for use Albuterol nebulizer as needed only, she is aware of indications for use She is aware to call if her use increases drastically or if she becomes ill. 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 Avoid triggers We have discussed signs and symptoms that would require earlier evaluation or change to her plan of care Assessment & Plan (03/26/2025 12:28 PM CDT): [...] care Assessment & Plan (01/12/2025 3:16 PM [employer]): Continue Symbicort 160 twice daily and Spiriva [...] care Assessment & Plan (12/15/2024 3:05 PM [employer]): Continue Symbicort 160 twice daily and Spiriva [...] care Assessment & Plan (10/22/2024 3:06 PM [employer]PER[employer]): Continue Symbicort 160 twice daily and Spiriva [...] care Assessment & Plan (10/01/2024 2:07 PM [employer]PER[employer]): Continue Symbicort 160 twice daily and Spiriva [...] 03/20/2022 Assessment & Plan (10/22/2024 3:04 PM [employer]): She has continued to gain weight despite [...] Environmental and seasonal allergies Assessment & Plan (10/01/2025 9:00 AM [employer]PER[employer]OR [employer]): Continue OTC allergy pill daily Saline nasal rinses and intranasal spray as needed. Avoid triggers, I do not have an allergy panel test for her, this may be a contributor to her symptoms of cough and wheezing. Change furnace filters frequently and avoid outside on poor air quality days. Assessment & Plan (01/12/2025 3:17 PM [employer]PER[employer]): Continue OTC allergy pill daily Saline nasal rinses and intranasal spray as needed. Avoid triggers, I do not have an allergy panel test for her. Assessment & Plan (12/15/2024 3:04 PM [employer]): Continue OTC allergy pill daily Saline nasal rinses and intranasal spray as needed. Avoid triggers Assessment & Plan (10/22/2024 3:07 PM [employer]): Continue OTC allergy pill daily Saline nasal rinses and intranasal spray as needed. Previous adverse reaction to montelukast in the past. Assessment & Plan (10/01/2024 2:08 PM [employer]PER[employer]OR [employer]): Continue OTC allergy pill daily Saline nasal rinses and intranasal spray as needed. Request further labs from [facility]. Avoid triggers. Assessment & Plan (08/28/2024 8:26 PM CDT): Continue OTC allergy pill daily Saline nasal rinses and intranasal spray as needed. Request further labs from [facility]. Avoid triggers. Hypoxia Resolved Problems Problem Noted Date Diagnosed Date Resolved Date Severe persistent asthma with exacerbation 03/17/2022 12/15/2024 Encounters Date Type Department Care Team Description 09/24/2025 10:00 AM [employer] Office Visit [facility] Pulmonary at [address] [place] [address] Fara Ramirez NP Severe persistent asthma without complication (HCC) (Primary Dx); Environmental and seasonal allergies 08/31/2025 1:34 AM CDT - 08/31/2025 4:37 AM CDT [facility] [address] [place] [address] Michael Truong Jr., MD Chest wall pain (Primary Dx); Nausea and vomiting, unspecified vomiting type; Gastroenteritis Discharge Disposition: Discharge to home or self care 08/30/2025 11:05 AM CDT - 08/30/2025 12:31 PM CDT [facility] [address] [place] [address] Crista Golden PA Vomiting and diarrhea (Primary [...] Tobacco: Never Tobacco Cessation:Counseling Given: Not Answered [facility] Utilities Answer Date Recorded In the [...] often do you attend chur ch or religion services? Never 12/26/2023 Do you belong to any clubs o r organizations such as quaker groups, unions, fraternal or athletic groups, or [...] place to sleep or slept in a alf (including now)? No 12/26/2023 Personal Safety Answer Date Recorded Have you ever been in or are you currently in a harmful physical or emotional relationship or is someone making you feel afraid or unsafe? Denies 08/31/2025 Comments No Sex and Gender Information Value Date Recorded Sex Assigned at Not on file Legal Sex Female 11:42 PM [employer] Gender Identity Female 01/13/2024 5:00 PM [employer] Sexual Orientation Not on file Occupation Industry [...] Sign Reading Time Taken Comments Blood Pressure 120/78 09/24/2025 10:04 AM [employer] Pulse 79 09/24/2025 10:04 AM [employer] Temperature 36 C (96.8 F) 09/24/2025 10:04 AM [employer] Respiratory Rate 16 08/31/2025 4:36 AM CDT Oxygen Saturation 98% 09/24/2025 10: 04 AM [employer] Inhaled Oxygen Concentration - - Weight 133.1 kg (293 lb 6.4 oz) 025 10:04 AM [employer] Height 162.6 cm (5' 4) 09/24/2025 10:0 4 AM [employer] Body Mass Index 50.36 09/24/2025 10:04 AM [employer] Plan of Treatment Health Maintenance Due Date [...] Data last revised 2020. Testing performed by: [address] [address] Trop T hs delta 0 ng/L KIM WINN Comment:Testing performed by : [address] [address] Trop T hs interp Insignificant KIM Comment:Testing performed by : [address] [address] Blood 08/31/2025 1:57 AM CDT 08/31/2025 2:44 AM CDT Michael Truong Jr., MD LAB BLOOD ORDERABLES Fi nal Result KIM [address] [facility] [place] [address] * XR Chest PA Lateral 2 Views [...] Warren Alvarado M.D. AR: LADONNA Report ID: [id number] Reading Location: [id number] Procedure Note Warren Alvarado MD - 08/31/2025 [...] Warren Alvarado M.D. AR: LADONNA Report ID: [id number] Reading Location: [place] [address] us Michael Truong Jr., MD IMG XR PROCEDURES Final Result * Troponin T high-sensitivity series (baseline, 2hr, 4hr, 6hr) (08/31/2025 12:09 AM CDT) Trop T hs <6 <=14 ng/L Comment: Interpretive Data For further hscTnT resources including the diagnostic algorithm and an aid in interpretation, copy and paste this link: https://nrl.testcatalog.org/show/hsTrop Current Interpretive Data last revised 2020. Testing performed by: [facility], [address] [place] [address]., [address] Blood 08/31/2025 12:0 9 AM CDT 08/31/2025 12:18 AM CDT us Michael Truong Jr., MD LAB BLOOD ORDERABLES Fi nal Result [facility] [address] [facility] [place] [address] * eGFR (08/31/2025 12:09 AM [...] was last reviewed 2021. Testing performed by: [address] [address] Blood 08/31/2025 12:0 9 AM CDT 08/31/2025 12:18 AM CDT us Michael Truong Jr., MD LAB BLOOD ORDERABLES Fi nal Result [place] [id number] [facility] Department [place] [address] * Differential, auto (08/31/2025 12:09 AM CDT) Neutrophil abs 5.64 1.50 - 6.50 K/cumm Comment:Testing performed by : [address] [address] Imm gran abs 0.02 0.00 - 0.10 K/cumm KIM Comment:Testing performed by : [address] [address] Lymphocyte abs 2.01 0.80 - 3.30 K/cumm KIM Comment:Testing performed by : [address] [address] Monocyte abs 0.46 0.20 - 0.80 K/cumm KIM Comment:Testing performed by : [address] [address] Eosinophil abs 0.30 0.00 - 0.50 K/cumm KIM Comment:Testing performed by : [address] [address] Basophil abs 0.06 0.00 - 0.10 K/cumm KIM Comment:Testing performed by : [address] [address] Neutrophil pct 66.5 % [facility] Comment: Interpretive Data Percent cell count reference ranges are not reported, since discordance with absolute values may lead to misinterpretation of CBC data. Current Interpretive Data was last revised on 2018. Testing performed by: [address] [address] Imm gran pct 0.2 % [facility] Comment: Interpretive Data Percent cell count reference ranges are not reported, since discordance with absolute values may lead to misinterpretation of CBC data. Current Interpretive Data was last revised on 2018. Testing performed by: [address] [address] Lymphocyte pct 23.7 % [facility] Comment: Interpretive Data Percent cell count reference ranges are not reported, since discordance with absolute values may lead to misinterpretation of CBC data. Current Interpretive Data was last revised on 2018. Testing performed by: [address] [address] Monocyte pct 5.4 % [facility] Comment: Interpretive Data Percent cell count reference ranges are not reported, since discordance with absolute values may lead to misinterpretation of CBC data. Current Interpretive Data was last revised on 2018. Testing performed by: [address] [address] Eosinophil pct 3.5 % [facility] Comment: Interpretive Data Percent cell count reference ranges are not reported, since discordance with absolute values may lead to misinterpretation of CBC data. Current Interpretive Data was last revised on 2018. Testing performed by: [address] [address] Basophil pct 0.7 % [facility] Comment: Interpretive Data Percent cell count reference ranges are not reported, since discordance with absolute values may lead to misinterpretation of CBC data. Current Interpretive Data was last revised on 2018. Testing performed by: [address] [address] Blood 08/31/2025 12:0 9 AM CDT 08/31/2025 12:18 AM CDT us Michael Truong Jr., MD LAB BLOOD ORDERABLES Fi nal Result KIM [address] [facility] Department [place] [address] * (ABNORMAL) CBC with auto differential (08/31/2025 12:09 AM CDT) WBC 8.49 3.80 - 9.90 K/cumm Comment:Testing performed by : [address] [address] Hgb 13.9 11.9 - 15.5 g/dL KIM Comment:Testing performed by : [address] [address] Hct 41.3 35.6 - 45.5 % KIM Comment:Testing performed by : [address] [address] Plt 296 150 - 400 K/cumm KIM Comment:Testing performed by : [address] [address] MPV 11.4 9.1 - 12.3 fL KIM Comment:Testing performed by : [address] [address] RBC 5.14 3.90 - 5.20 M/cumm KIM WINN Comment:Testing performed by : [address] [address] MCV 80.4(L) 81.3 - 96.4 fL KIM Comment:Testing performed by : [address] [address] MCH 27.0(L) 27.1 - 33.3 pg KIM Comment:Testing performed by : [address] [address] MCHC 33.7 32.3 - 35.7 g/dL KIM WINN Comment:Testing performed by : [address] [address] RDW CV 13.6 11.1 - 14.9 % KIM Comment:Testing performed by : [address] [address] RDW SD 39.1 35.7 - 48.1 fL KIM WINN Comment:Testing performed by : [address] [address] NRBC abs 0.00 0.00 - 0.01 K/cumm KIM WINN Comment:Testing performed by : [address] [address] Blood Venous blood specimen / Unknown 08/31/2025 12:09 AM CDT 08/31/2025 12:18 AM CDT us Michael Truong Jr., MD LAB BLOOD ORDERABLES Fi nal Result KIM [address] [facility] Department of [place], [place] [phone] * (ABNORMAL) Comprehensive metabolic panel (08/31/2025 12:09 AM CDT) Sodium 142 135 - 145 mmol/L Comment:Testing performed by : [address] [address] Potassium, pl 4.0 3.3 - 4.9 mmol/L KIM WINN Comment: Hemolyzed; Potassium value may be falsely elevated by as much as 1.0 mmol/L. Suggest redraw and reanalysis. Testing performed by: [address] [address] Chloride 106 97 - 110 mmol/L KIM WINN Comment:Testing performed by : [address] [address] CO2 24 22 - 32 mmol/L KIM WINN Comment:Testing performed by : [address] [address] Anion gap 12 2 - 15 mmol/L KIM WINN Comment:Testing performed by : [address] [address] BUN 14 6 - 25 mg/dL KIM WINN Comment:Testing performed by : [address] [address] Creatinine 1.12(H) 0.60 - 1.10 mg/dL [facility] Comment:Testing performed by : [address] [address] Glucose 127 70 - 199 mg/dL [facility] Comment: Interpretive Data Fasting glucose >/= 126 [...] was last revised 2022. Testing performed by: [address] [address] Calcium 10.3 8.5 - 10.3 mg/dL [facility] Comment:Testing performed by : [address] [address] Bilirubin, total 0.5 0.1 - 1.2 mg/dL [facility] Comment:Testing performed by : [address] [address] Protein, pl 7.0 6.5 - 8.5 g/dL [facility] Comment:Testing performed by : [address] [address] Albumin 4.4 3.5 - 5.0 g/dL [facility] Comment:Testing performed by : [address] [address] Alk phos 43 40 - 130 Units/L [facility] Comment:Testing performed by : [address] [address] ALT 42 7 - 45 Units/L [facility] Comment:Testing performed by : [address] [address] AST 36 10 - 45 Units/L KIM Comment: Hemolyzed; result may be falsely elevated Testing performed by: [address] [address] Blood 08/31/2025 12:0 9 AM CDT 08/31/2025 12:18 AM CDT us Michael Truong Jr., MD LAB BLOOD ORDERABLES Fi nal Result Performing Organization Address [facility] Co de Phone Number KIM [address] [facility] Department [place] [address] * ECG 12 lead (08/31/2025 12:05 AM CDT) Ventricular Rate EKG/Min 63 BPM [facility] Atrial Rate 63 BPM [facility] VA-Interval (MSEC) 168 ms [facility] QRS-Interval (MSEC) 80 ms [facility] QT-Interval (MSEC) 394 ms [facility] QTc 403 ms [facility] P Success 66 degrees [facility] R Success 48 degrees [facility] T Success 69 degrees [facility] Diagnosis Sinus rhythm with marked sinus arrhythmia Otherwise normal ECG When compared with ECG of 07-JUL-2024 18:18, No significant change was found Confirmed by ADRIAN MONTGOMERY M.D. ([id number]) on 08/31/2025 8:07:07 AM [facility] 08/31/2025 12:0 5 AM CDT 08/31/2025 8:07 AM CDT us Michael Truong Jr., MD ECG ORDERABLES Final R esult Performing Organization Address [facility] de Phone Number [facility] * POCT hCG, urine (08/30/2025 11:07 AM CDT) HCG, ur, POC Negative Negative Comment:Testing performed by : [facility], [address] [place] [address]., [address] Urine 08/30/2025 11:0 7 AM CDT 08/30/2025 11:07 AM CDT us Notinfile Unknown LAB POCT ORDERABLES - DEVICE F inal Result Performing Organization Address [facility]/ZIP Co de Phone Number KIM [address] [facility] Department [place] [address] * (ABNORMAL) Urinalysis reflex to microscopic and culture Urine (08/30/2025 11:06 AM CDT) Color, ur Yellow Yellow Comment:Testing performed by : [address] [address] Clarity, ur Cloudy(A) Clear KIM Comment:Testing performed by : [address] [address] Specific gravity, ur 1.022 1.003 - 1.030 KIM Comment:Testing performed by : [address] [address] pH, urine 6.5 KIM Comment: Interpretive Data U rine pH is affected by diet, medications, systemic acid-base disturbances, and renal tubular function. pH may affect urinary stone formation. For example, urine pH below 6.0 may help reduce the tendency for calcium phosphate stones and pH greater than 6.0 may reduce the tendency for uric acid stone formation. Source: [facility] [employer] Current Interpretive Data was last revised on 2017 Testing performed by: [address] [address] Protein, ur ql Trace(A) Negative KIM Comment:Testing performed by : [address] [address] Glucose, ur ql Negative Negative KIM Comment:Testing performed by : [address] [address] Ketones, ur Negative Negative KIM Comment:Testing performed by : [address] [address] Bilirubin, ur Negative Negative KIM Comment:Testing performed by : [address] [address] Blood, ur Trace(A) Negative KIM Comment:Testing performed by : [address] [address] Urobilinogen, ur <2.0 <2.0 mg/dL KIM Comment:Testing performed by : [address] [address] Nitrite, ur Negative Negative KIM Comment:Testing performed by : [address] [address] Leukocyte esterase, ur 3+(A) Negative KIM Comment:Testing performed by : [address] [address] UA reflex comment Reflex to microscopic UA will be performed. KIM Comment:Testing performed by : [address] [address] Urine 08/30/2025 11:0 6 AM CDT 08/30/2025 11:10 AM CDT Crista KELSEY LAB MICROBIOLOGY - [facility] Final Result KIM [address] [facility] Department of Laboratories [place], [place] [id number] * (ABNORMAL) Urinalysis, microscopic only (08/30/2025 11:06 AM CDT) WBC, ur 6-10(A) 0 - 5 /HPF Comment:Testing performed by : [address] [address] RBC, ur 3-5(A) 0 - 2 /HPF KIM Comment:Testing performed by : [address] [address] Epithelial cells, squamous, ur >50(A) 0 - 5 /HPF KIM Comment:Testing performed by : [address] [address] Yeast, ur 1+(A) KIM Comment:Testing performed by : [address] [address] Mucous, ur Present(A) KIM Comment:Testing performed by : [address] [address] Culture Reflex Comment Reflex conditions for urine culture (WBC >10) not met. KIM Comment:Testing performed by : [address] [address] Urine 08/30/2025 11:0 6 AM CDT 08/30/2025 11:10 AM CDT Crista KELSEY LAB URINE ORDERABLES Final Resu lt [facility] [address] [facility] Department [place] [address] * Influenza A/B, RSV, and COVID-19 PCR Nasopharyngeal (08/30/2025 11:01 AM CDT) COVID-19 RNA Negative Negative Comment:Testing performed by : [address] [address] Influenza A RNA Negative Negative [facility] Comment:Testing performed by : [address] [address] Influenza B RNA Negative Negative [facility] Comment:Testing performed by : [address] [address] RSV RNA Negative Negative [facility] Comment: Interpretive data: Testing performed by [facility]. This test is performed using the [employer] Xpert Xpress CoV-2/Flu/RSV plus assay. This is a multiplex, real-time reverse transcriptase PCR assay intended for the qualitative detection of nucleic acid from SARS-CoV-2, influenza A, influenza B, and respiratory syncytial virus. This assay has been cleared by the [place] Food and Drug administration. The performance characteristics have been verified by the [facility]. Results must be considered in the clinical context, and a negative result does not rule out infection. Interpretive Data last revised 2023 Testing performed by: [address] [address] Nasopharyngeal 08/30/2025 11 :01 AM CDT 08/30/2025 11:04 AM CDT Narrative KIM - 08/30/2025 11:53 AM CDT Is the Patient experiencing symptoms consistent with COVID?->Yes Crista KELSEY LAB MICROBIOLOGY - GENERAL ORDE RABLES Final Result Performing Organization Address City/[facility] de Phone Number KIM [address] [place] [address] * eGFR (08/30/2025 11:01 AM CDT) eGFR [...] was last reviewed 2021. Testing performed by: [address] [address] Blood 08/30/2025 11:0 1 AM CDT 08/30/2025 11:04 AM CDT Crista KELSEY LAB BLOOD ORDERABLES Final Resu lt Performing Organization Address City/[facility]/ZIP Co de Phone Number [place] [id number] [facility] [place] [address] * Differential, auto (08/30/2025 11:01 AM CDT) Pathologist [facility] Neutrophil abs 4.71 1.50 - 6.50 K/cumm Comment:Testing performed by : [address] [address] Imm gran abs 0.01 0.00 - 0.10 K/cumm KIM Comment:Testing performed by : [address] [place]., [address] Lymphocyte abs 1.78 0.80 - 3.30 K/cumm CERRAYMUNDO Comment:Testing performed by : [address] [address] Monocyte abs 0.45 0.20 - 0.80 K/cumm [facility]DO Comment:Testing performed by : [address] [address] Eosinophil abs 0.44 0.00 - 0.50 K/cumm KIM Comment:Testing performed by : [address] [address] Basophil abs 0.07 0.00 - 0.10 K/cumm KIM Comment:Testing performed by : [address] [address] Neutrophil pct 63.2 % [facility] Comment: Interpretive Data Percent cell count reference ranges are not reported, since discordance with absolute values may lead to misinterpretation of CBC data. Current Interpretive Data was last revised on 2018. Testing performed by: [address] [address] Imm gran pct 0.1 % [facility] Comment: Interpretive Data Percent cell count reference ranges are not reported, since discordance with absolute values may lead to misinterpretation of CBC data. Current Interpretive Data was last revised on 2018. Testing performed by: [address] [address] Lymphocyte pct 23.9 % [facility] Comment: Interpretive Data Percent cell count reference ranges are not reported, since discordance with absolute values may lead to misinterpretation of CBC data. Current Interpretive Data was last revised on 2018. Testing performed by: [address] [address] Monocyte pct 6.0 % [facility] Comment: Interpretive Data Percent cell count reference ranges are not reported, since discordance with absolute values may lead to misinterpretation of CBC data. Current Interpretive Data was last revised on 2018. Testing performed by: [address] [address] Eosinophil pct 5.9 % [facility] Comment: Interpretive Data Percent cell count reference ranges are not reported, since discordance with absolute values may lead to misinterpretation of CBC data. Current Interpretive Data was last revised on 2018. Testing performed by: [address] [address] Basophil pct 0.9 % KIM WINN Comment: Interpretive Data Percent cell count reference ranges are not reported, since discordance with absolute values may lead to misinterpretation of CBC data. Current Interpretive Data was last revised on 2018. Testing performed by: [address] [address] Blood 08/30/2025 11:0 1 AM CDT 08/30/2025 11:04 AM CDT us Crista KELSEY LAB BLOOD ORDERABLES Final Resu lt KIM WINN [facility] [place] [address] * (ABNORMAL) CBC with auto differential (08/30/2025 11:01 AM CDT) WBC 7.46 3.80 - 9.90 K/cumm Comment:Testing performed by : [address] [address] Hgb 14.7 11.9 - 15.5 g/dL KIM WINN Comment:Testing performed by : [address] [address] Hct 43.4 35.6 - 45.5 % KIM WINN Comment:Testing performed by : [address] [address] Plt 281 150 - 400 K/cumm KIM WINN Comment:Testing performed by : [address] [address] MPV 11.1 9.1 - 12.3 fL KIM WINN Comment:Testing performed by : [address] [address] RBC 5.42(H) 3.90 - 5.20 M/cumm KIM WINN Comment:Testing performed by : [address] [address] MCV 80.1(L) 81.3 - 96.4 fL KIM WINN Comment:Testing performed by : [address] [address] MCH 27.1 27.1 - 33.3 pg KIM WINN Comment:Testing performed by : [address] [address] MCHC 33.9 32.3 - 35.7 g/dL KIM Comment:Testing performed by : [address] [address] RDW CV 13.6 11.1 - 14.9 % KIM Comment:Testing performed by : [address] [address] RDW SD 39.7 35.7 - 48.1 fL KIM Comment:Testing performed by : [address] [address] NRBC abs 0.00 0.00 - 0.01 K/cumm KIM Comment:Testing performed by : [address], [address] Blood 08/30/2025 11:0 1 AM CDT 08/30/2025 11:04 AM CDT Definicare Crista KELSEY LAB BLOOD ORDERABLES Final Resu lt KIM [address] [facility] Department of Laboratories [place], [place] [id number] * Lipase (08/30/2025 11:01 AM CDT) Lipase 22 10 - 99 Units/L Comment:Testing performed by : [address] [address] Blood 08/30/2025 11:0 1 AM CDT 08/30/2025 11:04 AM CDT BroadHop[facility] Golden PA LAB BLOOD ORDERABLES Final Resu lt KIM [address] [facility] [place] [address] * (ABNORMAL) Comprehensive metabolic panel (08/30/2025 11:01 AM CDT) Sodium 140 135 - 145 mmol/L Comment:Testing performed by : [address] [address] Potassium, pl 3.8 3.3 - 4.9 mmol/L KIM Comment:Testing performed by : [address], [place]., [address] Chloride 103 97 - 110 mmol/L KIM Comment:Testing performed by : [address] [address] CO2 24 22 - 32 mmol/L KIM Comment:Testing performed by : [address] [address] Anion gap 13 2 - 15 mmol/L KIM Comment:Testing performed by : [address] [address] BUN 14 6 - 25 mg/dL KIM Comment:Testing performed by : [address] [address] Creatinine 1.06 0.60 - 1.10 mg/dL KIM Comment:Testing performed by : [address] [address] Glucose 113 70 - 199 mg/dL [facility] Comment: Interpretive Data Fasting glucose >/= 126 [...] was last revised 2022. Testing performed by: [address] [address] Calcium 10.5(H) 8.5 - 10.3 mg/dL KIM Comment:Testing performed by : [address] [address] Bilirubin, total 0.7 0.1 - 1.2 mg/dL KIM Comment:Testing performed by : [address] [address] Protein, pl 7.4 6.5 - 8.5 g/dL KIM Comment:Testing performed by : [address] [address] Albumin 4.6 3.5 - 5.0 g/dL KIM Comment:Testing performed by : [address] [address] Alk phos 46 40 - 130 Units/L KIM Comment:Testing performed by : [address] [address] ALT 47(H) 7 - 45 Units/L KIM Comment:Testing performed by : [address] [address] AST 42 10 - 45 Units/L KIM Comment:Testing performed by : [address] [address] Blood 08/30/2025 11:0 1 AM CDT 08/30/2025 11:04 AM CDT us Crista KELSEY LAB BLOOD ORDERABLES Final Resu lt Performing Organization Address City/State/[facility] Co de Phone Number [facility] [address] [facility] [place] [address] from Last 3 Months Insurance [facility] Advance Directives For more information, please contact: [phone] * Full Code (Latest Code Status on File) Date Activated Date Inactivated Comments 12/26/2023 7:32 AM 12/28/2023 3:21 PM * Full Code Date Activated Date Inactivated Comments 12/22/2023 10:15 PM 12/24/2023 12:39 AM * Full Code Date Activated Date Inactivated Comments 03/18/2022 2:02 AM 03/20/2022 5:53 PM Care Teams Dye Can Operator Relationship Specialty Start Date End Date Karla Almaraz NP [address] [place] [id number] PCP - General Nurse Practitioner 08/30/25 Lala Llamas MD [address] [place] [id number] Consulting Physician Pulmonary Disease 03/20/22
--- OUTSIDE RECORDS SUMMARY | 2025-10-14 10:12 | XMS_ITS | Clinical Summary ---
Author Organization [facility] Address [address] [place] [address] Care Team Providers Care Teenage Babysitter Name Role Phone Karla Almaraz NP Primary Care Provider [phone] Allergies Active Allergy Reactions Criticality Noted Date [...] Comments Blood Pressure 168/97 11/24/2024 4:56 PM FLASH DRIER OPERATOR Pulse 94 11/24/2024 4:56 PM FLASH DRIER OPERATOR Temperature 36.9 C (98.4 F) 11/24/2024 3:29 PM FLASH DRIER OPERATOR Respiratory Rate 20 11/24/2024 4:56 PM FLASH DRIER OPERATOR Oxygen Saturation 99% 11/24/2024 4:56 PM FLASH DRIER OPERATOR Inhaled Oxygen Concentration - - Weight 159 kg (350 lb 8.5 oz) 11/24/2024 3:29 PM FLASH DRIER OPERATOR Height 162.6 cm (5' 4) 11/24/2024 3:29 PM FLASH DRIER OPERATOR Body Mass Index 60.17 11/24/2024 3:29 PM FLASH DRIER OPERATOR Plan of Treatment Health Maintenance Due Date Last Done Comments Annual Physical 1997 Hepatitis C 01/18/2012 Hepatitis B Vaccines (1 of 3 - 19+ 3-dose series) 2013 Pneumococcal Vaccine: Pediatrics (0 to 5 Years) and At-Risk Patients (6 to 49 Years) (1 of 2 - PCV) 2013 HPV Vaccines (1 - 3-dose SCDM series) 2021 Cervical Cancer Screening Pap with HPV Testing (Age 30 to 64) Every 5 Years 01/18/2024 COVID-19 Vaccine ( - season) 2025 Influenza Adult (#1) 2025 10/11/2022, 09/28/2021, 09/18/2017, Additional history exists Cervical Cancer Screening Pap Smear (Age 30 to 64) Every 3 Years 09/26/2027 09/26/2024, 06/28/2021 Cervical Cancer Screening with HPV 09/26/2027 DTaP, Tdap and Td Vaccines (3 - [...] patient's age to complete this topic Insurance [employer] Care Teams Teenage Babysitter Relationship Specialty Start Date End Date Karla Almaraz NP [address] [place] [address] PCP - General NURSE PRACTITIONER 11/24/24
--- OUTSIDE RECORDS SUMMARY | 2025-10-14 10:12 | XMS_ITS | Data Portability ---
Author Organization [facility], Main Office Address [address] [place] [address] Care Team Providers Care Bar Helper Name Role Phone CHEYENNE FLOYD Primary Care Provider Assessment No assessment recorded. Plan of Treatment Reminders Order Date Submit Date Provider Last Modified By Organization Details Last Modified Time Details Appointments None recorded. Lab CMP, serum or plasma 2023 024 [facility] (Lab), [address] [place], [address], 4 20:36:49 CBC w/ auto diff 2023 024 [facility] (Lab), [address] [place], [address], 4 20:36:49 CBC 2023 024 [facility] (Lab), [address] [place], [address], 4 19:43:02 TSH, serum or plasma 2023 024 [facility] (Lab), [address] [place], [address], 4 20:22:18 CMP, serum or plasma 2023 024 [facility] (Lab), [address] [place], [address], 4 19:50:34 vitamin B12, serum 2023 024 [facility] (Lab), [address] [place], [address], 4 20:32:44 folate, serum 2023 024 [facility] (Lab), [address] [place], [address], 4 20:32:49 HbA1c (hemoglobin A1c), blood 2023 024 [facility] (Lab), [address] [place], [address], 4 22:20:58 ferritin, serum or plasma 2023 024 [facility] (Lab), [address] [place], [address], 4 20:28:06 iron + total iron-bindin g capacity (TIBC), serum 2023 024 [facility] (Lab), [address] [place], [address], 4 20:57:26 Referral gastroenter ologist referral - Please call patient to schedule an appointment . Thank you. 2023 024 [email or web address] Neeru Gallegos MD, [address] [facility], [facility] [address], [place], [address], 4 08:42:[address] referral - Please call patient to schedule an appointment . 2023 024 [email or web address] Fara Ramirez [facility], [address] [facility] , [address], [place], [address], 4 09:22:01 Procedures upper endoscopy procedure (EGD) (PROC) 2023 024 [facility] (Pre-Screen), [address], [place], [address], 13:33:50 Surgeries None recorded. Imaging None recorded. Medication Orders trazodone 100 mg tablet 2023 024 [facility], [address] [place], [address], 11:31:17 fluconazole 150 mg tablet 2023 024 [email or web address] [facility], [address] [place], [address], 11:13:30 Patient TargetsNo targets recorded. Patient Instructions Encounter Date Encounter Id Patient Instructions Last Modified By Organization Details Last Modified Time 04/09/2024 [id number] REFLUX DIET / WT LOSS [email or web address] Not available 04/09/2024 15:06:27 PT WITH GERD SX . NEED TO R/O PUD/ H. PYLORI . RECOMMEND AN EGD . Risks benefits and complications were explained to the pt. ( BLEEDING PERFORATION , INFECTION , ). PT VERBALIZES UNDERSTANDING AND IS WILLING TO PROCEDE . Not available 04/09/2024 15:06:21 06/04/2024 [id number] REFLUX DIET . WT LOSS. [email or web address] Not available 06/04/2024 12:50:25 PT WITH GERD . CONT OMEPRAZOLE 40 MG DAILY . 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 Thank you. Referring Physician: Cassi Mann Family Medicine, Encounter Date: 03/13/2024 Results Created Date Observation Date Name Description Value Unit Range Abnormal Flag Note LastModifiedBy Organization Detail LastModifiedTime 01/04/20 24 01/04/2024 rapid flu (A+B) Flu A negati ve Not Available [facility] [address], [place], [address], 01/04/2024 16:10:25 01/04/20 24 01/04/2024 rapid flu (A+B) Flu B positi ve Not Available [facility] [address], [place], [address], 01/04/2024 16:10:25 03/13/20 24 03/13/2024 CBC W/O DIFFE RENTI AL white blood cells 7.3 x10'3 /uL 4.2-10 .8 Not Available [facility] (Lab) [address] [place], [address], 03/13/2024 19:43:02 03/13/20 24 03/13/2024 CBC W/O DIFFE RENTI AL red blood cells 4.45 x10'6 /uL 3.80-5 .20 Not Available [facility] (Lab) [address] [place], [address], 03/13/2024 19:43:02 03/13/20 24 03/13/2024 CBC W/O DIFFE RENTI AL hemoglobin 12.4 g/dL 12.0-1 5.6 Not Available [facility] (Lab) [address] [place], [address], 03/13/2024 19:43:02 03/13/20 24 03/13/2024 CBC W/O DIFFE RENTI AL hematocrit 37.5 % 35.7-4 5.7 Not Available [facility] (Lab) [address] [place], [address], 03/13/2024 19:43:02 03/13/20 24 03/13/2024 CBC W/O DIFFE RENTI AL mean red cell volume 84.3 fL 82.0-9 9.0 Not Available [facility] (Lab) [address] [facility] [place], [address], 03/13/2024 19:43:02 03/13/20 24 03/13/2024 CBC W/O DIFFE RENTI AL mean red cell hemoglobin 27.9 pg 27.0-3 3.0 Not Available [facility] (Lab) [address] [place], [address], 03/13/2024 19:43:02 03/13/20 24 03/13/2024 CBC W/O DIFFE RENTI AL mean RBC HGB concentratio n 33.1 g/dL 31.0-3 6.0 Not Available [facility] (Lab) [address] [place], [address], 03/13/2024 19:43:02 03/13/20 24 03/13/2024 CBC W/O DIFFE RENTI AL red cell distribution width 13.8 % 11.8-1 5.5 Not Available [facility] (Lab) [address] [place], [address], 03/13/2024 19:43:02 03/13/20 24 03/13/2024 CBC W/O DIFFE RENTI AL platelets 217 x10'3 /uL 150-40 0 Not Available [facility] (Lab) [address] [place], [address], 03/13/2024 19:43:02 03/13/20 24 03/13/2024 CBC W/O DIFFE RENTI AL mean platelet volume 12.9 fL 9.0-12 .4 high Not Available [facility] (Lab) [address] [place], [address], 03/13/2024 19:43:02 03/13/20 24 03/13/2024 COMPR EHENS MARY METAB OLIC PANEL sodium 139 mmol/ L 137-14 5 Not Available [facility] (Lab) [address] [place], [address], 03/13/2024 19:50:34 03/13/20 24 03/13/2024 COMPR EHENS MARY METAB OLIC PANEL potassium 3.8 mmol/ L 3.5-5. 1 Not Available [facility] (Lab) [address] [place], [address], 03/13/2024 19:50:34 03/13/20 24 03/13/2024 COMPR EHENS MARY METAB OLIC PANEL chloride 108 mmol/ L 98-107 high Not Available [facility] (Lab) [address] [place], [address], 03/13/2024 19:50:34 03/13/20 24 03/13/2024 COMPR EHENS MARY METAB OLIC PANEL carbon dioxide 24 mmol/ L 22-30 Not Available [facility] (Lab) [address] [place], [address], 03/13/2024 19:50:34 03/13/20 24 03/13/2024 COMPR EHENS MARY METAB OLIC PANEL anion gap 10.8 mmol/ L 14-22 low Not Available [facility] (Lab) [address] [place], [address], 03/13/2024 19:50:34 03/13/20 24 03/13/2024 COMPR EHENS MARY METAB OLIC PANEL glucose 124 mg/dL 70-99 high Not Available [facility] (Lab) [address] [place], [address], 03/13/2024 19:50:34 03/13/20 24 03/13/2024 COMPR EHENS MARY METAB OLIC PANEL BUN 14 mg/dL 8-19 Not Available [facility] (Lab) [address] [place], [address], 03/13/2024 19:50:34 03/13/20 24 03/13/2024 COMPR EHENS MARY METAB OLIC PANEL creatinine 0.66 mg/dL 0.66-1 .25 Not Available [facility] (Lab) [address] [place], [address], 03/13/2024 19:50:34 03/13/20 24 03/13/2024 COMPR EHENS MARY METAB OLIC PANEL GFR >60 Refer ence Range : Lyons ge GFR Healt hy Adult : >60 [...] or ethni c subgr oups, such as Hispa nics. Outsi de the valid ated yvette [...] calcu lator is avail able on the F websi te: https ://ww w.kid brooks.o rg/pr ofess ional s/kdo qi/gf r_cal culat or Not Available [facility] (Lab) [address] [place], [address], 03/13/2024 19:50:34 03/13/20 24 03/13/2024 COMPR EHENS MARY METAB OLIC PANEL alkaline phosphatase 73 U/L 38-126 Not Available [facility] (Lab) [address] [place], [address], 03/13/2024 19:50:34 03/13/20 24 03/13/2024 COMPR EHENS MARY METAB OLIC PANEL alanine aminotransfe rase 23 U/L 0-35 Not Available [facility] (Lab) [address] [place], [address], 03/13/2024 19:50:34 03/13/20 24 03/13/2024 COMPR EHENS MARY METAB OLIC PANEL aspartate aminotransfe rase 27 U/L 15-37 Not Available [facility] (Lab) [address] [place], [address], 03/13/2024 19:50:34 03/13/20 24 03/13/2024 COMPR EHENS MARY METAB OLIC PANEL bilirubin, total 0.60 mg/dL 0.20-1 .30 Not Available [facility] (Lab) [address] [place], [address], 03/13/2024 19:50:34 03/13/20 24 03/13/2024 COMPR EHENS MARY METAB OLIC PANEL calcium 8.8 mg/dL 8.4-10 .2 Not Available [facility] (Lab) [address] [place], [address], 03/13/2024 19:50:34 03/13/20 24 03/13/2024 COMPR EHENS MARY METAB OLIC PANEL total protein 6.3 g/dL 6.3-8. 2 Not Available [facility] (Lab) [address] [place], [address], 03/13/2024 19:50:34 03/13/20 24 03/13/2024 COMPR EHENS MARY METAB OLIC PANEL albumin 3.9 g/dL 3.4-5. 0 Not Available [facility] (Lab) [address] [place], [address], 03/13/2024 19:50:34 03/13/20 24 03/13/2024 COMPR EHENS MARY METAB OLIC PANEL globulin 2.4 g/dL 2.6-4. 2 low Not Available [facility] (Lab) [address] [place], [address], 03/13/2024 19:50:34 03/13/20 24 03/13/2024 COMPR EHENS MARY METAB OLIC PANEL A/G ratio 1.6 ratio 1.0-2. 0 Not Available [facility] (Lab) [address] [place], [address], 03/13/2024 19:50:34 03/13/20 24 03/13/2024 TSH thyroid-stim ulating hormone 1.370 uIU/m L 0.465- 4.680 Not Available [facility] (Lab) [address] [place], [address], 03/13/2024 20:22:18 03/13/20 24 03/13/2024 [place] T[place] ferritin 48 NG/mL 6.24-1 37 Not Available [facility] (Lab) [address] [place], [address], 03/13/2024 20:28:06 03/13/20 24 03/13/2024 VITAM IN B12 (GABE ALONSO ) vb12 383 pg/mL 239-93 1 Not Available [facility] (Lab) [address] [place], [address], 03/13/2024 20:32:44 03/13/20 24 03/13/2024 FOLAT E, SERUM /PLAS MA folate 4.60 NG/mL 2.76-2 0.0 Not Available [facility] (Lab) [address] [place], [address], 03/13/2024 20:32:49 03/13/20 24 03/13/2024 HEMOG LOBIN A1C HA1C 5.1 % 4.0-6. 0 Diabe lisa Scree ebenezer Crite dinh: <5.7% Consi stent with absen ce of diabe lisa 5.7-6 .4% Consi stent with incre ased risk for diabe lisa (pred iabet es) >OR=6 .5% Consi stent with diabe lisa REFER ENCE: Diabe lisa Care 2016, 39(Borrero ppl.1 ):s13 -s22 Not Available [facility] (Lab) [address] [place], [address], 03/13/2024 20:49:32 03/13/20 24 03/13/2024 IRON/ TIBC PANEL total iron binding capacity 308 mcg/d L 265-47 5 Not Available [facility] (Lab) [address] [place], [address], 03/13/2024 21:07:53 03/13/20 24 03/13/2024 IRON/ TIBC PANEL % transferrin saturation 18 % 20-55 low Not Available [facility] (Lab) [address] [place], [address], 03/13/2024 21:07:53 03/13/20 24 03/13/2024 IRON/ TIBC PANEL unsaturated iron bind capacity 253 mcg/d L 126-38 2 Not Available [facility] (Lab) [address] [place], [address], 03/13/2024 21:07:53 03/13/20 24 03/13/2024 IRON/ TIBC PANEL iron 55 mcg/d L 42-175 Not Available [facility] (Lab) [address] [place], [address], 03/13/2024 21:07:53 12/31/19 24 12/31/2023 XR, chest No observ ation record ed. [email or web address] [facility] [address] [facility] [address], [place], [address], 01/01/2024 10:33:20 01/12/20 24 01/12/2024 CT, abdom en + pelvi s, w/o contr ast No observ ation record ed. [address], [place], [address], 02/11/2024 19:28:40 02/11/20 24 02/11/2024 MAMMO , scree ebenezer, digit al, bilat eral No observ ation record ed. [address], [place], [address], 02/11/2024 19:29:00 02/14/20 24 02/11/2024 MAMMO , diagn ostic , bilat eral No observ ation record ed. [address], [place], [address], 03/28/2024 15:43:39 Result Notes None recorded. Problems Name Problem SNOMED Code Status Onset Date Resolution Date Notes Provider Name and Address Organization Details Recorded Time Amenorrhea 44713103 Active Not Available [facility] 3 09:18:44 Hyperbilirubi nemia 85856043 Active Not Available [employer] 3 09:18:44 Adjustment disorder 04748145 Active Not Available [facility] 3 09:18:44 Abdominal pain 57766753 Active Not Available [facility] 3 09:18:44 Morbid obesity 155773808 Active Not Available [facility] 3 09:18:44 Gastro-esopha geal reflux disease with esophagitis 158591042 Active Not Available [facility] 3 09:18:44 Knee pain Active Not Available [facility] 3 09:18:44 Vitamin D deficiency 56573972 Active Not Available [facility] 3 09:18:45 Pain in coccyx 06328516 Active Not Available [facility] 3 09:18:45 Missed period 82411276 Active Not Available [facility] 3 09:18:45 Dermatophytos is 39840591 Active Not Available [facility] 3 09:18:45 Anxiety 20955571 Active Not Available [facility] 3 09:18:45 Cough 41412748 Active Not Available [facility] 3 09:18:45 Alopecia 15037421 Active Not Available [facility] 3 09:18:45 Irregular periods 87037925 Active Not Available [facility] 3 09:18:45 Fatigue 43622771 Active Not Available [facility] 3 09:18:45 Iron deficiency anemia 16700271 Active Not Available [facility] 3 09:18:46 Candidiasis of mouth 52047149 Active 2022 Cassi Mann MD [address], [place], [address] , [employer] 3 12:40:13 Asthma 245295977 Active 2022 REI Dumont-BC [address], [address], [place], [address] , [employer] [facility] 3 15:40:07 Dyspnea on exertion 01411198 Active 2022 HOLLY Dumont [address], [place], [address] , [employer] 3 15:40:11 Wheezing 51637643 Active 2022 HOLLY Dumont [address], [place], [address] , [employer] [facility] 3 15:40:15 Chronic cough 67365751 Active 2022 HOLLY Dumont [address], [place], [address] , [employer] 3 15:40:21 Gastroesophag eal reflux disease without esophagitis 659322253 Active 2022 HOLLY Dumont [address], [place], [address] , [employer] 3 15:41:50 Marijuana user 684214404 Active 2022 Fara Ramirez, [facility] [address], [place], [address] , [employer] [place] [employer] [facility] [employer] 3 15:45:51 Acute sinusitis 73229864 Active 2022 Cassi Mann MD [address], [place], [address] , [employer] [place] [employer] [facility] [employer] 3 17:46:13 Disorder of gallbladder 50825134 Active 2023 Cassi Mann MD [address], [place], [address] , [employer] [facility] [employer] 4 13:21:55 Vaginitis 69369506 Active 2023 Cassi Mann MD [address], [place], [address] , [employer] [facility] [employer] 4 18:39:14 Heartburn 30252259 Active 2023 Cassi Mann MD [address], [place], [address] , [employer] [facility] [employer] 4 18:40:49 Insomnia 253481067 Active 2023 Cassi Mann MD [address], [place], [address] , [employer] [facility] [employer] 4 11:28:34 Dizziness 432997520 Active 2023 Cassi Mann MD [address], [place], [address] , [employer] [place] [employer] [facility] [employer] 4 11:29:29 Gastroesophag eal reflux disease 803466128 Active 2023 Neeru Gallegos MD [address], [place], [address] , [employer] [place] [facility] [employer] [facility] [employer] 4 15:09:50 Acid reflux 907932702 Active 2023 REI Childs [address] [facility], [place], [address] , [employer] 4 16:33:57 Abnormal weight gain 884347710 Active 2023 REI Montalvo-C [address] [facility], [place], [address] , [employer] 4 14:12:00 Problem Notes None recorded. Medical Equipment None Reported. Allergies Allergen ID Allergen Name Allergen Category Reaction Reaction Severity Criticality Documentation Date Start Date Code Code System Note Provider Name and Address Organization Details Recorded Time 57803 pecan nut food hives Not available Not available 01/10/2023 Not Available [facility] 3 09:24:[address] medicatio n hives Not available Not available 01/10/2023 02167 RxNorm Not Available [facility] 3 09:24:46 46740 codeine medicatio n hives severe Not available 01/10/20232016 2670 RxNorm Not Available [facility] 3 09:24:47 67358 Brez[employer] medicatio n muscle cramps severe high 01/01/2024 87863 25 RxNorm Elizabeth Maldonado LPN null, MD [email or web address] [facility] 4 10:39:15 91067 Pethidine analog (substanc e) medicatio n Not available Not available Not available 01/04/2024 07354 0004 SNOMED Cassi Mann MD [address] [facility] [facility] [address], [place], [address], [employer] 4 15:36:19 19014 Substance with morphinan structure and opioid receptor agonist mechanism of action (substanc e) medicatio n bradycard ia Not available high 01/18/2024 43689 9000 SNOMED Cassi Mann MD [address], [facility] [address], [place], [address], [employer] 4 15:36:34 Medications Name Sig Start Date [...] 1 CAPSULE BY MOUTH EVERY DAY NEEDED 2024 active Not Available Not Available Not Avai lable tramadol 50 mg tablet 03/13 completed Not [...] PUFFS BY MOUTH EVERY 4-6 HOURS NEEDED 2024 active Not Available Not Available Not Avai lable Vitamin D2 1,250 mcg (50,000 unit) capsule [...] Available No t Available Sprintec (28) 0.25 mg-0.035 mg tablet Take 1 tablet every day [...] Available Not Available Not Available Kateryna Denis [facility] spacer active Not Available Not Available [...] (BMI) Body weight Body temperature Oxygen saturation Heart rate Systolic And Diastolic Provider Name and Address Organization Details Last Updated DateTime 4 162.56 cm 51 kg/m2 790581. 93 g 97.4 [degF] 98 % 64 /min 130/82 mm[Hg] Annemarie Hunter RN MD - [facility] [employer] [facility] 4 15:21:42 Date Recorded Body height Body mass index (BMI) Body weight Body temperature Heart rate Oxygen saturation Systolic And Diastolic Provider Name and Address Organization Details Last Updated DateTime 4 162.56 cm 53.4 kg/m2 885291. 23 g 97.9 [degF] 76 /min 98 % 130/76 mm[Hg] Avinash Nice RN [facility] [employer] [facility] 4 11:07:51 Date Recorded Body height Body mass index (BMI) Body weight Heart rate Oxygen saturation Systolic And Diastolic Provider Name and Address Organization Details Last Updated DateTime 4 162.56 cm 53.4 kg/m2 027493. 23 g 78 /min 99 % 132/74 mm[Hg] Rusty Carbajal [facility] [employer] [facility] 4 14:41:36 Date Recorded Body height Heart rate Oxygen saturation Body mass index (BMI) Body weight Systolic And Diastolic Provider Name and Address Organization Details Last Updated DateTime 4 162.56 cm 76 /min 99 % 56 kg/m2 043177. 11 g 130/72 mm[Hg] Rusty Carbajal [facility] [employer] [facility] 4 12:40:00 Date Recorded Body height Body mass index (BMI) Body weight Body temperature Heart rate Oxygen saturation Systolic And Diastolic Provider Name and Address Organization Details Last Updated DateTime 4 162.56 cm 58.2 kg/m2 991634. 81 g 98.2 [degF] 76 /min 97 % 130/72 mm[Hg] Avinash Nice RN [facility] [employer] [facility] 4 14:04:02 Social History Question Answer Notes LastModified by Organizat ion Details LastModified Time Tobacco Smoking Status Never Smoker Not Available [email or web address] 01/10/2023 09:13:11 Do You Wear A Helmet When Biking? Yes MIGRATION. Information not available 01/10/2023 What Is Your Level Of Caffeine Consumption? Moderate [email or web address] Information not available 04/04/2023 In The 14 Days Before Symptom Onset, Have You Had Close Contact With A Laboratory-confir med COVID-19 While That Case Was Ill? No MIGRATION. Information not available 01/10/2023 In The 14 Days Before Symptom Onset, Have You Had Close Contact With A Person Who Is Under Investigation For COVID-19 While That Person Was Ill? No MIGRATION. Information not available 01/10/2023 What Type Of Diet Are You Following? REGULAR MIGRATION. Information not available 01/10/2023 Which Illicit Or Recreational Drugs Have You Used? Marijuana Does Flower And Edible Form [email or web address] Information not available 04/05/2023 What Is The Highest Grade Or Level Of School You Have Completed Or The Highest Degree You Have Received? [id number] MIGRATION.20889 65253 Information not available 01/10/2023 Have There Been Any Changes To Your Family Or Social Situation? No MIGRATION.91247 06533 Information not available 01/10/2023 Are There Any Guns Present In Your Home? No MIGRATION.28733 75441 Information not available 01/10/2023 Do You Use Insect Repellent Routinely? No MIGRATION.59788 37703 Information not available 01/10/2023 What Was The Date Of Your Most Recent Tobacco Screening? 03/13/2024 [email or web address] Information not available 03/13/2024 Do You Have Any Pets? Yes 3 Dogs [email or web address] Information not available 04/04/2023 What Is Your Relationship Status? MIGRATION.62111 78736 Information not available 01/10/2023 Do You Use Your Seat Belt Or Car Seat Routinely? Yes MIGRATION.01603 65137 Information not available 01/10/2023 Do You Have Smoke And Carbon Monoxide Detectors In Your Home? Yes MIGRATION.95971 75427 Information not available 01/10/2023 Are You Passively Exposed To Smoke? No MIGRATION.80702 22842 Information not available 01/10/2023 Are There Any Smokers In Your House? No MIGRATION.73361 74909 Information not available 01/10/2023 Do You Participate In Social Media? No MIGRATION.75082 27183 Information not available 01/10/2023 Do You Use Sunscreen Routinely? Yes MIGRATION.80872 94731 Information not available 01/10/2023 Has Tobacco Cessation Counseling Been Provided? No MIGRATION.79963 96029 Information not available 01/10/2023 Have You Recently Traveled Abroad? No MIGRATION.22157 41059 Information not available 01/10/2023 Have You Used IV Drugs? No [email or web address] Information not available 04/05/2023 Are You Currently In School? No MIGRATION.32489 06259 Information not available 01/10/2023 Do You Have Any Dietary Restrictions? Yes No [place] MIGRATION.10559 25921 Information not available 01/10/2023 Sex: Unknown Functional Status Question Answer Note LastModified by Organizat Leo Details LastModified Time Do you use any illicit or recreational drugs? Yes [email or web address] Information not available 04/05/2023 Do you or have you ever used any other forms of tobacco or nicotine? No MIGRATION.[id number] 26 Information not available 01/10/2023 What is your level of alcohol consumption? None MIGRATION.[id number] 26 Information not available 01/10/2023 What is your exercise level? None MIGRATION.[id number] 26 Information not available 01/10/2023 Mental Status Question Answer Note LastModified by Organizat ion Details LastModified Time Do you feel stressed (tense, restless, nervous, or anxious, or unable to sleep at night)? [id number] MIGRATION.[id number] 6 Information not available 01/10/2023 Family History Relationship Description Onset Age of this Age Resolved Age Notes LastModified by Organization Details LastModified Time Maternal Grandmother Diabetes mellitus [id number] Not available 01/10/2023 09:13:38 Medical History No medical history recorded. Gynecological HistoryNo gynecological history recorded. Obstetrics History GPAL:G 0 P 0 0 0 0 Immunizations Vaccine Type Date Status Note Provider Nam e and Address Organization Details Recorded Time Tdap 10/11/2022 completed Not Available [facility] 01/10/2023 09:24:24 Influenza, split virus, quadrivalent, PF 10/11/2022 completed Not Available [facility] 3 09:24:24 Influenza, split virus, quadrivalent, PF 09/28/2021 completed Not Available [facility] 3 09:24:25 Influenza, split virus, quadrivalent, PF 09/18/2017 completed Not Available [facility] 3 09:24:25 Influenza, split virus, quadrivalent, PF 08/24/2015 completed Not Available [facility] 3 09:24:25 Past Encounters Encounter ID Performer Location Encounter Start Date Encounter Closed Date Diagnosis/Indication Diagnosis SNOMED-CT Code Diagnosis ICD10 Code Diagnosis IMO Codes Diagnosis Note [id number] Cassi Mann MD [facility] [address] [facility] [address] [facility] [place] [address] 06/14/2021 00:00:00 06/14/2021 08:35:57 [id number] Cassi Mann MD [facility] Primary [facility] [place] [address] [facility] [address] [place] [address] 07/13/2021 00:00:00 07/13/2021 08:33:46 [id number] Cassi Mann MD [facility] Primary [facility] [place] [address] [place] [address] 09/28/2021 00:00:00 09/28/2021 08:58:01 [id number] LOW Baez [facility] Primary [facility] [place] [address] [facility] [address] [place] [address] 03/24/2022 00:00:00 03/24/2022 10:01:32 [id number] LOW Baez [facility] Primary [facility] [place] [address] [facility] [address] [place] [address] 10/11/2022 00:00:00 10/11/2022 18:26:19 [id number] LOW Baez [facility] Primary [facility] [place] [address] [facility] [address] [place] [address] 01/03/2023 00:00:00 01/03/2023 13:39:01 [id number] Fara Ramirez, [facility] Pulmonolo gy Deven Wu [address] [place] [address] 04/04/2023 15:06:27 04/04/2023 17:20:43 Asthma 923330258 J45.909 No formal testingShe has been improved on Breztri, continue for nowInstruc catrachito on technique with aerochambe rShe is aware to rinse and spit after useContinu e albuterol PRN - discussed indication s for use.RTC in 5-6 weeks, PRN for concerns Dyspnea on exertion 6084 5006 R06.09 Multifacto ralCheck labs Wheezing 81935387 R06.2 Intermitte ntly persistent Chronic cough 89116108 R 05.3 Check CXR Gastroesop hageal reflux disease without esophagitis 704099380 K21.9 Start famotidine dailyDiscu ssed dietary modificati onsAvoid tight clothing.N o eating 2-3 hours prior to bedAvoid offending foods E levate head of bed while sleeping Marijuana user 689447892 F12.90 I have advised her to quit smoking [id number] Fara James, [employer] [facility] Pulmonolo gy Deven Wu [address] [place] [address] 07/04/2023 16:23:07 07/04/2023 17:16:31 Asthma 671399081 J45.909 ACT 20She has been improved on Breztri, continue for nowInstruc catrachito on technique with aerochambe rShe is aware to rinse and spit after useContinu e albuterol PRN - discussed indication s for use.PFT normalRTC after methacholi ne challenge Dyspnea on exertion 6084 5006 R06.09 Multifacto ralAll labs normal except IGE and eosinophil s Wheezing 29224947 R06.2 Intermitte ntly persistent , improvbed with Breztri Chronic cough 59176919 R 05.3 CXR with mild atelectasi s Gastroesop hageal reflux disease without esophagitis 931427037 K21.9 Famotidine dailyDiscu ssed dietary modificati onsAvoid tight clothing.N o eating 2-3 hours prior to bedAvoid offending foods E levate head of bed while sleeping Marijuana user 828764168 F12.90 I have advised her to quit smoking [id number] Cassi Mann MD [facility] Primary Care [address] [place] [address] 01/04/2024 15:51:52 01/07/2024 10:43:05 History of cholecystectomy 008382298 Z90.49 -removed 12/27 by emergent means by Dr. Randolph-Next f/u with surgeon is 01/09-still taking antibiotic s, famotidine -she declined medication s for enzymes-in cisions are healing well without signs of infection Exposure t o influenzavirus 440001116 Z20.828 -daughter recently diagnosed with flu-swab obtained-f josé b positive [id number] Cassi Mann MD [facility] [address] [place] [address] 01/18/2024 15:07:08 01/18/2024 15:49:33 Vaginitis 65035558 N76.0 Asthma 844219125 J45.90 9 [id number] Cassi Mann MD [facility] [address] [place] [address] 03/13/2024 10:59:52 03/13/2024 13:55:04 Gastroesophageal reflux disease without esophagitis 077134111 K21.9 in very poor control with significan t breakthrou gh symptomsco ntinue PPIGI referral given-will likely need EGDAvoid greasy/spi cy/acidic foodEat small, frequent mealsCall if any worsening symptoms including increased pain or blood in stools Insomnia 511658036 G47.0 0 trial of trazodone 100 mg po qhsreviewe d potential med s/e and how to use properlydo not drive or work for at least 8 hours after taking trazodones he is considerin g trying edible thc + cbd, do not combine trazodone with this Dizziness 635676637 R42 R53.83 R63.5 check labs Iron defic iency anemia 08918552 D50.9 check labs [id number] Neeru Gallegos MD [facility] General Surgery [address] [place] [address] 04/09/2024 14:38:23 04/09/2024 15:08:32 Gastroesophageal reflux disease 162756118 K21.9 [id number] Neeru Gallegos MD [facility] General Surgery [address] [place] [address] 06/04/2024 12:38:02 06/04/2024 12:53:16 Gastroesophageal reflux disease 296051689 K21.9 [id number] REI Montalvo-C [facility] [address] [place] [address] 07/28/2024 13:57:31 07/28/2024 14:29:21 Abnormal weight gain 542500035 R63.5 Will check labs as listed below Post-disch arge follow-up 486770295 Z09 Doing well at this time, symptoms resolved. Body mass index 40+ - severely obese 395504704 Z68.43 BMI 58.2Discus sed continue healthy diet and routine exercise, will discuss potential medication s after labs. Health Concerns Section Related Observation LastModified by Organization Detai ls LastModified Time None Recorded Concern Status LastModified by Organization Details LastModified Time None Recorded Advance Directives Directive None Recorded Payers Insurance Date Sequence Insurance Name Policy Number Policy Tong Covered Member ID Tong Member ID Guarantor Name 12/01/2024 1 [facility] - DOS ON OR AFTER 21 (MEDICAID REPLACEMENT - HMO) Oscar Nelson [id number] Oscar Nelson Notes Date Note Type Note Provider Name and Address Organization Details Recorded Time 01/18/20 24 text/htm l ROS as noted in the HPI was seen on 12/28 and 01/13 for nut allergy anaphylaxischaracterized by hives, dizziness, confusion, wheezing has epi-pen on hand has one day left of prednisone and 1 day of sulfa for UTI taking cetirizine daily has muscle ache/fatigue janay in legs Cassi Mann MD [address] [address], [place], [address], [facility] 02/07/2024 07:51:46 03/13/20 24 text/htm l ROS as noted in the HPI here c/o feeling wonky chest pain is now resolved off famotidine she can't get her GERD under control-she has reflux when bending or trying to work out. She has tried to eat small frequent meals but even water is causing heartburn. +sore throat, choking, burning throat she can't sleep well at ng, sleep eatingnot working out so she has gained weightbuspirone caused lightheadedness/dizziness-desouza s been meditatingmelatonin stops working after a few daysbenadryl causes insomnia does not feel overly anxious or depressed, but not sleeping takes zyrtec during the day for allergies but has itchy throat and allergy symptoms when it wears off she did restart her symbicort for asthma recently Cassi Mann MD [address], [place], [address], [facility] 03/15/2024 15:23:54 04/09/20 24 text/htm l ROS as noted in the HPI MEL WAS SEEN IN THE OFFICE TODAY FOR EVALUATION . PT IS C/O GERD SX. SHE REPORTS PYROSIS. PT LOST 50 LBS AND REGAINED 10 LBS BACK. SHE IS TAKING OMEPRAZOLE 40 MG . SHE IS S/P [employer] [facility] RECENTLY. Neeru Gallegos MD [address], [place], [address], [employer] [facility] [employer] 04/09/2024 15:09:56 06/04/20 24 text/htm l ROS as noted in the HPI OSCAR WAS SEEN IN THE OFFICE TODAY FOR A F/U. PT HAS GERD AND IS TAKING OMEPRAZOLE . SHE IS DOING WELL . FOLLOWING REFLUX DIET . STAYING AWAY FROM TRIGGERS . Neeru Gallegos MD [address], [place], [address], [employer] [employer] 06/04/2024 12:51:17 07/28/20 24 text/htm l ROS as noted in the HPI Patient is a 29 year old female that presents to the office for hospital follow up. Patient went to [facility] ER in [place] 2 weeks ago for chest pain, shortness [...] nausea vomiting and diarrhea at this time. REI Montalvo-Kevin [address], [place], [address], [facility] 07/28/2024 14:44:46 OBGyn Episode No OBEpisode recorded.
--- OUTSIDE RECORDS SUMMARY | 2025-10-14 10:13 | XMS_ITS | Data Portability ---
Author Organization [facility] [place] Address [address] [place] [address] [place] [address] Assessment Encounter Date Assessment Date Assessment LastModified [...] Procedures None recorded. Surgeries None recorded. Imaging MAMMO, diagnostic, unilateral - left breast, around 1/[address] [facility] (Mammography) , [address], [place], [address], 4 05:01:04 US, breast, unilateral [address] [facility] (Mammography) , [address], [place], [address], 4 05:01:04 US, pelvis 2022 023 [email or web address] [place] [address], [place], [address], 3 21:44:52 US, transvagina l 2022 023 [email or web address] [place], [address], [place], [address], 3 21:44:52 US, pelvis, complete 2022 023 [email or web address] [facility], [address], [place], [address], 3 19:54:57 US, pelvis 2021 022 [email or web address] [facility], [place], [address], 2 21:44:10 US, transvagina l 2021 022 [email or web address] [facility], [place], [address], 21:44:10 US, pelvis, complete 2021 022 [email or web address] [facility], [place], [address], 18:05:59 Medication Orders None recorded. Patient TargetsNo targets recorded. Patient InstructionsNo instructions recorded. Reason for Referral None Reported. Results Created Date Observation Date Name Description Value Unit Range Abnormal Flag Note LastModifiedBy Organization Detail LastModifiedTime 05/10/20 22 05/10/2022 CBC W/DIF F WBC 8.2 10'3/ uL 3.6-10 .2 Not Available [facility] (Lab) [address], [place], [address], 05/16/2022 18:27:37 05/10/20 22 05/10/2022 CBC W/DIF F RBC 4.60 10'6/ uL (based on docume nted legal sex) 4.10-5 .30 Not Available [facility] (Lab) [address], [place], [address], 05/16/2022 18:27:37 05/10/20 22 05/10/2022 CBC W/DIF F HGB 11.9 g/dL (based on docume nted legal sex) 11.9-1 5.8 Not Available [facility] (Lab) [address], [place], [address], 05/16/2022 18:27:37 05/10/20 22 05/10/2022 CBC W/DIF F HCT 38.9 % (based on docume nted legal sex) 37.4-4 8.3 Not Available [facility] (Lab) [address], [place], [address], 05/16/2022 18:27:37 05/10/20 22 05/10/2022 CBC W/DIF F MCV 85.0 fL 82.0-9 9.0 Not Available [facility] (Lab) [address], [place], [address], 05/16/2022 18:27:37 05/10/20 22 05/10/2022 CBC W/DIF F MCH 26.0 pg 27.0-3 3.0 low Not Available [facility] (Lab) [address], [place], [address], 05/16/2022 18:27:37 05/10/20 22 05/10/2022 CBC W/DIF F MCHC 31.0 g/dL 32.0-3 6.0 low Not Available [facility] (Lab) [address], [place], [address], 05/16/2022 18:27:37 05/10/20 22 05/10/2022 CBC W/DIF F RDW 16.0 % 11.0-1 5.0 high Not Available [facility] (Lab) [address], [place], [address], 05/16/2022 18:27:37 05/10/20 22 05/10/2022 CBC W/DIF F plt 222 10'3/ uL 150-45 0 Not Available [facility] (Lab) [address] [facility], [place], [address], 05/16/2022 18:27:37 05/10/20 22 05/10/2022 CBC W/DIF F MPV 12.1 fL 9.8-12 .7 Not Available [facility] (Lab) [address] [facility], [place], [address], 05/16/2022 18:27:37 05/10/20 22 05/10/2022 CBC W/DIF F NRBC's 0.00 % 0 Not Available [facility] (Lab) [address] [facility], [place], [address], 05/16/2022 18:27:37 05/10/20 22 05/10/2022 CBC W/DIF F absolute NRBCs 0.0 10'3/ uL 0 Not Available [facility] (Lab) [address] [facility], [place], [address], 05/16/2022 18:27:37 05/10/20 22 05/10/2022 CBC W/DIF F neutrophils 66.0 % 37.0-7 2.0 Not Available [facility] (Lab) [address] [facility], [place], [address], 05/16/2022 18:27:37 05/10/20 22 05/10/2022 CBC W/DIF F lymphocytes 21.0 % 16.0-4 8.0 Not Available [facility] (Lab) [address] [facility], [place], [address], 05/16/2022 18:27:37 05/10/20 22 05/10/2022 CBC W/DIF F monocytes 6.0 % 4.0-14 .0 Not Available [facility] (Lab) [address] [facility], [place], [address], 05/16/2022 18:27:37 05/10/20 22 05/10/2022 CBC W/DIF F eosinophils 5.0 % 0.0-9. 0 Not Available [facility] (Lab) [address] [facility], [place], [address], 05/16/2022 18:27:37 05/10/20 22 05/10/2022 CBC W/DIF F basophils 1.0 % 0.0-2. 0 Not Available [facility] (Lab) [address] [facility], [place], [address], 05/16/2022 18:27:37 05/10/20 22 05/10/2022 CBC W/DIF F immature granulocytes 1.0 % no define d refere nce range Not Available [facility] (Lab) [address] [facility], [place], [address], 05/16/2022 18:27:37 05/10/20 22 05/10/2022 CBC W/DIF F absolute neutrophils 5.4 10'3/ uL 1.1-6. 0 Not Available [facility] (Lab) [address] [facility], [place], [address], 05/16/2022 18:27:37 05/10/20 22 05/10/2022 CBC W/DIF F absolute lymphocytes 1.7 10'3/ uL 0.7-3. 4 Not Available [facility] (Lab) [address] [facility], [place], [address], 05/16/2022 18:27:37 05/10/20 22 05/10/2022 CBC W/DIF F absolute monocytes 0.5 10'3/ uL 0.3-1. 0 Not Available [facility] (Lab) [address] [facility], [place], [address], 05/16/2022 18:27:37 05/10/20 22 05/10/2022 CBC W/DIF F absolute eosinophils 0.4 10'3/ uL 0.0-0. 6 Not Available [facility] (Lab) [address] [place], [address], 05/16/2022 18:27:37 05/10/20 22 05/10/2022 CBC W/DIF F absolute basophils 0.1 10'3/ uL 0.0-0. 1 Not Available [facility] (Lab) [address] , [place], [address], 05/16/2022 18:27:37 05/10/20 22 05/10/2022 CBC W/DIF [...] resul ts are expec catrachito. Not Available [facility] (Lab) [address], [place], [address], 05/16/2022 18:27:37 05/10/20 22 05/10/2022 HEMOG LOBIN [...] >8.0% Actio n sugge sted Not Available [facility] (Lab) [address], [place], [address], 05/16/2022 18:27:37 05/10/20 22 05/10/2022 DHEA SULFA TE DHEA-sulfate 49 ug/dL Femal e Range s Age(y ) Range (ug/d L) 10-15 34-28 0 15-20 65-36 8 20-25 148-4 07 25-35 99-34 0 35-45 61-33 7 45-55 35-25 6 55-65 19-20 5 65-75 9-246 > 75 12-15 4 Not Available [facility] (Lab) [address] [facility], [place], [address], 05/16/2022 18:27:38 05/10/20 22 05/10/2022 CRP, HIGH SENSI TIVIT Y (HSCR P) C-reactive protein, high sensitivity 15.83 mg/L 0.00-3 .00 high Risk Accor ding To AHA/C DC Guide lines : < 1.0 mg/L Low Cardi ovasc ular Risk 1.0-3 .0 mg/L [place] Cardi ovasc ular Risk > 3.0 mg/L High Cardi ovasc ular Risk > 10.0 mg/L Acute Infla mmati on Not Available [facility] (Lab) [address] [facility], [place], [address], 05/16/2022 18:27:38 05/10/20 22 05/10/2022 TSH, REFLE X FREE T4 TSH 1.73 uIU/m L 0.30-5 .33 Not Available [facility] (Lab) [address] [facility], [place], [address], 05/16/2022 18:27:38 05/10/20 22 05/10/2022 HUMAN SEX HORMO NE GOVIND NG GLOBU SHEREEN sex hormone binding globulin 33.5 nmole s/L 18.2-1 35.5 Not Available [facility] (Lab) [address] [facility], [place], [address], 05/16/2022 18:27:39 05/10/20 22 05/10/2022 VITAM IN [...] of Toxic ity: >150 ng/mL Not Available [facility] (Lab) [address] [place], [address], 05/16/2022 18:27:39 05/10/20 22 05/10/2022 ESTRA DIOL estradiol 5.0 pg/mL This assay was perfo rmed using [employer] ratio n reage nts and test kits. Value s obtai jg with other assay metho ds or kits canno t be used [facility] . Femal e Estra diol Range s: Folli cular phase 12.4- 233 pg/mL Ovula tion phase 41.0- 398 pg/mL Lutea l phase 22.3- 341 pg/mL Postm enopa usal< 5-138 pg/mL Healt hy Pregn ant Women 1st Trime ster1 54-32 43 pg/mL 2nd Trime ster1 561-2 1280 pg/mL 3rd Trime ster8 525-> 14718 pg/mL Not Available [facility] (Lab) [address] [facility], [place], [address], 05/16/2022 18:27:39 05/10/20 22 05/10/2022 PROLA CTIN prolactin, total 22.10 NG/mL 4.79-2 3.30 This assay was perfo rmed using [employer] reage nts and test kits. Value s obtai jg with other assay metho ds or kits canno t be used [facility] . Not Available [facility] (Lab) [address] [place], [address], 05/16/2022 18:27:40 05/10/20 22 05/10/2022 LH (LUTE NIZIN G HORMO NE) LH 5.0 mIU/m L This assay was perfo rmed using [employer] reage nts and test kits. Value s obtai jg with other assay metho ds or kits canno t be used [facility] [place] . Femal es Mid-F ollic ular: 2.4-1 2.6 mIU/m L Mid-C ycle: 14.0- 95.6 mIU/m L Mid-L uteal : 1.0-1 1.4 mIU/m L Postm enopa use: 7.7-5 8.5 mIU/m L Not Available [facility] (Lab) [address] [facility], [place], [address], 05/16/2022 18:27:40 05/10/20 22 05/10/2022 FSH FSH 5.7 mIU/m L This assay was perfo rmed using [employer] reage nts and test kits. Value s obtai jg with other assay metho ds or kits canno t be used [facility] . Femal es Folli cular : 3.5-1 2.5 mIU/m L Ovula tion: 4.7-2 1.5 mIU/m L Lutea l: 1.7-7 .7 mIU/m L Postm enopa use: 25.8- 134.8 mIU/m L Not Available [facility] (Lab) [address] [facility], [place], [address], 05/16/2022 18:27:40 05/10/20 22 05/10/2022 PROGE STERO [...] Trime ster5 8.70- 214.0 0 Not Available [facility] (Lab) [address] [place], [address], 05/16/2022 18:27:41 05/10/20 22 05/10/2022 LIPID PANEL ,AMA (LDL- CALC) total cholesterol 218 mg/dL 0-199 high Not Available [facility] (Lab) [address] [facility], [place], [address], 05/16/2022 18:27:41 05/10/20 22 05/10/2022 LIPID PANEL ,AMA (LDL- CALC) triglyceride s 571 mg/dL 0.00-1 50.00 high NCEP Refer ence Value s for Trigl yceri jessica: Sonia l: <150 mg/dL [place] High: 150 - 199 mg/dL High: 200 - 499 mg/dL Very High: >/= 500 mg/dL Not Available [facility] (Lab) [address] [place], [address], 05/16/2022 18:27:41 05/10/20 22 05/10/2022 LIPID PANEL ,AMA (LDL- CALC) HDL cholesterol 48 mg/dL >40 Not Available [facility] (Lab) [address] [place], [address], 05/16/2022 18:27:41 05/10/20 22 05/10/2022 LIPID PANEL ,AMA (LDL- CALC) LDL cholesterol . Trigl yceri jessica >400; Unabl e to calcu late LDL. Cutof f value s recom joaquín d by the Natio nal Sonali stero l Educa tion Progr am: [place] ABLE: Sonali stero l <200 mg/dL LDL <100 mg/dL BORDE RLINE : Sonali stero l 200-2 39 mg/dL LDL 101-1 59 mg/dL HIGHE R RISK: Sonali stero l >240 mg/dL LDL >160 mg/dL , HDL <40 mg/dL Not Available [facility] (Lab) [address] [place], [address], 05/16/2022 18:27:41 05/10/20 22 05/10/2022 LIPID PANEL ,AMA (LDL- CALC) non-HDL cholesterol 170 mg/dL no refere nce range A reaso nable goal for non-H DL sonali stero l is one that is 30 mg/dL highe r than the LDL sonali stero l goal. Not Available [facility] (Lab) [address] [facility], [place], [address], 05/16/2022 18:27:41 05/10/20 22 05/10/2022 LIPID PANEL ,AMA (LDL- CALC) chol/HDL ratio 4.5 . 0.0-5. 0 Not Available [facility] (Lab) [address] [facility], [place], [address], 05/16/2022 18:27:41 05/10/20 22 05/10/2022 CMP(C OMPRE HENSI VE METAB OLIC PANEL ) sodium 141 mmol/ L 133-14 6 Not Available [facility] (Lab) [address] [facility], [place], [address], 05/16/2022 18:27:42 05/10/20 22 05/10/2022 CMP(C OMPRE HENSI VE METAB OLIC PANEL ) potassium 3.9 mmol/ L 3.5-5. 1 Not Available [facility] (Lab) [address] [place], [address], 05/16/2022 18:27:42 05/10/20 22 05/10/2022 CMP(C OMPRE HENSI VE METAB OLIC PANEL ) chloride 106 mmol/ L 98-107 Not Available [facility] (Lab) [address] [place], [address], 05/16/2022 18:27:42 05/10/20 22 05/10/2022 CMP(C OMPRE HENSI VE METAB OLIC PANEL ) carbon dioxide 24 mmol/ L 21-31 Not Available [facility] (Lab) [address] [place], [address], 05/16/2022 18:27:42 05/10/20 22 05/10/2022 CMP(C OMPRE HENSI VE METAB OLIC PANEL ) anion gap 11 mmol/ L 4-13 Not Available [facility] (Lab) [address] [facility], [place], [address], 05/16/2022 18:27:42 05/10/20 22 05/10/2022 CMP(C OMPRE HENSI VE METAB OLIC PANEL ) blood urea nitrogen 17 mg/dL 7-25 Not Available [facility] (Lab) [address] [facility], [place], [address], 05/16/2022 18:27:42 05/10/20 22 05/10/2022 CMP(C OMPRE HENSI VE METAB OLIC PANEL ) creatinine 0.73 mg/dL 0.60-1 .30 Not Available [facility] (Lab) [address] [facility], [place], [address], 05/16/2022 18:27:42 05/10/20 22 05/10/2022 CMP(C OMPRE HENSI VE METAB OLIC PANEL ) egfrcr (CKD-epi 2020) >90 mL/mi n/1.7 3_m2 >=60 Not Available [facility] (Lab) [address] [facility], [place], [address], 05/16/2022 18:27:42 05/10/20 22 05/10/2022 CMP(C OMPRE HENSI VE METAB OLIC PANEL ) calcium 8.8 mg/dL 8.3-10 .5 Not Available [facility] (Lab) [address] [facility], [place], [address], 05/16/2022 18:27:42 05/10/20 22 05/10/2022 CMP(C OMPRE HENSI VE METAB OLIC PANEL ) glucose 123 mg/dL 70-100 high Not Available [facility] (Lab) [address] [facility], [place], [address], 05/16/2022 18:27:42 05/10/20 22 05/10/2022 CMP(C OMPRE HENSI VE METAB OLIC PANEL ) protein, total 5.7 g/dL 6.4-8. 3 low Not Available [facility] (Lab) [address] [facility], [place], [address], 05/16/2022 18:27:42 05/10/20 22 05/10/2022 CMP(C OMPRE HENSI VE METAB OLIC PANEL ) albumin 3.7 g/dL 3.5-5. 0 Not Available [facility] (Lab) [address] [facility], [place], [address], 05/16/2022 18:27:42 05/10/20 22 05/10/2022 CMP(C OMPRE HENSI VE METAB OLIC PANEL ) ALT 20 units /L 9-43 Not Available [facility] (Lab) [address] [facility], [place], [address], 05/16/2022 18:27:42 05/10/20 22 05/10/2022 CMP(C OMPRE HENSI VE METAB OLIC PANEL ) alkaline phosphatase 63 units /L 34-104 Not Available [facility] (Lab) [address] [facility], [place], [address], 05/16/2022 18:27:42 05/10/20 22 05/10/2022 CMP(C OMPRE HENSI VE METAB OLIC PANEL ) AST 20 units /L 13-39 Not Available [facility] (Lab) [address] [facility], [place], [address], 05/16/2022 18:27:42 05/10/20 22 05/10/2022 CMP(C OMPRE HENSI VE METAB OLIC PANEL ) bilirubin, total 0.6 mg/dL 0.2-1. 2 Not Available [facility] (Lab) [address] [place], [address], 05/16/2022 18:27:42 05/10/20 22 05/10/2022 TESTO STERO NE, FREE( DIALY SIS) AND TOTAL (LC/M S/MS) testosterone , total 13 NG/dL 2-45 For addit ional billier kindraelaine plascencia e refer to http: //tracey kangque stdia gnost ics.c om/fa q/Tot Deloris Guadarrama [facility] (This link is being provi ded for infor imani nal/ educa harjinder l purpo ses only. ) This test was devel oped and its bertha tical perfo rmanc e romero cteri stics have been deter mined by [employer]. It has not been clear ed or appro tristan by the FDA. This assay has been valid ated pursu ant to the CLIA regul ation s and is used for clini arun purpo ses. Not Available [facility] (Lab) [address] [place], [address], 05/16/2022 18:27:42 05/10/20 22 05/10/2022 TESTO STERO NE, FREE( DIALY SIS) AND TOTAL (LC/M S/MS) testosterone , free 2.2 pg/mL 0.1-6. 4 This test was devel oped and its bertha tical perfo rmanc e romero cteri stics have been deter mined by [employer]. It has not been clear ed or appro tristan by the FDA. This assay has been valid ated pursu ant to the CLIA regul ation s and is used for clini arun purpo ses. Perfo rming Organ izati on Antonio diallo n: Site ID: [id number] Name: [employer]-[facility] Addre ss: [id number] [place] [place] [address] Direc tor: Melanie ely M.D. Not Available [facility] (Lab) [address] [place], [address], 05/16/2022 18:27:42 05/10/20 22 05/10/2022 17-OH PROGE [...] stics have been deter mined by [facility] [place] . It has not been clear ed or appro tristan by FDA. This assay has been valid ated pursu ant to the CLIA regul ation s and is used for clini arun purpo ses. Perfo rming Organ izati on Infor matio n: Site ID: [id number] Name: Stephanie horowitz s/[facility] [place] , Addre ss: [id number] [address] [facility] [address] Direc tor: Delilah alvarez MD,Ph D,DEYSI Not Available [facility] (Lab) [address] [facility], [place], [address], 05/16/2022 18:27:42 05/24/20 22 05/24/2022 US, pelvi s No observ ation record ed. [email or web address] [facility] [address], [place], [address], 05/24/2022 13:22:47 05/24/20 22 05/24/2022 US, trans maurice al No observ ation record ed. [email or web address] [facility] [address], [place], [address], 05/24/2022 13:22:58 05/24/20 22 05/24/2022 US, pelvi s No observ ation record ed. [email or web address] [address], [place], [address], 05/29/2022 15:12:01 07/06/20 23 07/06/2023 US, pelvi s No observ ation record ed. [email or web address] [facility] [address], [place], [address], 07/06/2023 15:14:21 07/06/20 23 07/06/2023 US, trans vagin al No observ ation record ed. [email or web address] [facility] [address], [place], [address], 07/06/2023 15:14:13 07/06/20 23 07/06/2023 US, pelvi s No observ ation record ed. [email or web address] [address], [place], [address], 07/12/2023 15:10:12 02/11/20 24 02/11/2024 imagi ng/di agnos tic resul t No observ ation record ed. [address] [address], [place], [address], 02/13/2024 00:18:39 02/15/20 24 02/11/2024 imagi ng/di agnos tic resul t No observ ation record ed. [address], [address], 02/27/2024 11:41:09 Result Notes None recorded. Problems Name Problem SNOMED Code Status Onset Date Resolution Date Notes Provider Name and Address Organization Details Recorded Time Body mass index 40+ - severely obese 370322420 Completed antenata l testing at 34 weeks - sheet given to MA to ask pt Madelyn Bobo [facility], [place] - [facility] 12:31:24 Hypereme sis gravidar 94945732 Completed lost 13# by ROMEL Joshi Bohnenstie hl null, [facility] 2 12:31:25 Hypereme sis gravidar um 40436108 Active lost 13# by ROMEL saeedcatherine Madelyn Hintonnstie hl null, [facility] 2 12:31:25 Lilianaan a user [id number] Active Madelyn Hintonnstie hl null, [facility] 2 12:31:25 Past pregnanc y history of gestatio nal hyperten kiara 448761545 Active ASA 162mg, CMP WNL Madelyn Samayoanenstie hl null, [facility] 2 12:31:25 Body mass index 40+ - severely obese 494175895 Active antenata l testing at 34 weeks - sheet given to MA to ask pt Madelyn Hintonnstie hl null, [facility] 2 12:31:24 Lilianaan a user [id number] Completed Madelyn Bohnenstie hl null, [facility] 2 12:31:25 Past pregnanc y history of gestatio nal hyperten kiara 643310596 Completed ASA 162mg, CMP WNL Madelyn Bohnenstie hl null, [facility] 2 12:31:25 Asthma 910387561 Completed 11/08 - pt reports using home nebulize r nightly due to possible COVID and/or RSV Madelyn Samayoanenstie hl null, [facility] 2 12:31:24 Screenin g for malignan t neoplasm of cervix Completed 201406/27/2021 Encounte r for screenin g for malignan t neoplasm of cervix;R ecorded Elsewher e: No Locat ion: Lance troy [facility] S ource: EHR [employer] Techn[employer] henry: N Practi ce ID: [id number] Pedro lable Time: 01:00:00 PM Danuta olivares, [facility] 17:29:09 Gestatio n less than 9 weeks 536486316 Completed 201406/27/2021 Less than 8 weeks gestatio n of pregnanc y;Practi ce ID: 0001 Danuta olivares, [facility] 17:29:39 Pregnanc y detectio n examinat ion Completed 201406/27/2021 Encounte r for pregnanc y test, result positive ;Recorde d Elsewher e: No Locat ion: [facility] S ource: E[employer] henry: N Practi ce ID: [id number] Pedro lable Time: 04:30:00 PM Danuta olivares, [facility] 17:29:46 Normal pregnanc y in multigra juju [id number] 4106 Completed 201506/27/2021 Encounte r for supervis ion of other normal pregnanc y, third trimeste r;Record ed Elsewher e: No Locat ion: [facility] S ource: E[employer] henry: N Practi ce ID: [id number] Pedro lable Time: 02:00:00 PM Danuta olivares, [facility] 17:29:[address] Concept Completed 201506/27/2021 Maternal care for excess growth, first trimeste r, unsp;Pra ctice ID: 0001 Danuta olivares, [facility] 17:29:20 Gestatio n period, 35 weeks 40190761 Completed 201506/27/2021 35 weeks gestatio n of pregnanc y;Practi ce ID: 0001 Danuta olivares, [facility] 17:29:49 Vomiting of pregnanc y 78913939 Completed 201506/27/2021 Late vomiting of pregnanc y;Practi ce ID: 0001 Danuta olivares, [facility] 17:29:51 Complica tion of pregnanc y, childbir th and/or puerperi 619427091 Completed 201506/27/2021 Oth dis of the bld/bld- form org/immu n mechnsm comp the puerp;Pr actice ID: 0001 Danuta olivares, [facility] 17:29:11 Rhinitis of pregnanc y [id number] 379927 Completed 201506/27/2021 Diseases of the resp sys comp pregnanc y, third trimeste r;Practi ce ID: 0001 Danuta olivares, [facility] 17:28:57 Pregnanc y-induce d hyperten kiara Completed 201506/27/2021 Gestatio nal htn w/o signific ant proteinu dinh, third trimeste r;Practi ce ID: 0001 Danuta olivares, [facility] 17:29:12 Infectio n screenin g Completed 201606/27/2021 Encounte r for screenin g for oth infec/pa rastc diseases ;Recorde d Elsewher e: No Locat ion: [facility] S ource: EHR [employer] henry: N Practi ce ID: [id number] Pedro lable Time: 02:15:00 PM Danuta olivares, [facility] 1 17:29:21 Uterine size for dates discrepa ncy Completed 201606/27/2021 Uterine size-jose j e discrepa ncy, first trimeste r;Record ed Elsewher e: No [facility]: E[facility] [employer] henry: N Practi ce ID: [id number] Pedro lable Time: 03:00:00 PM Danuta olivares, [facility] 17:29:[address] Concept Completed 201606/27/2021 Encntr for general adult medical exam w/o abnormal findings ;Recorde d Elsewher e: No Locat ion: [facility] sydni [facility] S ource: EHR [employer] henry: N Practi ce ID: [id number] Pedro lable Time: 02:15:00 PM Danuta olivares, [facility] 17:29:23 Nausea and vomiting [id number] Completed 201606/27/2021 Nausea with vomiting ;Recorde d Elsewher e: No Locat ion: [facility] S ource: EHR [employer] henry: N Practi ce ID: [id number] Pedro lable Time: 02:15:00 PM Danuta olivares, [facility] 17:29:06 Gestatio n period, 9 weeks [id number] Completed 201606/27/2021 9 weeks gestatio n of pregnanc y;Practi ce ID: [id number] Danuta olivares, [facility] 17:29:52 Syphilis test finding [id number] Completed 201606/27/2021 Encntr screen for infectio ns w sexl mode of transmis s;Record ed Elsewher e: No Locat ion: [facility] S ource: EHR [employer] henry: N Practi ce ID: 0001 Pedro lable Time: 02:15:00 PM Danuta olivares, [facility] 17:29:32 Secondar y amenorrh ea [id number] Completed 201606/27/2021 Secondar y amenorrh ea;Recor ded Elsewher e: No Locat ion: [facility] S ource: EHR [employer] Technician henry: N Practi ce ID: 0001 Pedro lable Time: 02:15:00 PM Danuta olivares, [facility] 17:29:01 Pregnanc y, childbir th and puerperi um finding Completed 201606/27/2021 Oth pregnanc y related conditio ns, third trimeste r;Practi ce ID: 0001 Danuta Chester null, [facility] 17:29:18 Gestatio n period, 37 weeks [id number] Completed 201606/27/2021 37 weeks gestatio n of pregnanc y;Practi ce ID: 0001 Danuta Briggs null, [facility] 17:29:41 Uterine size for dates discrepa ncy Completed 201606/27/2021 Uterine size-jose j e discrepa ncy, third trimeste r;Practi ce ID: 0001 Danuta olivares, [facility] 17:29:15 Severe obesity complica ting pregnanc y [id number] 107589 Completed 201606/27/2021 Obesity complica ting pregnanc y, third trimeste r;Practi ce ID: 0001 Danuta olivares, [facility] 17:29:03 Gestatio n period, 39 weeks [id number] Completed 201606/27/2021 39 weeks gestatio n of pregnanc y;Practi ce ID: 0001 Danuta Briggs null, [facility] 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 17:28:59 Single live from singleto n pregnanc y [id number] Completed 201606/27/2021 Single live ;Pr actice ID: 0001 Danuta olivares, [facility] 17:29:08 Gestatio n period, 40 weeks [id number] Completed 201606/27/2021 40 weeks gestatio n of pregnanc y;Practi ce ID: 0001 Danuta olivares, [facility] 17:29:44 Lochia finding Completed 201606/27/2021 Encounte r for routine postpart um follow-u p;Practi ce ID: 0001 Danuta olivares, [facility] 17:29:29 Procedur e by method Completed 201606/27/2021 Encounte r for other general counseli ng and advice on contrace ption;Re corded Elsewher e: No Locat ion: [facility] S ource: EHR [employer] Technician henry: N Practi ce ID: 0001 Pedro lable Time: 04:15:00 PM Danuta olivares [facility] 17:29:27 Furuncle [id number] Completed 201606/27/2021 Boil;Rec orded Elsewher e: No Locat ion: [facility] S ource: EHR [employer] Technician henry: N Practi ce ID: 0001 Pedro lable Time: 02:45:00 PM Danuta olivares [facility] 17:29:[address] Concept Completed 201706/27/2021 Encntr for tube winder hand exam (general ) (routine ) w/o abn findings ;Practic e ID: 0001 Danuta olivares [facility] 17:29:25 Body mass index 30+ - obesity 158702543 Completed 201706/27/2021 Body mass index (BMI) 50-59.9 , adult;Pr actice ID: 0001 Danuta Briggs null, [facility] 17:29:05 Pregnanc y [id number] Completed 202002/07/2022 Madelyn Bobo null, [facility] 2 12:31:33 COVID-19 610696871 Completed 2020 serial growth and asa Madelyn Bobo hl null, [facility] 2 12:31:24 Problem Notes None recorded. Procedures Surgical History Date Name Laterality Status Provider Name and Address Organization Details Recorded Time 12/27/19 24 cholecystectomy completed [facility] 01/22/2024 11:13:59 10/08/20 23 repair of rectal prolapse completed [facility] 01/22/2024 11:15:03 07/25/20 21 Date of Last Pap Smear completed [facility] 11/30/2021 11:15:55 11/12/19 08 extraction of wisdom tooth completed [facility] 01/30/2022 13:14:18 11/12/19 07 Unlisted px hands/fingers completed [facility] 11/17/2021 17:35:02 11/12/19 06 Unlisted px ant segment eye completed [facility] 11/17/2021 17:35:30 11/12/19 05 tonsillectomy completed Danuta Briggs [facility] 06/27/2021 17:35:36 Imaging Results None recorded. Procedure Notes None recorded. Medical Equipment None Reported. Allergies Allergen ID Allergen Name Allergen Category Reaction Reaction Severity Criticality Documentation Date Start Date Code Code System Note Provider Name and Address Organization Details Recorded Time 54335 codeine medicatio n hives Not available Not available 10/29/2020 2670 RxNorm & ANY OPIAT ES Cassy olivares, [facility] 4 11:16:52 37868 cat dander environme nt Not available Not available Not available 01/22/2024 Cassy olivares, [facility] 4 11:16:44 Medications Name Sig Start [...] Prescrib ed Elsewher e: No Locat ion: [facility] M odify By: [email or web address] z Encoun ter DateTime : 04/17/20 16 10:38:25 AM Not [...] Prescrib ed Elsewher e: No [facility] By: trell morgan DateTime : 11/22/19 17 03:00:00 PM Not Available Not Available Not Available sertralin e 100 mg tablet 06/29 completed Not Available Not Available Not Available Nexium 40 mg capsule,d elayed release take 1 capsule by oral route every day 11/22 completed Prescrib ed Elsewher e: No Locat ion: [facility] odify By: kt patel DateTime : 02/08/20 16 04:29:19 PM Not [...] Prescrib ed Elsewher e: No [facility]at [facility] odify By: kt astudillo Encoun ter DateTime : 11/30/19 16 04:21:37 PM Not Available Not Available Not Available Flagyl 500 mg tablet take 1 tablet by oral route every 12 hours 06/08 completed Prescrib ed Elsewher e: No [facility] odify By: jamison brizuela DateTime : 11/27/19 [...] Prescrib ed Elsewher e: No Locat ion: [facility] odify By: trell Howe r DateTime : 12/12/19 17 03:00:00 PM Not Available Not Available Not Available prednison e 50 mg tablet 05/10 completed Not Available Not Available Not Available promethaz ine 25 mg tablet take 1 tablet by oral route every 4 - 6 hours as needed 11/22 completed Prescrib ed Elsewher e: No Locat ion: [facility] odify By: kt z Yumiko ter DateTime : 10/06/20 15 01:12:02 PM Not [...] Prescrib ed Elsewher e: Yes [facility] odify By: trell Howe r DateTime : [...] Prescrib ed Elsewher e: Yes Loca tion: [facility] odify By: juice Howe r DateTime : [...] ed Elsewher e: Yes Loca tion: [facility] odify By: juice Howe r DateTime : 11/28/19 18 02:30:00 PM Not Available Not Available Not Available NuvaRing 0.12 mg-0.015 mg/24 hr vaginal insert 1 vaginal ring by vaginal route every month leave in place for 3 weeks, remove for 1 week 06/27 completed Prescrib ed Elsewher e: No Locat ion: [facility] odify By: ana rosa sidhuuntcarlita DateTime : 11/28/19 18 02:30:00 PM Not Available Not Available Not Available Zithromax 500 mg tablet take 2 tablet by oral route once 06/08 completed Prescrib ed Elsewher e: No Locat ion: [facility] odify By: jamison sidhuunter DateTime : 11/23/19 17 02:19:42 PM Not Available Not Available Not Available escitalop sayda 10 mg tablet take 1 tablet by oral route every day 11/22 completed Prescrib ed Elsewher e: Yes Loca tion: [facility] odify By: kt patel DateTime : 09/01/20 15 01:00:00 PM Not Available Not Available Not Available iron ER 325 mg (65 mg iron) capsule,e xtended release take 1 Tablet by Oral route 3 times every day 07/19 completed Prescrib ed Elsewher e: Yes Loca tion: [facility] odify By: trell Encounte r DateTime : 11/22/19 17 02:15:00 PM Not Available Not Available Not Available cyclobenz aprine 5 mg tablet take 1 tablet by oral route 3 times every day as needed 07/19 completed Prescrib ed Elsewher e: No Locat ion: [facility] odify By: trell Encounte r DateTime : 01/12/20 17 12:03:41 PM Not Available Not Available Not Available Hair,Skin and Nails tablet 06/27 completed Prescrib ed Elsewher e: Yes Loca tion: [facility] odify By: juice Encounte r DateTime : [...] Prescrib ed Elsewher e: No [facility]ify By: ana rosa sidhuunter DateTime : 11/22/19 17 02:15:00 PM Not Available Not Available Not Available OptiChamb carlita Cira VHC spacer 01/21 completed Not Available Not Available Not Available Breztri Aerospher e 160 mcg-9mcg- 4.8mcg/ac tuation HFA aerosol inhaler 01/21 completed Not Available Not Available Not Available Vitals Date Recorded Body height Body mass index (BMI) Body weight Systolic And Diastolic Provider Name and Address Organization Details Last Updated DateTime 01/22/2024 162.56 cm 51 kg/m2 105242.93 g 141/90 mm[Hg] Cassy Henriquez [facility] 01/22/2024 11:13:44 Date Recorded Body height Body mass index (BMI) Body weight Systolic And Diastolic Provider Name and Address Organization Details Last Updated DateTime 05/10/2022 162.56 cm 54.9 kg/m2 142092.56 g 114/79 mm[Hg] Jonna Alonso [facility] 05/10/2022 09:36:27 Date Recorded Body height Body mass index (BMI) Body weight Systolic And Diastolic Provider Name and Address Organization Details Last Updated DateTime 06/29/2023 162.56 cm 54.6 kg/m2 619751.37 g 138/86 mm[Hg] Jonna Alonso [facility] 06/29/2023 11:21:13 Social History Question Answer Notes LastModified by Organizat ion Details LastModified Time Tobacco Smoking Status Never Smoker Hernan olivares [facility] 09/26/2021 10:23:07 Are You Blind Or Do You Have Difficulty Seeing? No [email or web address] Information n ot available 11/18/2021 What Is Your Level Of Caffeine Consumption? Occasional [email or web address] Information not available 11/18/2021 In The 14 Days Before Symptom Onset, Have You Had Close Contact With A Laboratory-confirm ed COVID-19 While That Case Was Ill? No [email or web address] Information n ot available 11/18/2021 In The 14 Days Before Symptom Onset, Have You Had Close Contact With A Person Who Is Under Investigation For COVID-19 While That Person Was Ill? No [email or web address] Information not available 11/18/2021 Have You Been To An Area Known To Be High Risk For COVID-19? No [email or web address] Information not available 11/18/2021 Are You Deaf Or Do You Have Serious Difficulty Hearing? No [email or web address] Information not available 11/18/2021 What Type Of Diet Are You Following? REGULAR [email or web address] Information n ot available 11/18/2021 Which Illicit Or Recreational Drugs Have You Used? THC [email or web address] Information not available 09/26/2021 Have You Ever Been Counseled For Unhealthy Alcohol Use? No [email or web address] Information not available 11/18/2021 Do You Use Your Seat Belt Or Car Seat Routinely? Yes [email or web address] Information not available 11/18/2021 Do You Have Smoke And Carbon Monoxide Detectors In Your Home? Yes [email or web address] Information not available 11/18/2021 Do You Use Sunscreen Routinely? Yes [email or web address] Information not available 11/18/2021 Has Tobacco Cessation Counseling Been Provided? No [email or web address] Information not available 11/18/2021 Have You Used IV Drugs? No [email or web address] Information not available 11/18/2021 Do You Have Difficulty Walking Or Climbing Stairs? No [email or web address] Information not available 12/23/2021 Sex: Unknown Functional Status Question Answer Note LastModified by Organizat ion Details LastModified Time Do you use any illicit or recreational drugs? Yes [email or web address] Information not available 06/28/2021 Do you or have you ever used any other forms of tobacco or nicotine? No [email or web address] Information not available 11/18/2021 What is your level of alcohol consumption? Occasional [email or web address] Information not available 11/18/2021 Are you able to walk independently without assistance or assistive devices? YESWOREST [email or web address] Information not available 11/18/2021 Are you able to care for yourself independently? Yes [email or web address] Information not available 12/23/2021 Do you have difficulty dressing, bathing, grooming, or toileting? No Information not available 12/23/2021 What is your exercise level? Occasional [email or web address] Information not available 11/18/2021 Mental Status Question Answer Note LastModified by Organization D etails LastModified Time Do you feel stressed (tense, restless, nervous, or anxious, or unable to sleep at night)? [id number] [email or web address] Information not available 11/18/2021 Family History Relationship Description Onset Age of this Age Resolved Age Notes LastModified by Organization Details LastModified Time Father No current problems or disability [email or web address] Not available 01/21 10:40:34 Mother No current problems or disability [email or web address] Not available 01/21 10:40:34 Mother Anxiety disorder [email or web address] Not available 2020 12:56:18 Mother Depressive disorder [email or web address] Not available 2020 12:56:18 Maternal Grandmother Anxiety disorder [email or web address] Not available 2020 12:56:18 Maternal Grandmother Depressive disorder [email or web address] Not available 2020 12:56:18 Medical History Condition Response Allergies (Food, seasonal, environmental ) Y Other Y Blood Transfusion N Drug/Latex Allergies/Reactions Y Breast Cancer N Dermatologic Disorders N Lung Disease Y Defects or Inherited Disease N Breast Problem N Gestational Diabetes N Hematologic disorders N Anesthesia Complications N History of STI N Deep Vein Thrombosis N Polycystic ovary syndrome Y Anxiety Disorder Y Autoimmune disease N Arthritis N Infertility N Polyps N Acid Reflux (GERD) Y History of abnormal pap N Cancer N Stroke N Varicosities N Neurologic/Epilepsy Y Endometriosis N High Cholesterol N Headaches N Fibromyalgia N Kidney Disease N Heart Problems N Kidney or Bladder Problems N Thyroid Problems N GI Problems N Eating Disorder [...] ICD10 Code Diagnosis IMO Codes Diagnosis Note [id number] Alice Stratton CNM [facility] [address],[place] [address] 06/28/2021 10:24:03 06/28/2021 11:09:29 test positive 633040515 Z32.01 Risk factors addressed: Tobacco Cessation, Safe [...] well woman examinatio n and address preventati [facility] . [id number] Damien Tinoco MD [facility] [address],[place] [address] 06/28/2021 10:25:04 06/28/2021 11:20:54 [id number] Tata Anthony MD [facility] [address],[place] [address] 07/25/2021 12:04:45 07/25/2021 13:14:02 Body mass index 40+ - severely obese 915616784 Z68.42 Gastroesop hageal reflux disease 134083603 K21.9 Hyperemesi s gravidarum 16735729 O21.0 [id number] Tata Anthony MD [facility] [address],[place] [address] 07/25/2021 12:05:37 07/25/2021 13:49:16 screening 270716840 Z36.82 [id number] [facility] [address],[place] [address] 09/01/2021 15:36:29 09/01/2021 16:41:21 Venereal disease screening 990685211 Z11.3 Routine an tenatal care 463734547 Z34.92 [id number] Tata Anthony MD [facility] [address],[place] [address] 09/26/2021 10:22:34 09/26/2021 11:42:36 screening for malformation 146155146 Z36.3 [id number] Tata Anthony MD [facility] [address],[place] [address] 09/26/2021 10:23:01 09/26/2021 14:53:39 Body mass index 40+ - severely obese 224916876 Z68.42 Past pregn siddhartha history of gestational hypertension 860373999 Z87.59 Hyperemesi s gravidarum 30410902 O21.0 Marijuana user 518560403 F12.90 [id number] Damien Tinoco MD [facility] [address],[place] [address] 10/22/2021 12:50:37 10/24/2021 18:59:02 Routine care 141245100 Z34.82 [id number] [facility] [address],[place] [address] 11/18/2021 10:44:11 11/18/2021 11:26:38 Routine care 336531136 Z34.93 [id number] Erin Rolon CNM [facility] [address],[place] [address] 11/30/2021 13:56:26 11/30/2021 15:55:35 Routine care 467966802 Z34.93 [id number] Damien Tinoco MD [facility] [address],[place] [address] 11/30/2021 13:55:41 11/30/2021 14:47:55 Maternal obesity complicating , childbirth and the puerperium, antepartum 6223486162 07 O99.213 O99.891 U07.1 Z3A.31 [id number] Erin Rolon [facility] [address],[place] [address] 12/14/2021 11:38:51 12/14/2021 12:15:43 Routine care 036456674 Z34.93 Sinusitis 09151509 J32.9 [id number] Erin Rolon [facility] [address],[place] [address] 12/23/2021 11:30:45 12/23/2021 11:59:23 Routine care 486709882 Z34.93 [id number] Damien Tinoco MD [facility] [address],[place] [address] 12/23/2021 11:31:04 12/23/2021 12:28:11 Maternal obesity complicating , childbirth and the puerperium, antepartum 8109855308 07 O99.213 O99.891 U07.1 Z3A.34 [id number] Damien Tinoco MD [facility] [address],[place] [address] 12/23/2021 11:31:19 12/23/2021 13:01:43 Maternal obesity complicating , childbirth and the puerperium, antepartum 3922829472 07 O99.213 [id number] MD Stan Pompa [address],[place] [address] 12/30/2021 10:12:51 12/30/2021 12:02:06 Maternal obesity complicating , childbirth and the puerperium, antepartum 5167911250 07 O99.213 O99.891 Z3A.35 [id number] Damien Tinoco MD [facility] [address],[place] [address] 12/30/2021 10:13:15 12/30/2021 11:16:40 Maternal obesity complicating , childbirth and the puerperium, antepartum 9736571995 07 O99.213 O99.891 Z3A.35 [id number] [facility] [address],[place] [address] 12/30/2021 10:13:25 12/30/2021 12:38:33 Routine care 690862167 Z34.93 [id number] Damien Tinoco MD [facility] [address],[place] [address] 01/06/2022 09:32:09 01/06/2022 10:05:04 Maternal obesity complicating , childbirth and the puerperium, antepartum 3748156291 07 O99.213 O99.891 Z3A.35 [id number] [facility] [address],[place] [address] 01/06/2022 09:32:36 01/06/2022 10:33:07 Routine care 253841992 Z34.93 [id number] Damien Tinoco MD [facility] [address],[place] [address] 01/06/2022 09:33:15 01/06/2022 10:51:11 Maternal obesity complicating , childbirth and the puerperium, antepartum 9306614274 07 O99.213 O99.891 Z3A.36 [id number] MD Stan Pompa [address],[place] [address] 01/13/2022 11:02:08 01/13/2022 11:39:22 Maternal obesity complicating , childbirth and the puerperium, antepartum 8290127833 07 O99.213 O99.891 Z3A.37 [id number] Damien Tinoco MD [facility] [address],[place] [address] 01/13/2022 11:02:27 01/13/2022 12:14:28 Obese 665572757 E66.9 [id number] [facility] [address],[place] [address] 01/13/2022 11:02:48 01/13/2022 12:44:33 Routine care 770311903 Z34.93 [id number] Damien Tinoco MD [facility] [address],[place] [address] 2022 11:52:23 2022 12:27:37 Breech presentation 2790034 O32.1XX9 Z3A.37 [id number] [facility] [address],[place] [address] 01/20/2022 10:22:21 01/20/2022 12:08:15 Routine care 923096919 Z34.93 [id number] Erin Rolon CNM [facility] [address],[place] [address] 01/20/2022 10:22:01 01/20/2022 15:15:46 -induced hypertension 04043486 O13.9 [id number] Damien Tinoco MD [facility] [address],[place] [address] 01/20/2022 11:47:21 01/20/2022 13:01:17 condition affecting obstetrical care of mother 527634608 O36.8330 Z3A.38 [id number] Erin Rolon CNM [facility] [address],[place] [address] 05/10/2022 09:23:25 05/10/2022 18:38:38 Contraception care management 187496995 Z30.9 plan barrier method until labs and pcp visit Edema of l ower extremity 045883401 R60.0 labs and see pcp Abdominal pain 01939857 R10.9 us planned and labs Pain of breast 76404741 N64.4 bilateral still lactating check labs [id number] Damien Tinoco MD [facility] [address],[place] [address] 05/24/2022 12:29:39 05/24/2022 13:13:39 Abdominal pain 12563825 R10.9 [id number] Erin Rolon CNM [facility] [address] [address] 06/29/2023 10:58:52 06/29/2023 13:39:18 Pain in pelvis 73663070 R10.2 us and then referral to uro/tube winder hand at u, await vaginal culture 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 580864708 N81.6 [id number] Damien Tinoco MD [facility] [address] [address] 07/06/2023 12:34:52 07/06/2023 13:43:36 Pain in pelvis 53218840 R10.2 [id number] JÚNIOR Chavez [facility] [address],[place] [address] 01/22/2024 10:40:23 01/22/2024 13:39:30 Breast lump 16692195 N63.0 Diagnostic mammogram with u/s ordered for [...] Member ID Tong Member ID Guarantor Name 01/21/2024 1 [facility] ON OR AFTER 05/12/21 (MEDICAID REPLACEMENT - HMO) Kiley Nelson [id number] Kiley Nelson 06/29/2023 1 [facility] PRIOR TO 05/12/2021 (MEDICAID REPLACEMENT - HMO) [id number] Kiley Nelson [id number] Kiley Nelson Notes Date Note Type Note Provider Name and Address Organization Details Recorded Time 05/10/2022 text/html VisitReported by Patientdelivered in january wants to discuss bcm, also having lots of pain, abdominal and breast, water retention, hx pcos, seeing pcp after this visitabd pain comes and goes, feels likes its water retention in her abd, has gained about 20 lbs since last visitROS as noted in the HPI Erin Rolon CNM [address], [place], [address], [facility] 05/10/2022 12:03:44 06/29/2023 text/html ROS as noted in the HPI c/o prolapse, pelvic abd pain. has been going on about 6 mo, periods monthly, pain is daily not cyclical, hx pcos. also was on antibiotic and then diagnosed and tx for yeast but now redness and swelling, sex is painful, feels a bulging in her vaginahas to push down to release stool during bowel movementdoes not plan on having more childrens Eirn Rolon CNM [address], [place], [address], [facility] 06/29/2023 13:34:43 01/22/2024 text/html 29yo [id number] for evaluation of left breast painnoticed symptoms about 1 week ago, tender towards top/side of breast, tissue feels denser in this area. Did have influenza a few weeks ago and diagnosed with chest wall injury from coughing (has been following with PCP)no nipple dischargeneg n/v/fno fam hx of BC JÚNIOR Chavez [address], [place], [address], [facility] 01/22/2024 13:36:48 OBGyn Episode Ob Episode Information Episode Created Date Number of Fetuses Patient Bloodtype Patient rh Status Prepregnancy Weight lbs Domestic Partner Domestic Partner Phone Father Name [employer] Sales Representative Status 06/27/20 21 1 CLOSED Fetus Data First Name Last Name Admitted to NICU Weight (g) Sex Living Outcome Pediatric Complications Fetus ID Race Codes Race Delivery Type 3203.26 6704 F Full Term 46804 Vaginal Delivery David Calculation Initial David Date [...] Domestic Partner Domestic Partner Phone Father Name [employer] Sales Representative Status 06/27/20 21 1 CLOSED Fetus Data First Name Last Name Admitted to NICU Weight (g) Sex Living Outcome Pediatric Complications Fetus ID Race Codes Race Delivery Type , Spontane ous [id number] David Calculation Initial David Date Initial Exam [...] Domestic Partner Domestic Partner Phone Father Name [employer] Sales Representative Status 06/27/20 21 1 CLOSED Fetus Data First Name Last Name Admitted to NICU Weight (g) Sex Living Outcome Pediatric Complications Fetus ID Race Codes Race Delivery Type 3600.15 9704 F Full Term 89314 Vaginal Delivery David Calculation Initial David Date [...] Post Complications Tubal Sterilization Discharge Date Comments 7 40 Discharge Information Feeding Method Contraceptive Method Maternal HG B and HCT Levels Ob Episode Information Episode Created Date Number of Fetuses Patient Bloodtype Patient rh Status Prepregnancy Weight lbs Domestic Partner Domestic Partner Phone Father Name Textiles Sales Representative Status 07/25/20 21 1 A Positive 289 CLOSED Fetus Data First Name Last Name Admitted to NICU Weight (g) Sex Living Outcome Pediatric Complications Fetus ID Race Codes Race Delivery Type 3061.74 6 F true Full Term meconium 11335 Vaginal Delivery Problems Problem Notes GBS negative, Uric Acid NL Problem Name Start Date End Date Resolution Snomed Code Not e Hyperemesis gravidarum 4168918 1 lost 13# by CASSI- fuad Marijuana user [id number] Past history of gestational hypertension 056485928 ASA 162mg, CMP WNL Body mass index 40+ - severely obese [id number] lisa ting at 34 weeks - sheet given to ALDAIR to ask pt Asthma [id number] 11/08 - pt reports using home nebulizer nightly due to possible COVID and/or RSV COVID-19 11/09/2021 [id number] serial gr owth and asa David Calculation [...] Date Ultra Sound Latest Days Gestation 0 [email or web address] 07/25/2021 02/02/20 22 0 Pre- Flowsheet Flowsheet Date 07/25/2021 Harrington Score Blood Edema Fundus Height Fundus Units Glucose Ketones Leukocytes Nitrite Labor Signs Protein Cervic Dilation Cervic Effacement Cervic Station none Type Weight in lbs Pre/Post Dialysis Refused Weight 276.292910661519 BP Diastolic BP Location Tested BP Systolic [...] Weight in lbs Pre/Post Dialysis Refused Weight 285.053180024916 BP Diastolic BP Location Tested BP Systolic [...] Weight in lbs Pre/Post Dialysis Refused Weight 278.198226257123 BP Diastolic BP Location Tested BP Systolic [...] Weight in lbs Pre/Post Dialysis Refused Weight 288.629507410095 BP Diastolic BP Location Tested BP Systolic [...] Weight in lbs Pre/Post Dialysis Refused Weight 282.479312160632 BP Diastolic BP Location Tested BP Systolic [...] rpt bp normotensive, asymptomatic Flowsheet Date 11/30/2021 [place] Score Blood Edema Fundus Height Fundus Units [...] Weight in lbs Pre/Post Dialysis Refused Weight 287.774103322355 BP Diastolic BP Location Tested BP Systolic [...] Weight in lbs Pre/Post Dialysis Refused Weight 285.802834602751 BP Diastolic BP Location Tested BP Systolic [...] Weight in lbs Pre/Post Dialysis Refused Weight 286.975377630648 BP Diastolic BP Location Tested BP Systolic [...] Weight in lbs Pre/Post Dialysis Refused Weight 286.921882844694 BP Diastolic BP Location Tested BP Systolic [...] Weight in lbs Pre/Post Dialysis Refused Weight 285.255237360570 BP Diastolic BP Location Tested BP Systolic [...] Weight in lbs Pre/Post Dialysis Refused Weight 286.238600649757 BP Diastolic BP Location Tested BP Systolic BP Type 76 113 Fetus Heart Rate Present Fetus Movement A Yes Comments PATIENT STATES THAT HAVING S OME PAIN, CONTRACTIONS, DISCHARGE, SWELLING, NAUSEA AND VOMITING. precautions reviewed IOL scheduled for 39 weeks BPP 8 vtx presentation Flowsheet Date 2022 Harrington Score [...] Weight in lbs Pre/Post Dialysis Refused Weight 291.830309780791 BP Diastolic BP Location Tested BP Systolic BP Type 79 119 Fetus Heart Rate Present Fetus Movement Comments Flowsheet Date 01/20/2022 Harrington Score Blood Edema Fundus Height Fundus Units Glucose Ketones Leukocytes Nitrite Labor Signs Protein Cervic Dilation Cervic Effacement Cervic Station neg trace trace Type Weight in lbs Pre/Post Dialysis Refused Weight 291.804292372119 BP Diastolic BP Location Tested BP Systolic [...] Estim ated Date of Delivery false Thalassemia (Chinese, Italian, Mediterranean, Or Background): MCV < 80 false Neural Tube Defect (Meningomyelocele, Spina Bifi da, Or Anencephaly) false Congenital Heart Defect false Down Syndrome false Pasha-Sachs (eg, Holiness, Cajun, Citizen Of [place]) f alse Parveen Disease false Sickle Cell Disease Or Trait () false Hemophilia Or Other Blood Disorders false Muscular Dystrophy false Cystic Fibrosis false [place]'s Chorea false Intellectual Disability/Autism false If Yes, [...] d Regional-Ep idural 39 false Erin Rolon PHU Maternal Obesity, Marijuana user & Hx ghtn Discharge Information Feeding Method Contraceptive Method Maternal HG B and HCT Levels Bottle Ob Episode Information Episode Created Date Number of Fetuses Patient Bloodtype Patient rh Status Prepregnancy Weight lbs Domestic Partner Domestic Partner Phone Father Name Textiles Sales Representative Status 07/25/20 21 1 CLOSED Fetus Data First Name Last Name Admitted to NICU Weight (g) Sex Living Outcome Pediatric Complications Fetus ID Race Codes Race Delivery Type , Spontane ous [id number] David Calculation Initial David Date Initial Exam [...]
--- OUTSIDE RECORDS SUMMARY | 2025-10-14 10:13 | XMS_ITS | Encounter Summary ---
Author Organization [facility] Address [address] [facility] [place] [address] Care Team Providers Care Clipper Machine Name Role Phone Chandu Barakat MD Unavailable [phone] Erin Rolon TECHNICAL SUPPORT ASSOCIATE-CHAIRMAN CEO Unavailable [phone] None, Physician Primary Care Provider Unavailabl e Encounter Details Date Type Department Care Team (Late st Contact Info) Description 10/14/2025 Results Follow-Up [facility] - [facility] [address] [place] [address], [address] [place] [id number] Chandu Barakat MD [address] [place] [id number] Social History Tobacco Use Types Packs/Day Years [...] on file Legal Sex Female 5:39 AM [employer] Gender Identity Not on file Sexual Orientation Not on file documented as of this encounter Plan of Treatment Upcoming Encounters Date Type Department Care Team (Late st Contact Info) Description 10/27/2025 1:20 PM [employer] Office Visit [facility] - [facility] AD[facility] [address] [facility], [address] [place] [address] Chandu Barakat MD [address] [facility] [address] [place] [address] 01/20/2026 3:30 PM CDT Office Visit [facility] - Allergy [address] [facility], [facility] [place] [address] Jarek eKlsey MD [address] [place] [address] documented as of this encounter Visit Diagnoses Not on filedocumented in this encounter Care Teams Clipper Machine Relationship Specialty Start Date End Date None, Physician PCP - General 07/02/25 Chandu Barakat MD [address] [facility] [address] [place] [id number] Casting And Pasting Supervisor Urogynecology 07/19/23 Erin Rolon APRN-CHAIRMAN CEO [address] [place] [address] Nurse Practitioner Gynecology 07/19/23 documented as of this encounter
[2025-10-14 18:51] LABS: Albumin Level 4.6 g/dL (3.5-5.1); Anion Gap 7 mmol/L (4-12); Blood Urea Nitrogen 16 mg/dL (7-17); Calcium 10.2 mg/dL (8.4-10.2); Carbon Dioxide 24 mmol/L (22-30); Chloride 105 mmol/L (98-107); Estimated Glomerular Filt Rate > 60; Glucose 64 mg/dL (65-110); Potassium 4.0 mmol/L (3.4-5.0); Sodium 136 mmol/L (137-145)
== END 2025-10-14 09:25 | disposition home or self-care (01) ==
LOC: ANHBWCLAB 09:24
PROVIDERS: PCP Nurse Practitioner Adult Health; Visit Provider Nurse Practitioner Adult Health
DX: N28.9 Disorder of kidney and ureter, unspecified (principal)
CPT/HCPCS: 36415; 80069